=== PATIENT | female | born 1980 ===

== ENCOUNTER 2016-11-17 10:12 | Inpatient (IN) | payer BC, MEDICAID ==
[2016-11-17] MEDS ORDERED: Piperacillin/Tazobact 3.375 GM in Sodium Chloride 0.9% 100 ML IVPB STA (12:11)
[2016-11-17 12:50] LABS: VENOUS BLOOD GAS BASE EXCESS 6.4 mmol/L (0.0-2.0); VENOUS BLOOD GAS PCO2 41 mmHg (40-60); VENOUS BLOOD GAS PO2 40 mm/Hg (30-55); VENOUS BLOOD PH 7.48 (7.32-7.43)
[2016-11-17 12:51] LABS: BASO # 0.2 K/uL (0.0-0.2); EOS % 0.1 % (0.0-4.0); HEMOGLOBIN 8.3 g/dL (12.0-16.0); LYMPH # 0.7 K/uL (1.0-4.3); LYMPH % 3.5 % (20.0-40.0); MEAN CELL VOLUME 62.8 fl (81.0-99.0); MEAN CORPUSCULAR HEMOGLOBIN 19.3 pg (27.0-31.0); MEAN CORPUSCULAR HGB CONC 30.7 g/dL (33.0-37.0); MEAN PLATELET VOLUME 8.7 fl (7.2-11.7); MONO # 0.8 K/uL (0.0-0.8); MONO % 3.9 % (0.0-10.0); NEUT # 19.6 K/uL (1.8-7.0); NEUT % 91.5 % (50.0-75.0); PLATELET COUNT 644 K/uL (130-400); RED CELL DISTRIBUTION WIDTH 17.8 % (11.5-14.5); WHITE BLOOD COUNT 21.4 K/uL (4.8-10.8)
[2016-11-17] MEDS ORDERED: Vancomycin 1 g Inj ONE (12:54)
[2016-11-17 12:57] LABS: SQUAMOUS EPITHIAL 2 /hpf (0-5); URINE BACTERIA MOD (<OCC); URINE BILIRUBIN NEGATIVE (NEGATIVE); URINE BLOOD LARGE (NEGATIVE); URINE CLARITY SLIGHTY-CLOUDY (Clear); URINE COLOR YELLOW (YELLOW); URINE GLUCOSE (UA) NEG (Normal); URINE LEUKOCYTE ESTERASE MOD Leu/uL (Negative); URINE NITRATE NEGATIVE (NEGATIVE); URINE PROTEIN 30 mg/dL (NEGATIVE); URINE UROBILINOGEN 0.2-1.0 mg/dL (0.2-1.0)
[2016-11-17 12:59] LABS: ALB/GLOB RATIO 0.8 (1.0-2.1); ALBUMIN 3.4 g/dL (3.5-5.0); ALT/SGPT 34 U/L (9-52); AST/SGOT 48 U/L (14-36); BLOOD UREA NITROGEN 11 mg/dl (7-17); CALCIUM 9.3 mg/dL (8.4-10.2); GFR AFRICAN-AMERICAN > 60; GFR NON-AFRICAN AMERICAN > 60
--- NOTE | 2016-11-17 13:01 | ED PDOC ---
HPI: Back Time Seen by Provider: 11/17/16 11:42 Chief Complaint (Nursing): Back Pain Chief Complaint (Provider): Right Lower Back Pain History Per: Patient History/Exam Limitations: no limitations Onset/Duration Of Symptoms: Other (3 weeks) Current Symptoms Are (Timing): Still Present Quality Of Discomfort: "Pain" Additional Complaint(s): Lillian Curry, a 36 year old female, presents to the ED complaining of right lower back pain, warmth and swelling, which became worse over the past 2-3 days. The patient reports that in June of this year she had a kidney stone and a stent was placed by Dr. chaney, she states that she was advised to take it out but did not do so due to insurance complications. Denies nausea, vomiting , diarrhea, fever, abdominal pain, hematuria, incontinence and saddle paresthesia. Past Medical History Reviewed: Historical Data, Nursing Documentation, Vital Signs Vital Signs: Last Vital Signs Temp 98.8 F 11/17/16 12:22 Pulse 128 H 11/17/16 12:22 Resp 16 11/17/16 12:22 BP 117/64 11/17/16 12:22 Pulse Ox 100 11/17/16 12:22 - Medical History PMH: Kidney Stones - Family History Family History: States: Unknown Family Hx - Home Medications Home Medications: Ambulatory Orders Medication Instructions Recorded Ferrous Sulfate [Feosol] 325 mg PO DAILY 11/17/16 Folic Acid [Folic Acid] 5 mg PO DAILY 11/17/16 Isoniazid [Niazid] 300 mg PO DAILY 11/17/16 Lactobacillus Combination No.8 1 cap PO HS 11/17/16 [Adult Probiotic] Multivitamin [Multi-Vitamin Daily] 1 tab PO DAILY 11/17/16 Pyridoxine [Vitamin B6 50 mg Tab] 50 mg PO DAILY 11/17/16 - Allergies Allergies/Adverse Reactions: Allergies Allergy/AdvReac Type Severity Reaction Status Date / Time No Known Allergies Allergy Verified 11/17/16 12:07 Review of Systems Constitutional: Negative for: Fever Gastrointestinal: Negative for: Nausea, Vomiting, Abdominal Pain Genitourinary Female: Negative for: Incontinence, Hematuria Musculoskeletal: Positive for: Back Pain (Right lower back pain.) Physical Exam - Reviewed Nursing Documentation Reviewed: Yes Vital Signs Reviewed: Yes - Physical Exam Appears: Positive for: Non-toxic, No Acute Distress Head Exam: Positive for: ATRAUMATIC, NORMOCEPHALIC Skin: Positive for: Normal Color, Warm, Dry Eye Exam: Positive for: Normal appearance, EOMI, PERRL ENT: Positive for: Normal ENT Inspection Neck: Positive for: Normal, Painless ROM, Supple Cardiovascular/Chest: Positive for: Regular Rate, Rhythm, Chest Non Tender. Negative for: Tachycardia Respiratory: Positive for: Normal Breath Sounds. Negative for: Wheezing, Respiratory Distress Gastrointestinal/Abdominal: Positive for: Normal Exam, Bowel Sounds, Soft. Negative for: Tenderness, Guarding, Rebound Back: Negative for: Normal Inspection (Large amount of erythema with warmth swelling to the right paralumbar area extending into the lower axillary region w /o break and skin integrity, induration and fluctuance), L CVA Tenderness, R CVA Tenderness Extremity: Positive for: Normal ROM. Negative for: Tenderness, Deformity, Swelling Neurologic/Psych: Positive for: Alert, Oriented - Laboratory Results Result Diagrams: 11/17/16 16:45 11/17/16 12:35 - ECG O2 Sat by Pulse Oximetry: 100 (RA) Pulse Ox Interpretation: Normal Medical Decision Making Medical Decision Makin:42 Initial Impression: 36 year old female presenting with right lower back pain Initial Plan: * VBG * CT ABD&PELV * Comp metabolic panel * NPOdiet * Upreg * Udip * CBC * Vancomycin inj gm NS 250ml IVPB * Zosyn 3.375gm NS 100ml * Admit 12:10 * Urinalysis * Reevaluation Scribe Attestation Documented by Kelly Stevens acting as a scribe for Steven Pineda PA-C. Provider Attestation All medical record entries made by the Scribe were at my direction and personally dictated by me. I have reviewed the chart and agree that the record accurately reflects my personal performance of the history, physical exam, medical decision making, and the department course for this patient. I have also personally directed, reviewed, and agree with the discharge instructions and disposition. ED OBSERVATION Date of observation admission: 11/17/16 Time of observation admission: 12:10 - Observation admission statement Patient is being placed in observation because:: Cellulitis Vs. Abscess - Progress Note Progress Note: 11/17/16 14:16 Pt. requesting pain meds. Morphine 4mg IV, zofran 4mg IV given. 11/17/16 16:16 CT abd/pelvis w/ IV contrast: 1. Findings are come cyst and with large abscesses in the right lower abdomen, iliopsoas muscle, right lower posterolateral abdominal wall and right lower posterior lateral deep subcutaneous fat. Few small bowel loops are seen anterior to the abscess in the lower abdominal wall and an enteric fistula cannot be entirely excluded with the stated history of Crohn's disease. Postsurgical changes noted in the region of the cecum, question cough appendectomy, is the appendix has not been surgically removed, perforation cannot be excluded. 2. 3.9 x 1.5 x 3.5 cm abscess in the left lower quadrant adjacent to the distal descending colon. 3. Small nonobstructing stones in both kidneys. Left pelviureteral stent remains in place. There is mild bilateral hydronephrosis and mild diffuse dilatation of the ureters, worse on the left. Pt. evaluated by Dr. Beltre. Call placed to Dr. Dyson. Additional labs ordered. Additional fluids ordered. 11/17/16 16:36 Case d/w Dr. Helms who agrees with care. vice president of talent acquisition contacted. 11/17/16 17:15 Dr. Beltre discussed case with Dr. Mensah and arrangements made for admission. Case d/w Dr. Sunshine, ID leasing sales consultant, who states Zosyn IV, Vancomycin IV are sufficient coverage for pt.'s infection. 11/17/16 18:00 HgB 7.3. Consent obtained for blood transfusion. PRBC's given.. Disposition - Clinical Impression Clinical Impression: Intra-abdominal abscess, Sepsis - Patient ED Disposition Is Patient to be Admitted: Yes - Disposition Disposition Time: 17:01 Condition: GUARDED - Pt Status Changed To: Hospital Disposition Of: Inpatient - Admit Certification Admit to Inpatient:: After my assessment, the patient will require hospitalization for at least two midnights. This is because of the severity of symptoms shown, intensity of services needed, and/or the medical risk in this patient being treated as an outpatient.
[2016-11-17] MEDS ORDERED: Sodium Chloride 0.9% 1,000 ML IV STA ×3 (13:30→16:34)
[2016-11-17 14:17] LABS: ANISOCYTOSIS SLIGHT; BANDS 5 % (0-2); LYMPHOCYTE 4 % (20-50); MICROCYTOSIS SLIGHT; MONOCYTE 3 % (0-10); NEUTROPHIL 88 % (42-75); PLATELET ESTIMATE SLIGHTLY INCREASED (NORMAL); TOTAL CELLS COUNTED 100
[2016-11-17 14:18] LABS: HYPOCHROMIC SLIGHT; LARGE PLATELETS PRESENT; OVALOCYTES SLIGHT
[2016-11-17] MEDS ORDERED: Iohexol 300 100 ML IJ ONE (14:48)
[2016-11-17] MEDS ORDERED: Piperacillin/Tazobact 3.375 gm Inj IVPB ONE (15:51)
--- NOTE | 2016-11-17 16:00 | CT ---
PROCEDURE: CT Abdomen and Pelvis with contrast HISTORY: R paralumbar area with moderate erythema, history of Crohn's disease. COMPARISON: None. TECHNIQUE: CT scan of the abdomen and pelvis was performed after intravenous administration of contrast. Oral contrast was not administered. Coronal and sagittal reformatted images were obtained. Radiation dose: Total exam DLP = 320.36 mGy-cm. This CT exam was performed using one or more of the following dose reduction techniques: Automated exposure control, adjustment of the mA and/or kV according to patient size, and/or use of iterative reconstruction technique. FINDINGS: LOWER THORAX: There is linear atelectasis/scarring in the medial segment of the right middle lobe. The lung bases are clear. There are bilateral retroglandular saline breast implants. LIVER: The liver is normal in homogeneous. No gross lesion or ductal dilatation. GALLBLADDER AND BILE DUCTS: There are no calcified gallstones. PANCREAS: The pancreas is normal in size and there is homogeneous enhancement. No gross lesion or ductal dilatation. SPLEEN: There is mild splenomegaly. No focal lesion. ADRENALS: Both adrenal glands are normal. KIDNEYS AND URETERS: There are nonobstructing stones in both kidneys. There is mild right hydronephrosis and mild diffuse lesion the right ureteral there is also mild left hydronephrosis and diffuse dilatation of the left ureteral. There is a left pelviureteral stent. VASCULATURE: No aortic aneurysm. BOWEL: There is mild dilatation of fluid-filled small bowel loops. There is returning suture in the region of the cecum and the appendix is not distinctly identified. There is moderate amount of stool scattered throughout the colon. Also noted is a 3.9 x 1.5 x 3.5 cm ring-enhancing cystic lesion with foci of air in the left lower quadrant adjacent to the descending colon. IMPRESSION: There is a 4.0 x 3.2 x 4.6 cm rim enhancing cystic mass with foci of air in the right lower abdomen with medial extension into the right psoas muscle and posterior extension into the right iliacus muscle. There are also small bowel loops adherent to this cystic mass. APPENDIX: Not visualized. PERITONEUM: No free intraperitoneal air or significant free fluid in the peritoneal cavity. LYMPH NODES: There are prominent subcentimeter lymph nodes in the right lower quadrant. BLADDER: Unremarkable. REPRODUCTIVE: Unremarkable. BONES: No acute fracture. No destructive bony lesions. Severe degenerative disc disease at L5-S1. OTHER FINDINGS: There is a 8.5 x 2.2 by 8.8 cm rim enhancing cystic mass with air-fluid level in the right lower abdominal wall. Additionally, there is a 10.4 by 3.5 by 8.9 cm rim enhancing cystic mass with multiple foci of air in the deep subcutaneous tissues of the right lower posterior lateral abdominal wall. There is diffuse subcutaneous edema and soft tissue swelling in the right lateral abdominal wall. IMPRESSION: 1. Findings are come cyst and with large abscesses in the right lower abdomen, iliopsoas muscle, right lower posterolateral abdominal wall and right lower posterior lateral deep subcutaneous fat. Few small bowel loops are seen anterior to the abscess in the lower abdominal wall and an enteric fistula cannot be entirely excluded with the stated history of Crohn's disease. Postsurgical changes noted in the region of the cecum, question cough appendectomy, is the appendix has not been surgically removed, perforation cannot be excluded. 2. 3.9 x 1.5 x 3.5 cm abscess in the left lower quadrant adjacent to the distal descending colon. 3. Small nonobstructing stones in both kidneys. Left pelviureteral stent remains in place. There is mild bilateral hydronephrosis and mild diffuse dilatation of the ureters, worse on the left. Important findings were discussed with KAILA Pineda on 11/17/2016 at 3:45 p.m.
--- NOTE | 2016-11-17 16:30 | ED PDOC ---
- Laboratory Results Result Diagrams: 11/17/16 16:45 11/17/16 12:35 - ECG O2 Sat by Pulse Oximetry: 100 (RA) Pulse Ox Interpretation: Normal - Progress ED Course And Treament: 4p Reviewed CT scan with Alex BRIGHT and evaluated pt. Pt with persistent tachycardia and labs c/w sepsis. Addn'l IVF ordered. MICHELLE pt findings and plan of care. Paged surgery. MICHELLE Orosco Transition Social Worker, who reviewed findings in chart and determined that at this time pt stable for telemetry unit, unless repeat evaluation findings demonstrate worsening status or if surgery desires ICU. Pending repeat lactic acid and vitals and surgery consult. MICHELLE Huynh Surgery contract serviceman, Dr aC surgery resident. Evaluated by Dr Dent Surgery resident MICHELLE Mensah Med Service Other consults contacted: Dr Sunshine ID, Dr Woody GI, Dr Zhu IR Repeat lactic acid improved Hgb decreased. Transfusion ordered. Condition: Improving,but remains with symptoms - Critical Care Total Time (In Min): 30 Documented Critical Care: Time excludes all time spent performint seperately billable procedures Disposition - Clinical Impression Clinical Impression: Intra-abdominal abscess, Sepsis - POA Present On Arrival: Surgical Site Infection - Disposition Disposition: Admitted as In-Patient Disposition Time: 16:00 Condition: GUARDED
[2016-11-17 16:51] LABS: BASO # 0.2 K/uL (0.0-0.2); BASO % 0.9 % (0.0-2.0); EOS % 0.1 % (0.0-4.0); HEMOGLOBIN 7.8 g/dL (12.0-16.0); LYMPH # 1.1 K/uL (1.0-4.3); LYMPH % 5.9 % (20.0-40.0); MEAN CELL VOLUME 63.1 fl (81.0-99.0); MEAN CORPUSCULAR HEMOGLOBIN 18.9 pg (27.0-31.0); MEAN CORPUSCULAR HGB CONC 29.9 g/dL (33.0-37.0); MEAN PLATELET VOLUME 8.7 fl (7.2-11.7); MONO # 0.5 K/uL (0.0-0.8); MONO % 2.9 % (0.0-10.0); NEUT # 16.3 K/uL (1.8-7.0); NEUT % 90.2 % (50.0-75.0); PLATELET COUNT 636 K/uL (130-400); RBC 4.14 Mil/uL (3.80-5.20); RED CELL DISTRIBUTION WIDTH 18.2 % (11.5-14.5); WHITE BLOOD COUNT 18.1 K/uL (4.8-10.8)
[2016-11-17 16:55] LABS: VENOUS BLOOD GAS BASE EXCESS 4.8 mmol/L (0.0-2.0); VENOUS BLOOD GAS PCO2 45 mmHg (40-60); VENOUS BLOOD GAS PO2 29 mm/Hg (30-55); VENOUS BLOOD PH 7.43 (7.32-7.43)
[2016-11-17] MEDS ORDERED: Sodium Chloride 0.9% 1,000 ML IV ONE (17:30)
--- NOTE | 2016-11-17 17:52 | CP.PCM.CON ---
History of Present Illness - History of Present Illness History of Present Illness: General Surgery - Dr. Dyson 36 yo F w/ hx of Crohn's, who presents w/ worsening R flank pain x1 week. Pt states that the pain began 3 weeks ago but became significantly worse within the past week. It is described as a sharp burning pain, very tender to touch, located in the R lower back/R flank region. Pt states she noticed the skin around the area becoming red about 2 days ago. She denies any N/V, F/C, SOB/Cp , Abdominal pain, Diarrhea, Constipation, Dysuria, hematuria. Pt states that she was diagnosed with Crohn's disease in January 2016. She initially was treated with steroids but is now receiving Remicade infusion monthly. 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 PMH: Crohn's disease, Perforated appendicitis (~2004), Nephrolithiasis PSH: Ex-lap for perforated appendicitis, x 2, Ureteral stent ( June 2016) NKDA Review of Systems - Review of Systems All systems: reviewed and no additional remarkable complaints except (as per HPI ) Past Patient History - Past Social History Smoking Status: Never Smoked - RENAL Hx Kidney Stones: Yes - HEMATOLOGICAL/ONCOLOGICAL Hx Blood Disorders: Yes Hx Anemia: Yes - GASTROINTESTINAL Hx Gastrointestinal Disorders: Yes Hx Crohn's Disease: Yes - PSYCHIATRIC Hx Substance Use: No - SURGICAL HISTORY Hx Surgeries: Yes Hx Appendectomy: Yes Hx Section: Yes (x3) Other/Comment: "Kidney stent," Breast augmentation - ANESTHESIA Hx Anesthesia: Yes Hx Anesthesia Reactions: No Meds Allergies/Adverse Reactions: Allergies Allergy/AdvReac Type Severity Reaction Status Date / Time No Known Allergies Allergy Verified 11/17/16 12:07 - Medications Medications: Current Medications Dextrose/Sodium Chloride (Dextrose 5%-0.9% Ns 500 Ml) 1,000 mls @ 100 mls/hr IV .Q10H [facility] Sodium Chloride (Sodium Chloride 0.9%) 1,000 mls @ 1,000 mls/hr IV .Q1H ONE Stop: 11/17/16 18:29 Physical Exam - Constitutional Appears: No Acute Distress - Head Exam Head Exam: ATRAUMATIC, NORMAL INSPECTION, NORMOCEPHALIC - Eye Exam Eye Exam: Normal appearance - ENT Exam ENT Exam: Mucous Membranes Dry - Respiratory Exam Respiratory Exam: NORMAL BREATHING PATTERN. absent: Respiratory Distress - Cardiovascular Exam Cardiovascular Exam: Tachycardia - GI/Abdominal Exam GI & Abdominal Exam: Soft. absent: Distended, Guarding, Rebound, Rigid, Tenderness - Back Exam Back exam: paraspinal tenderness, tenderness (Right flank w/ erythema and slight induration, very tender) - Neurological Exam Neurological exam: Alert, Oriented x3 - Psychiatric Exam Psychiatric exam: Normal Affect, Normal Mood - Skin Skin Exam: Dry, Intact Results - Vital Signs Recent Vital Signs: Last Vital Signs Temp 98.7 F 11/17/16 16:30 Pulse 111 H 11/17/16 16:30 Resp 20 11/17/16 16:30 BP 106/56 L 11/17/16 16:30 Pulse Ox 100 11/17/16 17:18 - Labs Result Diagrams: 11/17/16 16:45 11/17/16 12:35 - Imaging and Cardiology CT scan - abdomen Status: Image reviewed by me, Report reviewed by me Assessment & Plan - Assessment and Plan (Free Text) Assessment: 36 yo F w/ Crohn's disease, presenting w/ sepsis and 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 GI consult -Pain control -Supportive Medical tx for now -Consider IR drainage of the abscess, if develops closer to the skin could consider surgical drainage in the next few days DW Dr Kiel Dent PGY2
[2016-11-17 17:59] LABS: BANDS 1 % (0-2); LYMPHOCYTE 6 % (20-50); MONOCYTE 2 % (0-10); NEUTROPHIL 91 % (42-75); TOTAL CELLS COUNTED 100
[2016-11-17 18:00] LABS: PLATELET ESTIMATE MARKEDLY INCREASED (NORMAL)
[2016-11-17 18:01] LABS: SPHEROCYTES SLIGHT
[2016-11-17 18:41] LABS: INR 1.4 (0.9-1.2); PARTIAL THROMBOPLASTIN TIME 25.7 Seconds (25.6-37.1); PROTHROMBIN TIME 15.7 Seconds (9.8-13.1)
--- NOTE | 2016-11-17 18:51 | CP.PCM.CON ---
History of Present Illness - History of Present Illness History of Present Illness: 36 yo female coming to ER for right flank pain. Pain present for 3 weeks and worst over past week.. Had right ureteral stent placed and never removed. Was diagnosed with Crohns in June and was receiving Remicade while tapering prednisone.Current dose of prednisone was just 5 mg. Last remicade infusion was one week ago. Review of Systems - EENT Eyes: absent: Blurred Vision - Cardiovascular Cardiovascular: absent: Chest Pain - Respiratory Respiratory: absent: Cough - Gastrointestinal Gastrointestinal: absent: Abdominal Pain Past Patient History - Past Social History Smoking Status: Never Smoked - RENAL Hx Kidney Stones: Yes - HEMATOLOGICAL/ONCOLOGICAL Hx Blood Disorders: Yes Hx Anemia: Yes - GASTROINTESTINAL Hx Gastrointestinal Disorders: Yes Hx Crohn's Disease: Yes - PSYCHIATRIC Hx Substance Use: No - SURGICAL HISTORY Hx Surgeries: Yes Hx Appendectomy: Yes Hx Section: Yes (x3) Other/Comment: "Kidney stent," Breast augmentation - ANESTHESIA Hx Anesthesia: Yes Hx Anesthesia Reactions: No Meds Allergies/Adverse Reactions: Allergies Allergy/AdvReac Type Severity Reaction Status Date / Time No Known Allergies Allergy Verified 11/17/16 12:07 - Medications Medications: Current Medications Dextrose/Sodium Chloride (Dextrose 5%-0.9% Ns 500 Ml) 1,000 mls @ 100 mls/hr IV .Q10H [facility] Vancomycin HCl 1 gm/ Sodium (Chloride) 250 mls @ 166.667 mls/hr IVPB Q12 [facility] Piperacillin Sod/Tazobactam (Sod 3.375 gm/ Sodium Chloride) 100 mls @ 100 mls/ hr IVPB Q6 [facility] Morphine Sulfate (Morphine) 4 mg IVP Q4 PRN PRN Reason: Pain, moderate (4-7) Ondansetron HCl (Zofran Inj) 4 mg IVP Q4 PRN PRN Reason: Nausea/Vomiting Physical Exam - Head Exam Head Exam: ATRAUMATIC - Eye Exam Eye Exam: Normal appearance - ENT Exam ENT Exam: Mucous Membranes Moist - Respiratory Exam Respiratory Exam: Clear to Auscultation Bilateral - Cardiovascular Exam Cardiovascular Exam: REGULAR RHYTHM, +S1, +S2 - GI/Abdominal Exam GI & Abdominal Exam: Distended, Firm. absent: Tenderness Additional comments: Right flank with very large .10 cm indurated tender prominence Results - Vital Signs Recent Vital Signs: Last Vital Signs Temp 98.7 F 11/17/16 16:30 Pulse 111 H 11/17/16 16:30 Resp 20 11/17/16 16:30 BP 106/56 L 11/17/16 16:30 Pulse Ox 100 11/17/16 17:18 - Labs Result Diagrams: 11/17/16 16:45 11/17/16 12:35 Labs: Laboratory Results - last 24 hr 11/17/16 11/17/16 18:00 18:00 PT 15.7 H INR 1.4 H APTT 25.7 BBK History Checked No verified bt Assessment & Plan (1) Intra-abdominal abscess Assessment and Plan: Multiple abdominal abscesses and IV antibiotics started. ID and surgical services seeing patient. May need both surgical and IR to drain the abscesses. Status: Acute
[2016-11-17] MEDS ORDERED: Propofol 10 mg/ml Inj (20 ML) ONE (20:46)
[2016-11-17] MEDS ORDERED: Midazolam 2 MG/2 ML VIAL ONE (20:47)
[2016-11-17] MEDS ORDERED: Lidocaine 1% Inj (20ml) ONE (21:11)
[2016-11-17] MEDS ORDERED: Sodium Chloride 0.9% 100 ML ONE (21:15)
--- NOTE | 2016-11-17 21:46 | PCM.SURG1 ---
Surgeon's Initial Post Op Note - Surgeon's Notes Surgeon: Javier Zhu MD Cashier Self Service Gasoline: NONE Type of Anesthesia: IV Sedation Pre-Operative Diagnosis: Crohn's disease, pelvic abscesses Operative Findings: Complex collections in the pelvis and right gluteal region with skin erythema. Post-Operative Diagnosis: Pelvic abscesses Operation Performed: CT guided placement of a 10 fr drain in the right gluteal abscess and 10 fr drain placement in the largest pelvic collection. Specimen/Specimens Removed: 80 cc of purulent drainage Estimated Blood Loss: EBL {In ML}: 1 Blood Products Given: N/A Drains Used: Inderjit Garcia Post-Op Condition: Fair Date of Surgery/Procedure: 11/17/16 Time of Surgery/Procedure: 21:40
[2016-11-17] MEDS: Piperacillin/Tazobact 3.375 GM in Sodium Chloride 0.9% 100 ML IVPB SCH (22:00)
[2016-11-17] MEDS ORDERED: Sodium Chloride 0.9% 1,000 ML IV SCH (22:45)
[2016-11-18] MEDS: Dextrose 5%/0.9% NS 1,000 ML IV SCH ×3 (00:30→22:49)
[2016-11-18] MEDS: Piperacillin/Tazobact 3.375 GM in Sodium Chloride 0.9% 100 ML IVPB SCH ×3 (03:50→22:49)
--- NOTE | 2016-11-18 08:58 | CP.PCM.PN ---
Subjective - Date & Time of Evaluation Date of Evaluation: 11/18/16 Time of Evaluation: 08:56 - Subjective Subjective: General Surgery - Dr. Dyson Pt S&E. Last night pt went for IR drainage of the R flank abscess, 80cc purulent drainage. This morning pt states that her pain is improved. She denies any abdominal pain, N/V, F/C, SOb/Cp. Objective - Vital Signs/Intake and Output Vital Signs (last 24 hours): Temp Pulse Resp BP Pulse Ox 97.8 F 85 18 97/62 L 99 11/18/16 08:11 11/18/16 08:11 11/18/16 08:11 11/18/16 08:11 11/18/16 08:11 Intake and Output: 11/18/16 11/18/16 06:59 18:59 Intake Total 1350 Output Total 720 Balance 630 - Medications Medications: Current Medications Ferrous Sulfate (Feosol) 325 mg PO DAILY [facility] Folic Acid (Folic Acid) 5 mg PO DAILY [facility] Vancomycin HCl 1 gm/ Sodium (Chloride) 250 mls @ 166.667 mls/hr IVPB Q12 [facility] Last Admin: 11/18/16 00:14 Dose: 166.667 mls/hr Piperacillin Sod/Tazobactam (Sod 3.375 gm/ Sodium Chloride) 100 mls @ 100 mls/ hr IVPB Q6 [facility] Last Admin: 11/18/16 03:50 Dose: 100 mls/hr Sodium Chloride (Sodium Chloride 0.9%) 1,000 mls @ 1,000 mls/hr IV .Q1H [facility] Stop: 11/18/16 22:41 Last Admin: 11/17/16 22:45 Dose: 1,000 mls/hr Dextrose/Sodium Chloride (Dextrose 5%/0.9% Ns 1000 Ml) 1,000 mls @ 100 mls/hr IV .Q10H [facility] Last Admin: 11/18/16 00:30 Dose: 100 mls/hr Isoniazid (Niazid) 300 mg PO DAILY [facility] Lactobacillus Acidophilus (Bacid Acidophilus) 1 cap PO HS [facility] Morphine Sulfate (Morphine) 4 mg IVP Q4 PRN PRN Reason: Pain, moderate (4-7) Last Admin: 11/17/16 19:58 Dose: 4 mg Multivitamins/Minerals (Therapeutic-M Tab) 1 tab PO DAILY [facility] Ondansetron HCl (Zofran Inj) 4 mg IVP Q4 PRN PRN Reason: Nausea/Vomiting Pyridoxine HCl (Vitamin B6 50 Mg Tab) 50 mg PO DAILY [facility] - Labs Labs: PT 15.7 Seconds (9.8-13.1) H 11/17/16 18:00 INR 1.4 (0.9-1.2) H 11/17/16 18:00 APTT 25.7 Seconds (25.6-37.1) 11/17/16 18:00 - Constitutional Appears: No Acute Distress - Head Exam Head Exam: ATRAUMATIC, NORMAL INSPECTION, NORMOCEPHALIC - Eye Exam Eye Exam: Normal appearance - Respiratory Exam Respiratory Exam: NORMAL BREATHING PATTERN. absent: Respiratory Distress - Cardiovascular Exam Cardiovascular Exam: REGULAR RHYTHM - GI/Abdominal Exam GI & Abdominal Exam: Soft. absent: Distended, Guarding, Tenderness, Rebound - Extremities Exam Additional comments: R flank still with mild erythema, less tender, with [address] with purulent drainage - Neurological Exam Neurological Exam: Alert, Oriented x3 - Psychiatric Exam Psychiatric exam: Normal Affect, Normal Mood - Skin Skin Exam: Dry, Intact Assessment and Plan - Assessment and Plan (Free Text) Assessment: 36 yo F w/ Crohn's disease, presenting w/ sepsis and multiloculated retroperitoneal abscess, s/p IR drainage -Monitor drains -Diet as per GI -Continue IV Abx and IVF -Pain control -Supportive Medical tx for now -No plans for further surgical intervention at this time DW Dr Kiel Dent PGY2
[2016-11-18] MEDS ORDERED: Piperacillin/Tazobact 3.375 gm Inj IVPB ONE (09:00)
[2016-11-18] MEDS ORDERED: Patient's Own Med (Multivitamin [Multi-Vitamin Daily] 1 TAB) PO SCH (09:00)
--- NOTE | 2016-11-18 09:24 | CP.PCM.HP ---
Present on Admission - Present on Admission Any Indicators Present on Admission: No Past Patient History - Tetanus Immunizations Tetanus Immunization: Unknown - Past Medical History & Family History Past Medical History?: Yes - Past Social History Smoking Status: Never Smoked - CARDIAC Hx Cardiac Disorders: No - PULMONARY Hx Respiratory Disorders: No - NEUROLOGICAL Hx Neurological Disorder: No - HEENT Hx HEENT Problems: No - RENAL Hx Kidney Stones: Yes - ENDOCRINE/METABOLIC Hx Endocrine Disorders: No - HEMATOLOGICAL/ONCOLOGICAL Hx Blood Disorders: Yes Hx Anemia: Yes - INTEGUMENTARY Hx Dermatological Problems: No - MUSCULOSKELETAL/RHEUMATOLOGICAL Hx Falls: No - GASTROINTESTINAL Hx Gastrointestinal Disorders: Yes Hx Crohn's Disease: Yes - PSYCHIATRIC Hx Substance Use: No - SURGICAL HISTORY Hx Surgeries: Yes Hx Appendectomy: Yes Hx Section: Yes (x3) Other/Comment: "Kidney stent," Breast augmentation - ANESTHESIA Hx Anesthesia: Yes Hx Anesthesia Reactions: No Meds Allergies/Adverse Reactions: Allergies Allergy/AdvReac Type Severity Reaction Status Date / Time No Known Allergies Allergy Verified 11/17/16 12:07 Physical Exam - Head Exam Head Exam: ATRAUMATIC - Eye Exam Eye Exam: EOMI, Normal appearance - Neck Exam Neck exam: Positive for: Full Rom, Normal Inspection - Respiratory Exam Respiratory Exam: Clear to Auscultation Bilateral, NORMAL BREATHING PATTERN - Cardiovascular Exam Cardiovascular Exam: REGULAR RHYTHM, +S1, +S2 - GI/Abdominal Exam GI & Abdominal Exam: Soft, Tenderness Additional comments: RLQ drain + with purulant discharge - Rectal Exam Rectal Exam: NORMAL INSPECTION - Exam Exam: NORMAL INSPECTION, Testicular Vertical Lie External exam: NORMAL EXTERNAL EXAM - Extremities Exam Extremities exam: Positive for: full ROM, normal inspection - Back Exam Back exam: NORMAL INSPECTION - Neurological Exam Neurological exam: Normal Gait - Psychiatric Exam Psychiatric exam: Normal Affect - Skin Skin Exam: Normal Color Results - Vital Signs Recent Vital Signs: Last Vital Signs Temp 97.8 F 11/18/16 08:11 Pulse 85 11/18/16 08:11 Resp 18 11/18/16 08:11 BP 97/62 L 11/18/16 08:11 Pulse Ox 99 11/18/16 08:11 - Labs Result Diagrams: 11/24/16 13:19 11/24/16 13:19 Labs: Laboratory Results - last 24 hr 11/17/16 11/17/16 11/17/16 18:00 18:00 18:10 PT 15.7 H INR 1.4 H APTT 25.7 Blood Type A POSITIVE Blood Type Confirm A POSITIVE Antibody Screen Negative Crossmatch See Detail BBK History Checked No verified bt Assessment & Plan - Assessment and Plan (Free Text) Assessment: Sepsis Intra abdominal abscess Chron's disease Plan: As ordered. Case and plan d/w patient Patient was personally seen and examined by me in rounds with residents. Available labs and diagnostic data reviewed. Case, patient's condition and management plan discussed with residents in rounds. Agree with resident's progress note. Plan: As ordered.
[2016-11-18] MEDS: Multivitamin With Minerals Tab PO SCH (10:27)
--- NOTE | 2016-11-18 20:14 | CT ---
PROCEDURE: HISTORY: COMPARISON: Same day TECHNIQUE: Noncontrast FINDINGS: There is re-demonstration of roughly 4.0 x 3.5 x 2.0 centimeter collection in the right hemipelvis, as well as re-demonstration of a large roughly 10 centimeter collection in the right posterior lateral subcutaneous fat with air components and possible communication with the a formation collection in the right pelvic cavity. This is not significantly changed. There is a drainage tube catheter placed within the internal pelvic cavity collection as well as within the left extra cavity the collection. IMPRESSION: Status post rage tube catheter placement in large right pelvic internal cavity collection as well as posterior lateral subcutaneous fat collection.
[2016-11-18] MEDS ORDERED: LACTOBACILLUS COMBINATION NO 8 PO SCH (22:00)
[2016-11-18] MEDS: Lactobacillus Acidophilus 500 MU Cap PO SCH (22:50)
[2016-11-19] MEDS: Piperacillin/Tazobact 3.375 GM in Sodium Chloride 0.9% 100 ML IVPB SCH ×4 (04:29→21:24)
[2016-11-19 08:21] LABS: HEMOGLOBIN 9.6 g/dL (12.0-16.0); MEAN CELL VOLUME 69.5 fl (81.0-99.0); MEAN CORPUSCULAR HEMOGLOBIN 21.9 pg (27.0-31.0); MEAN CORPUSCULAR HGB CONC 31.5 g/dL (33.0-37.0); RBC 4.38 Mil/uL (3.80-5.20); RED CELL DISTRIBUTION WIDTH 26.4 % (11.5-14.5); WHITE BLOOD COUNT 9.6 K/uL (4.8-10.8)
[2016-11-19 08:34] LABS: ALBUMIN 2.8 g/dL (3.5-5.0); ALT/SGPT 37 U/L (9-52); AST/SGOT 33 U/L (14-36); BLOOD UREA NITROGEN 5 mg/dl (7-17); CALCIUM 9.4 mg/dL (8.4-10.2); GFR AFRICAN-AMERICAN > 60; GFR NON-AFRICAN AMERICAN > 60
[2016-11-19] MEDS: Multivitamin With Minerals Tab PO SCH (08:43)
[2016-11-19 08:44] LABS: ALB/GLOB RATIO 0.8 (1.0-2.1)
--- NOTE | 2016-11-19 09:02 | CP.PCM.PN ---
Subjective - Date & Time of Evaluation Date of Evaluation: 11/19/16 Time of Evaluation: 06:25 - Subjective Subjective: SURGERY NOTE FOR DR. BOTELLO 36F seen and examined at bedside. AMAURY. Continues to complain of abdominal pain , which is improving. IR drains placed 2 days ago, upper drain out 40cc of purulent fluid and lower drain 30cc of purulent fluid. Objective - Vital Signs/Intake and Output Vital Signs (last 24 hours): Temp Pulse Resp BP Pulse Ox 98.8 F 93 H 18 99/66 L 98 11/19/16 08:02 11/19/16 08:02 11/19/16 08:02 11/19/16 08:02 11/19/16 08:02 Intake and Output: 11/19/16 11/19/16 06:59 18:59 Output Total 370 Balance -370 - Medications Medications: Current Medications Acetaminophen (Tylenol 325mg Tab) 650 mg PO Q6 PRN PRN Reason: Pain, moderate (4-7) Ferrous Sulfate (Feosol) 325 mg PO DAILY [facility] Last Admin: 11/19/16 08:43 Dose: 325 mg Folic Acid (Folic Acid) 5 mg PO DAILY [facility] Last Admin: 11/19/16 08:43 Dose: 5 mg Vancomycin HCl 1 gm/ Sodium (Chloride) 250 mls @ 166.667 mls/hr IVPB Q12 [facility] Last Admin: 11/19/16 08:43 Dose: 166.667 mls/hr Piperacillin Sod/Tazobactam (Sod 3.375 gm/ Sodium Chloride) 100 mls @ 100 mls/ hr IVPB Q6 [facility] Last Admin: 11/19/16 04:29 Dose: 100 mls/hr Dextrose/Sodium Chloride (Dextrose 5%/0.9% Ns 1000 Ml) 1,000 mls @ 100 mls/hr IV .Q10H [facility] Last Admin: 11/18/16 22:49 Dose: 100 mls/hr Isoniazid (Niazid) 300 mg PO DAILY [facility] Last Admin: 11/19/16 08:43 Dose: 300 mg Ketorolac Tromethamine (Toradol) 30 mg IVP Q8 PRN PRN Reason: Pain, severe (8-10) Last Admin: 11/18/16 23:09 Dose: 30 mg Lactobacillus Acidophilus (Bacid Acidophilus) 1 cap PO HS [facility] Last Admin: 11/18/16 22:50 Dose: 1 cap Morphine Sulfate (Morphine) 4 mg IVP Q4 PRN PRN Reason: Pain, moderate (4-7) Last Admin: 11/17/16 19:58 Dose: 4 mg Multivitamins/Minerals (Therapeutic-M Tab) 1 tab PO DAILY [facility] Last Admin: 11/19/16 08:43 Dose: 1 tab Ondansetron HCl (Zofran Inj) 4 mg IVP Q4 PRN PRN Reason: Nausea/Vomiting Pyridoxine HCl (Vitamin B6 50 Mg Tab) 50 mg PO DAILY [facility] Last Admin: 11/19/16 08:43 Dose: 50 mg - Labs Labs: 11/19/16 06:30 11/19/16 06:30 PT 15.7 Seconds (9.8-13.1) H 11/17/16 18:00 INR 1.4 (0.9-1.2) H 11/17/16 18:00 APTT 25.7 Seconds (25.6-37.1) 11/17/16 18:00 - Constitutional Appears: Non-toxic, No Acute Distress - Respiratory Exam Respiratory Exam: Clear to Ausculation Bilateral, NORMAL BREATHING PATTERN - Cardiovascular Exam Cardiovascular Exam: REGULAR RHYTHM, +S1, +S2 - GI/Abdominal Exam GI & Abdominal Exam: Soft, Tenderness. absent: Distended, Firm, Guarding, Rigid , Rebound Additional comments: IR drains in place. - 40cc and 30cc purulent fluid Assessment and Plan - Assessment and Plan (Free Text) Assessment: 36 yo F w/ Crohn's disease, presenting w/ sepsis and multiloculated retroperitoneal abscess, s/p IR drainage POD2 -Monitor drains -Diet as per GI -Continue IV Abx and IVF -Pain control -No plans for further surgical intervention at this time Further recs discuss with Dr. Kiel Serrano, PGY1
--- NOTE | 2016-11-19 12:36 | CP.PCM.CON ---
History of Present Illness - History of Present Illness History of Present Illness: 36 yo F w/ hx of Crohn's, who presents w/ worsening R flank pain x1 week. Pt states that the pain began 3 weeks ago but became significantly worse within the past week. , located in the R lower back/R flank region. Pt states she noticed the skin around the area becoming red about 2 days ago. Had drainage catheter placed by IR ID consulted for antibiotic management She denies any N/V, F/C, SOB/Cp, Abdominal pain, Diarrhea, Constipation, Dysuria , hematuria. Pt states that she was diagnosed with Crohn's disease in January 2016. She initially was treated with steroids but is now receiving Remicade infusion monthly. Pt states the can pusher she sees is at [facility]. PMH: Crohn's disease, Perforated appendicitis (~2004), Nephrolithiasis PSH: Ex-lap for perforated appendicitis, x 2, Ureteral stent ( June 2016) NKDA Review of Systems - Constitutional Constitutional: As Per HPI, Anorexia, Chills, Fever, Malaise - EENT Eyes: absent: As Per HPI, Blind Spots, Blurred Vision, Change in Vision, Decreased Night Vision, Diplopia, Discharge, Dry Eye, Exophthalmos, Floaters, Irritation, Itchy Eyes, Loss of Peripheral Vision, Pain, Photophobia, Requires Corrective Lenses, Sees Flashes, Spots in Vision, Tunnel Vision, Other Visual Disturbances, Loss of Vision, Other Ears: absent: As Per HPI, Decreased Hearing, Ear Discharge, Ear Pain, Tinnitus, Abnormal Hearing, Disequilibrium, Dizziness, Other Nose/Mouth/Throat: absent: As Per HPI, Epistaxis, Nasal Congestion, Nasal Discharge, Nasal Obstruction, Nasal Trauma, Nose Pain, Post Nasal Drip, Sinus Pain, Sinus Pressure, Bleeding Gums, Change in Voice, Dental Pain, Dry Mouth, Dysphagia, Halitosis, Hoarsness, Lip Swelling, Mouth Lesions, Mouth Pain, Odynophagia, Sore Throat, Throat Swelling, Tongue Swelling, Facial Pain, Neck Pain, Neck Mass, Other - Breasts Breasts: absent: As Per HPI, Change in Shape, Mass, Pain, Nipple Discharge, Nipple Inversion, Skin Changes, Swelling, Other - Cardiovascular Cardiovascular: absent: As Per HPI, Acrocyanosis, Chest Pain, Chest Pain at Rest , Chest Pain with Activity, Claudication, Diaphoresis, Dyspnea, Dyspnea on Exertion, Edema, Irregular Heart Rhythm, Pain Radiating to Arm/Neck/Jaw, Leg Edema, Leg Ulcers, Lightheadedness, Orthopnea, Palpitations, Paroxysmal Nocturnal Dyspnea, Pedal Edema, Radiating Pain, Rapid Heart Rate, Slow Heart Rate, Syncope, Other - Respiratory Respiratory: absent: As Per HPI, Cough, Dyspnea, Hemoptysis, Dyspnea on Exertion , Wheezing, Snoring, Stridor, Pain on Inspiration, Chest Congestion, Excessive Mucous Production, Change in Mucous Color, Pain with Coughing, Other - Gastrointestinal Gastrointestinal: As Per HPI, Abdominal Pain - Genitourinary Genitourinary: absent: As Per HPI, Change in Urinary Stream, Difficulty Urinating, Dysuria, Flank Pain, Hematuria, Pyuria, Nocturia, Urinary Incontinence, Urinary Frequency, Urinary Hesitance, Urinary Urgency, Voiding Freq/Small Amts, Freq UTI, Hx Renal/Bladder Calculi, Hx /Renal Surgery, Bladder Distension, Other - Reproductive: Female Reproductive:Female: absent: As Per HPI, Amenorrhea, Amenorrhea/ Control, Currently Menstual, Cycle <21 Days, Cycle >35 Days, Cycle Variable, Menses 1-7 Days, Menses >/= 8 Days, Menses Variable, Cycle > 4 Weeks Between, No Menses for 6 Months, Heavy Menses, Light Menses, Normal Menses, Spotting Between Cycles , S/P Hysterectomy, Menopausal, Post Menopausal, Premenarche, Abnormal Vaginal Bleeding, Dysmenorrhea, Dyspareunia, Genital Lesions, Genital Pruritis, Pelvic Pain, Prolapse Symptoms, Sexual Dysfunction, Vaginal Discharge, Vaginal Dryness , Vaginal Odor, Vaginal Pruritis, Other - Menstruation Menstruation: absent: As Per HPI, Amenorrhea, Amenorrhea/ Control, Currently Menstual, Cycle <21 Days, Cycle >35 Days, Cycle Variable, Menses 1-7 Days, Menses >/= 8 Days, Menses Variable, Cycle > 4 Weeks Between, No Menses for 6 Months, Heavy Menses, Light Menses, Normal Menses, Spotting Between Cycles , S/P Hysterectomy, Menopausal, Post Menopausal, Premenarche, Abnormal Vaginal Bleeding, Dysmenorrhea, Other - Musculoskeletal Musculoskeletal: absent: As Per HPI, Abnormal Gait, Arthralgias, Atrophy, Back Pain, Deformity, Joint Swelling, Limited Range of Motion, Loss of Height, Muscle Cramps, Muscle Weakness, Myalgias, Neck Pain, Numbness, Radiating Pain into Limb, Stiffness, Tingling, Other - Integumentary Integumentary: absent: As Per HPI, Acne, Alopecia, Bleeding Lesions, Change in Hair, Change in Nails, Change in Pigmentation, Changing Lesions, Dry Skin, Erythema, Furuncle, Hirsutism, Lesions, New Lesions, Non-Healing Lesions, Photosensitivity, Pruritus, Rash, Skin Pain, Skin Ulcer, Sores, Striae, Swelling , Unusual Bruising, Wounds, Jaundice, Other - Neurological Neurological: absent: As Per HPI, Abnormal Gait, Abnormal Hearing, Abnormal Movements, Abnormal Speech, Behavioral Changes, Burning Sensations, Confusion, Convulsions, Disequilibrium, Dizziness, Numbness, Focal Weakness, Frequent Falls , Headaches, Lack of Coordination, Loss of Vision, Memory Loss, Paresthesias, Radicular Pain, Restless Legs, Sensory Deficit, Syncope, Tingling, Tremor, Vertigo, Weakness, Other Visual Disturbances, Other - Psychiatric Psychiatric: absent: As Per HPI, Abnormal Sleep Pattern, Anhedonia, Anxiety, Auditory Hallucinations, Behavioral Changes, Change in Appetite, Change in Libido, Confusion, Depression, Difficulty Concentrating, Hallucinations, Homicidal Ideation, Hopelessness, Irritability, Memory Loss, Mood Swings, Panic Attacks, Paranoia, Suicidal Ideation, Visual Hallucinations, Tactile Hallucinations, Other - Endocrine Endocrine: absent: As Per HPI, Change in Body Appearance, Change in Libido, Cold Intolorance, Deepening of Voice, Excessive Sweating, Fatigue, Flushing, Heat Intolorance, Increase in Ring/Shoe/Hat Size, Palpitations, Polydipsia, Polyphagia, Polyuria, Other - Hematologic/Lymphatic Hematologic: absent: As Per HPI, Easy Bleeding, Easy Bruising, Lymphadenopathy, Other Past Patient History - Tetanus Immunizations Tetanus Immunization: Unknown - Past Medical History & Family History Past Medical History?: Yes - Past Social History Smoking Status: Never Smoked - CARDIAC Hx Cardiac Disorders: No - PULMONARY Hx Respiratory Disorders: No - NEUROLOGICAL Hx Neurological Disorder: No - HEENT Hx HEENT Problems: No - RENAL Hx Kidney Stones: Yes - ENDOCRINE/METABOLIC Hx Endocrine Disorders: No - HEMATOLOGICAL/ONCOLOGICAL Hx Blood Disorders: Yes Hx Anemia: Yes - INTEGUMENTARY Hx Dermatological Problems: No - MUSCULOSKELETAL/RHEUMATOLOGICAL Hx Falls: No - GASTROINTESTINAL Hx Gastrointestinal Disorders: Yes Hx Crohn's Disease: Yes - PSYCHIATRIC Hx Substance Use: No - SURGICAL HISTORY Hx Surgeries: Yes Hx Appendectomy: Yes Hx Section: Yes (x3) Other/Comment: "Kidney stent," Breast augmentation - ANESTHESIA Hx Anesthesia: Yes Hx Anesthesia Reactions: No Meds Allergies/Adverse Reactions: Allergies Allergy/AdvReac Type Severity Reaction Status Date / Time No Known Allergies Allergy Verified 11/17/16 12:07 - Medications Medications: Current Medications Acetaminophen (Tylenol 325mg Tab) 650 mg PO Q6 PRN PRN Reason: Pain, moderate (4-7) Ferrous Sulfate (Feosol) 325 mg PO DAILY [facility] Last Admin: 11/19/16 08:43 Dose: 325 mg Folic Acid (Folic Acid) 5 mg PO DAILY [facility] Last Admin: 11/19/16 08:43 Dose: 5 mg Vancomycin HCl 1 gm/ Sodium (Chloride) 250 mls @ 166.667 mls/hr IVPB Q12 [facility] Last Admin: 11/19/16 08:43 Dose: 166.667 mls/hr Piperacillin Sod/Tazobactam (Sod 3.375 gm/ Sodium Chloride) 100 mls @ 100 mls/ hr IVPB Q6 [facility] Last Admin: 11/19/16 11:13 Dose: 100 mls/hr Dextrose/Sodium Chloride (Dextrose 5%/0.9% Ns 1000 Ml) 1,000 mls @ 100 mls/hr IV .Q10H [facility] Last Admin: 11/18/16 22:49 Dose: 100 mls/hr Isoniazid (Niazid) 300 mg PO DAILY [facility] Last Admin: 11/19/16 08:43 Dose: 300 mg Ketorolac Tromethamine (Toradol) 30 mg IVP Q8 PRN PRN Reason: Pain, severe (8-10) Last Admin: 11/18/16 23:09 Dose: 30 mg Lactobacillus Acidophilus (Bacid Acidophilus) 1 cap PO HS [facility] Last Admin: 11/18/16 22:50 Dose: 1 cap Morphine Sulfate (Morphine) 4 mg IVP Q4 PRN PRN Reason: Pain, moderate (4-7) Last Admin: 11/17/16 19:58 Dose: 4 mg Multivitamins/Minerals (Therapeutic-M Tab) 1 tab PO DAILY [facility] Last Admin: 11/19/16 08:43 Dose: 1 tab Ondansetron HCl (Zofran Inj) 4 mg IVP Q4 PRN PRN Reason: Nausea/Vomiting Pyridoxine HCl (Vitamin B6 50 Mg Tab) 50 mg PO DAILY [facility] Last Admin: 11/19/16 08:43 Dose: 50 mg Physical Exam - Constitutional Appears: Non-toxic, Chronically Ill - Head Exam Head Exam: NORMOCEPHALIC - Eye Exam Eye Exam: PERRL. absent: Scleral icterus - ENT Exam ENT Exam: Mucous Membranes Dry, Normal External Ear Exam - Neck Exam Neck exam: Negative for: Lymphadenopathy - Respiratory Exam Respiratory Exam: Decreased Breath Sounds, Clear to Auscultation Bilateral - Cardiovascular Exam Cardiovascular Exam: REGULAR RHYTHM, +S1, +S2 - GI/Abdominal Exam GI & Abdominal Exam: Diminished Bowel Sounds, Distended, Soft, Tenderness. absent: Guarding, Pulsatile Mass, Rebound, Rigid Additional comments: drainage catheter in right flank - Rectal Exam Rectal Exam: Deferred - Exam Exam: NORMAL INSPECTION - Extremities Exam Extremities exam: Positive for: pedal pulses present. Negative for: calf tenderness, pedal edema, tenderness - Back Exam Back exam: absent: CVA tenderness (L), CVA tenderness (R), paraspinal tenderness - Neurological Exam Neurological exam: Alert, CN II-XII Intact, Oriented x3, Reflexes Normal - Psychiatric Exam Psychiatric exam: Normal Mood Results - Vital Signs Recent Vital Signs: Last Vital Signs Temp 98.4 F 11/19/16 12:09 Pulse 97 H 11/19/16 12:09 Resp 18 11/19/16 12:09 BP 98/65 L 11/19/16 12:09 Pulse Ox 99 11/19/16 12:09 - Labs Result Diagrams: 11/19/16 06:30 11/19/16 06:30 Labs: Laboratory Results - last 24 hr 11/19/16 11/19/16 06:30 06:30 WBC 9.6 RBC 4.38 Hgb 9.6 L Hct 30.4 L MCV 69.5 L D MCH 21.9 L MCHC 31.5 L RDW 26.4 H Plt Count 460 H D Sodium 142 Potassium 3.8 Chloride 108 H Carbon Dioxide 28 Anion Gap 10 BUN 5 L Creatinine 0.7 Est GFR ( Amer) > 60 Est GFR (Non-Af Amer) > 60 Random Glucose 92 Calcium 9.4 Total Bilirubin 0.3 AST 33 ALT 37 Alkaline Phosphatase 74 Total Protein 6.5 Albumin 2.8 L Globulin 3.7 Albumin/Globulin Ratio 0.8 L Vitamin B12 712 TSH 3rd Generation 0.85 Assessment & Plan (1) Acute Crohn's disease with abscess Status: Acute (2) Acute Crohn's disease with abscess Status: Acute (3) Acute Crohn's disease with complication Status: Acute (4) Acute Crohn's disease with complication Status: Acute (5) Intra-abdominal abscess Status: Acute (6) Sepsis Status: Acute - Assessment and Plan (Free Text) Assessment: s/p drainage of abscess await cultures cont iv antibiotics
[2016-11-19] MEDS: Lactobacillus Acidophilus 500 MU Cap PO SCH (21:24)
[2016-11-20] MEDS: Dextrose 5%/0.9% NS 1,000 ML IV SCH ×3 (02:53→21:40)
[2016-11-20] MEDS: Piperacillin/Tazobact 3.375 GM in Sodium Chloride 0.9% 100 ML IVPB SCH ×4 (03:00→21:33)
--- NOTE | 2016-11-20 08:18 | CP.PCM.PN ---
<Digna Rudd - Last Filed: 11/20/16 17:23> Subjective - Date & Time of Evaluation Date of Evaluation: 11/20/16 Time of Evaluation: 06:30 - Subjective Subjective: GENERAL SURGERY PROGRESS NOTE FOR DR. HUYNH Patient seen and examined at bedside. She states the pain is controlled with her medication (Toradol). She feels better than yesterday. She denies nausea and vomiting. Right upper drain had 40cc and Right lower drain had 25cc output over past 24 hours. She is going for PICC today with IR. Objective - Vital Signs/Intake and Output Vital Signs (last 24 hours): Temp Pulse Resp BP Pulse Ox 97.6 F 77 19 92/59 L 99 11/20/16 05:00 11/20/16 05:00 11/20/16 05:00 11/20/16 05:00 11/20/16 05:00 Intake and Output: 11/20/16 11/20/16 06:59 18:59 Output Total 30 Balance -30 - Medications Medications: Current Medications Acetaminophen (Tylenol 325mg Tab) 650 mg PO Q6 PRN PRN Reason: Pain, moderate (4-7) Last Admin: 11/19/16 14:10 Dose: 650 mg Ferrous Sulfate (Feosol) 325 mg PO DAILY [facility] Last Admin: 11/19/16 08:43 Dose: 325 mg Folic Acid (Folic Acid) 5 mg PO DAILY [facility] Last Admin: 11/19/16 08:43 Dose: 5 mg Vancomycin HCl 1 gm/ Sodium (Chloride) 250 mls @ 166.667 mls/hr IVPB Q12 [facility] Last Admin: 11/19/16 22:20 Dose: 166.667 mls/hr Piperacillin Sod/Tazobactam (Sod 3.375 gm/ Sodium Chloride) 100 mls @ 100 mls/ hr IVPB Q6 [facility] Last Admin: 11/20/16 03:00 Dose: 100 mls/hr Dextrose/Sodium Chloride (Dextrose 5%/0.9% Ns 1000 Ml) 1,000 mls @ 100 mls/hr IV .Q10H [facility] Last Admin: 11/20/16 02:53 Dose: 100 mls/hr Isoniazid (Niazid) 300 mg PO DAILY [facility] Last Admin: 11/19/16 08:43 Dose: 300 mg Ketorolac Tromethamine (Toradol) 30 mg IVP Q8 PRN PRN Reason: Pain, severe (8-10) Last Admin: 11/20/16 02:51 Dose: 30 mg Lactobacillus Acidophilus (Bacid Acidophilus) 1 cap PO HS [facility] Last Admin: 11/19/16 21:24 Dose: 1 cap Morphine Sulfate (Morphine) 4 mg IVP Q4 PRN PRN Reason: Pain, moderate (4-7) Last Admin: 11/17/16 19:58 Dose: 4 mg Multivitamins/Minerals (Therapeutic-M Tab) 1 tab PO DAILY [facility] Last Admin: 11/19/16 08:43 Dose: 1 tab Ondansetron HCl (Zofran Inj) 4 mg IVP Q4 PRN PRN Reason: Nausea/Vomiting Pyridoxine HCl (Vitamin B6 50 Mg Tab) 50 mg PO DAILY [facility] Last Admin: 11/19/16 08:43 Dose: 50 mg - Labs Labs: 11/19/16 06:30 11/19/16 06:30 PT 15.7 Seconds (9.8-13.1) H 11/17/16 18:00 INR 1.4 (0.9-1.2) H 11/17/16 18:00 APTT 25.7 Seconds (25.6-37.1) 11/17/16 18:00 - Constitutional Appears: Non-toxic, No Acute Distress - Respiratory Exam Respiratory Exam: NORMAL BREATHING PATTERN. absent: Respiratory Distress - Cardiovascular Exam Cardiovascular Exam: +S1, +S2 - GI/Abdominal Exam GI & Abdominal Exam: Soft, Tenderness (tender in RUQ and RLQ). absent: Distended, Firm, Guarding, Rigid Additional comments: IR drains in place with purulent fluid - Neurological Exam Neurological Exam: Alert, Awake - Psychiatric Exam Psychiatric exam: Normal Affect, Normal Mood Assessment and Plan - Assessment and Plan (Free Text) Assessment: 36yo F with Crohn's disease, with sepsis and multiloculated retroperitoneal abscess, s/p IR drainage POD#3 - Will continue to monitor drain output - Tolerating CLD - Continue IV Abx and IV fluids - Pain control PRN - ID consulted, blood cx negative @48 hours - Will discuss plan with Dr. Lino Rudd PGY-2 <Devon Huynh - Last Filed: 11/20/16 20:13> Subjective - Date & Time of Evaluation Time of Evaluation: 19:50 - Subjective Subjective: Patient was seen and examined at the bedside. Agree with resident's note above. Objective - Vital Signs/Intake and Output Vital Signs (last 24 hours): Temp Pulse Resp BP Pulse Ox 98.9 F 118 H 16 102/66 100 11/20/16 19:00 11/20/16 16:11 11/20/16 16:11 11/20/16 16:11 11/20/16 16:11 Intake and Output: 11/20/16 11/21/16 18:59 06:59 Intake Total 2550 Output Total 925 Balance 1625 - Medications Medications: Current Medications Acetaminophen (Tylenol 325mg Tab) 650 mg PO Q6 PRN PRN Reason: Pain, moderate (4-7) Last Admin: 11/19/16 14:10 Dose: 650 mg Ferrous Sulfate (Feosol) 325 mg PO DAILY [facility] Last Admin: 11/20/16 08:37 Dose: 325 mg Folic Acid (Folic Acid) 5 mg PO DAILY [facility] Last Admin: 11/20/16 08:38 Dose: 5 mg Vancomycin HCl 1 gm/ Sodium (Chloride) 250 mls @ 166.667 mls/hr IVPB Q12 [facility] Last Admin: 11/20/16 08:37 Dose: 166.667 mls/hr Piperacillin Sod/Tazobactam (Sod 3.375 gm/ Sodium Chloride) 100 mls @ 100 mls/ hr IVPB Q6 [facility] Last Admin: 11/20/16 15:32 Dose: 100 mls/hr Dextrose/Sodium Chloride (Dextrose 5%/0.9% Ns 1000 Ml) 1,000 mls @ 100 mls/hr IV .Q10H [facility] Last Admin: 11/20/16 15:33 Dose: 100 mls/hr Isoniazid (Niazid) 300 mg PO DAILY [facility] Last Admin: 11/20/16 08:38 Dose: 300 mg Ketorolac Tromethamine (Toradol) 30 mg IVP Q8 PRN PRN Reason: Pain, severe (8-10) Last Admin: 11/20/16 19:53 Dose: 30 mg Lactobacillus Acidophilus (Bacid Acidophilus) 1 cap PO HS [facility] Last Admin: 11/19/16 21:24 Dose: 1 cap Morphine Sulfate (Morphine) 4 mg IVP Q4 PRN PRN Reason: Pain, moderate (4-7) Last Admin: 11/17/16 19:58 Dose: 4 mg Multivitamins/Minerals (Therapeutic-M Tab) 1 tab PO DAILY [facility] Last Admin: 11/20/16 08:37 Dose: 1 tab Ondansetron HCl (Zofran Inj) 4 mg IVP Q4 PRN PRN Reason: Nausea/Vomiting Pyridoxine HCl (Vitamin B6 50 Mg Tab) 50 mg PO DAILY [facility] Last Admin: 11/20/16 08:37 Dose: 50 mg - Labs Labs: 11/19/16 06:30 11/19/16 06:30 PT 15.7 Seconds (9.8-13.1) H 11/17/16 18:00 INR 1.4 (0.9-1.2) H 11/17/16 18:00 APTT 25.7 Seconds (25.6-37.1) 11/17/16 18:00
[2016-11-20] MEDS: Multivitamin With Minerals Tab PO SCH (08:37)
--- NOTE | 2016-11-20 11:46 | CP.PCM.PN ---
Subjective - Date & Time of Evaluation Date of Evaluation: 11/19/16 Time of Evaluation: 07:00 - Subjective Subjective: The patient is seen and examined. Interim events noted. The patient remains in PCU unit. The patient feels okay. No specific complaints, ABd pain improved PHYSICAL EXAMINATION: GENERAL: The patient is in no acute distress. VITAL SIGNS: Stable. HEART: S1, S2 normal, regular. LUNGS: Good bilateral air entry. ABDOMEN: Soft, nontender. drainage tubes is in good position and functioning. EXTREMITIES: No edema, no calf swelling, no tenderness, no acute ischemia. CENTRAL NERVOUS SYSTEM: Essentially unchanged.Ski: sacral decub clean. Available diagnostic data reviewed. Telemetry monitoring does not reveal any significant arrythmias Over all pt is clinically stable. Plan: As ordered Objective - Vital Signs/Intake and Output Vital Signs (last 24 hours): Temp Pulse Resp BP Pulse Ox 97.5 F L 79 20 97/64 L 100 11/20/16 08:00 11/20/16 08:00 11/20/16 08:00 11/20/16 08:00 11/20/16 08:00 Intake and Output: 11/20/16 11/20/16 06:59 18:59 Output Total 30 Balance -30 - Medications Medications: Current Medications Acetaminophen (Tylenol 325mg Tab) 650 mg PO Q6 PRN PRN Reason: Pain, moderate (4-7) Last Admin: 11/19/16 14:10 Dose: 650 mg Ferrous Sulfate (Feosol) 325 mg PO DAILY [facility] Last Admin: 11/20/16 08:37 Dose: 325 mg Folic Acid (Folic Acid) 5 mg PO DAILY [facility] Last Admin: 11/20/16 08:38 Dose: 5 mg Vancomycin HCl 1 gm/ Sodium (Chloride) 250 mls @ 166.667 mls/hr IVPB Q12 [facility] Last Admin: 11/20/16 08:37 Dose: 166.667 mls/hr Piperacillin Sod/Tazobactam (Sod 3.375 gm/ Sodium Chloride) 100 mls @ 100 mls/ hr IVPB Q6 [facility] Last Admin: 11/20/16 09:13 Dose: 100 mls/hr Dextrose/Sodium Chloride (Dextrose 5%/0.9% Ns 1000 Ml) 1,000 mls @ 100 mls/hr IV .Q10H [facility] Last Admin: 11/20/16 02:53 Dose: 100 mls/hr Isoniazid (Niazid) 300 mg PO DAILY [facility] Last Admin: 11/20/16 08:38 Dose: 300 mg Ketorolac Tromethamine (Toradol) 30 mg IVP Q8 PRN PRN Reason: Pain, severe (8-10) Last Admin: 11/20/16 02:51 Dose: 30 mg Lactobacillus Acidophilus (Bacid Acidophilus) 1 cap PO HS [facility] Last Admin: 11/19/16 21:24 Dose: 1 cap Morphine Sulfate (Morphine) 4 mg IVP Q4 PRN PRN Reason: Pain, moderate (4-7) Last Admin: 11/17/16 19:58 Dose: 4 mg Multivitamins/Minerals (Therapeutic-M Tab) 1 tab PO DAILY [facility] Last Admin: 11/20/16 08:37 Dose: 1 tab Ondansetron HCl (Zofran Inj) 4 mg IVP Q4 PRN PRN Reason: Nausea/Vomiting Pyridoxine HCl (Vitamin B6 50 Mg Tab) 50 mg PO DAILY [facility] Last Admin: 11/20/16 08:37 Dose: 50 mg - Labs Labs: 11/19/16 06:30 11/19/16 06:30 PT 15.7 Seconds (9.8-13.1) H 11/17/16 18:00 INR 1.4 (0.9-1.2) H 11/17/16 18:00 APTT 25.7 Seconds (25.6-37.1) 11/17/16 18:00
--- NOTE | 2016-11-20 11:47 | CP.PCM.PN ---
Subjective - Date & Time of Evaluation Date of Evaluation: 11/20/16 Time of Evaluation: 07:00 - Subjective Subjective: The patient is seen and examined. Interim events noted. The patient remains in PCU unit. The patient feels okay. No specific complaints, Abd pain improved Cousults noted appriciated PHYSICAL EXAMINATION: GENERAL: The patient is in no acute distress. VITAL SIGNS: Stable. HEART: S1, S2 normal, regular. LUNGS: Good bilateral air entry. ABDOMEN: Soft, nontender. drainage tubes is in good position and functioning. EXTREMITIES: No edema, no calf swelling, no tenderness, no acute ischemia. CENTRAL NERVOUS SYSTEM: Essentially unchanged.Ski: sacral decub clean. Available diagnostic data reviewed. Telemetry monitoring does not reveal any significant arrythmias Over all pt is clinically stable. Plan: As ordered Objective - Vital Signs/Intake and Output Vital Signs (last 24 hours): Temp Pulse Resp BP Pulse Ox 97.5 F L 79 20 97/64 L 100 11/20/16 08:00 11/20/16 08:00 11/20/16 08:00 11/20/16 08:00 11/20/16 08:00 Intake and Output: 11/20/16 11/20/16 06:59 18:59 Output Total 30 Balance -30 - Medications Medications: Current Medications Acetaminophen (Tylenol 325mg Tab) 650 mg PO Q6 PRN PRN Reason: Pain, moderate (4-7) Last Admin: 11/19/16 14:10 Dose: 650 mg Ferrous Sulfate (Feosol) 325 mg PO DAILY [facility] Last Admin: 11/20/16 08:37 Dose: 325 mg Folic Acid (Folic Acid) 5 mg PO DAILY [facility] Last Admin: 11/20/16 08:38 Dose: 5 mg Vancomycin HCl 1 gm/ Sodium (Chloride) 250 mls @ 166.667 mls/hr IVPB Q12 [facility] Last Admin: 11/20/16 08:37 Dose: 166.667 mls/hr Piperacillin Sod/Tazobactam (Sod 3.375 gm/ Sodium Chloride) 100 mls @ 100 mls/ hr IVPB Q6 [facility] Last Admin: 11/20/16 09:13 Dose: 100 mls/hr Dextrose/Sodium Chloride (Dextrose 5%/0.9% Ns 1000 Ml) 1,000 mls @ 100 mls/hr IV .Q10H [facility] Last Admin: 11/20/16 02:53 Dose: 100 mls/hr Isoniazid (Niazid) 300 mg PO DAILY [facility] Last Admin: 11/20/16 08:38 Dose: 300 mg Ketorolac Tromethamine (Toradol) 30 mg IVP Q8 PRN PRN Reason: Pain, severe (8-10) Last Admin: 11/20/16 02:51 Dose: 30 mg Lactobacillus Acidophilus (Bacid Acidophilus) 1 cap PO HS [facility] Last Admin: 11/19/16 21:24 Dose: 1 cap Morphine Sulfate (Morphine) 4 mg IVP Q4 PRN PRN Reason: Pain, moderate (4-7) Last Admin: 11/17/16 19:58 Dose: 4 mg Multivitamins/Minerals (Therapeutic-M Tab) 1 tab PO DAILY [facility] Last Admin: 11/20/16 08:37 Dose: 1 tab Ondansetron HCl (Zofran Inj) 4 mg IVP Q4 PRN PRN Reason: Nausea/Vomiting Pyridoxine HCl (Vitamin B6 50 Mg Tab) 50 mg PO DAILY [facility] Last Admin: 11/20/16 08:37 Dose: 50 mg - Labs Labs: 11/19/16 06:30 11/19/16 06:30 PT 15.7 Seconds (9.8-13.1) H 11/17/16 18:00 INR 1.4 (0.9-1.2) H 11/17/16 18:00 APTT 25.7 Seconds (25.6-37.1) 11/17/16 18:00
--- NOTE | 2016-11-20 13:13 | CP.PCM.PN ---
Subjective - Date & Time of Evaluation Date of Evaluation: 11/20/16 Time of Evaluation: 09:00 - Subjective Subjective: s/p drainage LLQ abscess will need COLONOSCOPY IN THE NEAR FUTURE fOR picc LINE AND CONT OF IV RX AWAIT CULTURES Objective - Vital Signs/Intake and Output Vital Signs (last 24 hours): Temp Pulse Resp BP Pulse Ox 97.5 F L 79 20 97/64 L 100 11/20/16 08:00 11/20/16 08:00 11/20/16 08:00 11/20/16 08:00 11/20/16 08:00 Intake and Output: 11/20/16 11/20/16 06:59 18:59 Output Total 30 Balance -30 - Medications Medications: Current Medications Acetaminophen (Tylenol 325mg Tab) 650 mg PO Q6 PRN PRN Reason: Pain, moderate (4-7) Last Admin: 11/19/16 14:10 Dose: 650 mg Ferrous Sulfate (Feosol) 325 mg PO DAILY [facility] Last Admin: 11/20/16 08:37 Dose: 325 mg Folic Acid (Folic Acid) 5 mg PO DAILY [facility] Last Admin: 11/20/16 08:38 Dose: 5 mg Vancomycin HCl 1 gm/ Sodium (Chloride) 250 mls @ 166.667 mls/hr IVPB Q12 [facility] Last Admin: 11/20/16 08:37 Dose: 166.667 mls/hr Piperacillin Sod/Tazobactam (Sod 3.375 gm/ Sodium Chloride) 100 mls @ 100 mls/ hr IVPB Q6 [facility] Last Admin: 11/20/16 09:13 Dose: 100 mls/hr Dextrose/Sodium Chloride (Dextrose 5%/0.9% Ns 1000 Ml) 1,000 mls @ 100 mls/hr IV .Q10H [facility] Last Admin: 11/20/16 02:53 Dose: 100 mls/hr Isoniazid (Niazid) 300 mg PO DAILY [facility] Last Admin: 11/20/16 08:38 Dose: 300 mg Ketorolac Tromethamine (Toradol) 30 mg IVP Q8 PRN PRN Reason: Pain, severe (8-10) Last Admin: 11/20/16 02:51 Dose: 30 mg Lactobacillus Acidophilus (Bacid Acidophilus) 1 cap PO HS [facility] Last Admin: 11/19/16 21:24 Dose: 1 cap Morphine Sulfate (Morphine) 4 mg IVP Q4 PRN PRN Reason: Pain, moderate (4-7) Last Admin: 11/17/16 19:58 Dose: 4 mg Multivitamins/Minerals (Therapeutic-M Tab) 1 tab PO DAILY [facility] Last Admin: 11/20/16 08:37 Dose: 1 tab Ondansetron HCl (Zofran Inj) 4 mg IVP Q4 PRN PRN Reason: Nausea/Vomiting Pyridoxine HCl (Vitamin B6 50 Mg Tab) 50 mg PO DAILY [facility] Last Admin: 11/20/16 08:37 Dose: 50 mg - Labs Labs: 11/19/16 06:30 11/19/16 06:30 PT 15.7 Seconds (9.8-13.1) H 11/17/16 18:00 INR 1.4 (0.9-1.2) H 11/17/16 18:00 APTT 25.7 Seconds (25.6-37.1) 11/17/16 18:00 - Constitutional Appears: Non-toxic, Chronically Ill - Head Exam Head Exam: NORMOCEPHALIC - Eye Exam Eye Exam: PERRL. absent: Scleral icterus - ENT Exam ENT Exam: Mucous Membranes Dry - Neck Exam Neck Exam: absent: Lymphadenopathy - Respiratory Exam Respiratory Exam: Decreased Breath Sounds, Clear to Ausculation Bilateral - Cardiovascular Exam Cardiovascular Exam: REGULAR RHYTHM, +S1, +S2 - GI/Abdominal Exam GI & Abdominal Exam: Distended, Soft. absent: Tenderness - Rectal Exam Rectal Exam: Deferred - Exam Exam: NORMAL INSPECTION - Extremities Exam Extremities Exam: absent: Pedal Edema - Back Exam Back Exam: absent: CVA tenderness (L), CVA tenderness (R) - Neurological Exam Neurological Exam: Alert, Awake, Oriented x3 Assessment and Plan (1) Acute Crohn's disease with abscess Status: Acute (2) Acute Crohn's disease with abscess Status: Acute (3) Acute Crohn's disease with complication Status: Acute (4) Acute Crohn's disease with complication Status: Acute (5) Intra-abdominal abscess Status: Acute (6) Sepsis Status: Acute
[2016-11-20] MEDS ORDERED: Lidocaine 1% Inj (20ml) ONE (13:51)
--- NOTE | 2016-11-20 14:05 | PCM.SURG1 ---
Surgeon's Initial Post Op Note - Surgeon's Notes Surgeon: Javier Zhu MD Chaser Helper: NONE Type of Anesthesia: Local Pre-Operative Diagnosis: Abdominal abscess Operative Findings: Patent right brachial vein. Post-Operative Diagnosis: Abdominal abscess Operation Performed: Single lumen picc placement via right brachial vein, 35 cm. Tip in SVC. Specimen/Specimens Removed: None Estimated Blood Loss: EBL {In ML}: 2 Blood Products Given: N/A Drains Used: No Drains Post-Op Condition: Fair Date of Surgery/Procedure: 11/20/16 Time of Surgery/Procedure: 14:00
--- NOTE | 2016-11-20 14:44 | VASCULAR ---
PROCEDURE: Date of procedure: 11/20/2016 Procedure: 1. Placement of a right arm PICC with ultrasound and fluoroscopic guidance, CPT 21801 2. PICC tip confirmation with spot radiograph and is in the superior vena cava Medications: 3cc 1 percent lidocaine Total Fluoro time: 5.2 seconds Radiation: 0.37 MGy EBL: 2 cc HISTORY: Abscess requiring long-term IV antibiotics TECHNIQUE: Following informed consent and procedure time-out, the patient was placed supine on the interventional table and the right arm prepped and draped in the usual sterile fashion. Ultrasound showed a patent and compressible right basilic vein. After the skin was anesthetized with lidocaine, the basilic vein was accessed with micro micropuncture technique using ultrasound guidance. A guidewire was then advanced under fluoroscopic guidance into the superior vena cava. An image documenting ultrasound guidance for vascular access was permanently saved. The length of the single-lumen 4 Tamazight PICC was trimmed to 34 centimeters and advanced through a peel-away sheath. The PICC was position with tip of PICC confirm a spot radiograph the superior vena cava. The PICC was secured to the patient's skin. The PICC was flushed. A biopatch and sterile dressing was applied. IMPRESSION: Placement of a single-lumen 4 Tamazight PICC trimmed to 34 centimeters via right basilic vein. The tip of the PICC is confirmed with spot radiograph and is in the superior vena cava.
[2016-11-20] MEDS: Lactobacillus Acidophilus 500 MU Cap PO SCH (21:31)
[2016-11-21] MEDS: Piperacillin/Tazobact 3.375 GM in Sodium Chloride 0.9% 100 ML IVPB SCH ×4 (03:36→22:27)
[2016-11-21 06:08] LABS: HEMOGLOBIN 9.4 g/dL (12.0-16.0); MEAN CELL VOLUME 70.5 fl (81.0-99.0); MEAN CORPUSCULAR HEMOGLOBIN 21.3 pg (27.0-31.0); MEAN CORPUSCULAR HGB CONC 30.2 g/dL (33.0-37.0); RBC 4.42 Mil/uL (3.80-5.20); RED CELL DISTRIBUTION WIDTH 28.1 % (11.5-14.5); WHITE BLOOD COUNT 11.6 K/uL (4.8-10.8)
[2016-11-21 06:14] LABS: ALB/GLOB RATIO 0.7 (1.0-2.1); ALBUMIN 2.5 g/dL (3.5-5.0); ALT/SGPT 30 U/L (9-52); AST/SGOT 26 U/L (14-36); BLOOD UREA NITROGEN 5 mg/dl (7-17); GFR AFRICAN-AMERICAN > 60; GFR NON-AFRICAN AMERICAN > 60
[2016-11-21] MEDS: Multivitamin With Minerals Tab PO SCH (08:29)
[2016-11-21] MEDS: Dextrose 5%/0.9% NS 1,000 ML IV SCH (08:45)
--- NOTE | 2016-11-21 09:02 | CP.PCM.PN ---
Subjective - Date & Time of Evaluation Date of Evaluation: 11/21/16 Time of Evaluation: 08:40 - Subjective Subjective: Patient was seen and examined at the bedside. States that feels better, tolerating clear liquid diet. Objective - Vital Signs/Intake and Output Vital Signs (last 24 hours): Temp Pulse Resp BP Pulse Ox 98.3 F 78 20 102/69 97 11/21/16 08:00 11/21/16 08:00 11/21/16 08:00 11/21/16 08:00 11/21/16 08:00 Intake and Output: 11/21/16 11/21/16 06:59 18:59 Intake Total 1650 Output Total 25 Balance 1625 - Medications Medications: Current Medications Acetaminophen (Tylenol 325mg Tab) 650 mg PO Q6 PRN PRN Reason: Pain, moderate (4-7) Last Admin: 11/19/16 14:10 Dose: 650 mg Ferrous Sulfate (Feosol) 325 mg PO DAILY [facility] Last Admin: 11/21/16 08:30 Dose: 325 mg Folic Acid (Folic Acid) 5 mg PO DAILY [facility] Last Admin: 11/21/16 08:30 Dose: 5 mg Vancomycin HCl 1 gm/ Sodium (Chloride) 250 mls @ 166.667 mls/hr IVPB Q12 [facility] Last Admin: 11/21/16 08:00 Dose: 166.667 mls/hr Piperacillin Sod/Tazobactam (Sod 3.375 gm/ Sodium Chloride) 100 mls @ 100 mls/ hr IVPB Q6 [facility] Last Admin: 11/21/16 03:36 Dose: 100 mls/hr Dextrose/Sodium Chloride (Dextrose 5%/0.9% Ns 1000 Ml) 1,000 mls @ 100 mls/hr IV .Q10H [facility] Last Admin: 11/20/16 21:40 Dose: 100 mls/hr Isoniazid (Niazid) 300 mg PO DAILY [facility] Last Admin: 11/21/16 08:29 Dose: 300 mg Ketorolac Tromethamine (Toradol) 30 mg IVP Q8 PRN PRN Reason: Pain, severe (8-10) Last Admin: 11/21/16 05:10 Dose: 30 mg Lactobacillus Acidophilus (Bacid Acidophilus) 1 cap PO HS [facility] Last Admin: 11/20/16 21:31 Dose: 1 cap Morphine Sulfate (Morphine) 4 mg IVP Q4 PRN PRN Reason: Pain, moderate (4-7) Last Admin: 11/17/16 19:58 Dose: 4 mg Multivitamins/Minerals (Therapeutic-M Tab) 1 tab PO DAILY [facility] Last Admin: 11/21/16 08:29 Dose: 1 tab Ondansetron HCl (Zofran Inj) 4 mg IVP Q4 PRN PRN Reason: Nausea/Vomiting Pyridoxine HCl (Vitamin B6 50 Mg Tab) 50 mg PO DAILY [facility] Last Admin: 11/21/16 08:29 Dose: 50 mg - Labs Labs: 11/21/16 05:20 11/21/16 05:20 PT 15.7 Seconds (9.8-13.1) H 11/17/16 18:00 INR 1.4 (0.9-1.2) H 11/17/16 18:00 APTT 25.7 Seconds (25.6-37.1) 11/17/16 18:00 - Constitutional Appears: Well, Non-toxic, No Acute Distress - Head Exam Head Exam: ATRAUMATIC, NORMAL INSPECTION, NORMOCEPHALIC - Eye Exam Eye Exam: EOMI, Normal appearance, PERRL Pupil Exam: NORMAL ACCOMODATION, PERRL - ENT Exam ENT Exam: Mucous Membranes Moist, Normal Exam - Neck Exam Neck Exam: Full ROM, Normal Inspection - Respiratory Exam Respiratory Exam: Clear to Ausculation Bilateral, NORMAL BREATHING PATTERN - Cardiovascular Exam Cardiovascular Exam: REGULAR RHYTHM, +S1, +S2 - GI/Abdominal Exam GI & Abdominal Exam: Soft, Normal Bowel Sounds Additional comments: mildly tender in the lower abdomen, ND, no rebound, no guarding, pigtail catheters in place with some purulent material in the drains - Rectal Exam Rectal Exam: Deferred - Extremities Exam Extremities Exam: Full ROM, Normal Inspection - Neurological Exam Neurological Exam: Alert, Awake, Oriented x3 - Psychiatric Exam Psychiatric exam: Normal Affect, Normal Mood - Skin Skin Exam: Dry, Intact, Normal Color, Warm Assessment and Plan - Assessment and Plan (Free Text) Assessment: 36 y.o. female with intra-abdominal abscesses s/p IR drainage Plan: - Start regular diet - pain control - continue antibiotics as per medical team - repeat labs in am - Out of bed - DVT ppx - Will follow
[2016-11-21] MEDS ORDERED: Potassium Chloride 20 mEq ER Tab PO ONE (18:28)
[2016-11-21] MEDS: Lactobacillus Acidophilus 500 MU Cap PO SCH (22:25)
[2016-11-22] MEDS: Dextrose 5%/0.9% NS 1,000 ML IV SCH ×2 (04:35→17:48)
[2016-11-22] MEDS: Piperacillin/Tazobact 3.375 GM in Sodium Chloride 0.9% 100 ML IVPB SCH ×2 (04:39→09:43)
[2016-11-22 07:03] LABS: HEMOGLOBIN 9.2 g/dL (12.0-16.0); MEAN CELL VOLUME 70.1 fl (81.0-99.0); MEAN CORPUSCULAR HEMOGLOBIN 21.6 pg (27.0-31.0); MEAN CORPUSCULAR HGB CONC 30.7 g/dL (33.0-37.0); RBC 4.25 Mil/uL (3.80-5.20); RED CELL DISTRIBUTION WIDTH 28.1 % (11.5-14.5); WHITE BLOOD COUNT 12.3 K/uL (4.8-10.8)
[2016-11-22 07:33] LABS: ALB/GLOB RATIO 0.7 (1.0-2.1); ALBUMIN 2.5 g/dL (3.5-5.0); ALT/SGPT 33 U/L (9-52); AST/SGOT 21 U/L (14-36); BLOOD UREA NITROGEN 6 mg/dl (7-17); CALCIUM 8.8 mg/dL (8.4-10.2); GFR AFRICAN-AMERICAN > 60; GFR NON-AFRICAN AMERICAN > 60
--- NOTE | 2016-11-22 07:36 | CP.PCM.PN ---
Subjective - Date & Time of Evaluation Date of Evaluation: 11/22/16 Time of Evaluation: 07:00 - Subjective Subjective: GENERAL SURGERY PROGRESS NOTE FOR DR. BOTELLO Patient seen and examined at bedside. She is doing well. She was advanced to regular diet yesterday and she is tolerating that well. She denies nausea and vomiting. She had a fever Tmax 102.3 yesterday. Right upper drain had 90cc and Right lower drain had 15cc output over past 24 hours. Objective - Vital Signs/Intake and Output Vital Signs (last 24 hours): Temp Pulse Resp BP Pulse Ox 98.4 F 108 H 18 102/71 98 11/22/16 05:17 11/22/16 05:17 11/22/16 05:17 11/22/16 05:17 11/22/16 05:17 Intake and Output: 11/22/16 11/22/16 06:59 18:59 Intake Total 2050 Output Total 855 Balance 1195 - Medications Medications: Current Medications Acetaminophen (Tylenol 325mg Tab) 650 mg PO Q6 PRN PRN Reason: Pain, moderate (4-7) Last Admin: 11/19/16 14:10 Dose: 650 mg Acetaminophen (Tylenol 325mg Tab) 325 mg PO Q6 PRN PRN Reason: Fever >100.4 F Last Admin: 11/21/16 15:46 Dose: 325 mg Ferrous Sulfate (Feosol) 325 mg PO DAILY [facility] Last Admin: 11/21/16 08:30 Dose: 325 mg Folic Acid (Folic Acid) 5 mg PO DAILY [facility] Last Admin: 11/21/16 08:30 Dose: 5 mg Vancomycin HCl 1 gm/ Sodium (Chloride) 250 mls @ 166.667 mls/hr IVPB Q12 [facility] Last Admin: 11/21/16 20:52 Dose: 166.667 mls/hr Piperacillin Sod/Tazobactam (Sod 3.375 gm/ Sodium Chloride) 100 mls @ 100 mls/ hr IVPB Q6 [facility] Last Admin: 11/22/16 04:39 Dose: 100 mls/hr Dextrose/Sodium Chloride (Dextrose 5%/0.9% Ns 1000 Ml) 1,000 mls @ 100 mls/hr IV .Q10H [facility] Last Admin: 11/22/16 04:35 Dose: 100 mls/hr Isoniazid (Niazid) 300 mg PO DAILY [facility] Last Admin: 11/21/16 08:29 Dose: 300 mg Ketorolac Tromethamine (Toradol) 30 mg IVP Q8 PRN PRN Reason: Pain, severe (8-10) Last Admin: 11/21/16 15:40 Dose: 30 mg Lactobacillus Acidophilus (Bacid Acidophilus) 1 cap PO HS [facility] Last Admin: 11/21/16 22:25 Dose: 1 cap Multivitamins/Minerals (Therapeutic-M Tab) 1 tab PO DAILY [facility] Last Admin: 11/21/16 08:29 Dose: 1 tab Ondansetron HCl (Zofran Inj) 4 mg IVP Q4 PRN PRN Reason: Nausea/Vomiting Pyridoxine HCl (Vitamin B6 50 Mg Tab) 50 mg PO DAILY [facility] Last Admin: 11/21/16 08:29 Dose: 50 mg - Labs Labs: 11/22/16 05:00 11/22/16 05:00 PT 15.7 Seconds (9.8-13.1) H 11/17/16 18:00 INR 1.4 (0.9-1.2) H 11/17/16 18:00 APTT 25.7 Seconds (25.6-37.1) 11/17/16 18:00 - Constitutional Appears: Well, Non-toxic, No Acute Distress - Respiratory Exam Respiratory Exam: NORMAL BREATHING PATTERN. absent: Respiratory Distress - Cardiovascular Exam Cardiovascular Exam: +S1, +S2 - GI/Abdominal Exam GI & Abdominal Exam: Soft, Tenderness (tender in RLQ around IR drains). absent : Distended, Firm, Guarding, Rigid, Rebound Additional comments: [address] in right lower lateral abdomen - Neurological Exam Neurological Exam: Alert, Awake, Oriented x3 - Psychiatric Exam Psychiatric exam: Normal Affect, Normal Mood - Skin Skin Exam: Dry, Normal Color, Warm Assessment and Plan - Assessment and Plan (Free Text) Assessment: 36yo F with Crohn's disease, with sepsis and multiloculated retroperitoneal abscess, s/p IR drainage POD#4 - Fever Tmax 102.3 yesterday, afebrile since - WBC 12.3 today (11.6 yesterday) - Will continue to monitor drain output - Tolerating regular diet - Continue IV Abx and IV fluids - Pain control PRN - ID following, wound cx = E. Coli - Ordered repeat CT Abd/Pelvis with PO and IV contrast - Discussed plan with Dr. Kiel Rudd PGY-3
--- NOTE | 2016-11-22 07:50 | CP.PCM.PN ---
<Pradip Clement - Last Filed: 11/22/16 13:51> Subjective - Date & Time of Evaluation Date of Evaluation: 11/22/16 Time of Evaluation: 07:47 - Subjective Subjective: pt seen and examined at bedside with attending this morning. No acute events overnight. Pt lying in bed comfortably, NAD. Pt tolerating PO intake without difficulty. 2 functioning lower abdominal IR drains draining 90/15 cc respectively in the past 24 hours. No new complaints. Denies fever/chills, headaches, visual disturbances, CP/SOB/COLLIER, N/V/D, urinary symptoms. Objective - Vital Signs/Intake and Output Vital Signs (last 24 hours): Temp Pulse Resp BP Pulse Ox 98.4 F 108 H 18 102/71 98 11/22/16 05:17 11/22/16 05:17 11/22/16 05:17 11/22/16 05:17 11/22/16 05:17 Intake and Output: 11/22/16 11/22/16 06:59 18:59 Intake Total 2050 Output Total 855 Balance 1195 - Medications Medications: Current Medications Acetaminophen (Tylenol 325mg Tab) 650 mg PO Q6 PRN PRN Reason: Pain, moderate (4-7) Last Admin: 11/19/16 14:10 Dose: 650 mg Acetaminophen (Tylenol 325mg Tab) 325 mg PO Q6 PRN PRN Reason: Fever >100.4 F Last Admin: 11/21/16 15:46 Dose: 325 mg Ferrous Sulfate (Feosol) 325 mg PO DAILY [facility] Last Admin: 11/21/16 08:30 Dose: 325 mg Folic Acid (Folic Acid) 5 mg PO DAILY [facility] Last Admin: 11/21/16 08:30 Dose: 5 mg Vancomycin HCl 1 gm/ Sodium (Chloride) 250 mls @ 166.667 mls/hr IVPB Q12 [facility] Last Admin: 11/21/16 20:52 Dose: 166.667 mls/hr Piperacillin Sod/Tazobactam (Sod 3.375 gm/ Sodium Chloride) 100 mls @ 100 mls/ hr IVPB Q6 [facility] Last Admin: 11/22/16 04:39 Dose: 100 mls/hr Dextrose/Sodium Chloride (Dextrose 5%/0.9% Ns 1000 Ml) 1,000 mls @ 100 mls/hr IV .Q10H [facility] Last Admin: 11/22/16 04:35 Dose: 100 mls/hr Isoniazid (Niazid) 300 mg PO DAILY [facility] Last Admin: 11/21/16 08:29 Dose: 300 mg Ketorolac Tromethamine (Toradol) 30 mg IVP Q8 PRN PRN Reason: Pain, severe (8-10) Last Admin: 11/21/16 15:40 Dose: 30 mg Lactobacillus Acidophilus (Bacid Acidophilus) 1 cap PO HS [facility] Last Admin: 11/21/16 22:25 Dose: 1 cap Multivitamins/Minerals (Therapeutic-M Tab) 1 tab PO DAILY [facility] Last Admin: 11/21/16 08:29 Dose: 1 tab Ondansetron HCl (Zofran Inj) 4 mg IVP Q4 PRN PRN Reason: Nausea/Vomiting Pyridoxine HCl (Vitamin B6 50 Mg Tab) 50 mg PO DAILY [facility] Last Admin: 11/21/16 08:29 Dose: 50 mg - Labs Labs: 11/22/16 05:00 11/22/16 05:00 PT 15.7 Seconds (9.8-13.1) H 11/17/16 18:00 INR 1.4 (0.9-1.2) H 11/17/16 18:00 APTT 25.7 Seconds (25.6-37.1) 11/17/16 18:00 - Constitutional Appears: Non-toxic, No Acute Distress - ENT Exam ENT Exam: Mucous Membranes Moist - Respiratory Exam Respiratory Exam: Clear to Ausculation Bilateral, NORMAL BREATHING PATTERN - Cardiovascular Exam Cardiovascular Exam: REGULAR RHYTHM, RRR, +S1, +S2. absent: Gallop, JVD, Rubs, Murmur - GI/Abdominal Exam GI & Abdominal Exam: Soft, Tenderness (tenderness around drain insertion sites) , Normal Bowel Sounds. absent: Distended, Firm, Guarding, Rigid, Rebound Assessment and Plan - Assessment and Plan (Free Text) Plan: 36 y/o F with a PMHx remarkable for Crohns Disease admitted for intra-abdominal abcesses, s/p IR Drainage insertion, POD#4. Plan: 1) Sepsis (resolving) -monitor vitals -follow CBC, today 12.3>9.2/29.8<570 -continue IV Abx as per ID 2) Acute Crohns Disease with Abscess -s/p IR drain insertion POD#4 -monitor drains -reg diet -continue as per surgery recommendations <Ray Mensah K - Last Filed: 11/24/16 16:16> Objective - Vital Signs/Intake and Output Vital Signs (last 24 hours): Temp Pulse Resp BP Pulse Ox 98.2 F 86 20 100/68 97 11/24/16 13:00 11/24/16 13:00 11/24/16 13:00 11/24/16 13:00 11/24/16 13:00 Intake and Output: 11/24/16 11/24/16 06:59 18:59 Intake Total 100 Output Total 62 Balance -62 100 - Medications Medications: Current Medications Acetaminophen (Tylenol 325mg Tab) 650 mg PO Q6 PRN PRN Reason: Pain, moderate (4-7) Last Admin: 11/19/16 14:10 Dose: 650 mg Acetaminophen (Tylenol 325mg Tab) 325 mg PO Q6 PRN PRN Reason: Fever >100.4 F Last Admin: 11/21/16 15:46 Dose: 325 mg Ferrous Sulfate (Feosol) 325 mg PO DAILY [facility] Last Admin: 11/24/16 10:49 Dose: Not Given Folic Acid (Folic Acid) 5 mg PO DAILY [facility] Last Admin: 11/24/16 08:52 Dose: Not Given Hydrocortisone (Anusol-Hc) 1 applic [place] BID [facility] Last Admin: 11/24/16 10:14 Dose: 1 applic Dextrose/Sodium Chloride (Dextrose 5%/0.9% Ns 1000 Ml) 1,000 mls @ 100 mls/hr IV .Q10H [facility] Last Admin: 11/24/16 13:36 Dose: 100 mls/hr Metronidazole (Flagyl 500mg/100ml Ns) 100 mls @ 100 mls/hr IVPB Q8 [facility] Last Admin: 11/24/16 08:53 Dose: 100 mls/hr Cefazolin Sodium 2 gm/ Sodium (Chloride) 100 mls @ 100 mls/hr IVPB Q8 [facility] Last Admin: 11/24/16 10:05 Dose: 100 mls/hr Lactated Ringer's (Lactated Ringer's) 1,000 mls @ 45 mls/hr IV .[id number] [facility] Isoniazid (Niazid) 300 mg PO DAILY [facility] Last Admin: 11/24/16 08:52 Dose: Not Given Ketorolac Tromethamine (Toradol) 30 mg IVP Q8 PRN PRN Reason: Pain, severe (8-10) Last Admin: 11/24/16 10:05 Dose: 30 mg Lactobacillus Acidophilus (Bacid Acidophilus) 1 cap PO BID [facility] Multivitamins/Minerals (Therapeutic-M Tab) 1 tab PO DAILY [facility] Last Admin: 11/24/16 08:52 Dose: Not Given Ondansetron HCl (Zofran Inj) 4 mg IVP Q4 PRN PRN Reason: Nausea/Vomiting Pantoprazole Sodium (Protonix Ec Tab) 40 mg PO DAILY [facility] Pyridoxine HCl (Vitamin B6 50 Mg Tab) 50 mg PO DAILY [facility] Last Admin: 11/24/16 08:52 Dose: Not Given - Labs Labs: 11/24/16 13:19 11/24/16 13:19 PT 15.7 Seconds (9.8-13.1) H 11/17/16 18:00 INR 1.4 (0.9-1.2) H 11/17/16 18:00 APTT 25.7 Seconds (25.6-37.1) 11/17/16 18:00 Assessment and Plan - Assessment and Plan (Free Text) Assessment: Patient was personally seen and examined by me in rounds with residents. Available labs and diagnostic data reviewed. Case, patient's condition and management plan discussed with residents in rounds. Agree with resident's progress note. Plan: As ordered.
[2016-11-22] MEDS ORDERED: Iohexol 240 (50 ml) PO ONE (09:18)
[2016-11-22] MEDS: Multivitamin With Minerals Tab PO SCH (09:43)
--- NOTE | 2016-11-22 14:10 | CP.PCM.PN ---
Subjective - Date & Time of Evaluation Date of Evaluation: 11/22/16 Time of Evaluation: 08:00 - Subjective Subjective: still with intermittent fever drains in place on right side no abd pain or sob cultures grew pansensitive e coli Objective - Vital Signs/Intake and Output Vital Signs (last 24 hours): Temp Pulse Resp BP Pulse Ox 98.0 F 100 H 20 101/68 97 11/22/16 12:43 11/22/16 12:43 11/22/16 12:43 11/22/16 12:43 11/22/16 12:43 Intake and Output: 11/22/16 11/22/16 06:59 18:59 Intake Total 2050 Output Total 855 Balance 1195 - Medications Medications: Current Medications Acetaminophen (Tylenol 325mg Tab) 650 mg PO Q6 PRN PRN Reason: Pain, moderate (4-7) Last Admin: 11/19/16 14:10 Dose: 650 mg Acetaminophen (Tylenol 325mg Tab) 325 mg PO Q6 PRN PRN Reason: Fever >100.4 F Last Admin: 11/21/16 15:46 Dose: 325 mg Ferrous Sulfate (Feosol) 325 mg PO DAILY [facility] Last Admin: 11/22/16 09:43 Dose: 325 mg Folic Acid (Folic Acid) 5 mg PO DAILY [facility] Last Admin: 11/22/16 09:42 Dose: 5 mg Vancomycin HCl 1 gm/ Sodium (Chloride) 250 mls @ 166.667 mls/hr IVPB Q12 [facility] Last Admin: 11/22/16 09:43 Dose: 166.667 mls/hr Piperacillin Sod/Tazobactam (Sod 3.375 gm/ Sodium Chloride) 100 mls @ 100 mls/ hr IVPB Q6 [facility] Last Admin: 11/22/16 09:43 Dose: 100 mls/hr Dextrose/Sodium Chloride (Dextrose 5%/0.9% Ns 1000 Ml) 1,000 mls @ 100 mls/hr IV .Q10H [facility] Last Admin: 11/22/16 04:35 Dose: 100 mls/hr Isoniazid (Niazid) 300 mg PO DAILY [facility] Last Admin: 11/22/16 09:42 Dose: 300 mg Ketorolac Tromethamine (Toradol) 30 mg IVP Q8 PRN PRN Reason: Pain, severe (8-10) Last Admin: 11/22/16 10:20 Dose: 30 mg Lactobacillus Acidophilus (Bacid Acidophilus) 1 cap PO HS [facility] Last Admin: 11/21/16 22:25 Dose: 1 cap Multivitamins/Minerals (Therapeutic-M Tab) 1 tab PO DAILY [facility] Last Admin: 11/22/16 09:43 Dose: 1 tab Ondansetron HCl (Zofran Inj) 4 mg IVP Q4 PRN PRN Reason: Nausea/Vomiting Pyridoxine HCl (Vitamin B6 50 Mg Tab) 50 mg PO DAILY [facility] Last Admin: 11/22/16 09:42 Dose: 50 mg - Labs Labs: 11/22/16 05:00 11/22/16 05:00 PT 15.7 Seconds (9.8-13.1) H 11/17/16 18:00 INR 1.4 (0.9-1.2) H 11/17/16 18:00 APTT 25.7 Seconds (25.6-37.1) 11/17/16 18:00 - Constitutional Appears: Non-toxic, Chronically Ill - Head Exam Head Exam: NORMOCEPHALIC - Eye Exam Eye Exam: PERRL. absent: Scleral icterus - ENT Exam ENT Exam: Mucous Membranes Dry, Normal External Ear Exam - Neck Exam Neck Exam: absent: Lymphadenopathy - Respiratory Exam Respiratory Exam: Decreased Breath Sounds, Clear to Ausculation Bilateral - Cardiovascular Exam Cardiovascular Exam: REGULAR RHYTHM, +S1, +S2 - GI/Abdominal Exam GI & Abdominal Exam: Distended, Soft - Rectal Exam Rectal Exam: Deferred - Exam Exam: NORMAL INSPECTION - Extremities Exam Extremities Exam: absent: Calf Tenderness, Pedal Edema - Back Exam Back Exam: absent: CVA tenderness (L), CVA tenderness (R) - Neurological Exam Neurological Exam: Alert, Awake, Oriented x3 - Psychiatric Exam Psychiatric exam: Normal Mood - Skin Skin Exam: Dry, Intact Assessment and Plan (1) Acute Crohn's disease with abscess Status: Acute (2) Acute Crohn's disease with abscess Status: Acute (3) Acute Crohn's disease with complication Status: Acute (4) Acute Crohn's disease with complication Status: Acute (5) Intra-abdominal abscess Status: Acute (6) Sepsis Status: Acute - Assessment and Plan (Free Text) Assessment: cont iv rx possible or on sunday as per pt
--- NOTE | 2016-11-22 16:39 | CP.PCM.PN ---
Subjective - Date & Time of Evaluation Date of Evaluation: 11/22/16 Time of Evaluation: 16:33 - Subjective Subjective: Clinically feeling well Two drains in place and draining well. Objective - Vital Signs/Intake and Output Vital Signs (last 24 hours): Temp Pulse Resp BP Pulse Ox 98.1 F 108 H 20 107/72 100 11/22/16 16:31 11/22/16 16:31 11/22/16 16:31 11/22/16 16:31 11/22/16 16:31 Intake and Output: 11/22/16 11/22/16 06:59 18:59 Intake Total 0 Output Total 855 Balance 1195 - Medications Medications: Current Medications Acetaminophen (Tylenol 325mg Tab) 650 mg PO Q6 PRN PRN Reason: Pain, moderate (4-7) Last Admin: 11/19/16 14:10 Dose: 650 mg Acetaminophen (Tylenol 325mg Tab) 325 mg PO Q6 PRN PRN Reason: Fever >100.4 F Last Admin: 11/21/16 15:46 Dose: 325 mg Ferrous Sulfate (Feosol) 325 mg PO DAILY [facility] Last Admin: 11/22/16 09:43 Dose: 325 mg Folic Acid (Folic Acid) 5 mg PO DAILY [facility] Last Admin: 11/22/16 09:42 Dose: 5 mg Dextrose/Sodium Chloride (Dextrose 5%/0.9% Ns 1000 Ml) 1,000 mls @ 100 mls/hr IV .Q10H [facility] Last Admin: 11/22/16 04:35 Dose: 100 mls/hr Metronidazole (Flagyl 500mg/100ml Ns) 100 mls @ 100 mls/hr IVPB Q8 [facility] Cefazolin Sodium 2 gm/ Sodium (Chloride) 100 mls @ 100 mls/hr IVPB Q8 [facility] Isoniazid (Niazid) 300 mg PO DAILY [facility] Last Admin: 11/22/16 09:42 Dose: 300 mg Ketorolac Tromethamine (Toradol) 30 mg IVP Q8 PRN PRN Reason: Pain, severe (8-10) Last Admin: 11/22/16 10:20 Dose: 30 mg Lactobacillus Acidophilus (Bacid Acidophilus) 1 cap PO HS [facility] Last Admin: 11/21/16 22:25 Dose: 1 cap Multivitamins/Minerals (Therapeutic-M Tab) 1 tab PO DAILY [facility] Last Admin: 11/22/16 09:43 Dose: 1 tab Ondansetron HCl (Zofran Inj) 4 mg IVP Q4 PRN PRN Reason: Nausea/Vomiting Pyridoxine HCl (Vitamin B6 50 Mg Tab) 50 mg PO DAILY [facility] Last Admin: 11/22/16 09:42 Dose: 50 mg - Labs Labs: 11/22/16 05:00 11/22/16 05:00 PT 15.7 Seconds (9.8-13.1) H 11/17/16 18:00 INR 1.4 (0.9-1.2) H 11/17/16 18:00 APTT 25.7 Seconds (25.6-37.1) 11/17/16 18:00 - Head Exam Head Exam: NORMAL INSPECTION - Eye Exam Eye Exam: Normal appearance Pupil Exam: PERRL - ENT Exam ENT Exam: Mucous Membranes Moist - Neck Exam Neck Exam: Full ROM - Respiratory Exam Respiratory Exam: NORMAL BREATHING PATTERN - Cardiovascular Exam Cardiovascular Exam: REGULAR RHYTHM - GI/Abdominal Exam GI & Abdominal Exam: Soft, Normal Bowel Sounds. absent: Tenderness Assessment and Plan (1) Intra-abdominal abscess Assessment & Plan: Culture shows E coli. Had temperature spike yesterday but in general is clinically improved. Ureteral stent from June still in place and hydronephrosis is present. Having CT tomorrow. Consider Urology consultation Status: Acute
[2016-11-22] MEDS: metroNIDAZOLE 500mg/100ml NS 100 ML IVPB SCH (17:47)
[2016-11-22] MEDS: ceFAZolin 2 GM in Sodium Chloride 0.9% 100 ML IVPB SCH (18:00)
[2016-11-22] MEDS: Lactobacillus Acidophilus 500 MU Cap PO SCH (21:44)
[2016-11-23] MEDS: ceFAZolin 2 GM in Sodium Chloride 0.9% 100 ML IVPB SCH ×3 (00:04→16:39)
[2016-11-23] MEDS: Dextrose 5%/0.9% NS 1,000 ML IV SCH ×3 (00:05→22:43)
[2016-11-23] MEDS: metroNIDAZOLE 500mg/100ml NS 100 ML IVPB SCH ×3 (01:07→18:58)
[2016-11-23 05:54] LABS: BASO # 0.2 K/uL (0.0-0.2); BASO % 1.2 % (0.0-2.0); EOS # 0.2 K/uL (0.0-0.7); EOS % 1.5 % (0.0-4.0); HEMOGLOBIN 8.6 g/dL (12.0-16.0); LYMPH # 1.1 K/uL (1.0-4.3); LYMPH % 8.6 % (20.0-40.0); MEAN CELL VOLUME 70.3 fl (81.0-99.0); MEAN CORPUSCULAR HEMOGLOBIN 20.9 pg (27.0-31.0); MEAN CORPUSCULAR HGB CONC 29.7 g/dL (33.0-37.0); MEAN PLATELET VOLUME 8.6 fl (7.2-11.7); MONO # 0.3 K/uL (0.0-0.8); MONO % 2.5 % (0.0-10.0); NEUT # 11.5 K/uL (1.8-7.0); NEUT % 86.2 % (50.0-75.0); NRBC % 0.1 % (0.0-0.0); PLATELET COUNT 526 K/uL (130-400); RBC 4.12 Mil/uL (3.80-5.20); RED CELL DISTRIBUTION WIDTH 28.2 % (11.5-14.5); WHITE BLOOD COUNT 13.4 K/uL (4.8-10.8)
--- NOTE | 2016-11-23 06:35 | CARD ---
APPROVED REPORT EKG Measurement Heart [id number] <Conclusion> Sinus tachycardia Otherwise normal ECG
[2016-11-23] MEDS: Multivitamin With Minerals Tab PO SCH (09:10)
[2016-11-23 10:00] LABS: BANDS 2 % (0-2); LYMPHOCYTE 10 % (20-50); MONOCYTE 5 % (0-10); NEUTROPHIL 83 % (42-75); TOTAL CELLS COUNTED 100
[2016-11-23 10:01] LABS: PLATELET ESTIMATE INCREASED (NORMAL)
--- NOTE | 2016-11-23 10:03 | CP.PCM.PN ---
<Pradip Clement - Last Filed: 11/23/16 11:01> Subjective - Date & Time of Evaluation Date of Evaluation: 11/23/16 Time of Evaluation: 07:30 - Subjective Subjective: Pt seen and examined at bedside this morning. No acute events overnight. Afebrile. Pt reports +BM with looser stools yesterday. Tolerating PO intake w/o difficulty. No new complaints. Denies fever/chills, headaches, CP/SOB/ Palpitations, N/V/D/C, urinary symptoms, numbness/tingling. Objective - Vital Signs/Intake and Output Vital Signs (last 24 hours): Temp Pulse Resp BP Pulse Ox 97.8 F 87 18 114/77 99 11/23/16 08:00 11/23/16 08:00 11/23/16 08:00 11/23/16 08:00 11/23/16 08:00 Intake and Output: 11/23/16 11/23/16 06:59 18:59 Output Total 60 Balance -60 - Medications Medications: Current Medications Acetaminophen (Tylenol 325mg Tab) 650 mg PO Q6 PRN PRN Reason: Pain, moderate (4-7) Last Admin: 11/19/16 14:10 Dose: 650 mg Acetaminophen (Tylenol 325mg Tab) 325 mg PO Q6 PRN PRN Reason: Fever >100.4 F Last Admin: 11/21/16 15:46 Dose: 325 mg Ferrous Sulfate (Feosol) 325 mg PO DAILY [facility] Last Admin: 11/23/16 09:10 Dose: 325 mg Folic Acid (Folic Acid) 5 mg PO DAILY [facility] Last Admin: 11/23/16 09:10 Dose: 5 mg Dextrose/Sodium Chloride (Dextrose 5%/0.9% Ns 1000 Ml) 1,000 mls @ 100 mls/hr IV .Q10H [facility] Last Admin: 11/23/16 00:05 Dose: 100 mls/hr Metronidazole (Flagyl 500mg/100ml Ns) 100 mls @ 100 mls/hr IVPB Q8 [facility] Last Admin: 11/23/16 09:10 Dose: 100 mls/hr Cefazolin Sodium 2 gm/ Sodium (Chloride) 100 mls @ 100 mls/hr IVPB Q8 [facility] Last Admin: 11/23/16 00:04 Dose: 100 mls/hr Isoniazid (Niazid) 300 mg PO DAILY [facility] Last Admin: 11/23/16 09:10 Dose: 300 mg Ketorolac Tromethamine (Toradol) 30 mg IVP Q8 PRN PRN Reason: Pain, severe (8-10) Last Admin: 11/23/16 04:52 Dose: 30 mg Lactobacillus Acidophilus (Bacid Acidophilus) 1 cap PO HS [facility] Last Admin: 11/22/16 21:44 Dose: 1 cap Multivitamins/Minerals (Therapeutic-M Tab) 1 tab PO DAILY [facility] Last Admin: 11/23/16 09:10 Dose: 1 tab Ondansetron HCl (Zofran Inj) 4 mg IVP Q4 PRN PRN Reason: Nausea/Vomiting Pyridoxine HCl (Vitamin B6 50 Mg Tab) 50 mg PO DAILY [facility] Last Admin: 11/23/16 09:10 Dose: 50 mg - Labs Labs: 11/23/16 05:00 11/22/16 05:00 PT 15.7 Seconds (9.8-13.1) H 11/17/16 18:00 INR 1.4 (0.9-1.2) H 11/17/16 18:00 APTT 25.7 Seconds (25.6-37.1) 11/17/16 18:00 - Constitutional Appears: Non-toxic, No Acute Distress - ENT Exam ENT Exam: Mucous Membranes Moist - Respiratory Exam Respiratory Exam: Accessory Muscle Use, NORMAL BREATHING PATTERN. absent: Rales , Rhonchi, Wheezes - Cardiovascular Exam Cardiovascular Exam: REGULAR RHYTHM, RRR, +S1, +S2. absent: Gallop, JVD, Rubs, Murmur - GI/Abdominal Exam GI & Abdominal Exam: Soft, Tenderness, Normal Bowel Sounds. absent: Distended, Guarding, Rigid Additional comments: mild tenderness at drain insertion sites, improved since yesterday - Extremities Exam Extremities Exam: absent: Calf Tenderness, Pedal Edema - Neurological Exam Neurological Exam: Alert, Awake, Oriented x3 Assessment and Plan - Assessment and Plan (Free Text) Assessment: 36 y/o F with a PMHx remarkable for Crohns Disease admitted for intra-abdominal abcesses, s/p IR Drainage insertion, POD#5. Plan: 1) Sepsis (resolving) -afebrile -monitor vitals -follow CBC, today 13.4>8.6/29.0<526 -continue IV Abx as per ID 2) Acute Crohns Disease with Abscess -s/p IR drain insertion POD#5 -draining well -monitor drains -reg diet -continue as per surgery recommendations 3) Hydronephrosis -pt is s/p ureteral stent placement in 06/2016 -Urology consult appreciated -Pt for CT today <Ray Mensah K - Last Filed: 11/24/16 16:18> Objective - Vital Signs/Intake and Output Vital Signs (last 24 hours): Temp Pulse Resp BP Pulse Ox 98.2 F 86 20 100/68 97 11/24/16 13:00 11/24/16 13:00 11/24/16 13:00 11/24/16 13:00 11/24/16 13:00 Intake and Output: 11/24/16 11/24/16 06:59 18:59 Intake Total 100 Output Total 62 Balance -62 100 - Medications Medications: Current Medications Acetaminophen (Tylenol 325mg Tab) 650 mg PO Q6 PRN PRN Reason: Pain, moderate (4-7) Last Admin: 11/19/16 14:10 Dose: 650 mg Acetaminophen (Tylenol 325mg Tab) 325 mg PO Q6 PRN PRN Reason: Fever >100.4 F Last Admin: 11/21/16 15:46 Dose: 325 mg Ferrous Sulfate (Feosol) 325 mg PO DAILY [facility] Last Admin: 11/24/16 10:49 Dose: Not Given Folic Acid (Folic Acid) 5 mg PO DAILY [facility] Last Admin: 11/24/16 08:52 Dose: Not Given Hydrocortisone (Anusol-Hc) [address] BID [facility] Last Admin: 11/24/16 10:14 Dose: 1 applic Dextrose/Sodium Chloride (Dextrose 5%/0.9% Ns 1000 Ml) 1,000 mls @ 100 mls/hr IV .Q10H [facility] Last Admin: 11/24/16 13:36 Dose: 100 mls/hr Metronidazole (Flagyl 500mg/100ml Ns) 100 mls @ 100 mls/hr IVPB Q8 [facility] Last Admin: 11/24/16 08:53 Dose: 100 mls/hr Cefazolin Sodium 2 gm/ Sodium (Chloride) 100 mls @ 100 mls/hr IVPB Q8 [facility] Last Admin: 11/24/16 10:05 Dose: 100 mls/hr Lactated Ringer's (Lactated Ringer's) 1,000 mls @ 45 mls/hr IV [id number] [facility] Isoniazid (Niazid) 300 mg PO DAILY [facility] Last Admin: 11/24/16 08:52 Dose: Not Given Ketorolac Tromethamine (Toradol) 30 mg IVP Q8 PRN PRN Reason: Pain, severe (8-10) Last Admin: 11/24/16 10:05 Dose: 30 mg Lactobacillus Acidophilus (Bacid Acidophilus) 1 cap PO BID [facility] Multivitamins/Minerals (Therapeutic-M Tab) 1 tab PO DAILY [facility] Last Admin: 11/24/16 08:52 Dose: Not Given Ondansetron HCl (Zofran Inj) 4 mg IVP Q4 PRN PRN Reason: Nausea/Vomiting Pantoprazole Sodium (Protonix Ec Tab) 40 mg PO DAILY [facility] Pyridoxine HCl (Vitamin B6 50 Mg Tab) 50 mg PO DAILY [facility] Last Admin: 11/24/16 08:52 Dose: Not Given - Labs Labs: 11/24/16 13:19 11/24/16 13:19 PT 15.7 Seconds (9.8-13.1) H 11/17/16 18:00 INR 1.4 (0.9-1.2) H 11/17/16 18:00 APTT 25.7 Seconds (25.6-37.1) 11/17/16 18:00 Assessment and Plan - Assessment and Plan (Free Text) Assessment: Patient was personally seen and examined by me in rounds with residents. Available labs and diagnostic data reviewed. Case, patient's condition and management plan discussed with residents in rounds. Agree with resident's progress note. Plan: As ordered.
[2016-11-23 10:06] LABS: ANISOCYTOSIS MARKED; HYPOCHROMIC MODERATE; MICROCYTOSIS SLIGHT; POIKILOCYTOSIS SLIGHT; SCHISTOCYTES SLIGHT; TARGET CELLS SLIGHT
[2016-11-23 10:07] LABS: BURR CELLS SLIGHT
--- NOTE | 2016-11-23 11:28 | CP.PCM.PN ---
<Digna Rudd - Last Filed: 11/23/16 11:47> Subjective - Date & Time of Evaluation Date of Evaluation: 11/23/16 Time of Evaluation: 07:00 - Subjective Subjective: GENERAL SURGERY PROGRESS NOTE FOR DR. HUYNH Patient seen and examined with Dr. Huynh at bedside. She is doing well. She denies abdominal pain. She is tolerating regular diet. She denies nausea and vomiting. Right upper drain had 85cc and Right lower drain had 25cc purulent output over past 24 hours. Objective - Vital Signs/Intake and Output Vital Signs (last 24 hours): Temp Pulse Resp BP Pulse Ox 97.8 F 87 18 114/77 99 11/23/16 08:00 11/23/16 08:00 11/23/16 08:00 11/23/16 08:00 11/23/16 08:00 Intake and Output: 11/23/16 11/23/16 06:59 18:59 Output Total 60 Balance -60 - Medications Medications: Current Medications Acetaminophen (Tylenol 325mg Tab) 650 mg PO Q6 PRN PRN Reason: Pain, moderate (4-7) Last Admin: 11/19/16 14:10 Dose: 650 mg Acetaminophen (Tylenol 325mg Tab) 325 mg PO Q6 PRN PRN Reason: Fever >100.4 F Last Admin: 11/21/16 15:46 Dose: 325 mg Ferrous Sulfate (Feosol) 325 mg PO DAILY [facility] Last Admin: 11/23/16 09:10 Dose: 325 mg Folic Acid (Folic Acid) 5 mg PO DAILY [facility] Last Admin: 11/23/16 09:10 Dose: 5 mg Dextrose/Sodium Chloride (Dextrose 5%/0.9% Ns 1000 Ml) 1,000 mls @ 100 mls/hr IV .Q10H [facility] Last Admin: 11/23/16 00:05 Dose: 100 mls/hr Metronidazole (Flagyl 500mg/100ml Ns) 100 mls @ 100 mls/hr IVPB Q8 [facility] Last Admin: 11/23/16 09:10 Dose: 100 mls/hr Cefazolin Sodium 2 gm/ Sodium (Chloride) 100 mls @ 100 mls/hr IVPB Q8 [facility] Last Admin: 11/23/16 00:04 Dose: 100 mls/hr Isoniazid (Niazid) 300 mg PO DAILY [facility] Last Admin: 11/23/16 09:10 Dose: 300 mg Ketorolac Tromethamine (Toradol) 30 mg IVP Q8 PRN PRN Reason: Pain, severe (8-10) Last Admin: 11/23/16 04:52 Dose: 30 mg Lactobacillus Acidophilus (Bacid Acidophilus) 1 cap PO HS [facility] Last Admin: 11/22/16 21:44 Dose: 1 cap Multivitamins/Minerals (Therapeutic-M Tab) 1 tab PO DAILY [facility] Last Admin: 11/23/16 09:10 Dose: 1 tab Ondansetron HCl (Zofran Inj) 4 mg IVP Q4 PRN PRN Reason: Nausea/Vomiting Pyridoxine HCl (Vitamin B6 50 Mg Tab) 50 mg PO DAILY [facility] Last Admin: 11/23/16 09:10 Dose: 50 mg - Labs Labs: 11/23/16 05:00 11/22/16 05:00 PT 15.7 Seconds (9.8-13.1) H 11/17/16 18:00 INR 1.4 (0.9-1.2) H 11/17/16 18:00 APTT 25.7 Seconds (25.6-37.1) 11/17/16 18:00 - Constitutional Appears: Non-toxic, No Acute Distress - Head Exam Head Exam: NORMAL INSPECTION - Eye Exam Eye Exam: EOMI, Normal appearance - Respiratory Exam Respiratory Exam: NORMAL BREATHING PATTERN. absent: Respiratory Distress - Cardiovascular Exam Cardiovascular Exam: +S1, +S2 - GI/Abdominal Exam GI & Abdominal Exam: Soft, Tenderness (tender around both drain insertion sites in RLQ). absent: Distended, Firm, Guarding, Rigid Additional comments: [address] with purulent drainage - Neurological Exam Neurological Exam: Alert, Awake, Oriented x3 - Psychiatric Exam Psychiatric exam: Normal Affect, Normal Mood - Skin Skin Exam: Dry, Normal Color, Warm Assessment and Plan - Assessment and Plan (Free Text) Assessment: 36yo F with Crohn's disease, with sepsis and multiloculated retroperitoneal abscess, s/p IR drainage POD#5 - Afebrile past 24 hours - WBC 13.4 - Will continue to monitor drain output - Tolerating regular diet - Continue IV Abx and IV fluids - Pain control PRN - ID following, wound cx = E. Coli - Repeat CT Abd/Pelvis with PO and IV contrast to be done today - Discussed plan with Dr. Lino Rudd PGY-3 <Devon Huynh - Last Filed: 11/23/16 18:15> Subjective - Subjective Subjective: Patient was seen and examined at the bedside. Agree with resident's note above Objective - Vital Signs/Intake and Output Vital Signs (last 24 hours): Temp Pulse Resp BP Pulse Ox 99.7 F H 114 H 18 107/74 96 11/23/16 17:00 11/23/16 17:00 11/23/16 17:00 11/23/16 17:00 11/23/16 17:00 Intake and Output: 11/23/16 11/23/16 06:59 18:59 Output Total 60 Balance -60 - Medications Medications: Current Medications Acetaminophen (Tylenol 325mg Tab) 650 mg PO Q6 PRN PRN Reason: Pain, moderate (4-7) Last Admin: 11/19/16 14:10 Dose: 650 mg Acetaminophen (Tylenol 325mg Tab) 325 mg PO Q6 PRN PRN Reason: Fever >100.4 F Last Admin: 11/21/16 15:46 Dose: 325 mg Ferrous Sulfate (Feosol) 325 mg PO DAILY [facility] Last Admin: 11/23/16 09:10 Dose: 325 mg Folic Acid (Folic Acid) 5 mg PO DAILY [facility] Last Admin: 11/23/16 09:10 Dose: 5 mg Dextrose/Sodium Chloride (Dextrose 5%/0.9% Ns 1000 Ml) 1,000 mls @ 100 mls/hr IV .Q10H [facility] Last Admin: 11/23/16 11:42 Dose: 100 mls/hr Metronidazole (Flagyl 500mg/100ml Ns) 100 mls @ 100 mls/hr IVPB Q8 [facility] Last Admin: 11/23/16 09:10 Dose: 100 mls/hr Cefazolin Sodium 2 gm/ Sodium (Chloride) 100 mls @ 100 mls/hr IVPB Q8 [facility] Last Admin: 11/23/16 16:39 Dose: 100 mls/hr Isoniazid (Niazid) 300 mg PO DAILY [facility] Last Admin: 11/23/16 09:10 Dose: 300 mg Ketorolac Tromethamine (Toradol) 30 mg IVP Q8 PRN PRN Reason: Pain, severe (8-10) Last Admin: 11/23/16 16:38 Dose: 30 mg Lactobacillus Acidophilus (Bacid Acidophilus) 1 cap PO HS [facility] Last Admin: 11/22/16 21:44 Dose: 1 cap Multivitamins/Minerals (Therapeutic-M Tab) 1 tab PO DAILY [facility] Last Admin: 11/23/16 09:10 Dose: 1 tab Ondansetron HCl (Zofran Inj) 4 mg IVP Q4 PRN PRN Reason: Nausea/Vomiting Pyridoxine HCl (Vitamin B6 50 Mg Tab) 50 mg PO DAILY [facility] Last Admin: 11/23/16 09:10 Dose: 50 mg - Labs Labs: 11/23/16 05:00 11/22/16 05:00 PT 15.7 Seconds (9.8-13.1) H 11/17/16 18:00 INR 1.4 (0.9-1.2) H 11/17/16 18:00 APTT 25.7 Seconds (25.6-37.1) 11/17/16 18:00
[2016-11-23] MEDS ORDERED: Sodium Chloride 0.9% 50 ML IV ONE (12:08)
[2016-11-23] MEDS ORDERED: Iohexol 300 100 ML IJ ONE (12:08)
--- NOTE | 2016-11-23 13:54 | CT ---
PROCEDURE: CT Abdomen and Pelvis with contrast HISTORY: fever, retroperitoneal abscess s/p IR drainx2 11/17 Relevant interventional procedure(s): Status post percutaneous drainage of retroperitoneal/psoas abscess November 17, 2016 COMPARISON: 11/17/2016 TECHNIQUE: Contrast dose: 100 cc Omnipaque 300 Radiation dose: Total exam DLP = 549.45 mGy-cm. This CT exam was performed using one or more of the following dose reduction techniques: Automated exposure control, adjustment of the mA and/or kV according to patient size, and/or use of iterative reconstruction technique. FINDINGS: Tube percutaneously placed pigtail catheters identified in 2 collections which have almost completely resolved 1 in the flanks in the other just above the pelvic brim on the right. The more deeply situated multiloculated collection is unchanged The iliopsoas collection better delineated, more mature on the present study measures 4.2 x 5.8 cm (axial series 2, image 59) Increased flank edema, anasarca identified, unilateral on the right. LOWER THORAX: Unremarkable. LIVER: Unremarkable. No gross lesion or ductal dilatation. GALLBLADDER AND BILE DUCTS: Unremarkable. PANCREAS: Unremarkable. No gross lesion or ductal dilatation. SPLEEN: Unremarkable. ADRENALS: Unremarkable. No mass. KIDNEYS AND URETERS: Unremarkable. No hydronephrosis. No solid mass. Stable position of left double-J stent catheter. VASCULATURE: Unremarkable. No aortic aneurysm. BOWEL: Unremarkable. No obstruction. No gross mural thickening. APPENDIX: Normal appendix. PERITONEUM: Unremarkable. No free fluid. No free air. LYMPH NODES: Unremarkable. No enlarged lymph nodes. BLADDER: Unremarkable. REPRODUCTIVE: Unremarkable. BONES: No acute fracture. OTHER FINDINGS: None. IMPRESSION: Status post drainage of 2 separate and distinct fluid collection/abscess ease. Evolving more deeply situated complex and bilobed collections anatomically described above. Worsening subcutaneous edema and anasarca.
[2016-11-23] MEDS: Lactobacillus Acidophilus 500 MU Cap PO SCH (22:43)
[2016-11-23] MEDS: Hydrocortisone 2.5% (Rectal) CREAM PR SCH (23:26)
[2016-11-24] MEDS: metroNIDAZOLE 500mg/100ml NS 100 ML IVPB SCH ×3 (00:10→16:47)
[2016-11-24] MEDS: ceFAZolin 2 GM in Sodium Chloride 0.9% 100 ML IVPB SCH ×3 (01:27→16:45)
[2016-11-24 06:56] LABS: BASO % 0.3 % (0.0-2.0); EOS # 0.2 K/uL (0.0-0.7); EOS % 1.2 % (0.0-4.0); HEMOGLOBIN 8.4 g/dL (12.0-16.0); LYMPH # 0.9 K/uL (1.0-4.3); LYMPH % 6.7 % (20.0-40.0); MEAN CELL VOLUME 69.6 fl (81.0-99.0); MEAN CORPUSCULAR HEMOGLOBIN 21.5 pg (27.0-31.0); MEAN CORPUSCULAR HGB CONC 30.9 g/dL (33.0-37.0); MEAN PLATELET VOLUME 8.3 fl (7.2-11.7); MONO # 0.4 K/uL (0.0-0.8); MONO % 3.2 % (0.0-10.0); NEUT # 11.7 K/uL (1.8-7.0); NEUT % 88.6 % (50.0-75.0); RBC 3.92 Mil/uL (3.80-5.20); RED CELL DISTRIBUTION WIDTH 28.4 % (11.5-14.5); WHITE BLOOD COUNT 13.2 K/uL (4.8-10.8)
[2016-11-24 07:10] LABS: ALB/GLOB RATIO 0.7 (1.0-2.1); ALBUMIN 2.3 g/dL (3.5-5.0); ALT/SGPT 28 U/L (9-52); AST/SGOT 48 U/L (14-36); BLOOD UREA NITROGEN 8 mg/dl (7-17); CALCIUM 8.5 mg/dL (8.4-10.2); GFR AFRICAN-AMERICAN > 60; GFR NON-AFRICAN AMERICAN > 60
--- NOTE | 2016-11-24 08:49 | CP.PCM.PN ---
<CiriloesperanzaruizWilmre - Last Filed: 11/24/16 08:57> Subjective - Date & Time of Evaluation Date of Evaluation: 11/24/16 Time of Evaluation: 08:44 - Subjective Subjective: Surgery: Dr. Huynh Pt seen and examined. Resting comfortably in bed. Pain controlled. No complaints. Objective - Vital Signs/Intake and Output Vital Signs (last 24 hours): Temp Pulse Resp BP Pulse Ox 98.6 F 86 20 149/86 98 11/24/16 08:26 11/24/16 08:26 11/24/16 08:26 11/24/16 08:26 11/24/16 08:26 Intake and Output: 11/24/16 11/24/16 06:59 18:59 Output Total 62 Balance -62 - Medications Medications: Current Medications Acetaminophen (Tylenol 325mg Tab) 650 mg PO Q6 PRN PRN Reason: Pain, moderate (4-7) Last Admin: 11/19/16 14:10 Dose: 650 mg Acetaminophen (Tylenol 325mg Tab) 325 mg PO Q6 PRN PRN Reason: Fever >100.4 F Last Admin: 11/21/16 15:46 Dose: 325 mg Ferrous Sulfate (Feosol) 325 mg PO DAILY [facility] Last Admin: 11/23/16 09:10 Dose: 325 mg Folic Acid (Folic Acid) 5 mg PO DAILY [facility] Last Admin: 11/23/16 09:10 Dose: 5 mg Hydrocortisone (Anusol-Hc) 1 applic [place] BID [facility] Last Admin: 11/23/16 23:26 Dose: 1 applic Dextrose/Sodium Chloride (Dextrose 5%/0.9% Ns 1000 Ml) 1,000 mls @ 100 mls/hr IV .Q10H [facility] Last Admin: 11/23/16 22:43 Dose: 100 mls/hr Metronidazole (Flagyl 500mg/100ml Ns) 100 mls @ 100 mls/hr IVPB Q8 [facility] Last Admin: 11/24/16 00:10 Dose: 100 mls/hr Cefazolin Sodium 2 gm/ Sodium (Chloride) 100 mls @ 100 mls/hr IVPB Q8 [facility] Last Admin: 11/24/16 01:27 Dose: 100 mls/hr Isoniazid (Niazid) 300 mg PO DAILY [facility] Last Admin: 11/23/16 09:10 Dose: 300 mg Ketorolac Tromethamine (Toradol) 30 mg IVP Q8 PRN PRN Reason: Pain, severe (8-10) Last Admin: 11/23/16 16:38 Dose: 30 mg Lactobacillus Acidophilus (Bacid Acidophilus) 1 cap PO HS [facility] Last Admin: 11/23/16 22:43 Dose: 1 cap Multivitamins/Minerals (Therapeutic-M Tab) 1 tab PO DAILY [facility] Last Admin: 11/23/16 09:10 Dose: 1 tab Ondansetron HCl (Zofran Inj) 4 mg IVP Q4 PRN PRN Reason: Nausea/Vomiting Pyridoxine HCl (Vitamin B6 50 Mg Tab) 50 mg PO DAILY [facility] Last Admin: 11/23/16 09:10 Dose: 50 mg - Labs Labs: 11/24/16 06:25 11/24/16 06:25 PT 15.7 Seconds (9.8-13.1) H 11/17/16 18:00 INR 1.4 (0.9-1.2) H 11/17/16 18:00 APTT 25.7 Seconds (25.6-37.1) 11/17/16 18:00 - Constitutional Appears: Non-toxic, No Acute Distress - Head Exam Head Exam: ATRAUMATIC, NORMOCEPHALIC - Eye Exam Eye Exam: EOMI. absent: Scleral icterus - ENT Exam ENT Exam: Mucous Membranes Moist - Neck Exam Neck Exam: Full ROM - Respiratory Exam Respiratory Exam: NORMAL BREATHING PATTERN. absent: Accessory Muscle Use, Respiratory Distress - GI/Abdominal Exam GI & Abdominal Exam: Soft. absent: Distended, Firm, Guarding, Rigid, Tenderness , Rebound Additional comments: R side drains in place x 2 - Neurological Exam Neurological Exam: Alert, Awake, Oriented x3 Assessment and Plan - Assessment and Plan (Free Text) Assessment: 36F w. Crohn's disease and multiloculated retroperitoneal abscess -R upper abd drain: 37cc/24hr -R lower abd drain: 25cc/24hr -pt to be seen by IR for further drainage -d/w attending Ollie PGY2 <Devon Huynh - Last Filed: 11/24/16 18:43> Subjective - Date & Time of Evaluation Time of Evaluation: 11:20 - Subjective Subjective: Patient was seen and examined at the bedside. S/P placement of another drain by IR today. Agree with resident's note above. Objective - Vital Signs/Intake and Output Vital Signs (last 24 hours): Temp Pulse Resp BP Pulse Ox 98.2 F 107 H 17 97/64 L 96 11/24/16 17:00 11/24/16 16:35 11/24/16 16:09 11/24/16 16:09 11/24/16 16:35 Intake and Output: 11/24/16 11/24/16 06:59 18:59 Intake Total 100 Output Total 62 Balance -62 100 - Medications Medications: Current Medications Acetaminophen (Tylenol 325mg Tab) 650 mg PO Q6 PRN PRN Reason: Pain, moderate (4-7) Last Admin: 11/19/16 14:10 Dose: 650 mg Acetaminophen (Tylenol 325mg Tab) 325 mg PO Q6 PRN PRN Reason: Fever >100.4 F Last Admin: 11/21/16 15:46 Dose: 325 mg Ferrous Sulfate (Feosol) 325 mg PO DAILY [facility] Last Admin: 11/24/16 16:46 Dose: 325 mg Folic Acid (Folic Acid) 5 mg PO DAILY [facility] Last Admin: 11/24/16 16:47 Dose: 5 mg Hydrocortisone (Anusol-Hc) 1 applic [place] BID [facility] Last Admin: 11/24/16 16:47 Dose: 1 applic Dextrose/Sodium Chloride (Dextrose 5%/0.9% Ns 1000 Ml) 1,000 mls @ 100 mls/hr IV .Q10H [facility] Last Admin: 11/24/16 13:36 Dose: 100 mls/hr Metronidazole (Flagyl 500mg/100ml Ns) 100 mls @ 100 mls/hr IVPB Q8 [facility] Last Admin: 11/24/16 16:47 Dose: 100 mls/hr Cefazolin Sodium 2 gm/ Sodium (Chloride) 100 mls @ 100 mls/hr IVPB Q8 [facility] Last Admin: 11/24/16 16:45 Dose: 100 mls/hr Lactated Ringer's (Lactated Ringer's) 1,000 mls @ 45 mls/hr IV .[id number] [facility] Isoniazid (Niazid) 300 mg PO DAILY [facility] Last Admin: 11/24/16 16:46 Dose: 300 mg Ketorolac Tromethamine (Toradol) 30 mg IVP Q8 PRN PRN Reason: Pain, severe (8-10) Last Admin: 11/24/16 10:05 Dose: 30 mg Lactobacillus Acidophilus (Bacid Acidophilus) 1 cap PO BID [facility] Last Admin: 11/24/16 18:23 Dose: 1 cap Multivitamins/Minerals (Therapeutic-M Tab) 1 tab PO DAILY [facility] Last Admin: 11/24/16 16:46 Dose: 1 tab Ondansetron HCl (Zofran Inj) 4 mg IVP Q4 PRN PRN Reason: Nausea/Vomiting Pantoprazole Sodium (Protonix Ec Tab) 40 mg PO DAILY [facility] Pyridoxine HCl (Vitamin B6 50 Mg Tab) 50 mg PO DAILY [facility] Last Admin: 11/24/16 16:46 Dose: 50 mg - Labs Labs: 11/24/16 13:19 11/24/16 13:19 PT 15.7 Seconds (9.8-13.1) H 11/17/16 18:00 INR 1.4 (0.9-1.2) H 11/17/16 18:00 APTT 25.7 Seconds (25.6-37.1) 11/17/16 18:00 Assessment and Plan - Assessment and Plan (Free Text) Plan: - Continue antibiotics as per ID - Pain control - Resume regular diet - Repeat labs in am - Will follow
[2016-11-24] MEDS: Multivitamin With Minerals Tab PO SCH ×2 (08:52→16:46)
--- NOTE | 2016-11-24 09:00 | CP.PCM.PN ---
<Pradip Clement - Last Filed: 11/24/16 13:54> Subjective - Date & Time of Evaluation Date of Evaluation: 11/24/16 Time of Evaluation: 07:30 - Subjective Subjective: pt seen and examined at bedside, no acute events overnight. pt is lying in bed comfortably, NAD. Pt has not been OOB/ambulating but has no new complaints. Has been NPO prior to IR procedure for drain placement. Reports stooling and voiding without difficulty. Two current drains draining purulent fluid at 25cc and 35cc per hour respectively. Pain is controlled, afebrile. Denies fever/ chills, headaches, visual disturbances, CP/SOB/Palpitations, N/V/D/C, urinary symptoms, numbness/tingling. Objective - Vital Signs/Intake and Output Vital Signs (last 24 hours): Temp Pulse Resp BP Pulse Ox 98.6 F 86 20 149/86 98 11/24/16 08:26 11/24/16 08:26 11/24/16 08:26 11/24/16 08:26 11/24/16 08:26 Intake and Output: 11/24/16 11/24/16 06:59 18:59 Output Total 62 Balance -62 - Medications Medications: Current Medications Acetaminophen (Tylenol 325mg Tab) 650 mg PO Q6 PRN PRN Reason: Pain, moderate (4-7) Last Admin: 11/19/16 14:10 Dose: 650 mg Acetaminophen (Tylenol 325mg Tab) 325 mg PO Q6 PRN PRN Reason: Fever >100.4 F Last Admin: 11/21/16 15:46 Dose: 325 mg Ferrous Sulfate (Feosol) 325 mg PO DAILY [facility] Last Admin: 11/23/16 09:10 Dose: 325 mg Folic Acid (Folic Acid) 5 mg PO DAILY [facility] Last Admin: 11/24/16 08:52 Dose: Not Given Hydrocortisone (Anusol-Hc) [address] BID [facility] Last Admin: 11/23/16 23:26 Dose: 1 applic Dextrose/Sodium Chloride (Dextrose 5%/0.9% Ns 1000 Ml) 1,000 mls @ 100 mls/hr IV .Q10H [facility] Last Admin: 11/23/16 22:43 Dose: 100 mls/hr Metronidazole (Flagyl 500mg/100ml Ns) 100 mls @ 100 mls/hr IVPB Q8 [facility] Last Admin: 11/24/16 08:53 Dose: 100 mls/hr Cefazolin Sodium 2 gm/ Sodium (Chloride) 100 mls @ 100 mls/hr IVPB Q8 [facility] Last Admin: 11/24/16 01:27 Dose: 100 mls/hr Isoniazid (Niazid) 300 mg PO DAILY [facility] Last Admin: 11/24/16 08:52 Dose: Not Given Ketorolac Tromethamine (Toradol) 30 mg IVP Q8 PRN PRN Reason: Pain, severe (8-10) Last Admin: 11/23/16 16:38 Dose: 30 mg Lactobacillus Acidophilus (Bacid Acidophilus) 1 cap PO HS [facility] Last Admin: 11/23/16 22:43 Dose: 1 cap Multivitamins/Minerals (Therapeutic-M Tab) 1 tab PO DAILY [facility] Last Admin: 11/24/16 08:52 Dose: Not Given Ondansetron HCl (Zofran Inj) 4 mg IVP Q4 PRN PRN Reason: Nausea/Vomiting Pyridoxine HCl (Vitamin B6 50 Mg Tab) 50 mg PO DAILY [facility] Last Admin: 11/24/16 08:52 Dose: Not Given - Labs Labs: 11/24/16 06:25 11/24/16 06:25 PT 15.7 Seconds (9.8-13.1) H 11/17/16 18:00 INR 1.4 (0.9-1.2) H 11/17/16 18:00 APTT 25.7 Seconds (25.6-37.1) 11/17/16 18:00 - Constitutional Appears: Non-toxic, No Acute Distress - Eye Exam Eye Exam: EOMI Pupil Exam: PERRL - ENT Exam ENT Exam: Mucous Membranes Moist - Respiratory Exam Respiratory Exam: Clear to Ausculation Bilateral, NORMAL BREATHING PATTERN. absent: Rales, Rhonchi, Wheezes - Cardiovascular Exam Cardiovascular Exam: REGULAR RHYTHM, RRR, +S1, +S2. absent: Gallop, Rubs, Murmur - GI/Abdominal Exam GI & Abdominal Exam: Soft, Tenderness, Normal Bowel Sounds - Extremities Exam Extremities Exam: absent: Calf Tenderness - Neurological Exam Neurological Exam: Alert, Awake, CN II-XII Intact, Oriented x3 Assessment and Plan - Assessment and Plan (Free Text) Assessment: 36 y/o F with a PMHx remarkable for Crohns Disease admitted for multiloculated abdominal abscesses, s/p IR Drainage insertion. Plan: 1) Sepsis (resolving) -afebrile -monitor vitals -follow CBC, today 13.2>8.4/28.7<530 -continue IV Abx as per ID 2) Acute Crohns Disease with Abscess -s/p IR drain insertion POD#6 -Pt is s/p third CT drainage today -reg diet -ambulation 3) Hydronephrosis -pt is s/p ureteral stent placement in 06/2016 -Urology consult appreciated <Ray Mensah - Last Filed: 11/24/16 16:22> Objective - Vital Signs/Intake and Output Vital Signs (last 24 hours): Temp Pulse Resp BP Pulse Ox 98.2 F 86 20 100/68 97 11/24/16 13:00 11/24/16 13:00 11/24/16 13:00 11/24/16 13:00 11/24/16 13:00 Intake and Output: 11/24/16 11/24/16 06:59 18:59 Intake Total 100 Output Total 62 Balance -62 100 - Medications Medications: Current Medications Acetaminophen (Tylenol 325mg Tab) 650 mg PO Q6 PRN PRN Reason: Pain, moderate (4-7) Last Admin: 11/19/16 14:10 Dose: 650 mg Acetaminophen (Tylenol 325mg Tab) 325 mg PO Q6 PRN PRN Reason: Fever >100.4 F Last Admin: 11/21/16 15:46 Dose: 325 mg Ferrous Sulfate (Feosol) 325 mg PO DAILY [facility] Last Admin: 11/24/16 10:49 Dose: Not Given Folic Acid (Folic Acid) 5 mg PO DAILY [facility] Last Admin: 11/24/16 08:52 Dose: Not Given Hydrocortisone (Anusol-Hc) [address] BID [facility] Last Admin: 11/24/16 10:14 Dose: 1 applic Dextrose/Sodium Chloride (Dextrose 5%/0.9% Ns 1000 Ml) 1,000 mls @ 100 mls/hr IV .Q10H [facility] Last Admin: 11/24/16 13:36 Dose: 100 mls/hr Metronidazole (Flagyl 500mg/100ml Ns) 100 mls @ 100 mls/hr IVPB Q8 [facility] Last Admin: 11/24/16 08:53 Dose: 100 mls/hr Cefazolin Sodium 2 gm/ Sodium (Chloride) 100 mls @ 100 mls/hr IVPB Q8 [facility] Last Admin: 11/24/16 10:05 Dose: 100 mls/hr Lactated Ringer's (Lactated Ringer's) 1,000 mls @ 45 mls/hr IV .[id number] [facility] Isoniazid (Niazid) 300 mg PO DAILY [facility] Last Admin: 11/24/16 08:52 Dose: Not Given Ketorolac Tromethamine (Toradol) 30 mg IVP Q8 PRN PRN Reason: Pain, severe (8-10) Last Admin: 11/24/16 10:05 Dose: 30 mg Lactobacillus Acidophilus (Bacid Acidophilus) 1 cap PO BID [facility] Multivitamins/Minerals (Therapeutic-M Tab) 1 tab PO DAILY [facility] Last Admin: 11/24/16 08:52 Dose: Not Given Ondansetron HCl (Zofran Inj) 4 mg IVP Q4 PRN PRN Reason: Nausea/Vomiting Pantoprazole Sodium (Protonix Ec Tab) 40 mg PO DAILY [facility] Pyridoxine HCl (Vitamin B6 50 Mg Tab) 50 mg PO DAILY [facility] Last Admin: 11/24/16 08:52 Dose: Not Given - Labs Labs: 11/24/16 13:19 11/24/16 13:19 PT 15.7 Seconds (9.8-13.1) H 11/17/16 18:00 INR 1.4 (0.9-1.2) H 11/17/16 18:00 APTT 25.7 Seconds (25.6-37.1) 11/17/16 18:00 Assessment and Plan - Assessment and Plan (Free Text) Assessment: Patient was personally seen and examined by me in rounds with residents. Available labs and diagnostic data reviewed. Case, patient's condition and management plan discussed with residents in rounds. Agree with resident's progress note. Plan: As ordered.
--- NOTE | 2016-11-24 09:38 | CP.PCM.PN ---
Subjective - Date & Time of Evaluation Date of Evaluation: 11/23/16 Time of Evaluation: 15:15 - Subjective Subjective: Patient better clinically. Remains afebrile. WBC about 13K Objective - Vital Signs/Intake and Output Vital Signs (last 24 hours): Temp Pulse Resp BP Pulse Ox 98.6 F 86 20 149/86 98 11/24/16 08:26 11/24/16 08:26 11/24/16 08:26 11/24/16 08:26 11/24/16 08:26 Intake and Output: 11/24/16 11/24/16 06:59 18:59 Output Total 62 Balance -62 - Medications Medications: Current Medications Acetaminophen (Tylenol 325mg Tab) 650 mg PO Q6 PRN PRN Reason: Pain, moderate (4-7) Last Admin: 11/19/16 14:10 Dose: 650 mg Acetaminophen (Tylenol 325mg Tab) 325 mg PO Q6 PRN PRN Reason: Fever >100.4 F Last Admin: 11/21/16 15:46 Dose: 325 mg Ferrous Sulfate (Feosol) 325 mg PO DAILY [facility] Last Admin: 11/23/16 09:10 Dose: 325 mg Folic Acid (Folic Acid) 5 mg PO DAILY [facility] Last Admin: 11/24/16 08:52 Dose: Not Given Hydrocortisone (Anusol-Hc) 1 applic [place] BID [facility] Last Admin: 11/23/16 23:26 Dose: 1 applic Dextrose/Sodium Chloride (Dextrose 5%/0.9% Ns 1000 Ml) 1,000 mls @ 100 mls/hr IV .Q10H [facility] Last Admin: 11/23/16 22:43 Dose: 100 mls/hr Metronidazole (Flagyl 500mg/100ml Ns) 100 mls @ 100 mls/hr IVPB Q8 [facility] Last Admin: 11/24/16 08:53 Dose: 100 mls/hr Cefazolin Sodium 2 gm/ Sodium (Chloride) 100 mls @ 100 mls/hr IVPB Q8 [facility] Last Admin: 11/24/16 01:27 Dose: 100 mls/hr Isoniazid (Niazid) 300 mg PO DAILY [facility] Last Admin: 11/24/16 08:52 Dose: Not Given Ketorolac Tromethamine (Toradol) 30 mg IVP Q8 PRN PRN Reason: Pain, severe (8-10) Last Admin: 11/23/16 16:38 Dose: 30 mg Lactobacillus Acidophilus (Bacid Acidophilus) 1 cap PO HS [facility] Last Admin: 11/23/16 22:43 Dose: 1 cap Multivitamins/Minerals (Therapeutic-M Tab) 1 tab PO DAILY [facility] Last Admin: 11/24/16 08:52 Dose: Not Given Ondansetron HCl (Zofran Inj) 4 mg IVP Q4 PRN PRN Reason: Nausea/Vomiting Pyridoxine HCl (Vitamin B6 50 Mg Tab) 50 mg PO DAILY [facility] Last Admin: 11/24/16 08:52 Dose: Not Given - Labs Labs: 11/24/16 06:25 11/24/16 06:25 PT 15.7 Seconds (9.8-13.1) H 11/17/16 18:00 INR 1.4 (0.9-1.2) H 11/17/16 18:00 APTT 25.7 Seconds (25.6-37.1) 11/17/16 18:00 - Head Exam Head Exam: ATRAUMATIC - Eye Exam Pupil Exam: NORMAL ACCOMODATION - Neck Exam Neck Exam: Full ROM - Respiratory Exam Respiratory Exam: Clear to Ausculation Bilateral - Cardiovascular Exam Cardiovascular Exam: REGULAR RHYTHM - GI/Abdominal Exam GI & Abdominal Exam: Soft, Normal Bowel Sounds. absent: Tenderness Assessment and Plan (1) Intra-abdominal abscess Assessment & Plan: Clinically better. CT shows improvement of 2 of the abscesses while a deeper 5 cm one remains and is maturing. Continue IV antibiotics. Management of 5 cm abscess as per IR and surgery. Status: Acute
[2016-11-24] MEDS: Hydrocortisone 2.5% (Rectal) CREAM PR SCH ×2 (10:14→16:47)
[2016-11-24] MEDS ORDERED: Lidocaine 1% Inj (20ml) ONE (10:37)
[2016-11-24] MEDS ORDERED: Propofol 10 mg/ml Inj (20 ML) ONE (10:40)
[2016-11-24] MEDS ORDERED: Midazolam 2 MG/2 ML VIAL ONE (10:41)
--- NOTE | 2016-11-24 11:26 | PCM.SURG1 ---
Surgeon's Initial Post Op Note - Surgeon's Notes Surgeon: Javier Zhu MD Oil Mixer: NONE Type of Anesthesia: IV Sedation Pre-Operative Diagnosis: CT guided abscess drainage. Operative Findings: Small pelvic abscess on CT scan. Post-Operative Diagnosis: Crohn's disease, Pelvic abscess Operation Performed: CT guided placement of an 8.5 fr pigtail within collection near iliacus. Specimen/Specimens Removed: 10 cc purulent drainage. Estimated Blood Loss: EBL {In ML}: 1 Blood Products Given: N/A Drains Used: Inderjit Garcia Post-Op Condition: Fair Date of Surgery/Procedure: 11/24/16 Time of Surgery/Procedure: 11:20
[2016-11-24] MEDS: Dextrose 5%/0.9% NS 1,000 ML IV SCH ×2 (11:30→13:36)
[2016-11-24] MEDS ORDERED: Lactated Ringer's 1,000 ML IV SCH (11:39)
[2016-11-24 13:35] LABS: HEMOGLOBIN 8.3 g/dL (12.0-16.0); MEAN CELL VOLUME 68.7 fl (81.0-99.0); MEAN CORPUSCULAR HEMOGLOBIN 21.8 pg (27.0-31.0); MEAN CORPUSCULAR HGB CONC 31.7 g/dL (33.0-37.0); RBC 3.82 Mil/uL (3.80-5.20); RED CELL DISTRIBUTION WIDTH 28.7 % (11.5-14.5); WHITE BLOOD COUNT 15.5 K/uL (4.8-10.8)
--- NOTE | 2016-11-24 13:40 | CP.PCM.PN ---
Subjective - Date & Time of Evaluation Date of Evaluation: 11/24/16 Time of Evaluation: 09:00 - Subjective Subjective: s/p repeat CT drainage iv rx in progress Objective - Vital Signs/Intake and Output Vital Signs (last 24 hours): Temp Pulse Resp BP Pulse Ox 98.2 F 86 20 100/68 97 11/24/16 13:00 11/24/16 13:00 11/24/16 13:00 11/24/16 13:00 11/24/16 13:00 Intake and Output: 11/24/16 11/24/16 06:59 18:59 Intake Total 100 Output Total 62 Balance -62 100 - Medications Medications: Current Medications Acetaminophen (Tylenol 325mg Tab) 650 mg PO Q6 PRN PRN Reason: Pain, moderate (4-7) Last Admin: 11/19/16 14:10 Dose: 650 mg Acetaminophen (Tylenol 325mg Tab) 325 mg PO Q6 PRN PRN Reason: Fever >100.4 F Last Admin: 11/21/16 15:46 Dose: 325 mg Ferrous Sulfate (Feosol) 325 mg PO DAILY [facility] Last Admin: 11/24/16 10:49 Dose: Not Given Folic Acid (Folic Acid) 5 mg PO DAILY [facility] Last Admin: 11/24/16 08:52 Dose: Not Given Hydrocortisone (Anusol-Hc) 1 applic [place] BID [facility] Last Admin: 11/24/16 10:14 Dose: 1 applic Dextrose/Sodium Chloride (Dextrose 5%/0.9% Ns 1000 Ml) 1,000 mls @ 100 mls/hr IV .Q10H [facility] Last Admin: 11/24/16 13:36 Dose: 100 mls/hr Metronidazole (Flagyl 500mg/100ml Ns) 100 mls @ 100 mls/hr IVPB Q8 [facility] Last Admin: 11/24/16 08:53 Dose: 100 mls/hr Cefazolin Sodium 2 gm/ Sodium (Chloride) 100 mls @ 100 mls/hr IVPB Q8 [facility] Last Admin: 11/24/16 10:05 Dose: 100 mls/hr Lactated Ringer's (Lactated Ringer's) 1,000 mls @ 45 mls/hr IV .[id number] [facility] Isoniazid (Niazid) 300 mg PO DAILY [facility] Last Admin: 11/24/16 08:52 Dose: Not Given Ketorolac Tromethamine (Toradol) 30 mg IVP Q8 PRN PRN Reason: Pain, severe (8-10) Last Admin: 11/24/16 10:05 Dose: 30 mg Lactobacillus Acidophilus (Bacid Acidophilus) 1 cap PO BID [facility] Multivitamins/Minerals (Therapeutic-M Tab) 1 tab PO DAILY [facility] Last Admin: 11/24/16 08:52 Dose: Not Given Ondansetron HCl (Zofran Inj) 4 mg IVP Q4 PRN PRN Reason: Nausea/Vomiting Ondansetron HCl (Zofran Inj) 4 mg IVP ONCE PRN PRN Reason: Nausea/Vomiting Stop: 11/24/16 13:40 Pantoprazole Sodium (Protonix Ec Tab) 40 mg PO DAILY [facility] Pyridoxine HCl (Vitamin B6 50 Mg Tab) 50 mg PO DAILY [facility] Last Admin: 11/24/16 08:52 Dose: Not Given - Labs Labs: 11/24/16 06:25 11/24/16 06:25 PT 15.7 Seconds (9.8-13.1) H 11/17/16 18:00 INR 1.4 (0.9-1.2) H 11/17/16 18:00 APTT 25.7 Seconds (25.6-37.1) 11/17/16 18:00 - Constitutional Appears: Non-toxic, Chronically Ill - Head Exam Head Exam: NORMOCEPHALIC - Eye Exam Eye Exam: absent: Scleral icterus - ENT Exam ENT Exam: Mucous Membranes Dry, Normal External Ear Exam - Neck Exam Neck Exam: absent: Lymphadenopathy - Respiratory Exam Respiratory Exam: Decreased Breath Sounds, Clear to Ausculation Bilateral, Prolonged Expiratory Phase - Cardiovascular Exam Cardiovascular Exam: REGULAR RHYTHM, +S1, +S2 - GI/Abdominal Exam GI & Abdominal Exam: Distended, Soft - Rectal Exam Rectal Exam: Deferred - Exam Exam: NORMAL INSPECTION - Extremities Exam Extremities Exam: absent: Pedal Edema - Back Exam Back Exam: absent: CVA tenderness (L), CVA tenderness (R) Assessment and Plan (1) Acute Crohn's disease with abscess Status: Acute (2) Acute Crohn's disease with abscess Status: Acute (3) Acute Crohn's disease with complication Status: Acute (4) Acute Crohn's disease with complication Status: Acute (5) Intra-abdominal abscess Status: Acute (6) Sepsis Status: Acute
[2016-11-24 14:08] LABS: BLOOD UREA NITROGEN 6 mg/dl (7-17); CALCIUM 8.4 mg/dL (8.4-10.2); GFR AFRICAN-AMERICAN > 60; GFR NON-AFRICAN AMERICAN > 60
--- NOTE | 2016-11-24 14:32 | CT ---
PROCEDURE: Date of procedure: 11/24/2016 Procedure: 1. retroperitoneal abscess drainage with CT guidance, CPT 29365 Medications: The patient received IV sedation administered by anesthesiologist HISTORY: Complex retroperitoneal fluid collection. TECHNIQUE: Following informed consent procedure time-out, patient is placed supine on the CT table and non contrast CT was performed which showed a complex pelvic collection. There is a resolution of right gluteal collection also the 2nd collection described to being drained. The right lower abdomen was marked, prepped, and draped in the usual sterile fashion. Under CT guidance, a FORVM drainage catheter was advanced into the collection. Upon return of purulent drainage, the catheter exchanged over an 035 guidewire and the tract was dilated to accommodate a 8.5 [place] pigtail drainage catheter formed within the collection. The position of the drainage catheter was confirmed with repeat CT scan. 10 cubic centimeters of purulent drainage was removed and sent for culture and sensitivity. The catheter was secured the patient's skin. A dressing was applied. IMPRESSION: CT-guided pelvic abscess drainage within the placement of an 8.5 [place] drainage catheter with abscess.
[2016-11-24] MEDS: Lactobacillus Acidophilus 500 MU Cap PO SCH (18:23)
[2016-11-25] MEDS: metroNIDAZOLE 500mg/100ml NS 100 ML IVPB SCH ×3 (00:14→16:42)
[2016-11-25] MEDS: ceFAZolin 2 GM in Sodium Chloride 0.9% 100 ML IVPB SCH ×3 (01:50→16:45)
[2016-11-25] MEDS: Dextrose 5%/0.9% NS 1,000 ML IV SCH ×4 (02:45→22:00)
[2016-11-25 08:09] LABS: BASO # 0.1 K/uL (0.0-0.2); BASO % 0.3 % (0.0-2.0); EOS # 0.2 K/uL (0.0-0.7); EOS % 1.4 % (0.0-4.0); HEMOGLOBIN 8.4 g/dL (12.0-16.0); LYMPH # 1.2 K/uL (1.0-4.3); LYMPH % 7.6 % (20.0-40.0); MEAN CELL VOLUME 69.9 fl (81.0-99.0); MEAN CORPUSCULAR HEMOGLOBIN 21.5 pg (27.0-31.0); MEAN CORPUSCULAR HGB CONC 30.8 g/dL (33.0-37.0); MEAN PLATELET VOLUME 8.5 fl (7.2-11.7); MONO # 0.5 K/uL (0.0-0.8); MONO % 3.1 % (0.0-10.0); NEUT # 13.3 K/uL (1.8-7.0); NEUT % 87.6 % (50.0-75.0); RBC 3.88 Mil/uL (3.80-5.20); RED CELL DISTRIBUTION WIDTH 28.2 % (11.5-14.5); WHITE BLOOD COUNT 15.2 K/uL (4.8-10.8)
[2016-11-25 08:30] LABS: ALB/GLOB RATIO 0.7 (1.0-2.1); ALBUMIN 2.2 g/dL (3.5-5.0); ALT/SGPT 26 U/L (9-52); AST/SGOT 42 U/L (14-36); BLOOD UREA NITROGEN 12 mg/dl (7-17); CALCIUM 8.5 mg/dL (8.4-10.2); GFR AFRICAN-AMERICAN > 60; GFR NON-AFRICAN AMERICAN > 60
[2016-11-25] MEDS: Lactobacillus Acidophilus 500 MU Cap PO SCH ×2 (08:32→17:01)
[2016-11-25] MEDS: Multivitamin With Minerals Tab PO SCH (08:35)
[2016-11-25] MEDS: Pantoprazole 40 mg EC Tab PO SCH (08:35)
[2016-11-25] MEDS: Hydrocortisone 2.5% (Rectal) CREAM PR SCH ×2 (08:38→17:01)
--- NOTE | 2016-11-25 09:31 | CP.PCM.PN ---
<AlexisDontae - Last Filed: 11/25/16 09:28> Subjective - Date & Time of Evaluation Date of Evaluation: 11/25/16 Time of Evaluation: 09:28 - Subjective Subjective: Surgery Progress note. Dr. Huynh Pt seen and examined at bedside. No acute events overnight. Patient states that abdominal pain has improved since placement of new drain yesterday. No F/C. No N /V/D. Tolerating diet. MARIA FERNANDA 1- 10cc purulent MARIA FERNANDA 2- 5cc purulent MARIA FERNANDA 3(placed 11/24) - 25cc thick serosanguinous Objective - Vital Signs/Intake and Output Vital Signs (last 24 hours): Temp Pulse Resp BP Pulse Ox 98.8 F 94 H 20 97/66 L 98 11/25/16 07:36 11/25/16 07:36 11/25/16 07:36 11/25/16 07:36 11/25/16 07:36 Intake and Output: 11/25/16 11/25/16 06:59 18:59 Intake Total 1200 Output Total 740 Balance 460 - Medications Medications: Current Medications Acetaminophen (Tylenol 325mg Tab) 650 mg PO Q6 PRN PRN Reason: Pain, moderate (4-7) Last Admin: 11/19/16 14:10 Dose: 650 mg Acetaminophen (Tylenol 325mg Tab) 325 mg PO Q6 PRN PRN Reason: Fever >100.4 F Last Admin: 11/21/16 15:46 Dose: 325 mg Enoxaparin Sodium (Lovenox) 30 mg [place] DAILY [facility] PRN Reason: Protocol Ferrous Sulfate (Feosol) 325 mg PO DAILY [facility] Last Admin: 11/25/16 08:33 Dose: 325 mg Folic Acid (Folic Acid) 5 mg PO DAILY [facility] Last Admin: 11/25/16 08:32 Dose: 5 mg Hydrocortisone (Anusol-Hc) 1 applic [place] BID [facility] Last Admin: 11/25/16 08:38 Dose: 1 applic Dextrose/Sodium Chloride (Dextrose 5%/0.9% Ns 1000 Ml) 1,000 mls @ 100 mls/hr IV .Q10H [facility] Last Admin: 11/25/16 02:45 Dose: 100 mls/hr Metronidazole (Flagyl 500mg/100ml Ns) 100 mls @ 100 mls/hr IVPB Q8 [facility] Last Admin: 11/25/16 08:34 Dose: 100 mls/hr Cefazolin Sodium 2 gm/ Sodium (Chloride) 100 mls @ 100 mls/hr IVPB Q8 [facility] Last Admin: 11/25/16 08:34 Dose: 100 mls/hr Dextrose/Sodium Chloride (Dextrose 5%/0.9% Ns 1000 Ml) 1,000 mls @ 100 mls/hr IV .Q10H [facility] Stop: 11/25/16 20:04 Last Admin: 11/25/16 06:15 Dose: Not Given Isoniazid (Niazid) 300 mg PO DAILY [facility] Last Admin: 11/25/16 08:35 Dose: 300 mg Ketorolac Tromethamine (Toradol) 30 mg IVP Q8 PRN PRN Reason: Pain, severe (8-10) Last Admin: 11/25/16 00:22 Dose: 30 mg Lactobacillus Acidophilus (Bacid Acidophilus) 1 cap PO BID [facility] Last Admin: 11/25/16 08:32 Dose: 1 cap Multivitamins/Minerals (Therapeutic-M Tab) 1 tab PO DAILY [facility] Last Admin: 11/25/16 08:35 Dose: 1 tab Ondansetron HCl (Zofran Inj) 4 mg IVP Q4 PRN PRN Reason: Nausea/Vomiting Pantoprazole Sodium (Protonix Ec Tab) 40 mg PO DAILY [facility] Last Admin: 11/25/16 08:35 Dose: 40 mg Pyridoxine HCl (Vitamin B6 50 Mg Tab) 50 mg PO DAILY [facility] Last Admin: 11/25/16 08:33 Dose: 50 mg - Labs Labs: 11/25/16 07:30 11/25/16 07:30 PT 15.7 Seconds (9.8-13.1) H 11/17/16 18:00 INR 1.4 (0.9-1.2) H 11/17/16 18:00 APTT 25.7 Seconds (25.6-37.1) 11/17/16 18:00 - Constitutional Appears: Well, No Acute Distress - Head Exam Head Exam: ATRAUMATIC, NORMAL INSPECTION, NORMOCEPHALIC - Eye Exam Eye Exam: EOMI, Normal appearance - ENT Exam ENT Exam: Mucous Membranes Moist - Respiratory Exam Respiratory Exam: NORMAL BREATHING PATTERN - GI/Abdominal Exam GI & Abdominal Exam: Soft. absent: Distended, Firm, Guarding, Rigid, Tenderness Additional comments: Right side drains in place x3. Dressing clean and dry. MARIA FERNANDA 1- 10cc purulent MARIA FERNANDA 2- 5cc purulent MARIA FERNANDA 3(placed 11/24) - 25cc thick serosanguinous - Extremities Exam Extremities Exam: Normal Inspection. absent: Calf Tenderness - Neurological Exam Neurological Exam: Alert, Awake, Oriented x3 - Psychiatric Exam Psychiatric exam: Normal Affect, Normal Mood Assessment and Plan - Assessment and Plan (Free Text) Assessment: 36yo F w/ Crohn's disease and multiloculated retroperitoneal abscess - R upper abd drain: 10cc/12hr - R lower abd drain: 5cc/12hr - Right medial abd drain placed on 11/24: 25cc/12hr - Continue pain management - monitor drain outputs - Continue ABX as per LUIS ENRIQUE Espinoza PGY1 <Devon Huynh - Last Filed: 11/25/16 14:35> Subjective - Date & Time of Evaluation Time of Evaluation: 13:45 - Subjective Subjective: Patient was seen and examined at the bedside. Agree with the resident's note above. States that feels better Objective - Vital Signs/Intake and Output Vital Signs (last 24 hours): Temp Pulse Resp BP Pulse Ox 98.8 F 94 H 20 97/66 L 98 11/25/16 07:36 11/25/16 07:36 11/25/16 07:36 11/25/16 07:36 11/25/16 07:36 Intake and Output: 11/25/16 11/25/16 06:59 18:59 Intake Total 1200 Output Total 740 Balance 460 - Medications Medications: Current Medications Acetaminophen (Tylenol 325mg Tab) 650 mg PO Q6 PRN PRN Reason: Pain, moderate (4-7) Last Admin: 11/19/16 14:10 Dose: 650 mg Acetaminophen (Tylenol 325mg Tab) 325 mg PO Q6 PRN PRN Reason: Fever >100.4 F Last Admin: 11/21/16 15:46 Dose: 325 mg Enoxaparin Sodium (Lovenox) 30 mg [place] DAILY [facility] PRN Reason: Protocol Last Admin: 11/25/16 14:16 Dose: 30 mg Ferrous Sulfate (Feosol) 325 mg PO DAILY [facility] Last Admin: 11/25/16 08:33 Dose: 325 mg Folic Acid (Folic Acid) 5 mg PO DAILY [facility] Last Admin: 11/25/16 08:32 Dose: 5 mg Hydrocortisone (Anusol-Hc) 1 applic [place] BID [facility] Last Admin: 11/25/16 08:38 Dose: 1 applic Dextrose/Sodium Chloride (Dextrose 5%/0.9% Ns 1000 Ml) 1,000 mls @ 100 mls/hr IV .Q10H [facility] Last Admin: 11/25/16 02:45 Dose: 100 mls/hr Metronidazole (Flagyl 500mg/100ml Ns) 100 mls @ 100 mls/hr IVPB Q8 [facility] Last Admin: 11/25/16 08:34 Dose: 100 mls/hr Cefazolin Sodium 2 gm/ Sodium (Chloride) 100 mls @ 100 mls/hr IVPB Q8 [facility] Last Admin: 11/25/16 08:34 Dose: 100 mls/hr Dextrose/Sodium Chloride (Dextrose 5%/0.9% Ns 1000 Ml) 1,000 mls @ 100 mls/hr IV .Q10H [facility] Stop: 11/25/16 20:04 Last Admin: 11/25/16 06:15 Dose: Not Given Isoniazid (Niazid) 300 mg PO DAILY [facility] Last Admin: 11/25/16 08:35 Dose: 300 mg Ketorolac Tromethamine (Toradol) 30 mg IVP Q8 PRN PRN Reason: Pain, severe (8-10) Last Admin: 11/25/16 14:11 Dose: 30 mg Lactobacillus Acidophilus (Bacid Acidophilus) 1 cap PO BID [facility] Last Admin: 11/25/16 08:32 Dose: 1 cap Multivitamins/Minerals (Therapeutic-M Tab) 1 tab PO DAILY [facility] Last Admin: 11/25/16 08:35 Dose: 1 tab Ondansetron HCl (Zofran Inj) 4 mg IVP Q4 PRN PRN Reason: Nausea/Vomiting Pantoprazole Sodium (Protonix Ec Tab) 40 mg PO DAILY [facility] Last Admin: 11/25/16 08:35 Dose: 40 mg Pyridoxine HCl (Vitamin B6 50 Mg Tab) 50 mg PO DAILY [facility] Last Admin: 11/25/16 08:33 Dose: 50 mg - Labs Labs: 11/25/16 07:30 11/25/16 07:30 PT 15.7 Seconds (9.8-13.1) H 11/17/16 18:00 INR 1.4 (0.9-1.2) H 11/17/16 18:00 APTT 25.7 Seconds (25.6-37.1) 11/17/16 18:00 Assessment and Plan - Assessment and Plan (Free Text) Plan: - Regular diet - pain control - Antibiotics as per ID - Repeat labs in am
[2016-11-25] MEDS: Enoxaparin 30 mg Syringe SC SCH (14:16)
[2016-11-26] MEDS: metroNIDAZOLE 500mg/100ml NS 100 ML IVPB SCH ×3 (01:10→18:24)
[2016-11-26] MEDS: ceFAZolin 2 GM in Sodium Chloride 0.9% 100 ML IVPB SCH ×2 (01:10→09:01)
[2016-11-26 07:36] LABS: MEAN CELL VOLUME 69.9 fl (81.0-99.0); MEAN CORPUSCULAR HEMOGLOBIN 21.5 pg (27.0-31.0); MEAN CORPUSCULAR HGB CONC 30.8 g/dL (33.0-37.0); RBC 3.7 Mil/uL (3.80-5.20); RED CELL DISTRIBUTION WIDTH 28.2 % (11.5-14.5); WHITE BLOOD COUNT 16.2 K/uL (4.8-10.8)
[2016-11-26 07:55] LABS: ALB/GLOB RATIO 0.6 (1.0-2.1); ALBUMIN 2.2 g/dL (3.5-5.0); ALT/SGPT 24 U/L (9-52); AST/SGOT 18 U/L (14-36); BLOOD UREA NITROGEN 10 mg/dl (7-17); CALCIUM 8.4 mg/dL (8.4-10.2); GFR AFRICAN-AMERICAN > 60; GFR NON-AFRICAN AMERICAN > 60
[2016-11-26] MEDS: Enoxaparin 30 mg Syringe SC SCH (09:02)
[2016-11-26] MEDS: Hydrocortisone 2.5% (Rectal) CREAM PR SCH ×2 (09:02→16:25)
[2016-11-26] MEDS: Multivitamin With Minerals Tab PO SCH (09:03)
[2016-11-26] MEDS: Lactobacillus Acidophilus 500 MU Cap PO SCH ×2 (09:03→16:25)
[2016-11-26] MEDS: Pantoprazole 40 mg EC Tab PO SCH (09:04)
--- NOTE | 2016-11-26 10:32 | CP.PCM.PN ---
<Dontae Espinoza - Last Filed: 11/26/16 10:29> Subjective - Date & Time of Evaluation Date of Evaluation: 11/26/16 Time of Evaluation: 10:29 - Subjective Subjective: Surgery Progress note. Dr. Huynh Pt seen and examined at bedside. No acute events overnight. Patient states that her abdominal pain is improving. Drains in place. Denies any N/V. States that she is starting to have some loose BMs. Denies any F/C. No CP/SOB. Objective - Vital Signs/Intake and Output Vital Signs (last 24 hours): Temp Pulse Resp BP Pulse Ox 98.4 F 98 H 18 97/65 L 97 11/26/16 07:51 11/26/16 07:51 11/26/16 07:51 11/26/16 07:51 11/26/16 07:51 Intake and Output: 11/26/16 11/26/16 06:59 18:59 Intake Total 300 900 Output Total 300 777 Balance 0 123 - Medications Medications: Current Medications Acetaminophen (Tylenol 325mg Tab) 650 mg PO Q6 PRN PRN Reason: Pain, moderate (4-7) Last Admin: 11/19/16 14:10 Dose: 650 mg Acetaminophen (Tylenol 325mg Tab) 325 mg PO Q6 PRN PRN Reason: Fever >100.4 F Last Admin: 11/21/16 15:46 Dose: 325 mg Enoxaparin Sodium (Lovenox) 30 mg [place] DAILY [facility] PRN Reason: Protocol Last Admin: 11/26/16 09:02 Dose: 30 mg Ferrous Sulfate (Feosol) 325 mg PO DAILY [facility] Last Admin: 11/26/16 09:04 Dose: 325 mg Folic Acid (Folic Acid) 5 mg PO DAILY [facility] Last Admin: 11/26/16 09:03 Dose: 5 mg Hydrocortisone (Anusol-Hc) 1 applic [place] BID [facility] Last Admin: 11/26/16 09:02 Dose: 1 applic Dextrose/Sodium Chloride (Dextrose 5%/0.9% Ns 1000 Ml) 1,000 mls @ 100 mls/hr IV .Q10H [facility] Last Admin: 11/25/16 22:00 Dose: Not Given Metronidazole (Flagyl 500mg/100ml Ns) 100 mls @ 100 mls/hr IVPB Q8 [facility] Last Admin: 11/26/16 09:02 Dose: 100 mls/hr Cefazolin Sodium 2 gm/ Sodium (Chloride) 100 mls @ 100 mls/hr IVPB Q8 [facility] Last Admin: 11/26/16 09:01 Dose: 100 mls/hr Isoniazid (Niazid) 300 mg PO DAILY [facility] Last Admin: 11/26/16 09:04 Dose: 300 mg Ketorolac Tromethamine (Toradol) 30 mg IVP Q8 PRN PRN Reason: Pain, severe (8-10) Last Admin: 11/25/16 14:11 Dose: 30 mg Lactobacillus Acidophilus (Bacid Acidophilus) 1 cap PO BID [facility] Last Admin: 11/26/16 09:03 Dose: 1 cap Multivitamins/Minerals (Therapeutic-M Tab) 1 tab PO DAILY [facility] Last Admin: 11/26/16 09:03 Dose: 1 tab Ondansetron HCl (Zofran Inj) 4 mg IVP Q4 PRN PRN Reason: Nausea/Vomiting Pantoprazole Sodium (Protonix Ec Tab) 40 mg PO DAILY [facility] Last Admin: 11/26/16 09:04 Dose: 40 mg Pyridoxine HCl (Vitamin B6 50 Mg Tab) 50 mg PO DAILY [facility] Last Admin: 11/26/16 09:03 Dose: 50 mg - Labs Labs: 11/26/16 06:00 11/26/16 06:00 PT 15.7 Seconds (9.8-13.1) H 11/17/16 18:00 INR 1.4 (0.9-1.2) H 11/17/16 18:00 APTT 25.7 Seconds (25.6-37.1) 11/17/16 18:00 - Constitutional Appears: Well, No Acute Distress - Head Exam Head Exam: ATRAUMATIC, NORMAL INSPECTION, NORMOCEPHALIC - Eye Exam Eye Exam: EOMI, Normal appearance - ENT Exam ENT Exam: Mucous Membranes Moist - Neck Exam Neck Exam: Full ROM - Respiratory Exam Respiratory Exam: NORMAL BREATHING PATTERN - GI/Abdominal Exam GI & Abdominal Exam: Soft. absent: Distended, Firm, Guarding, Rigid Additional comments: Mild tenderness to palpation central abdomen. MARIA FERNANDA drain in place. JP1: 35cc/ 24hrs. JP2: 37cc/24hrs. JP3 55cc/24hrs - Extremities Exam Extremities Exam: Normal Inspection. absent: Calf Tenderness - Neurological Exam Neurological Exam: Alert, Awake, Oriented x3 - Psychiatric Exam Psychiatric exam: Normal Affect, Normal Mood - Skin Skin Exam: Dry, Intact, Normal Color, Warm Assessment and Plan - Assessment and Plan (Free Text) Assessment: 36yo F w/ Crohn's disease and multiloculated retroperitoneal abscess - Continue pain management - monitor drain outputs - Continue ABX as per ID - Encourage OOB and ambulation Further recs as per Dr. Lino Espinoza PGY1 <Devon Huynh - Last Filed: 11/26/16 16:10> Subjective - Date & Time of Evaluation Time of Evaluation: 15:45 - Subjective Subjective: Patient was seen and examined at the bedside. Agree with resident's note above. Objective - Vital Signs/Intake and Output Vital Signs (last 24 hours): Temp Pulse Resp BP Pulse Ox 98.4 F 98 H 18 97/65 L 97 11/26/16 07:51 11/26/16 07:51 11/26/16 07:51 11/26/16 07:51 11/26/16 07:51 Intake and Output: 11/26/16 11/26/16 06:59 18:59 Intake Total 300 900 Output Total 300 777 Balance 0 123 - Medications Medications: Current Medications Acetaminophen (Tylenol 325mg Tab) 650 mg PO Q6 PRN PRN Reason: Pain, moderate (4-7) Last Admin: 11/19/16 14:10 Dose: 650 mg Acetaminophen (Tylenol 325mg Tab) 325 mg PO Q6 PRN PRN Reason: Fever >100.4 F Last Admin: 11/21/16 15:46 Dose: 325 mg Enoxaparin Sodium (Lovenox) 30 mg [place] DAILY [facility] PRN Reason: Protocol Last Admin: 11/26/16 09:02 Dose: 30 mg Ferrous Sulfate (Feosol) 325 mg PO DAILY [facility] Last Admin: 11/26/16 09:04 Dose: 325 mg Folic Acid (Folic Acid) 5 mg PO DAILY [facility] Last Admin: 11/26/16 09:03 Dose: 5 mg Hydrocortisone (Anusol-Hc) 1 applic [place] BID [facility] Last Admin: 11/26/16 09:02 Dose: 1 applic Dextrose/Sodium Chloride (Dextrose 5%/0.9% Ns 1000 Ml) 1,000 mls @ 100 mls/hr IV .Q10H [facility] Last Admin: 11/25/16 22:00 Dose: Not Given Metronidazole (Flagyl 500mg/100ml Ns) 100 mls @ 100 mls/hr IVPB Q8 [facility] Last Admin: 11/26/16 09:02 Dose: 100 mls/hr Piperacillin Sod/Tazobactam (Sod 3.375 gm/ Sodium Chloride) 100 mls @ 100 mls/ hr IVPB Q6 [facility] Isoniazid (Niazid) 300 mg PO DAILY [facility] Last Admin: 11/26/16 09:04 Dose: 300 mg Ketorolac Tromethamine (Toradol) 30 mg IVP Q8 PRN PRN Reason: Pain, severe (8-10) Last Admin: 11/25/16 14:11 Dose: 30 mg Lactobacillus Acidophilus (Bacid Acidophilus) 1 cap PO BID [facility] Last Admin: 11/26/16 09:03 Dose: 1 cap Multivitamins/Minerals (Therapeutic-M Tab) 1 tab PO DAILY [facility] Last Admin: 11/26/16 09:03 Dose: 1 tab Ondansetron HCl (Zofran Inj) 4 mg IVP Q4 PRN PRN Reason: Nausea/Vomiting Pantoprazole Sodium (Protonix Ec Tab) 40 mg PO DAILY [facility] Last Admin: 11/26/16 09:04 Dose: 40 mg Pyridoxine HCl (Vitamin B6 50 Mg Tab) 50 mg PO DAILY [facility] Last Admin: 11/26/16 09:03 Dose: 50 mg - Labs Labs: 11/26/16 06:00 11/26/16 06:00 PT 15.7 Seconds (9.8-13.1) H 11/17/16 18:00 INR 1.4 (0.9-1.2) H 11/17/16 18:00 APTT 25.7 Seconds (25.6-37.1) 11/17/16 18:00
--- NOTE | 2016-11-26 13:07 | CP.PCM.PN ---
Subjective - Date & Time of Evaluation Date of Evaluation: 11/26/16 Time of Evaluation: 07:00 - Subjective Subjective: less pain no fever third drain in place iv antibiotics reordered Objective - Vital Signs/Intake and Output Vital Signs (last 24 hours): Temp Pulse Resp BP Pulse Ox 98.4 F 98 H 18 97/65 L 97 11/26/16 07:51 11/26/16 07:51 11/26/16 07:51 11/26/16 07:51 11/26/16 07:51 Intake and Output: 11/26/16 11/26/16 06:59 18:59 Intake Total 300 900 Output Total 300 777 Balance 0 123 - Medications Medications: Current Medications Acetaminophen (Tylenol 325mg Tab) 650 mg PO Q6 PRN PRN Reason: Pain, moderate (4-7) Last Admin: 11/19/16 14:10 Dose: 650 mg Acetaminophen (Tylenol 325mg Tab) 325 mg PO Q6 PRN PRN Reason: Fever >100.4 F Last Admin: 11/21/16 15:46 Dose: 325 mg Enoxaparin Sodium (Lovenox) 30 mg SC DAILY [facility] PRN Reason: Protocol Last Admin: 11/26/16 09:02 Dose: 30 mg Ferrous Sulfate (Feosol) 325 mg PO DAILY [facility] Last Admin: 11/26/16 09:04 Dose: 325 mg Folic Acid (Folic Acid) 5 mg PO DAILY [facility] Last Admin: 11/26/16 09:03 Dose: 5 mg Hydrocortisone (Anusol-Hc) 1 applic [place] BID [facility] Last Admin: 11/26/16 09:02 Dose: 1 applic Dextrose/Sodium Chloride (Dextrose 5%/0.9% Ns 1000 Ml) 1,000 mls @ 100 mls/hr IV .Q10H [facility] Last Admin: 11/25/16 22:00 Dose: Not Given Metronidazole (Flagyl 500mg/100ml Ns) 100 mls @ 100 mls/hr IVPB Q8 [facility] Last Admin: 11/26/16 09:02 Dose: 100 mls/hr Isoniazid (Niazid) 300 mg PO DAILY [facility] Last Admin: 11/26/16 09:04 Dose: 300 mg Ketorolac Tromethamine (Toradol) 30 mg IVP Q8 PRN PRN Reason: Pain, severe (8-10) Last Admin: 11/25/16 14:11 Dose: 30 mg Lactobacillus Acidophilus (Bacid Acidophilus) 1 cap PO BID [facility] Last Admin: 11/26/16 09:03 Dose: 1 cap Multivitamins/Minerals (Therapeutic-M Tab) 1 tab PO DAILY [facility] Last Admin: 11/26/16 09:03 Dose: 1 tab Ondansetron HCl (Zofran Inj) 4 mg IVP Q4 PRN PRN Reason: Nausea/Vomiting Pantoprazole Sodium (Protonix Ec Tab) 40 mg PO DAILY [facility] Last Admin: 11/26/16 09:04 Dose: 40 mg Pyridoxine HCl (Vitamin B6 50 Mg Tab) 50 mg PO DAILY [facility] Last Admin: 11/26/16 09:03 Dose: 50 mg - Labs Labs: 11/26/16 06:00 11/26/16 06:00 PT 15.7 Seconds (9.8-13.1) H 11/17/16 18:00 INR 1.4 (0.9-1.2) H 11/17/16 18:00 APTT 25.7 Seconds (25.6-37.1) 11/17/16 18:00 - Constitutional Appears: Non-toxic, Chronically Ill - Head Exam Head Exam: NORMOCEPHALIC - Eye Exam Eye Exam: PERRL. absent: Scleral icterus - ENT Exam ENT Exam: Mucous Membranes Dry, Normal External Ear Exam - Neck Exam Neck Exam: absent: Lymphadenopathy - Respiratory Exam Respiratory Exam: Decreased Breath Sounds, Clear to Ausculation Bilateral - Cardiovascular Exam Cardiovascular Exam: REGULAR RHYTHM - GI/Abdominal Exam GI & Abdominal Exam: Distended, Soft. absent: Tenderness - Rectal Exam Rectal Exam: Deferred - Exam Exam: NORMAL INSPECTION - Extremities Exam Extremities Exam: absent: Pedal Edema - Back Exam Back Exam: absent: CVA tenderness (L), CVA tenderness (R) - Neurological Exam Neurological Exam: Alert, Awake, Oriented x3 - Psychiatric Exam Psychiatric exam: Normal Mood - Skin Skin Exam: Dry Assessment and Plan (1) Acute Crohn's disease with abscess Status: Acute (2) Acute Crohn's disease with abscess Status: Acute (3) Acute Crohn's disease with complication Status: Acute (4) Acute Crohn's disease with complication Status: Acute (5) Intra-abdominal abscess Status: Acute (6) Sepsis Status: Acute
[2016-11-26] MEDS: Dextrose 5%/0.9% NS 1,000 ML IV SCH ×2 (16:27→18:24)
[2016-11-26] MEDS: Piperacillin/Tazobact 3.375 GM in Sodium Chloride 0.9% 100 ML IVPB SCH ×2 (18:26→21:47)
[2016-11-27] MEDS: metroNIDAZOLE 500mg/100ml NS 100 ML IVPB SCH ×3 (00:54→18:31)
[2016-11-27] MEDS: Piperacillin/Tazobact 3.375 GM in Sodium Chloride 0.9% 100 ML IVPB SCH ×4 (04:42→21:52)
[2016-11-27 07:56] LABS: BASO # 0.1 K/uL (0.0-0.2); BASO % 0.5 % (0.0-2.0); EOS # 0.1 K/uL (0.0-0.7); EOS % 1.1 % (0.0-4.0); HEMOGLOBIN 8.1 g/dL (12.0-16.0); LYMPH # 1.3 K/uL (1.0-4.3); LYMPH % 9.4 % (20.0-40.0); MEAN CELL VOLUME 68.8 fl (81.0-99.0); MEAN CORPUSCULAR HEMOGLOBIN 21.9 pg (27.0-31.0); MEAN CORPUSCULAR HGB CONC 31.8 g/dL (33.0-37.0); MEAN PLATELET VOLUME 8.4 fl (7.2-11.7); MONO # 0.5 K/uL (0.0-0.8); NEUT # 11.4 K/uL (1.8-7.0); PLATELET COUNT 607 K/uL (130-400); RBC 3.72 Mil/uL (3.80-5.20); RED CELL DISTRIBUTION WIDTH 28.8 % (11.5-14.5); WHITE BLOOD COUNT 13.4 K/uL (4.8-10.8)
--- NOTE | 2016-11-27 08:04 | CP.PCM.PN ---
<AlexisJennifery - Last Filed: 11/27/16 08:09> Subjective - Date & Time of Evaluation Date of Evaluation: 11/27/16 Time of Evaluation: 08:02 - Subjective Subjective: Surgery Progress note. Dr. Huynh Pt seen and examined at bedside. No acute events overnight. Still c/o multiple loose BMs. No N/V. Tolerating diet. No F/C. Abd pain improving. Objective - Vital Signs/Intake and Output Vital Signs (last 24 hours): Temp Pulse Resp BP Pulse Ox 98.5 F 94 H 18 96/64 L 97 11/27/16 01:00 11/27/16 01:00 11/27/16 01:00 11/27/16 01:00 11/27/16 01:00 - Medications Medications: Current Medications Acetaminophen (Tylenol 325mg Tab) 650 mg PO Q6 PRN PRN Reason: Pain, moderate (4-7) Last Admin: 11/19/16 14:10 Dose: 650 mg Acetaminophen (Tylenol 325mg Tab) 325 mg PO Q6 PRN PRN Reason: Fever >100.4 F Last Admin: 11/21/16 15:46 Dose: 325 mg Enoxaparin Sodium (Lovenox) 30 mg SC DAILY [facility] PRN Reason: Protocol Last Admin: 11/26/16 09:02 Dose: 30 mg Ferrous Sulfate (Feosol) 325 mg PO DAILY [facility] Last Admin: 11/26/16 09:04 Dose: 325 mg Folic Acid (Folic Acid) 5 mg PO DAILY [facility] Last Admin: 11/26/16 09:03 Dose: 5 mg Hydrocortisone (Anusol-Hc) 1 applic [place] BID [facility] Last Admin: 11/26/16 16:25 Dose: 1 applic Dextrose/Sodium Chloride (Dextrose 5%/0.9% Ns 1000 Ml) 1,000 mls @ 100 mls/hr IV .Q10H [facility] Last Admin: 11/26/16 18:24 Dose: 100 mls/hr Metronidazole (Flagyl 500mg/100ml Ns) 100 mls @ 100 mls/hr IVPB Q8 [facility] Last Admin: 11/27/16 00:54 Dose: 100 mls/hr Piperacillin Sod/Tazobactam (Sod 3.375 gm/ Sodium Chloride) 100 mls @ 100 mls/ hr IVPB Q6 [facility] Last Admin: 11/27/16 04:42 Dose: 100 mls/hr Isoniazid (Niazid) 300 mg PO DAILY [facility] Last Admin: 11/26/16 09:04 Dose: 300 mg Ketorolac Tromethamine (Toradol) 30 mg IVP Q8 PRN PRN Reason: Pain, severe (8-10) Last Admin: 11/25/16 14:11 Dose: 30 mg Lactobacillus Acidophilus (Bacid Acidophilus) 1 cap PO BID [facility] Last Admin: 11/26/16 16:25 Dose: 1 cap Multivitamins/Minerals (Therapeutic-M Tab) 1 tab PO DAILY [facility] Last Admin: 11/26/16 09:03 Dose: 1 tab Ondansetron HCl (Zofran Inj) 4 mg IVP Q4 PRN PRN Reason: Nausea/Vomiting Pantoprazole Sodium (Protonix Ec Tab) 40 mg PO DAILY [facility] Last Admin: 11/26/16 09:04 Dose: 40 mg Pyridoxine HCl (Vitamin B6 50 Mg Tab) 50 mg PO DAILY [facility] Last Admin: 11/26/16 09:03 Dose: 50 mg - Labs Labs: 11/26/16 06:00 11/26/16 06:00 PT 15.7 Seconds (9.8-13.1) H 11/17/16 18:00 INR 1.4 (0.9-1.2) H 11/17/16 18:00 APTT 25.7 Seconds (25.6-37.1) 11/17/16 18:00 - Constitutional Appears: Well, No Acute Distress - Head Exam Head Exam: ATRAUMATIC, NORMAL INSPECTION, NORMOCEPHALIC - Eye Exam Eye Exam: EOMI - ENT Exam ENT Exam: Mucous Membranes Moist - Respiratory Exam Respiratory Exam: NORMAL BREATHING PATTERN - GI/Abdominal Exam GI & Abdominal Exam: Soft. absent: Distended, Guarding, Rigid, Tenderness Additional comments: MARIA FERNANDA drains in place. JP1 - 45cc/24hrs JP2 - 52cc/24hrs JP3 - 75cc/24hrs - Extremities Exam Extremities Exam: Normal Inspection. absent: Calf Tenderness - Neurological Exam Neurological Exam: Alert, Awake, Oriented x3 - Psychiatric Exam Psychiatric exam: Normal Affect, Normal Mood - Skin Skin Exam: Dry, Intact, Normal Color, Warm Assessment and Plan - Assessment and Plan (Free Text) Assessment: 36yo F w/ Crohn's disease and multiloculated retroperitoneal abscess - Continue pain management - monitor drain outputs - Continue ABX as per ID - Encourage OOB and ambulation - f/u Stool C.Diff Further recs as per Dr. Lino Espinoza PGY1 <eDvon Huynh - Last Filed: 11/27/16 11:41> Subjective - Date & Time of Evaluation Time of Evaluation: 11:10 - Subjective Subjective: Patient was seen and examined at the bedside. Agree with resident's note above Objective - Vital Signs/Intake and Output Vital Signs (last 24 hours): Temp Pulse Resp BP Pulse Ox 98.2 F 90 20 115/76 97 11/27/16 09:04 11/27/16 09:04 11/27/16 09:04 11/27/16 09:04 11/27/16 09:04 Intake and Output: 11/27/16 11/27/16 06:59 18:59 Intake Total 1200 Output Total 70 Balance 1130 - Medications Medications: Current Medications Acetaminophen (Tylenol 325mg Tab) 650 mg PO Q6 PRN PRN Reason: Pain, moderate (4-7) Last Admin: 11/19/16 14:10 Dose: 650 mg Acetaminophen (Tylenol 325mg Tab) 325 mg PO Q6 PRN PRN Reason: Fever >100.4 F Last Admin: 11/21/16 15:46 Dose: 325 mg Enoxaparin Sodium (Lovenox) 30 mg SC DAILY [facility] PRN Reason: Protocol Last Admin: 11/27/16 11:19 Dose: Not Given Ferrous Sulfate (Feosol) 325 mg PO DAILY [facility] Last Admin: 11/27/16 11:19 Dose: Not Given Folic Acid (Folic Acid) 5 mg PO DAILY [facility] Last Admin: 11/27/16 11:19 Dose: Not Given Hydrocortisone (Anusol-Hc) 1 applic [place] BID [facility] Last Admin: 11/27/16 11:16 Dose: 1 applic Dextrose/Sodium Chloride (Dextrose 5%/0.9% Ns 1000 Ml) 1,000 mls @ 100 mls/hr IV .Q10H [facility] Last Admin: 11/27/16 11:23 Dose: 100 mls/hr Metronidazole (Flagyl 500mg/100ml Ns) 100 mls @ 100 mls/hr IVPB Q8 [facility] Last Admin: 11/27/16 11:16 Dose: 100 mls/hr Piperacillin Sod/Tazobactam (Sod 3.375 gm/ Sodium Chloride) 100 mls @ 100 mls/ hr IVPB Q6 [facility] Last Admin: 11/27/16 11:17 Dose: 100 mls/hr Potassium Chloride (Potassium Chloride 10 Meq/100 Ml) 100 mls @ 100 mls/hr IVPB Q1 [facility] Stop: 11/27/16 13:59 Isoniazid (Niazid) 300 mg PO DAILY [facility] Last Admin: 11/27/16 11:18 Dose: Not Given Ketorolac Tromethamine (Toradol) 30 mg IVP Q8 PRN PRN Reason: Pain, severe (8-10) Last Admin: 11/25/16 14:11 Dose: 30 mg Lactobacillus Acidophilus (Bacid Acidophilus) 1 cap PO BID [facility] Last Admin: 11/27/16 11:19 Dose: Not Given Multivitamins/Minerals (Therapeutic-M Tab) 1 tab PO DAILY [facility] Last Admin: 11/27/16 11:18 Dose: Not Given Ondansetron HCl (Zofran Inj) 4 mg IVP Q4 PRN PRN Reason: Nausea/Vomiting Pantoprazole Sodium (Protonix Ec Tab) 40 mg PO DAILY [facility] Last Admin: 11/26/16 09:04 Dose: 40 mg Pyridoxine HCl (Vitamin B6 50 Mg Tab) 50 mg PO DAILY [facility] Last Admin: 11/27/16 11:18 Dose: Not Given - Labs Labs: 11/27/16 07:15 11/27/16 07:15 PT 15.7 Seconds (9.8-13.1) H 11/17/16 18:00 INR 1.4 (0.9-1.2) H 11/17/16 18:00 APTT 25.7 Seconds (25.6-37.1) 11/17/16 18:00
[2016-11-27 08:57] LABS: GFR AFRICAN-AMERICAN > 60; GFR NON-AFRICAN AMERICAN > 60
[2016-11-27 08:58] LABS: BLOOD UREA NITROGEN 7 mg/dl (7-17); CALCIUM 8.6 mg/dL (8.4-10.2)
[2016-11-27] MEDS: Enoxaparin 30 mg Syringe SC SCH ×3 (09:00→18:32)
[2016-11-27 11:14] LABS: LYMPHOCYTE 10 % (20-50); MONOCYTE 6 % (0-10); NEUTROPHIL 83 % (42-75); REACTIVE LYMPHOCYTES 1 % (0-0); TOTAL CELLS COUNTED 100
[2016-11-27 11:16] LABS: ANISOCYTOSIS MODERATE; HYPOCHROMIC MODERATE; MICROCYTOSIS MODERATE; OVALOCYTES SLIGHT; PLATELET ESTIMATE INCREASED (NORMAL)
[2016-11-27] MEDS: Hydrocortisone 2.5% (Rectal) CREAM PR SCH ×2 (11:16→18:31)
[2016-11-27] MEDS: Multivitamin With Minerals Tab PO SCH (11:18)
[2016-11-27] MEDS: Lactobacillus Acidophilus 500 MU Cap PO SCH ×2 (11:19→18:31)
[2016-11-27] MEDS: Dextrose 5%/0.9% NS 1,000 ML IV SCH ×2 (11:22→11:23)
[2016-11-27] MEDS: Pantoprazole 40 mg EC Tab PO SCH (14:35)
[2016-11-27] MEDS: Potassium CL 10mEq/100ml 100 ML IVPB SCH ×2 (14:38→15:30)
[2016-11-28] MEDS: Dextrose 5%/0.9% NS 1,000 ML IV SCH ×4 (01:39→17:06)
[2016-11-28] MEDS: metroNIDAZOLE 500mg/100ml NS 100 ML IVPB SCH ×3 (01:39→17:16)
[2016-11-28] MEDS: Piperacillin/Tazobact 3.375 GM in Sodium Chloride 0.9% 100 ML IVPB SCH ×4 (04:34→22:00)
[2016-11-28 08:26] LABS: HEMOGLOBIN 8.6 g/dL (12.0-16.0); MEAN CELL VOLUME 69.5 fl (81.0-99.0); MEAN CORPUSCULAR HEMOGLOBIN 22.1 pg (27.0-31.0); MEAN CORPUSCULAR HGB CONC 31.7 g/dL (33.0-37.0); RBC 3.89 Mil/uL (3.80-5.20); RED CELL DISTRIBUTION WIDTH 29.3 % (11.5-14.5); WHITE BLOOD COUNT 12.1 K/uL (4.8-10.8)
--- NOTE | 2016-11-28 08:36 | CP.PCM.PN ---
<Digna Rudd - Last Filed: 11/28/16 10:33> Subjective - Date & Time of Evaluation Date of Evaluation: 11/28/16 Time of Evaluation: 06:30 - Subjective Subjective: GENERAL SURGERY PROGRESS NOTE FOR DR. HUYNH Patient seen and examined with Dr. Huynh at bedside. She had diarrhea over the weekend which got better after midnight. C diff is negative. She denies abdominal pain. She is tolerating regular diet. She denies nausea and vomiting. Right upper drain had minimal output and Right lower drain had 10cc purulent output and Anterior drain had 10cc over past 24 hours. Objective - Vital Signs/Intake and Output Vital Signs (last 24 hours): Temp Pulse Resp BP Pulse Ox 98 F 89 20 88/59 L 99 11/28/16 01:37 11/28/16 01:37 11/28/16 01:37 11/28/16 01:37 11/28/16 01:37 Intake and Output: 11/28/16 11/28/16 06:59 18:59 Intake Total 1440 Output Total 15 Balance 1425 - Medications Medications: Current Medications Acetaminophen (Tylenol 325mg Tab) 650 mg PO Q6 PRN PRN Reason: Pain, moderate (4-7) Last Admin: 11/19/16 14:10 Dose: 650 mg Acetaminophen (Tylenol 325mg Tab) 325 mg PO Q6 PRN PRN Reason: Fever >100.4 F Last Admin: 11/21/16 15:46 Dose: 325 mg Enoxaparin Sodium (Lovenox) 30 mg SC DAILY [facility] PRN Reason: Protocol Last Admin: 11/27/16 18:32 Dose: 30 mg Ferrous Sulfate (Feosol) 325 mg PO DAILY [facility] Last Admin: 11/27/16 11:19 Dose: Not Given Folic Acid (Folic Acid) 5 mg PO DAILY [facility] Last Admin: 11/27/16 11:19 Dose: Not Given Hydrocortisone (Anusol-Hc) 1 applic [place] BID [facility] Last Admin: 11/27/16 18:31 Dose: 1 applic Dextrose/Sodium Chloride (Dextrose 5%/0.9% Ns 1000 Ml) 1,000 mls @ 100 mls/hr IV .Q10H [facility] Last Admin: 11/28/16 01:39 Dose: Not Given Metronidazole (Flagyl 500mg/100ml Ns) 100 mls @ 100 mls/hr IVPB Q8 [facility] Last Admin: 11/28/16 01:39 Dose: 100 mls/hr Piperacillin Sod/Tazobactam (Sod 3.375 gm/ Sodium Chloride) 100 mls @ 100 mls/ hr IVPB Q6 [facility] Last Admin: 11/28/16 04:34 Dose: 100 mls/hr Isoniazid (Niazid) 300 mg PO DAILY [facility] Last Admin: 11/27/16 11:18 Dose: Not Given Ketorolac Tromethamine (Toradol) 30 mg IVP Q8 PRN PRN Reason: Pain, severe (8-10) Last Admin: 11/25/16 14:11 Dose: 30 mg Lactobacillus Acidophilus (Bacid Acidophilus) 1 cap PO BID [facility] Last Admin: 11/27/16 18:31 Dose: 1 cap Multivitamins/Minerals (Therapeutic-M Tab) 1 tab PO DAILY [facility] Last Admin: 11/27/16 11:18 Dose: Not Given Ondansetron HCl (Zofran Inj) 4 mg IVP Q4 PRN PRN Reason: Nausea/Vomiting Pantoprazole Sodium (Protonix Ec Tab) 40 mg PO DAILY [facility] Last Admin: 11/27/16 14:35 Dose: Not Given Pyridoxine HCl (Vitamin B6 50 Mg Tab) 50 mg PO DAILY [facility] Last Admin: 11/27/16 11:18 Dose: Not Given - Labs Labs: 11/28/16 08:15 11/27/16 07:15 PT 15.7 Seconds (9.8-13.1) H 11/17/16 18:00 INR 1.4 (0.9-1.2) H 11/17/16 18:00 APTT 25.7 Seconds (25.6-37.1) 11/17/16 18:00 - Constitutional Appears: Non-toxic, No Acute Distress - Eye Exam Eye Exam: EOMI, Normal appearance - Respiratory Exam Respiratory Exam: NORMAL BREATHING PATTERN. absent: Respiratory Distress - Cardiovascular Exam Cardiovascular Exam: +S1, +S2 - GI/Abdominal Exam GI & Abdominal Exam: Soft, Tenderness (very mild tenderness superior to drain insertion site). absent: Distended, Firm, Guarding, Rigid, Rebound Additional comments: [address]: Right upper drain: minimal output over past 24 hours Right lower drain: 10cc output over past 24 hours Anterior drain:10cc over past 24 hours. - Neurological Exam Neurological Exam: Alert, Awake, Oriented x3 - Psychiatric Exam Psychiatric exam: Normal Affect, Normal Mood - Skin Skin Exam: Dry, Normal Color, Warm Assessment and Plan - Assessment and Plan (Free Text) Assessment: 36yo F with Crohn's disease, with sepsis and multiloculated retroperitoneal abscess, s/p IR drainage x3 - Afebrile - WBC 12.1 (13 yesterday) - C diff negative - Will continue to monitor drain output - Tolerating regular diet - Continue IV Abx and IV fluids - Pain control PRN - ID following, 11/17 wound cx = E. Coli - Encourage ambulation and OOB - Discussed plan with Dr. Lino Rudd PGY-3 <Devon Huynh - Last Filed: 11/28/16 11:13> Subjective - Subjective Subjective: Patient was seen and examined at the bedside. Agree with resident's note above Objective - Vital Signs/Intake and Output Vital Signs (last 24 hours): Temp Pulse Resp BP Pulse Ox 98.5 F 97 H 20 100/69 99 11/28/16 09:17 11/28/16 09:17 11/28/16 09:17 11/28/16 09:17 11/28/16 09:17 Intake and Output: 11/28/16 11/28/16 06:59 18:59 Intake Total 1440 Output Total 15 Balance 1425 - Medications Medications: Current Medications Acetaminophen (Tylenol 325mg Tab) 650 mg PO Q6 PRN PRN Reason: Pain, moderate (4-7) Last Admin: 11/19/16 14:10 Dose: 650 mg Acetaminophen (Tylenol 325mg Tab) 325 mg PO Q6 PRN PRN Reason: Fever >100.4 F Last Admin: 11/21/16 15:46 Dose: 325 mg Enoxaparin Sodium (Lovenox) 30 mg SC DAILY [facility] PRN Reason: Protocol Last Admin: 11/28/16 09:56 Dose: 30 mg Ferrous Sulfate (Feosol) 325 mg PO DAILY [facility] Last Admin: 11/28/16 09:45 Dose: 325 mg Folic Acid (Folic Acid) 5 mg PO DAILY [facility] Last Admin: 11/28/16 09:55 Dose: 5 mg Hydrocortisone (Anusol-Hc) 1 applic [place] BID [facility] Last Admin: 11/28/16 09:42 Dose: 1 applic Dextrose/Sodium Chloride (Dextrose 5%/0.9% Ns 1000 Ml) 1,000 mls @ 100 mls/hr IV .Q10H [facility] Last Admin: 11/28/16 09:44 Dose: 100 mls/hr Metronidazole (Flagyl 500mg/100ml Ns) 100 mls @ 100 mls/hr IVPB Q8 [facility] Last Admin: 11/28/16 09:54 Dose: 100 mls/hr Piperacillin Sod/Tazobactam (Sod 3.375 gm/ Sodium Chloride) 100 mls @ 100 mls/ hr IVPB Q6 [facility] Last Admin: 11/28/16 09:56 Dose: 100 mls/hr Isoniazid (Niazid) 300 mg PO DAILY [facility] Last Admin: 11/28/16 09:55 Dose: 300 mg Ketorolac Tromethamine (Toradol) 30 mg IVP Q8 PRN PRN Reason: Pain, severe (8-10) Last Admin: 11/25/16 14:11 Dose: 30 mg Lactobacillus Acidophilus (Bacid Acidophilus) 1 cap PO BID [facility] Last Admin: 11/27/16 18:31 Dose: 1 cap Multivitamins/Minerals (Therapeutic-M Tab) 1 tab PO DAILY [facility] Last Admin: 11/28/16 09:55 Dose: 1 tab Ondansetron HCl (Zofran Inj) 4 mg IVP Q4 PRN PRN Reason: Nausea/Vomiting Pantoprazole Sodium (Protonix Ec Tab) 40 mg PO DAILY [facility] Last Admin: 11/28/16 09:55 Dose: 40 mg Pyridoxine HCl (Vitamin B6 50 Mg Tab) 50 mg PO DAILY [facility] Last Admin: 11/28/16 09:55 Dose: 50 mg - Labs Labs: 11/28/16 08:15 11/28/16 08:15 PT 15.7 Seconds (9.8-13.1) H 11/17/16 18:00 INR 1.4 (0.9-1.2) H 11/17/16 18:00 APTT 25.7 Seconds (25.6-37.1) 11/17/16 18:00
[2016-11-28 09:09] LABS: ALB/GLOB RATIO 0.7 (1.0-2.1); ALBUMIN 2.4 g/dL (3.5-5.0); ALT/SGPT 28 U/L (9-52); AST/SGOT 50 U/L (14-36); BLOOD UREA NITROGEN 7 mg/dl (7-17); CALCIUM 8.3 mg/dL (8.4-10.2); GFR AFRICAN-AMERICAN > 60; GFR NON-AFRICAN AMERICAN > 60
[2016-11-28] MEDS: Hydrocortisone 2.5% (Rectal) CREAM PR SCH ×2 (09:42→17:09)
[2016-11-28] MEDS: Pantoprazole 40 mg EC Tab PO SCH (09:55)
[2016-11-28] MEDS: Multivitamin With Minerals Tab PO SCH (09:55)
[2016-11-28] MEDS: Enoxaparin 30 mg Syringe SC SCH (09:56)
[2016-11-28] MEDS: Lactobacillus Acidophilus 500 MU Cap PO SCH ×2 (12:23→17:05)
--- NOTE | 2016-11-28 13:57 | CP.PCM.PN ---
<Pradip Clement - Last Filed: 11/28/16 14:01> Subjective - Date & Time of Evaluation Date of Evaluation: 11/28/16 Time of Evaluation: 07:20 - Subjective Subjective: pt seen and examined at bedside. No acute events overnight. Pt lying in bed comfortably, NAD. 3 drains placed, each draining less than yesterday. Right upper drain with minimal purulent drainage, right lower drain with roughly 10cc over 24 hours and anterior drain with 10cc as well. Tolerating PO intake w/o difficutly. Afebrile, pain controlled. No new complaints. Denies fever/chills, headaches, visual changes, CP/SOB/COLLIER/palpitations, N/V/D/C, urinary symptoms, numbness/tingling. Objective - Vital Signs/Intake and Output Vital Signs (last 24 hours): Temp Pulse Resp BP Pulse Ox 98.5 F 97 H 20 100/69 99 11/28/16 09:17 11/28/16 09:17 11/28/16 09:17 11/28/16 09:17 11/28/16 09:17 Intake and Output: 11/28/16 11/28/16 06:59 18:59 Intake Total 1440 Output Total 15 Balance 1425 - Medications Medications: Current Medications Acetaminophen (Tylenol 325mg Tab) 650 mg PO Q6 PRN PRN Reason: Pain, moderate (4-7) Last Admin: 11/19/16 14:10 Dose: 650 mg Acetaminophen (Tylenol 325mg Tab) 325 mg PO Q6 PRN PRN Reason: Fever >100.4 F Last Admin: 11/21/16 15:46 Dose: 325 mg Enoxaparin Sodium (Lovenox) 30 mg SC DAILY [facility] PRN Reason: Protocol Last Admin: 11/28/16 09:56 Dose: 30 mg Ferrous Sulfate (Feosol) 325 mg PO DAILY [facility] Last Admin: 11/28/16 09:45 Dose: 325 mg Folic Acid (Folic Acid) 5 mg PO DAILY [facility] Last Admin: 11/28/16 09:55 Dose: 5 mg Hydrocortisone (Anusol-Hc) [address] BID [facility] Last Admin: 11/28/16 09:42 Dose: 1 applic Dextrose/Sodium Chloride (Dextrose 5%/0.9% Ns 1000 Ml) 1,000 mls @ 100 mls/hr IV .Q10H [facility] Last Admin: 11/28/16 09:44 Dose: 100 mls/hr Metronidazole (Flagyl 500mg/100ml Ns) 100 mls @ 100 mls/hr IVPB Q8 [facility] Last Admin: 11/28/16 09:54 Dose: 100 mls/hr Piperacillin Sod/Tazobactam (Sod 3.375 gm/ Sodium Chloride) 100 mls @ 100 mls/ hr IVPB Q6 [facility] Last Admin: 11/28/16 09:56 Dose: 100 mls/hr Isoniazid (Niazid) 300 mg PO DAILY [facility] Last Admin: 11/28/16 09:55 Dose: 300 mg Ketorolac Tromethamine (Toradol) 30 mg IVP Q8 PRN PRN Reason: Pain, severe (8-10) Last Admin: 11/25/16 14:11 Dose: 30 mg Lactobacillus Acidophilus (Bacid Acidophilus) 1 cap PO BID [facility] Last Admin: 11/28/16 12:23 Dose: Not Given Multivitamins/Minerals (Therapeutic-M Tab) 1 tab PO DAILY [facility] Last Admin: 11/28/16 09:55 Dose: 1 tab Ondansetron HCl (Zofran Inj) 4 mg IVP Q4 PRN PRN Reason: Nausea/Vomiting Pantoprazole Sodium (Protonix Ec Tab) 40 mg PO DAILY [facility] Last Admin: 11/28/16 09:55 Dose: 40 mg Pyridoxine HCl (Vitamin B6 50 Mg Tab) 50 mg PO DAILY [facility] Last Admin: 11/28/16 09:55 Dose: 50 mg - Labs Labs: 11/28/16 08:15 11/28/16 08:15 PT 15.7 Seconds (9.8-13.1) H 11/17/16 18:00 INR 1.4 (0.9-1.2) H 11/17/16 18:00 APTT 25.7 Seconds (25.6-37.1) 11/17/16 18:00 - Constitutional Appears: Well, Non-toxic, No Acute Distress - ENT Exam ENT Exam: Mucous Membranes Moist - Neck Exam Neck Exam: Full ROM - Respiratory Exam Respiratory Exam: Clear to Ausculation Bilateral, NORMAL BREATHING PATTERN. absent: Rales, Rhonchi, Wheezes - Cardiovascular Exam Cardiovascular Exam: REGULAR RHYTHM, RRR, +S1, +S2. absent: Tachycardia, Gallop , JVD, Rubs, Murmur - GI/Abdominal Exam GI & Abdominal Exam: Soft, Tenderness (minor tenderness surrounding drains ), Normal Bowel Sounds. absent: Guarding, Rigid, Rebound - Extremities Exam Extremities Exam: Normal Inspection. absent: Calf Tenderness, Pedal Edema, Tenderness - Neurological Exam Neurological Exam: Alert, Awake, Oriented x3 Assessment and Plan - Assessment and Plan (Free Text) Assessment: 36 y/o F with a PMHx remarkable for Crohns Disease admitted for multiloculated abdominal abscesses, s/p IR Drainage insertion x3. Plan: 1) Sepsis (resolving) -afebrile: 98.5 -monitor vitals, episodes of hypotension but w/o fever/tachycardia. Tolerating PO intake, will consider supplementing with IV fluids -follow CBC, WBC with further improvement, 12.1 today -continue IV Abx as per ID 2) Acute Crohns Disease with Abscess -s/p IR drain insertion 3 -reg diet -ambulation 3) Hydronephrosis -pt is s/p ureteral stent placement in 06/2016 -Urology consult appreciated <Ray Mensah - Last Filed: 12/07/16 16:31> Objective - Vital Signs/Intake and Output Vital Signs (last 24 hours): Temp Pulse Resp BP Pulse Ox 98.3 F 100 H 17 98/61 L 99 12/07/16 16:19 12/07/16 16:19 12/07/16 16:19 12/07/16 16:19 12/07/16 16:19 Intake and Output: 12/07/16 12/07/16 06:59 18:59 Intake Total 1500 Output Total 72 Balance 1428 - Medications Medications: Current Medications Acetaminophen (Tylenol 325mg Tab) 650 mg PO Q6 PRN PRN Reason: Pain, moderate (4-7) Last Admin: 12/02/16 04:06 Dose: 650 mg Enoxaparin Sodium (Lovenox) 30 mg SC DAILY [facility] PRN Reason: Protocol Last Admin: 12/07/16 09:04 Dose: 30 mg Ferrous Sulfate (Feosol) 325 mg PO DAILY [facility] Last Admin: 12/07/16 09:05 Dose: 325 mg Folic Acid (Folic Acid) 5 mg PO DAILY [facility] Last Admin: 12/07/16 09:05 Dose: 5 mg Hydrocortisone (Anusol-Hc) [address] BID [facility] Last Admin: 12/07/16 09:04 Dose: 1 applic Lactated Ringer's (Lactated Ringer's) 1,000 mls @ 125 mls/hr IV .Q8H [facility] Last Admin: 12/07/16 07:44 Dose: Not Given Meropenem 1 gm/ Sodium (Chloride) 100 mls @ 100 mls/hr IVPB Q8 [facility] Last Admin: 12/07/16 11:18 Dose: 100 mls/hr Vancomycin HCl 1 gm/ Sodium (Chloride) 250 mls @ 250 mls/hr IVPB Q12H [facility] Last Admin: 12/07/16 12:34 Dose: 250 mls/hr Fluconazole (Diflucan Iv 200 Mg/100 Ml Ns) 100 mls @ 100 mls/hr IVPB DAILY [facility] Last Admin: 12/07/16 09:04 Dose: 100 mls/hr Isoniazid (Niazid) 300 mg PO DAILY [facility] Last Admin: 12/07/16 09:05 Dose: 300 mg Lactobacillus Acidophilus (Bacid Acidophilus) 1 cap PO BID [facility] Last Admin: 12/07/16 09:04 Dose: 1 cap Multivitamins/Minerals (Therapeutic-M Tab) 1 tab PO DAILY [facility] Last Admin: 12/07/16 09:05 Dose: 1 tab Ondansetron HCl (Zofran Inj) 4 mg IVP Q4 PRN PRN Reason: Nausea/Vomiting Pantoprazole Sodium (Protonix Ec Tab) 40 mg PO DAILY [facility] Last Admin: 12/07/16 09:05 Dose: 40 mg Pyridoxine HCl (Vitamin B6 50 Mg Tab) 50 mg PO DAILY [facility] Last Admin: 12/07/16 09:05 Dose: 50 mg - Labs Labs: 12/06/16 08:50 12/06/16 08:50 PT 15.7 Seconds (9.8-13.1) H 11/17/16 18:00 INR 1.4 (0.9-1.2) H 11/17/16 18:00 APTT 25.7 Seconds (25.6-37.1) 11/17/16 18:00 Assessment and Plan - Assessment and Plan (Free Text) Assessment: Patient was personally seen and examined by me in rounds with residents. Available labs and diagnostic data reviewed. Case, patient's condition and management plan discussed with residents in rounds. Agree with resident's progress note. Plan: As ordered.
[2016-11-29] MEDS: metroNIDAZOLE 500mg/100ml NS 100 ML IVPB SCH ×3 (01:00→16:19)
[2016-11-29] MEDS: Piperacillin/Tazobact 3.375 GM in Sodium Chloride 0.9% 100 ML IVPB SCH ×4 (04:00→21:46)
[2016-11-29 07:34] LABS: ALB/GLOB RATIO 0.7 (1.0-2.1); ALBUMIN 2.3 g/dL (3.5-5.0); ALT/SGPT 19 U/L (9-52); AST/SGOT 29 U/L (14-36); BLOOD UREA NITROGEN 5 mg/dl (7-17); CALCIUM 8.6 mg/dL (8.4-10.2); GFR AFRICAN-AMERICAN > 60; GFR NON-AFRICAN AMERICAN > 60
[2016-11-29 07:50] LABS: HEMOGLOBIN 8.8 g/dL (12.0-16.0); MEAN CELL VOLUME 70.1 fl (81.0-99.0); MEAN CORPUSCULAR HEMOGLOBIN 22.2 pg (27.0-31.0); MEAN CORPUSCULAR HGB CONC 31.7 g/dL (33.0-37.0); RBC 3.95 Mil/uL (3.80-5.20); WHITE BLOOD COUNT 12.2 K/uL (4.8-10.8)
--- NOTE | 2016-11-29 08:43 | CP.PCM.PN ---
Subjective - Date & Time of Evaluation Date of Evaluation: 11/29/16 Time of Evaluation: 07:00 - Subjective Subjective: GENERAL SURGERY PROGRESS NOTE FOR DR. Dyson Patient seen and examined at bedside. She had diarrhea last night at 12:40AM. She denies abdominal pain. She is tolerating regular diet. She denies nausea and vomiting. Right upper drain had 15cc output and Right lower drain had 18cc output and Anterior drain had 15cc over past 24 hours. Drains were flushed by nurse. Objective - Vital Signs/Intake and Output Vital Signs (last 24 hours): Temp Pulse Resp BP Pulse Ox 98.4 F 102 H 20 100/69 98 11/29/16 00:31 11/29/16 00:31 11/29/16 00:31 11/29/16 00:31 11/29/16 00:31 Intake and Output: 11/29/16 11/29/16 06:59 18:59 Output Total 48 5 Balance -48 -5 - Medications Medications: Current Medications Acetaminophen (Tylenol 325mg Tab) 650 mg PO Q6 PRN PRN Reason: Pain, moderate (4-7) Last Admin: 11/19/16 14:10 Dose: 650 mg Acetaminophen (Tylenol 325mg Tab) 325 mg PO Q6 PRN PRN Reason: Fever >100.4 F Last Admin: 11/21/16 15:46 Dose: 325 mg Enoxaparin Sodium (Lovenox) 30 mg SC DAILY [facility] PRN Reason: Protocol Last Admin: 11/28/16 09:56 Dose: 30 mg Ferrous Sulfate (Feosol) 325 mg PO DAILY [facility] Last Admin: 11/28/16 09:45 Dose: 325 mg Folic Acid (Folic Acid) 5 mg PO DAILY [facility] Last Admin: 11/28/16 09:55 Dose: 5 mg Hydrocortisone (Anusol-Hc) 1 applic [place] BID [facility] Last Admin: 11/28/16 17:09 Dose: 1 applic Dextrose/Sodium Chloride (Dextrose 5%/0.9% Ns 1000 Ml) 1,000 mls @ 100 mls/hr IV .Q10H [facility] Last Admin: 11/28/16 17:06 Dose: Not Given Metronidazole (Flagyl 500mg/100ml Ns) 100 mls @ 100 mls/hr IVPB Q8 [facility] Last Admin: 11/28/16 17:16 Dose: 100 mls/hr Piperacillin Sod/Tazobactam (Sod 3.375 gm/ Sodium Chloride) 100 mls @ 100 mls/ hr IVPB Q6 [facility] Last Admin: 11/28/16 17:08 Dose: 100 mls/hr Isoniazid (Niazid) 300 mg PO DAILY [facility] Last Admin: 11/28/16 09:55 Dose: 300 mg Ketorolac Tromethamine (Toradol) 30 mg IVP Q8 PRN PRN Reason: Pain, severe (8-10) Last Admin: 11/25/16 14:11 Dose: 30 mg Lactobacillus Acidophilus (Bacid Acidophilus) 1 cap PO BID [facility] Last Admin: 11/28/16 17:05 Dose: Not Given Multivitamins/Minerals (Therapeutic-M Tab) 1 tab PO DAILY [facility] Last Admin: 11/28/16 09:55 Dose: 1 tab Ondansetron HCl (Zofran Inj) 4 mg IVP Q4 PRN PRN Reason: Nausea/Vomiting Pantoprazole Sodium (Protonix Ec Tab) 40 mg PO DAILY [facility] Last Admin: 11/28/16 09:55 Dose: 40 mg Pyridoxine HCl (Vitamin B6 50 Mg Tab) 50 mg PO DAILY [facility] Last Admin: 11/28/16 09:55 Dose: 50 mg - Labs Labs: 11/29/16 06:05 11/29/16 06:05 PT 15.7 Seconds (9.8-13.1) H 11/17/16 18:00 INR 1.4 (0.9-1.2) H 11/17/16 18:00 APTT 25.7 Seconds (25.6-37.1) 11/17/16 18:00 - Constitutional Appears: Non-toxic, No Acute Distress - Head Exam Head Exam: ATRAUMATIC, NORMAL INSPECTION - Eye Exam Eye Exam: EOMI, Normal appearance - Respiratory Exam Respiratory Exam: NORMAL BREATHING PATTERN. absent: Respiratory Distress - Cardiovascular Exam Cardiovascular Exam: +S1, +S2 - GI/Abdominal Exam GI & Abdominal Exam: Soft. absent: Distended, Firm, Guarding, Rigid, Tenderness , Rebound Additional comments: [address]: Right upper drain: 15cc output over past 24 hours Right lower drain: 18cc output over past 24 hours Anterior drain: 15cc over past 24 hours. - Neurological Exam Neurological Exam: Alert, Awake, Oriented x3 - Psychiatric Exam Psychiatric exam: Normal Affect, Normal Mood - Skin Skin Exam: Dry, Normal Color, Warm Assessment and Plan - Assessment and Plan (Free Text) Assessment: 36yo F with Crohn's disease, with sepsis and multiloculated retroperitoneal abscess, s/p IR drainage x3 - Afebrile - WBC 12.2 - C diff negative - Will continue to monitor drain output - Tolerating regular diet - Continue IV Abx and IV fluids - Pain control PRN - ID following, 11/17 wound cx = E. Coli - Encourage ambulation and OOB - CT Abd/Pelvis with PO and IV contrast ordered - Discussed plan with Dr. Kiel Rudd PGY-3
[2016-11-29] MEDS: Lactobacillus Acidophilus 500 MU Cap PO SCH ×2 (09:00→16:20)
[2016-11-29] MEDS: Dextrose 5%/0.9% NS 1,000 ML IV SCH ×2 (09:26→16:22)
[2016-11-29] MEDS: Hydrocortisone 2.5% (Rectal) CREAM PR SCH ×2 (09:32→16:20)
[2016-11-29] MEDS: Pantoprazole 40 mg EC Tab PO SCH (09:33)
[2016-11-29] MEDS: Enoxaparin 30 mg Syringe SC SCH (09:34)
[2016-11-29] MEDS: Multivitamin With Minerals Tab PO SCH (09:34)
[2016-11-29] MEDS ORDERED: Iohexol 240 (50 ml) PO ONE (09:57)
--- NOTE | 2016-11-29 11:29 | CP.PCM.PN ---
<Pradip Clement - Last Filed: 11/29/16 11:32> Subjective - Date & Time of Evaluation Date of Evaluation: 11/29/16 Time of Evaluation: 07:15 - Subjective Subjective: pt seen and examined at bedside this morning. No acute events overnight. Afebrile. Lying in bed comfortably, NAD. Reports improvement in pain. Tolerating PO intake w/o difficulty. Reports diarrhea has subsided since last episode at midnight last night. Drains cc of purulent drainage. No new complaints. Denies fever/chills, headaches, changes in vision, CP/SOB/COLLIER/ Palpitations, N/V/D/C, urinary symptoms, leg pain. Objective - Vital Signs/Intake and Output Vital Signs (last 24 hours): Temp Pulse Resp BP Pulse Ox 98.7 F 72 20 125/77 98 11/29/16 09:46 11/29/16 09:46 11/29/16 09:46 11/29/16 09:46 11/29/16 09:46 Intake and Output: 11/29/16 11/29/16 06:59 18:59 Output Total 48 5 Balance -48 -5 - Medications Medications: Current Medications Acetaminophen (Tylenol 325mg Tab) 650 mg PO Q6 PRN PRN Reason: Pain, moderate (4-7) Last Admin: 11/19/16 14:10 Dose: 650 mg Acetaminophen (Tylenol 325mg Tab) 325 mg PO Q6 PRN PRN Reason: Fever >100.4 F Last Admin: 11/21/16 15:46 Dose: 325 mg Enoxaparin Sodium (Lovenox) 30 mg SC DAILY [facility] PRN Reason: Protocol Last Admin: 11/29/16 09:34 Dose: 30 mg Ferrous Sulfate (Feosol) 325 mg PO DAILY [facility] Last Admin: 11/29/16 09:35 Dose: 325 mg Folic Acid (Folic Acid) 5 mg PO DAILY [facility] Last Admin: 11/29/16 09:33 Dose: 5 mg Hydrocortisone (Anusol-Hc) 1 applic [place] BID [facility] Last Admin: 11/29/16 09:32 Dose: 1 applic Dextrose/Sodium Chloride (Dextrose 5%/0.9% Ns 1000 Ml) 1,000 mls @ 100 mls/hr IV .Q10H [facility] Last Admin: 11/29/16 09:26 Dose: 100 mls/hr Metronidazole (Flagyl 500mg/100ml Ns) 100 mls @ 100 mls/hr IVPB Q8 [facility] Last Admin: 11/29/16 09:28 Dose: 100 mls/hr Piperacillin Sod/Tazobactam (Sod 3.375 gm/ Sodium Chloride) 100 mls @ 100 mls/ hr IVPB Q6 [facility] Last Admin: 11/29/16 09:26 Dose: 100 mls/hr Isoniazid (Niazid) 300 mg PO DAILY [facility] Last Admin: 11/29/16 09:34 Dose: 300 mg Ketorolac Tromethamine (Toradol) 30 mg IVP Q8 PRN PRN Reason: Pain, severe (8-10) Last Admin: 11/25/16 14:11 Dose: 30 mg Lactobacillus Acidophilus (Bacid Acidophilus) 1 cap PO BID [facility] Last Admin: 11/28/16 17:05 Dose: Not Given Multivitamins/Minerals (Therapeutic-M Tab) 1 tab PO DAILY [facility] Last Admin: 11/29/16 09:34 Dose: 1 tab Ondansetron HCl (Zofran Inj) 4 mg IVP Q4 PRN PRN Reason: Nausea/Vomiting Pantoprazole Sodium (Protonix Ec Tab) 40 mg PO DAILY [facility] Last Admin: 11/29/16 09:33 Dose: 40 mg Pyridoxine HCl (Vitamin B6 50 Mg Tab) 50 mg PO DAILY [facility] Last Admin: 11/29/16 09:34 Dose: 50 mg - Labs Labs: 11/29/16 06:05 11/29/16 06:05 PT 15.7 Seconds (9.8-13.1) H 11/17/16 18:00 INR 1.4 (0.9-1.2) H 11/17/16 18:00 APTT 25.7 Seconds (25.6-37.1) 11/17/16 18:00 - Constitutional Appears: Non-toxic, No Acute Distress - Eye Exam Eye Exam: EOMI. absent: Conjunctival injection, Scleral icterus Pupil Exam: PERRL - Respiratory Exam Respiratory Exam: Clear to Ausculation Bilateral, NORMAL BREATHING PATTERN. absent: Accessory Muscle Use, Rales, Rhonchi, Wheezes - Cardiovascular Exam Cardiovascular Exam: REGULAR RHYTHM, RRR, +S1, +S2. absent: Tachycardia, Gallop , JVD, Rubs, Murmur - GI/Abdominal Exam GI & Abdominal Exam: Soft, Tenderness, Normal Bowel Sounds. absent: Firm, Guarding, Rigid Additional comments: minor tenderness at drain insertion sites, improved since yesterday. - Extremities Exam Extremities Exam: Normal Inspection. absent: Calf Tenderness, Pedal Edema, Tenderness - Neurological Exam Neurological Exam: Alert, Awake, CN II-XII Intact, Oriented x3 - Skin Skin Exam: Dry, Intact Assessment and Plan - Assessment and Plan (Free Text) Assessment: 36 y/o F with a PMHx remarkable for Crohns Disease admitted for multiloculated abdominal abscesses, s/p IR Drainage insertion x3. Plan: 1) Sepsis (resolving) -afebrile: 98.7 -monitor vitals -follow CBC, WBC with further improvement, 12.2 today -continue IV Abx as per ID 2) Acute Crohns Disease with Abscess -s/p IR drain insertion x3 -reg diet -ambulation -monitor drain output -will follow general surgery recommendations 3) Hydronephrosis -pt is s/p ureteral stent placement in 06/2016 -Pt for OR Sunday as per Urology. <Ray Mensah K - Last Filed: 12/07/16 16:33> Objective - Vital Signs/Intake and Output Vital Signs (last 24 hours): Temp Pulse Resp BP Pulse Ox 98.3 F 100 H 17 98/61 L 99 12/07/16 16:19 12/07/16 16:19 12/07/16 16:19 12/07/16 16:19 12/07/16 16:19 Intake and Output: 12/07/16 12/07/16 06:59 18:59 Intake Total 1500 Output Total 72 Balance 1428 - Medications Medications: Current Medications Acetaminophen (Tylenol 325mg Tab) 650 mg PO Q6 PRN PRN Reason: Pain, moderate (4-7) Last Admin: 12/02/16 04:06 Dose: 650 mg Enoxaparin Sodium (Lovenox) 30 mg SC DAILY [facility] PRN Reason: Protocol Last Admin: 12/07/16 09:04 Dose: 30 mg Ferrous Sulfate (Feosol) 325 mg PO DAILY [facility] Last Admin: 12/07/16 09:05 Dose: 325 mg Folic Acid (Folic Acid) 5 mg PO DAILY [facility] Last Admin: 12/07/16 09:05 Dose: 5 mg Hydrocortisone (Anusol-Hc) 1 applic [place] BID [facility] Last Admin: 12/07/16 09:04 Dose: 1 applic Lactated Ringer's (Lactated Ringer's) 1,000 mls @ 125 mls/hr IV .Q8H [facility] Last Admin: 12/07/16 07:44 Dose: Not Given Meropenem 1 gm/ Sodium (Chloride) 100 mls @ 100 mls/hr IVPB Q8 [facility] Last Admin: 12/07/16 11:18 Dose: 100 mls/hr Vancomycin HCl 1 gm/ Sodium (Chloride) 250 mls @ 250 mls/hr IVPB Q12H [facility] Last Admin: 12/07/16 12:34 Dose: 250 mls/hr Fluconazole (Diflucan Iv 200 Mg/100 Ml Ns) 100 mls @ 100 mls/hr IVPB DAILY [facility] Last Admin: 12/07/16 09:04 Dose: 100 mls/hr Isoniazid (Niazid) 300 mg PO DAILY [facility] Last Admin: 12/07/16 09:05 Dose: 300 mg Lactobacillus Acidophilus (Bacid Acidophilus) 1 cap PO BID [facility] Last Admin: 12/07/16 09:04 Dose: 1 cap Multivitamins/Minerals (Therapeutic-M Tab) 1 tab PO DAILY [facility] Last Admin: 12/07/16 09:05 Dose: 1 tab Ondansetron HCl (Zofran Inj) 4 mg IVP Q4 PRN PRN Reason: Nausea/Vomiting Pantoprazole Sodium (Protonix Ec Tab) 40 mg PO DAILY [facility] Last Admin: 12/07/16 09:05 Dose: 40 mg Pyridoxine HCl (Vitamin B6 50 Mg Tab) 50 mg PO DAILY [facility] Last Admin: 12/07/16 09:05 Dose: 50 mg - Labs Labs: 12/06/16 08:50 12/06/16 08:50 PT 15.7 Seconds (9.8-13.1) H 11/17/16 18:00 INR 1.4 (0.9-1.2) H 11/17/16 18:00 APTT 25.7 Seconds (25.6-37.1) 11/17/16 18:00 Assessment and Plan - Assessment and Plan (Free Text) Assessment: Patient was personally seen and examined by me in rounds with residents. Available labs and diagnostic data reviewed. Case, patient's condition and management plan discussed with residents in rounds. Agree with resident's progress note. Plan: As ordered.
--- NOTE | 2016-11-29 12:31 | CP.PCM.PN ---
Subjective - Date & Time of Evaluation Date of Evaluation: 11/29/16 Time of Evaluation: 07:00 - Subjective Subjective: still has drainage but less no fever and wbc down Objective - Vital Signs/Intake and Output Vital Signs (last 24 hours): Temp Pulse Resp BP Pulse Ox 98.7 F 72 20 125/77 98 11/29/16 09:46 11/29/16 09:46 11/29/16 09:46 11/29/16 09:46 11/29/16 09:46 Intake and Output: 11/29/16 11/29/16 06:59 18:59 Output Total 48 5 Balance -48 -5 - Medications Medications: Current Medications Acetaminophen (Tylenol 325mg Tab) 650 mg PO Q6 PRN PRN Reason: Pain, moderate (4-7) Last Admin: 11/19/16 14:10 Dose: 650 mg Acetaminophen (Tylenol 325mg Tab) 325 mg PO Q6 PRN PRN Reason: Fever >100.4 F Last Admin: 11/21/16 15:46 Dose: 325 mg Enoxaparin Sodium (Lovenox) 30 mg [place] DAILY [facility] PRN Reason: Protocol Last Admin: 11/29/16 09:34 Dose: 30 mg Ferrous Sulfate (Feosol) 325 mg PO DAILY [facility] Last Admin: 11/29/16 09:35 Dose: 325 mg Folic Acid (Folic Acid) 5 mg PO DAILY [facility] Last Admin: 11/29/16 09:33 Dose: 5 mg Hydrocortisone (Anusol-Hc) 1 applic [place] BID [facility] Last Admin: 11/29/16 09:32 Dose: 1 applic Dextrose/Sodium Chloride (Dextrose 5%/0.9% Ns 1000 Ml) 1,000 mls @ 100 mls/hr IV .Q10H [facility] Last Admin: 11/29/16 09:26 Dose: 100 mls/hr Metronidazole (Flagyl 500mg/100ml Ns) 100 mls @ 100 mls/hr IVPB Q8 [facility] Last Admin: 11/29/16 09:28 Dose: 100 mls/hr Piperacillin Sod/Tazobactam (Sod 3.375 gm/ Sodium Chloride) 100 mls @ 100 mls/ hr IVPB Q6 [facility] Last Admin: 11/29/16 09:26 Dose: 100 mls/hr Isoniazid (Niazid) 300 mg PO DAILY [facility] Last Admin: 11/29/16 09:34 Dose: 300 mg Ketorolac Tromethamine (Toradol) 30 mg IVP Q8 PRN PRN Reason: Pain, severe (8-10) Last Admin: 11/25/16 14:11 Dose: 30 mg Lactobacillus Acidophilus (Bacid Acidophilus) 1 cap PO BID [facility] Last Admin: 11/28/16 17:05 Dose: Not Given Multivitamins/Minerals (Therapeutic-M Tab) 1 tab PO DAILY [facility] Last Admin: 11/29/16 09:34 Dose: 1 tab Ondansetron HCl (Zofran Inj) 4 mg IVP Q4 PRN PRN Reason: Nausea/Vomiting Pantoprazole Sodium (Protonix Ec Tab) 40 mg PO DAILY [facility] Last Admin: 11/29/16 09:33 Dose: 40 mg Pyridoxine HCl (Vitamin B6 50 Mg Tab) 50 mg PO DAILY [facility] Last Admin: 11/29/16 09:34 Dose: 50 mg - Labs Labs: 11/29/16 06:05 11/29/16 06:05 PT 15.7 Seconds (9.8-13.1) H 11/17/16 18:00 INR 1.4 (0.9-1.2) H 11/17/16 18:00 APTT 25.7 Seconds (25.6-37.1) 11/17/16 18:00 - Constitutional Appears: Non-toxic, Chronically Ill - Head Exam Head Exam: NORMOCEPHALIC - Eye Exam Eye Exam: PERRL - ENT Exam ENT Exam: Mucous Membranes Dry - Neck Exam Neck Exam: absent: Lymphadenopathy - Respiratory Exam Respiratory Exam: Decreased Breath Sounds, Clear to Ausculation Bilateral - Cardiovascular Exam Cardiovascular Exam: REGULAR RHYTHM - GI/Abdominal Exam GI & Abdominal Exam: Distended, Soft. absent: Tenderness - Rectal Exam Rectal Exam: Deferred - Exam Exam: NORMAL INSPECTION - Extremities Exam Extremities Exam: absent: Calf Tenderness, Pedal Edema - Back Exam Back Exam: absent: CVA tenderness (L), CVA tenderness (R) - Neurological Exam Neurological Exam: Alert, Awake, Oriented x3 - Psychiatric Exam Psychiatric exam: Normal Mood - Skin Skin Exam: Dry, Intact Assessment and Plan (1) Acute Crohn's disease with abscess Status: Acute (2) Acute Crohn's disease with abscess Status: Acute (3) Acute Crohn's disease with complication Status: Acute (4) Acute Crohn's disease with complication Status: Acute (5) Intra-abdominal abscess Status: Acute (6) Sepsis Status: Acute
[2016-11-29] MEDS ORDERED: Sodium Chloride 0.9% 50 ML IV ONE (18:39)
[2016-11-29] MEDS ORDERED: Iohexol 300 100 ML IJ ONE (18:39)
--- NOTE | 2016-11-29 20:14 | CT ---
EXAM: CT Abdomen and Pelvis With Intravenous Contrast CLINICAL HISTORY: 36 years old, female; Pain; Abdominal pain; Generalized; Additional info: Comparison TECHNIQUE: Axial computed tomography images of the abdomen and pelvis with intravenous contrast. This CT exam was performed using one or more of the following dose reduction techniques: automated exposure control, adjustment of the mA and/or kV according to patient size, and/or use of iterative reconstruction technique. Coronal and sagittal reformatted images were created and reviewed. CONTRAST: 95 mL of OMNIPAQUE 300 administered intravenously. EXAM DATE/TIME: 11/29/2016 9:57 AM COMPARISON: CT - ABD PELVIS IV CONTRAST 11/23/16 not available for comparison; CT abdomen pelvis 11/17/16 FINDINGS: Lower thorax: There are bilateral breast implants. Heart size is normal. There is a small hiatal hernia. There is right middle lobe atelectasis/scarring atelectasis. There is airspace disease at both lung bases. There are small bilateral pleural effusions. ABDOMEN: Liver: There is fatty infiltration of the liver. Liver is mildly enlarged Gallbladder and bile ducts: unremarkable Pancreas: unremarkable Spleen: unremarkable Adrenals: unremarkable Kidneys and ureters: There are small non-obstructing right renal stones. Right kidney and ureter are otherwise unremarkable. There is mild left pelvocaliectasis and ureterectasis. There is mild left renal pelvic and proximal ureteral mucosal thickening There is a left ureteral stent. Stomach and bowel: Stomach is partially distended. Rotation is normal. Small bowel is mildly dilated with air-fluid levels. There is no obstruction. There is fecalization of the terminal ileum. There surgical clips at the base of the cecum. There is a large amount of stool in the colon. Appendix: See stomach and bowel PELVIS: Bladder: Bladder is partially distended. Reproductive: Uterus and adnexal structures are unremarkable. ABDOMEN and PELVIS: Intraperitoneal space: There is no free air. Retroperitoneal space: There is a small amount of fluid in the right colic gutter. There is fluid and edema in the right retroperitoneum. There are 3 percutaneous pigtail drainage catheters. Inferior catheter extends into the right gluteal abscess. Abscess cavity is collapsed. There is minimal residual air and fluid. There is edema in the adjacent soft tissues. There are 2 catheters extending into the retroperitoneal abscesses. Abscess cavities are almost completely collapsed. There is minimal residual fluid and air. There is continued edema and enlargement of the right iliac this muscle. Bones/joints: There are no acute osseous abnormalities Soft tissues: There is diffuse body wall edema. Vasculature: Vascular structures are unremarkable. Lymph nodes: There is shotty para-aortic adenopathy. IMPRESSION: Collapsed right gluteal and right retroperitoneal abscesses with 3 percutaneous drainage catheters; diffuse body wall edema; bilateral pleural effusions with basilar airspace disease atelectasis and/or infiltrate; probable ileus, no obstruction; constipation; left ureteral stent Additional findings as described above.
[2016-11-30] MEDS: metroNIDAZOLE 500mg/100ml NS 100 ML IVPB SCH ×3 (00:08→17:41)
[2016-11-30] MEDS: Dextrose 5%/0.9% NS 1,000 ML IV SCH ×3 (03:21→22:45)
[2016-11-30] MEDS: Piperacillin/Tazobact 3.375 GM in Sodium Chloride 0.9% 100 ML IVPB SCH ×4 (04:01→22:23)
[2016-11-30 07:04] LABS: HEMOGLOBIN 8.5 g/dL (12.0-16.0); MEAN CELL VOLUME 69.4 fl (81.0-99.0); MEAN CORPUSCULAR HGB CONC 31.7 g/dL (33.0-37.0); RBC 3.87 Mil/uL (3.80-5.20); RED CELL DISTRIBUTION WIDTH 29.2 % (11.5-14.5); WHITE BLOOD COUNT 10.7 K/uL (4.8-10.8)
[2016-11-30] MEDS: Enoxaparin 30 mg Syringe SC SCH (08:54)
[2016-11-30] MEDS: Hydrocortisone 2.5% (Rectal) CREAM PR SCH ×2 (08:55→17:44)
[2016-11-30] MEDS: Lactobacillus Acidophilus 500 MU Cap PO SCH ×2 (08:55→17:44)
[2016-11-30] MEDS: Multivitamin With Minerals Tab PO SCH (08:56)
[2016-11-30] MEDS: Pantoprazole 40 mg EC Tab PO SCH (08:56)
--- NOTE | 2016-11-30 10:08 | CP.PCM.PN ---
<Digna Rudd - Last Filed: 11/30/16 10:53> Subjective - Date & Time of Evaluation Date of Evaluation: 11/30/16 Time of Evaluation: 08:00 - Subjective Subjective: GENERAL SURGERY PROGRESS NOTE FOR DR. HUYNH Patient seen and examined with Dr. Huynh at bedside. She denies abdominal pain. She is ambulating with PT. She is tolerating regular diet. She denies nausea and vomiting. Right upper drain had 25cc output and Right lower drain had 40cc output and Anterior drain had 37cc over past 24 hours. Drains were flushed by nurse with 10cc NS. Objective - Vital Signs/Intake and Output Vital Signs (last 24 hours): Temp Pulse Resp BP Pulse Ox 98.3 F 91 H 18 100/68 99 11/30/16 07:56 11/30/16 07:56 11/30/16 07:56 11/30/16 07:56 11/30/16 07:56 Intake and Output: 11/30/16 11/30/16 06:59 18:59 Output Total 37 Balance -37 - Medications Medications: Current Medications Acetaminophen (Tylenol 325mg Tab) 650 mg PO Q6 PRN PRN Reason: Pain, moderate (4-7) Last Admin: 11/19/16 14:10 Dose: 650 mg Acetaminophen (Tylenol 325mg Tab) 325 mg PO Q6 PRN PRN Reason: Fever >100.4 F Last Admin: 11/21/16 15:46 Dose: 325 mg Enoxaparin Sodium (Lovenox) 30 mg SC DAILY [facility] PRN Reason: Protocol Last Admin: 11/30/16 08:54 Dose: 30 mg Ferrous Sulfate (Feosol) 325 mg PO DAILY [facility] Last Admin: 11/30/16 09:00 Dose: 325 mg Folic Acid (Folic Acid) 5 mg PO DAILY [facility] Last Admin: 11/30/16 08:55 Dose: 5 mg Hydrocortisone (Anusol-Hc) 1 applic MD BID [facility] Last Admin: 11/30/16 08:55 Dose: 1 applic Dextrose/Sodium Chloride (Dextrose 5%/0.9% Ns 1000 Ml) 1,000 mls @ 100 mls/hr IV .Q10H [facility] Last Admin: 11/30/16 03:21 Dose: Not Given Metronidazole (Flagyl 500mg/100ml Ns) 100 mls @ 100 mls/hr IVPB Q8 [facility] Last Admin: 11/30/16 08:37 Dose: 100 mls/hr Piperacillin Sod/Tazobactam (Sod 3.375 gm/ Sodium Chloride) 100 mls @ 100 mls/ hr IVPB Q6 [facility] Last Admin: 11/30/16 08:59 Dose: 100 mls/hr Isoniazid (Niazid) 300 mg PO DAILY [facility] Last Admin: 11/30/16 08:56 Dose: 300 mg Ketorolac Tromethamine (Toradol) 30 mg IVP Q8 PRN PRN Reason: Pain, severe (8-10) Last Admin: 11/25/16 14:11 Dose: 30 mg Lactobacillus Acidophilus (Bacid Acidophilus) 1 cap PO BID [facility] Last Admin: 11/30/16 08:55 Dose: 1 cap Multivitamins/Minerals (Therapeutic-M Tab) 1 tab PO DAILY [facility] Last Admin: 11/30/16 08:56 Dose: 1 tab Ondansetron HCl (Zofran Inj) 4 mg IVP Q4 PRN PRN Reason: Nausea/Vomiting Pantoprazole Sodium (Protonix Ec Tab) 40 mg PO DAILY [facility] Last Admin: 11/30/16 08:56 Dose: 40 mg Pyridoxine HCl (Vitamin B6 50 Mg Tab) 50 mg PO DAILY [facility] Last Admin: 11/30/16 08:56 Dose: 50 mg - Labs Labs: 11/30/16 06:37 11/29/16 06:05 PT 15.7 Seconds (9.8-13.1) H 11/17/16 18:00 INR 1.4 (0.9-1.2) H 11/17/16 18:00 APTT 25.7 Seconds (25.6-37.1) 11/17/16 18:00 - Constitutional Appears: Non-toxic, No Acute Distress, Older Than Stated Age - Eye Exam Eye Exam: EOMI, Normal appearance - Respiratory Exam Respiratory Exam: NORMAL BREATHING PATTERN. absent: Respiratory Distress - Cardiovascular Exam Cardiovascular Exam: +S1, +S2 - GI/Abdominal Exam GI & Abdominal Exam: Soft. absent: Distended, Firm, Guarding, Rigid, Tenderness , Rebound Additional comments: [address]: Right upper drain: 25cc purulent output over past 24 hours Right lower drain: 40cc purulent output over past 24 hours Anterior drain: 37cc purulent over past 24 hours. - Neurological Exam Neurological Exam: Alert, Awake, Oriented x3 - Psychiatric Exam Psychiatric exam: Normal Affect, Normal Mood - Skin Skin Exam: Dry, Normal Color, Warm Assessment and Plan - Assessment and Plan (Free Text) Assessment: 36yo F with Crohn's disease, with sepsis and multiloculated retroperitoneal abscess, s/p IR drainage x3 - Afebrile - WBC 10.7 - Tolerating regular diet - Continue IV Abx and IV fluids - Pain control PRN - Encourage ambulation and OOB - CT Abd/Pelvis with PO and IV contrast done yesterday showed collapsed right gluteal abscess and retroperitoneal abscesses with minimal residual air and fluid - Drains continue to put out small amount of purulent drainage - Will continue to monitor drain output - Discussed plan with Dr. Lino Rudd PGY-3 <Devon Huynh - Last Filed: 11/30/16 10:59> Subjective - Date & Time of Evaluation Time of Evaluation: 10:00 - Subjective Subjective: Patient was seen and examined at the bedside. Agree with resident's note above Objective - Vital Signs/Intake and Output Vital Signs (last 24 hours): Temp Pulse Resp BP Pulse Ox 98.3 F 91 H 18 100/68 99 11/30/16 07:56 11/30/16 07:56 11/30/16 07:56 11/30/16 07:56 11/30/16 07:56 Intake and Output: 11/30/16 11/30/16 06:59 18:59 Output Total 37 Balance -37 - Medications Medications: Current Medications Acetaminophen (Tylenol 325mg Tab) 650 mg PO Q6 PRN PRN Reason: Pain, moderate (4-7) Last Admin: 11/19/16 14:10 Dose: 650 mg Acetaminophen (Tylenol 325mg Tab) 325 mg PO Q6 PRN PRN Reason: Fever >100.4 F Last Admin: 11/21/16 15:46 Dose: 325 mg Enoxaparin Sodium (Lovenox) 30 mg SC DAILY [facility] PRN Reason: Protocol Last Admin: 11/30/16 08:54 Dose: 30 mg Ferrous Sulfate (Feosol) 325 mg PO DAILY [facility] Last Admin: 11/30/16 09:00 Dose: 325 mg Folic Acid (Folic Acid) 5 mg PO DAILY [facility] Last Admin: 11/30/16 08:55 Dose: 5 mg Hydrocortisone (Anusol-Hc) 1 applic MD BID [facility] Last Admin: 11/30/16 08:55 Dose: 1 applic Dextrose/Sodium Chloride (Dextrose 5%/0.9% Ns 1000 Ml) 1,000 mls @ 100 mls/hr IV .Q10H [facility] Last Admin: 11/30/16 03:21 Dose: Not Given Metronidazole (Flagyl 500mg/100ml Ns) 100 mls @ 100 mls/hr IVPB Q8 [facility] Last Admin: 11/30/16 08:37 Dose: 100 mls/hr Piperacillin Sod/Tazobactam (Sod 3.375 gm/ Sodium Chloride) 100 mls @ 100 mls/ hr IVPB Q6 [facility] Last Admin: 11/30/16 08:59 Dose: 100 mls/hr Isoniazid (Niazid) 300 mg PO DAILY [facility] Last Admin: 11/30/16 08:56 Dose: 300 mg Ketorolac Tromethamine (Toradol) 30 mg IVP Q8 PRN PRN Reason: Pain, severe (8-10) Last Admin: 11/25/16 14:11 Dose: 30 mg Lactobacillus Acidophilus (Bacid Acidophilus) 1 cap PO BID [facility] Last Admin: 11/30/16 08:55 Dose: 1 cap Multivitamins/Minerals (Therapeutic-M Tab) 1 tab PO DAILY [facility] Last Admin: 11/30/16 08:56 Dose: 1 tab Ondansetron HCl (Zofran Inj) 4 mg IVP Q4 PRN PRN Reason: Nausea/Vomiting Pantoprazole Sodium (Protonix Ec Tab) 40 mg PO DAILY [facility] Last Admin: 11/30/16 08:56 Dose: 40 mg Pyridoxine HCl (Vitamin B6 50 Mg Tab) 50 mg PO DAILY [facility] Last Admin: 11/30/16 08:56 Dose: 50 mg - Labs Labs: 11/30/16 06:37 11/29/16 06:05 PT 15.7 Seconds (9.8-13.1) H 11/17/16 18:00 INR 1.4 (0.9-1.2) H 11/17/16 18:00 APTT 25.7 Seconds (25.6-37.1) 11/17/16 18:00
--- NOTE | 2016-11-30 15:45 | CP.PCM.PN ---
Subjective - Date & Time of Evaluation Date of Evaluation: 11/30/16 Time of Evaluation: 09:00 - Subjective Subjective: olerating regular diet. She denies nausea and vomiting. Right upper drain had 25cc output and Right lower drain had 40cc output and Anterior drain had 37cc over past 24 hours. Drains were flushed by nurse with 10cc NS. iv rxd in progress wbc trending down Objective - Vital Signs/Intake and Output Vital Signs (last 24 hours): Temp Pulse Resp BP Pulse Ox 98.3 F 91 H 18 100/68 99 11/30/16 07:56 11/30/16 07:56 11/30/16 07:56 11/30/16 07:56 11/30/16 07:56 Intake and Output: 11/30/16 11/30/16 06:59 18:59 Output Total 37 Balance -37 - Medications Medications: Current Medications Acetaminophen (Tylenol 325mg Tab) 650 mg PO Q6 PRN PRN Reason: Pain, moderate (4-7) Last Admin: 11/19/16 14:10 Dose: 650 mg Acetaminophen (Tylenol 325mg Tab) 325 mg PO Q6 PRN PRN Reason: Fever >100.4 F Last Admin: 11/21/16 15:46 Dose: 325 mg Enoxaparin Sodium (Lovenox) 30 mg SC DAILY [facility] PRN Reason: Protocol Last Admin: 11/30/16 08:54 Dose: 30 mg Ferrous Sulfate (Feosol) 325 mg PO DAILY [facility] Last Admin: 11/30/16 09:00 Dose: 325 mg Folic Acid (Folic Acid) 5 mg PO DAILY [facility] Last Admin: 11/30/16 08:55 Dose: 5 mg Hydrocortisone (Anusol-Hc) 1 applic [place] BID [facility] Last Admin: 11/30/16 08:55 Dose: 1 applic Dextrose/Sodium Chloride (Dextrose 5%/0.9% Ns 1000 Ml) 1,000 mls @ 100 mls/hr IV .Q10H [facility] Last Admin: 11/30/16 03:21 Dose: Not Given Metronidazole (Flagyl 500mg/100ml Ns) 100 mls @ 100 mls/hr IVPB Q8 [facility] Last Admin: 11/30/16 08:37 Dose: 100 mls/hr Piperacillin Sod/Tazobactam (Sod 3.375 gm/ Sodium Chloride) 100 mls @ 100 mls/ hr IVPB Q6 [facility] Last Admin: 11/30/16 08:59 Dose: 100 mls/hr Isoniazid (Niazid) 300 mg PO DAILY [facility] Last Admin: 11/30/16 08:56 Dose: 300 mg Ketorolac Tromethamine (Toradol) 30 mg IVP Q8 PRN PRN Reason: Pain, severe (8-10) Last Admin: 11/25/16 14:11 Dose: 30 mg Lactobacillus Acidophilus (Bacid Acidophilus) 1 cap PO BID [facility] Last Admin: 11/30/16 08:55 Dose: 1 cap Multivitamins/Minerals (Therapeutic-M Tab) 1 tab PO DAILY [facility] Last Admin: 11/30/16 08:56 Dose: 1 tab Ondansetron HCl (Zofran Inj) 4 mg IVP Q4 PRN PRN Reason: Nausea/Vomiting Pantoprazole Sodium (Protonix Ec Tab) 40 mg PO DAILY [facility] Last Admin: 11/30/16 08:56 Dose: 40 mg Pyridoxine HCl (Vitamin B6 50 Mg Tab) 50 mg PO DAILY [facility] Last Admin: 11/30/16 08:56 Dose: 50 mg - Labs Labs: 11/30/16 06:37 11/29/16 06:05 PT 15.7 Seconds (9.8-13.1) H 11/17/16 18:00 INR 1.4 (0.9-1.2) H 11/17/16 18:00 APTT 25.7 Seconds (25.6-37.1) 11/17/16 18:00 - Constitutional Appears: Non-toxic, Chronically Ill - Head Exam Head Exam: NORMOCEPHALIC - Eye Exam Eye Exam: PERRL. absent: Scleral icterus - ENT Exam ENT Exam: Mucous Membranes Dry, Normal External Ear Exam - Neck Exam Neck Exam: absent: Lymphadenopathy - Respiratory Exam Respiratory Exam: Decreased Breath Sounds, Clear to Ausculation Bilateral - Cardiovascular Exam Cardiovascular Exam: REGULAR RHYTHM - GI/Abdominal Exam GI & Abdominal Exam: Distended, Soft Assessment and Plan (1) Acute Crohn's disease with abscess Status: Acute (2) Acute Crohn's disease with abscess Status: Acute (3) Acute Crohn's disease with complication Status: Acute (4) Acute Crohn's disease with complication Status: Acute (5) Intra-abdominal abscess Status: Acute (6) Sepsis Status: Acute
[2016-12-01] MEDS: metroNIDAZOLE 500mg/100ml NS 100 ML IVPB SCH ×3 (01:29→16:23)
[2016-12-01] MEDS: Piperacillin/Tazobact 3.375 GM in Sodium Chloride 0.9% 100 ML IVPB SCH ×4 (04:38→22:10)
[2016-12-01 07:21] LABS: HEMOGLOBIN 8.6 g/dL (12.0-16.0); MEAN CELL VOLUME 69.9 fl (81.0-99.0); MEAN CORPUSCULAR HGB CONC 31.5 g/dL (33.0-37.0); RBC 3.9 Mil/uL (3.80-5.20); RED CELL DISTRIBUTION WIDTH 29.9 % (11.5-14.5); WHITE BLOOD COUNT 11.3 K/uL (4.8-10.8)
[2016-12-01 07:31] LABS: BLOOD UREA NITROGEN 7 mg/dl (7-17); CALCIUM 8.8 mg/dL (8.4-10.2); GFR AFRICAN-AMERICAN > 60; GFR NON-AFRICAN AMERICAN > 60
[2016-12-01] MEDS: Dextrose 5%/0.9% NS 1,000 ML IV SCH ×2 (08:00→19:07)
--- NOTE | 2016-12-01 08:54 | CP.PCM.PN ---
<Digna Rudd - Last Filed: 12/01/16 10:24> Subjective - Date & Time of Evaluation Date of Evaluation: 12/01/16 Time of Evaluation: 07:00 - Subjective Subjective: GENERAL SURGERY PROGRESS NOTE FOR DR. HUYNH Patient seen and examined with Dr. Huynh at bedside. She denies abdominal pain. She is ambulating with PT. She is tolerating regular diet. She denies nausea and vomiting. She is NPO for urology procedure today. Right upper drain had 20cc output and Right lower drain had 45cc output and Anterior drain had 70cc over past 24 hours. Drains were flushed by nurse with 10cc NS. Objective - Vital Signs/Intake and Output Vital Signs (last 24 hours): Temp Pulse Resp BP Pulse Ox 97.9 F 86 20 97/64 L 98 12/01/16 07:45 12/01/16 07:45 12/01/16 07:45 12/01/16 07:45 12/01/16 07:45 Intake and Output: 12/01/16 12/01/16 06:59 18:59 Intake Total 1080 Output Total 52 Balance 1028 - Medications Medications: Current Medications Acetaminophen (Tylenol 325mg Tab) 650 mg PO Q6 PRN PRN Reason: Pain, moderate (4-7) Last Admin: 11/19/16 14:10 Dose: 650 mg Acetaminophen (Tylenol 325mg Tab) 325 mg PO Q6 PRN PRN Reason: Fever >100.4 F Last Admin: 11/21/16 15:46 Dose: 325 mg Enoxaparin Sodium (Lovenox) 30 mg SC DAILY [facility] PRN Reason: Protocol Last Admin: 11/30/16 08:54 Dose: 30 mg Ferrous Sulfate (Feosol) 325 mg PO DAILY [facility] Last Admin: 11/30/16 09:00 Dose: 325 mg Folic Acid (Folic Acid) 5 mg PO DAILY [facility] Last Admin: 11/30/16 08:55 Dose: 5 mg Hydrocortisone (Anusol-Hc) 1 applic [place] BID [facility] Last Admin: 11/30/16 17:44 Dose: 1 applic Dextrose/Sodium Chloride (Dextrose 5%/0.9% Ns 1000 Ml) 1,000 mls @ 100 mls/hr IV .Q10H [facility] Last Admin: 11/30/16 22:45 Dose: 100 mls/hr Metronidazole (Flagyl 500mg/100ml Ns) 100 mls @ 100 mls/hr IVPB Q8 [facility] Last Admin: 12/01/16 01:29 Dose: 100 mls/hr Piperacillin Sod/Tazobactam (Sod 3.375 gm/ Sodium Chloride) 100 mls @ 100 mls/ hr IVPB Q6 [facility] Last Admin: 12/01/16 04:38 Dose: 100 mls/hr Isoniazid (Niazid) 300 mg PO DAILY [facility] Last Admin: 11/30/16 08:56 Dose: 300 mg Ketorolac Tromethamine (Toradol) 30 mg IVP Q8 [facility] PRN Reason: Pain, severe (8-10) Last Admin: 11/25/16 14:11 Dose: 30 mg Lactobacillus Acidophilus (Bacid Acidophilus) 1 cap PO BID [facility] Last Admin: 11/30/16 17:44 Dose: 1 cap Multivitamins/Minerals (Therapeutic-M Tab) 1 tab PO DAILY [facility] Last Admin: 11/30/16 08:56 Dose: 1 tab Ondansetron HCl (Zofran Inj) 4 mg IVP Q4 PRN PRN Reason: Nausea/Vomiting Pantoprazole Sodium (Protonix Ec Tab) 40 mg PO DAILY [facility] Last Admin: 11/30/16 08:56 Dose: 40 mg Pyridoxine HCl (Vitamin B6 50 Mg Tab) 50 mg PO DAILY [facility] Last Admin: 11/30/16 08:56 Dose: 50 mg - Labs Labs: 12/01/16 05:30 12/01/16 05:30 PT 15.7 Seconds (9.8-13.1) H 11/17/16 18:00 INR 1.4 (0.9-1.2) H 11/17/16 18:00 APTT 25.7 Seconds (25.6-37.1) 11/17/16 18:00 - Constitutional Appears: Non-toxic, No Acute Distress - Head Exam Head Exam: ATRAUMATIC, NORMAL INSPECTION - Eye Exam Eye Exam: EOMI, Normal appearance - Respiratory Exam Respiratory Exam: NORMAL BREATHING PATTERN. absent: Respiratory Distress - Cardiovascular Exam Cardiovascular Exam: +S1, +S2 - GI/Abdominal Exam GI & Abdominal Exam: Soft, Tenderness (mild tenderness around drain insertion sites). absent: Distended, Firm, Rebound Additional comments: [address]: Right upper drain: 20cc cloudy output over past 24 hours Right lower drain: 45cc cloudy output over past 24 hours Anterior drain: 70cc serosanguinous over past 24 hours. - Neurological Exam Neurological Exam: Alert, Awake, Oriented x3 - Psychiatric Exam Psychiatric exam: Normal Affect, Normal Mood - Skin Skin Exam: Dry, Normal Color, Warm Assessment and Plan - Assessment and Plan (Free Text) Assessment: 36yo F with Crohn's disease, with sepsis and multiloculated retroperitoneal abscess, s/p IR drainage x3 - Afebrile - WBC 11.3 - Tolerating regular diet - Continue IV Abx and IV fluids - Pain control PRN - Encourage ambulation and OOB - CT Abd/Pelvis with PO and IV contrast done 2 days ago showed collapsed right gluteal abscess and retroperitoneal abscesses with minimal residual air and fluid - Will keep drains in for now and continue to monitor drain output - Discussed plan with Dr. Lino Rudd PGY-3 <Devon Huynh - Last Filed: 12/01/16 10:43> Subjective - Date & Time of Evaluation Time of Evaluation: 09:55 - Subjective Subjective: Patient was seen and examined at the bedside. Agree with resident's note above. Objective - Vital Signs/Intake and Output Vital Signs (last 24 hours): Temp Pulse Resp BP Pulse Ox 97.9 F 86 20 97/64 L 98 12/01/16 07:45 12/01/16 07:45 12/01/16 07:45 12/01/16 07:45 12/01/16 07:45 Intake and Output: 12/01/16 12/01/16 06:59 18:59 Intake Total 1080 Output Total 52 1 Balance 1028 -1 - Medications Medications: Current Medications Acetaminophen (Tylenol 325mg Tab) 650 mg PO Q6 PRN PRN Reason: Pain, moderate (4-7) Last Admin: 11/19/16 14:10 Dose: 650 mg Acetaminophen (Tylenol 325mg Tab) 325 mg PO Q6 PRN PRN Reason: Fever >100.4 F Last Admin: 11/21/16 15:46 Dose: 325 mg Enoxaparin Sodium (Lovenox) 30 mg SC DAILY [facility] PRN Reason: Protocol Last Admin: 12/01/16 09:08 Dose: Not Given Ferrous Sulfate (Feosol) 325 mg PO DAILY [facility] Last Admin: 12/01/16 09:08 Dose: Not Given Folic Acid (Folic Acid) 5 mg PO DAILY [facility] Last Admin: 12/01/16 09:08 Dose: Not Given Hydrocortisone (Anusol-Hc) 1 applic [place] BID [facility] Last Admin: 11/30/16 17:44 Dose: 1 applic Dextrose/Sodium Chloride (Dextrose 5%/0.9% Ns 1000 Ml) 1,000 mls @ 100 mls/hr IV .Q10H [facility] Last Admin: 11/30/16 22:45 Dose: 100 mls/hr Metronidazole (Flagyl 500mg/100ml Ns) 100 mls @ 100 mls/hr IVPB Q8 [facility] Last Admin: 12/01/16 09:32 Dose: 100 mls/hr Piperacillin Sod/Tazobactam (Sod 3.375 gm/ Sodium Chloride) 100 mls @ 100 mls/ hr IVPB Q6 [facility] Last Admin: 12/01/16 10:41 Dose: 100 mls/hr Isoniazid (Niazid) 300 mg PO DAILY [facility] Last Admin: 12/01/16 09:08 Dose: Not Given Ketorolac Tromethamine (Toradol) 30 mg IVP Q8 PRN PRN Reason: Pain, severe (8-10) Last Admin: 11/25/16 14:11 Dose: 30 mg Lactobacillus Acidophilus (Bacid Acidophilus) 1 cap PO BID [facility] Last Admin: 12/01/16 09:07 Dose: Not Given Multivitamins/Minerals (Therapeutic-M Tab) 1 tab PO DAILY [facility] Last Admin: 12/01/16 09:08 Dose: Not Given Ondansetron HCl (Zofran Inj) 4 mg IVP Q4 PRN PRN Reason: Nausea/Vomiting Pantoprazole Sodium (Protonix Ec Tab) 40 mg PO DAILY [facility] Last Admin: 12/01/16 09:08 Dose: Not Given Pyridoxine HCl (Vitamin B6 50 Mg Tab) 50 mg PO DAILY [facility] Last Admin: 12/01/16 09:08 Dose: Not Given - Labs Labs: 12/01/16 05:30 12/01/16 05:30 PT 15.7 Seconds (9.8-13.1) H 11/17/16 18:00 INR 1.4 (0.9-1.2) H 11/17/16 18:00 APTT 25.7 Seconds (25.6-37.1) 11/17/16 18:00
[2016-12-01] MEDS: Lactobacillus Acidophilus 500 MU Cap PO SCH ×2 (09:07→16:26)
[2016-12-01] MEDS: Enoxaparin 30 mg Syringe SC SCH (09:08)
[2016-12-01] MEDS: Multivitamin With Minerals Tab PO SCH ×2 (09:08→16:32)
[2016-12-01] MEDS: Pantoprazole 40 mg EC Tab PO SCH ×2 (09:08→16:23)
[2016-12-01] MEDS: Hydrocortisone 2.5% (Rectal) CREAM PR SCH ×2 (10:51→16:24)
--- NOTE | 2016-12-01 12:05 | CP.PCM.PN ---
<Pradip Clement - Last Filed: 12/01/16 12:15> Subjective - Date & Time of Evaluation Date of Evaluation: 12/01/16 Time of Evaluation: 07:00 - Subjective Subjective: pt seen and examined at bedside this morning. No acute events overnight. pt lying in bed comfortably, NAD. Tolerating PO intake w/o difficulty but has been NPO as she is going to OR later today for ureteral stent removal. OOB/ ambulating with PT. Pt has [address], RU drain with 20cc of cloudy fluid , RL drain with 45cc of discharge, and Ant drain with 70cc of serosanguinous drainage. No new complaints. Denies fever/chills, headaches, changes in vision, CP/SOB/palpiations, N/V/D/C, urinary symptoms, numbness/tingling. Objective - Vital Signs/Intake and Output Vital Signs (last 24 hours): Temp Pulse Resp BP Pulse Ox 97.9 F 86 20 97/64 L 98 12/01/16 07:45 12/01/16 07:45 12/01/16 07:45 12/01/16 07:45 12/01/16 07:45 Intake and Output: 12/01/16 12/01/16 06:59 18:59 Intake Total 1080 Output Total 52 1 Balance 1028 -1 - Medications Medications: Current Medications Acetaminophen (Tylenol 325mg Tab) 650 mg PO Q6 PRN PRN Reason: Pain, moderate (4-7) Last Admin: 11/19/16 14:10 Dose: 650 mg Acetaminophen (Tylenol 325mg Tab) 325 mg PO Q6 PRN PRN Reason: Fever >100.4 F Last Admin: 11/21/16 15:46 Dose: 325 mg Enoxaparin Sodium (Lovenox) 30 mg SC DAILY [facility] PRN Reason: Protocol Last Admin: 12/01/16 09:08 Dose: Not Given Ferrous Sulfate (Feosol) 325 mg PO DAILY [facility] Last Admin: 12/01/16 09:08 Dose: Not Given Folic Acid (Folic Acid) 5 mg PO DAILY [facility] Last Admin: 12/01/16 09:08 Dose: Not Given Hydrocortisone (Anusol-Hc) 1 applic [place] BID [facility] Last Admin: 12/01/16 10:51 Dose: 1 applic Dextrose/Sodium Chloride (Dextrose 5%/0.9% Ns 1000 Ml) 1,000 mls @ 100 mls/hr IV .Q10H [facility] Last Admin: 11/30/16 22:45 Dose: 100 mls/hr Metronidazole (Flagyl 500mg/100ml Ns) 100 mls @ 100 mls/hr IVPB Q8 [facility] Last Admin: 12/01/16 09:32 Dose: 100 mls/hr Piperacillin Sod/Tazobactam (Sod 3.375 gm/ Sodium Chloride) 100 mls @ 100 mls/ hr IVPB Q6 [facility] Last Admin: 12/01/16 10:41 Dose: 100 mls/hr Isoniazid (Niazid) 300 mg PO DAILY [facility] Last Admin: 12/01/16 09:08 Dose: Not Given Ketorolac Tromethamine (Toradol) 30 mg IVP Q8 PRN PRN Reason: Pain, severe (8-10) Last Admin: 11/25/16 14:11 Dose: 30 mg Lactobacillus Acidophilus (Bacid Acidophilus) 1 cap PO BID [facility] Last Admin: 12/01/16 09:07 Dose: Not Given Multivitamins/Minerals (Therapeutic-M Tab) 1 tab PO DAILY [facility] Last Admin: 12/01/16 09:08 Dose: Not Given Ondansetron HCl (Zofran Inj) 4 mg IVP Q4 PRN PRN Reason: Nausea/Vomiting Pantoprazole Sodium (Protonix Ec Tab) 40 mg PO DAILY [facility] Last Admin: 12/01/16 09:08 Dose: Not Given Pyridoxine HCl (Vitamin B6 50 Mg Tab) 50 mg PO DAILY [facility] Last Admin: 12/01/16 09:08 Dose: Not Given - Labs Labs: 12/01/16 05:30 12/01/16 05:30 PT 15.7 Seconds (9.8-13.1) H 11/17/16 18:00 INR 1.4 (0.9-1.2) H 11/17/16 18:00 APTT 25.7 Seconds (25.6-37.1) 11/17/16 18:00 Assessment and Plan - Assessment and Plan (Free Text) Assessment: 36 y/o F with a PMHx remarkable for Crohns Disease admitted for multiloculated abdominal abscesses, s/p IR Drainage insertion x3. Plan: 1) Sepsis (resolved) -afebrile: 98.7 -monitor vitals -follow CBC, WBC 11.3 today -continue IV Abx as per ID 2) Crohns Disease with Mulitloculated Abscess -s/p IR drain insertion x3 -reg diet -ambulation -monitor drain output -will follow general surgery recommendations -currently being followed by ID, on IV Zosyn and Flagyl 3) Hydronephrosis -pt is s/p ureteral stent placement in 06/2016 -Pt for OR @ 11am as per Urology. <Ray Mensah - Last Filed: 12/07/16 16:34> Objective - Vital Signs/Intake and Output Vital Signs (last 24 hours): Temp Pulse Resp BP Pulse Ox 98.3 F 100 H 17 98/61 L 99 12/07/16 16:19 12/07/16 16:19 12/07/16 16:19 12/07/16 16:19 12/07/16 16:19 Intake and Output: 12/07/16 12/07/16 06:59 18:59 Intake Total 1500 Output Total 72 Balance 1428 - Medications Medications: Current Medications Acetaminophen (Tylenol 325mg Tab) 650 mg PO Q6 PRN PRN Reason: Pain, moderate (4-7) Last Admin: 12/02/16 04:06 Dose: 650 mg Enoxaparin Sodium (Lovenox) 30 mg SC DAILY [facility] PRN Reason: Protocol Last Admin: 12/07/16 09:04 Dose: 30 mg Ferrous Sulfate (Feosol) 325 mg PO DAILY [facility] Last Admin: 12/07/16 09:05 Dose: 325 mg Folic Acid (Folic Acid) 5 mg PO DAILY [facility] Last Admin: 12/07/16 09:05 Dose: 5 mg Hydrocortisone (Anusol-Hc) 1 applic [place] BID [facility] Last Admin: 12/07/16 09:04 Dose: 1 applic Lactated Ringer's (Lactated Ringer's) 1,000 mls @ 125 mls/hr IV .Q8H [facility] Last Admin: 12/07/16 07:44 Dose: Not Given Meropenem 1 gm/ Sodium (Chloride) 100 mls @ 100 mls/hr IVPB Q8 [facility] Last Admin: 12/07/16 11:18 Dose: 100 mls/hr Vancomycin HCl 1 gm/ Sodium (Chloride) 250 mls @ 250 mls/hr IVPB Q12H [facility] Last Admin: 12/07/16 12:34 Dose: 250 mls/hr Fluconazole (Diflucan Iv 200 Mg/100 Ml Ns) 100 mls @ 100 mls/hr IVPB DAILY [facility] Last Admin: 12/07/16 09:04 Dose: 100 mls/hr Isoniazid (Niazid) 300 mg PO DAILY [facility] Last Admin: 12/07/16 09:05 Dose: 300 mg Lactobacillus Acidophilus (Bacid Acidophilus) 1 cap PO BID [facility] Last Admin: 12/07/16 09:04 Dose: 1 cap Multivitamins/Minerals (Therapeutic-M Tab) 1 tab PO DAILY [facility] Last Admin: 12/07/16 09:05 Dose: 1 tab Ondansetron HCl (Zofran Inj) 4 mg IVP Q4 PRN PRN Reason: Nausea/Vomiting Pantoprazole Sodium (Protonix Ec Tab) 40 mg PO DAILY [facility] Last Admin: 12/07/16 09:05 Dose: 40 mg Pyridoxine HCl (Vitamin B6 50 Mg Tab) 50 mg PO DAILY [facility] Last Admin: 12/07/16 09:05 Dose: 50 mg - Labs Labs: 12/06/16 08:50 12/06/16 08:50 PT 15.7 Seconds (9.8-13.1) H 11/17/16 18:00 INR 1.4 (0.9-1.2) H 11/17/16 18:00 APTT 25.7 Seconds (25.6-37.1) 11/17/16 18:00 Assessment and Plan - Assessment and Plan (Free Text) Assessment: Patient was personally seen and examined by me in rounds with residents. Available labs and diagnostic data reviewed. Case, patient's condition and management plan discussed with residents in rounds. Agree with resident's progress note. Plan: As ordered.
[2016-12-01] MEDS ORDERED: Ciprofloxacin 400mg/200ml D5W 400 MG/200 ML BAG IVPB ONE (12:07)
[2016-12-01] MEDS ORDERED: ePHEDrine 50 mg/ml Inj ONE (12:09)
[2016-12-01] MEDS ORDERED: Propofol 10 mg/ml Inj (20 ML) ONE (12:09)
[2016-12-01] MEDS ORDERED: Midazolam 2 MG/2 ML VIAL ONE (12:09)
[2016-12-01] MEDS ORDERED: Succinylcholine 200 mg/10 ml Inj IV ONE (12:10)
[2016-12-01] MEDS ORDERED: Lactated Ringer's 1,000 ML IV ONE (12:22)
[2016-12-01] MEDS ORDERED: Ciprofloxacin 400mg/200ml D5W IVPB ONE (12:30)
[2016-12-01] MEDS ORDERED: Dexamethasone 4 mg/1 ml ONE (12:36)
--- NOTE | 2016-12-01 13:02 | CP.PCM.PN ---
Subjective - Date & Time of Evaluation Date of Evaluation: 12/01/16 Time of Evaluation: 08:00 - Subjective Subjective: going to OR later today for ureteral stent removal. OOB/ambulating with PT. Pt has [address], RU drain with 20cc of cloudy fluid, RL drain with 45cc of discharge, and Ant drain with 70cc of serosanguinous drainage. Objective - Vital Signs/Intake and Output Vital Signs (last 24 hours): Temp Pulse Resp BP Pulse Ox 97.9 F 86 20 97/64 L 98 12/01/16 07:45 12/01/16 07:45 12/01/16 07:45 12/01/16 07:45 12/01/16 07:45 Intake and Output: 12/01/16 12/01/16 06:59 18:59 Intake Total 1080 Output Total 52 1 Balance 1028 -1 - Medications Medications: Current Medications Acetaminophen (Tylenol 325mg Tab) 650 mg PO Q6 PRN PRN Reason: Pain, moderate (4-7) Last Admin: 11/19/16 14:10 Dose: 650 mg Acetaminophen (Tylenol 325mg Tab) 325 mg PO Q6 PRN PRN Reason: Fever >100.4 F Last Admin: 11/21/16 15:46 Dose: 325 mg Enoxaparin Sodium (Lovenox) 30 mg SC DAILY [facility] PRN Reason: Protocol Last Admin: 12/01/16 09:08 Dose: Not Given Ferrous Sulfate (Feosol) 325 mg PO DAILY [facility] Last Admin: 12/01/16 09:08 Dose: Not Given Folic Acid (Folic Acid) 5 mg PO DAILY [facility] Last Admin: 12/01/16 09:08 Dose: Not Given Hydrocortisone (Anusol-Hc) 1 applic [place] BID [facility] Last Admin: 12/01/16 10:51 Dose: 1 applic Dextrose/Sodium Chloride (Dextrose 5%/0.9% Ns 1000 Ml) 1,000 mls @ 100 mls/hr IV .Q10H [facility] Last Admin: 11/30/16 22:45 Dose: 100 mls/hr Metronidazole (Flagyl 500mg/100ml Ns) 100 mls @ 100 mls/hr IVPB Q8 [facility] Last Admin: 12/01/16 09:32 Dose: 100 mls/hr Piperacillin Sod/Tazobactam (Sod 3.375 gm/ Sodium Chloride) 100 mls @ 100 mls/ hr IVPB Q6 [facility] Last Admin: 12/01/16 10:41 Dose: 100 mls/hr Isoniazid (Niazid) 300 mg PO DAILY [facility] Last Admin: 12/01/16 09:08 Dose: Not Given Ketorolac Tromethamine (Toradol) 30 mg IVP Q8 PRN PRN Reason: Pain, severe (8-10) Last Admin: 11/25/16 14:11 Dose: 30 mg Lactobacillus Acidophilus (Bacid Acidophilus) 1 cap PO BID [facility] Last Admin: 12/01/16 09:07 Dose: Not Given Multivitamins/Minerals (Therapeutic-M Tab) 1 tab PO DAILY [facility] Last Admin: 12/01/16 09:08 Dose: Not Given Ondansetron HCl (Zofran Inj) 4 mg IVP Q4 PRN PRN Reason: Nausea/Vomiting Pantoprazole Sodium (Protonix Ec Tab) 40 mg PO DAILY [facility] Last Admin: 12/01/16 09:08 Dose: Not Given Pyridoxine HCl (Vitamin B6 50 Mg Tab) 50 mg PO DAILY [facility] Last Admin: 12/01/16 09:08 Dose: Not Given - Labs Labs: 12/01/16 05:30 12/01/16 05:30 PT 15.7 Seconds (9.8-13.1) H 11/17/16 18:00 INR 1.4 (0.9-1.2) H 11/17/16 18:00 APTT 25.7 Seconds (25.6-37.1) 11/17/16 18:00 - Constitutional Appears: Non-toxic, Cachectic, Chronically Ill - Head Exam Head Exam: NORMOCEPHALIC - Eye Exam Eye Exam: PERRL. absent: Scleral icterus - ENT Exam ENT Exam: Mucous Membranes Dry - Neck Exam Neck Exam: absent: Lymphadenopathy - Respiratory Exam Respiratory Exam: Decreased Breath Sounds - Cardiovascular Exam Cardiovascular Exam: REGULAR RHYTHM - GI/Abdominal Exam GI & Abdominal Exam: Distended, Soft Assessment and Plan (1) Acute Crohn's disease with abscess Status: Acute (2) Acute Crohn's disease with abscess Status: Acute (3) Acute Crohn's disease with complication Status: Acute (4) Acute Crohn's disease with complication Status: Acute (5) Intra-abdominal abscess Status: Acute (6) Sepsis Status: Acute
[2016-12-01] MEDS ORDERED: HYDROmorphone 0.5 mg/0.5 ml ISec IVP PRN (13:05)
[2016-12-01] MEDS: Lactated Ringer's 1,000 ML IV SCH (21:00)
[2016-12-02] MEDS: metroNIDAZOLE 500mg/100ml NS 100 ML IVPB SCH ×3 (01:46→18:12)
[2016-12-02] MEDS: Piperacillin/Tazobact 3.375 GM in Sodium Chloride 0.9% 100 ML IVPB SCH ×2 (04:06→11:15)
[2016-12-02] MEDS: Dextrose 5%/0.9% NS 1,000 ML IV SCH ×2 (05:00→19:31)
[2016-12-02] MEDS: Lactated Ringer's 1,000 ML IV SCH ×2 (05:00→21:08)
--- NOTE | 2016-12-02 07:16 | CP.PCM.PN ---
Subjective - Date & Time of Evaluation Date of Evaluation: 12/02/16 Time of Evaluation: 05:50 - Subjective Subjective: General surgery progress note for Dr. Jeanine Parker, PGY-1 Pt S & E at bedside. Pt w/o complaints overnight, pain from drain insertion sites well controlled. Had ureteral stent removed yesterday. Denies N/V/F/C, SOB, CP. Right upper drain w/20 cc seropurulent drainage, Right lower with 30 cc seropurulent drainage, right anterior with 20cc seropurulent drainage over last 12 hrs. Objective - Vital Signs/Intake and Output Vital Signs (last 24 hours): Temp Pulse Resp BP Pulse Ox 97.5 F L 88 19 91/58 L 99 12/02/16 00:07 12/02/16 00:07 12/02/16 00:07 12/02/16 00:07 12/02/16 00:07 Intake and Output: 12/02/16 12/02/16 06:59 18:59 Intake Total 1200 Output Total 70 Balance 1130 - Medications Medications: Current Medications Acetaminophen (Tylenol 325mg Tab) 650 mg PO Q6 PRN PRN Reason: Pain, moderate (4-7) Last Admin: 12/02/16 04:06 Dose: 650 mg Acetaminophen (Tylenol 325mg Tab) 325 mg PO Q6 PRN PRN Reason: Fever >100.4 F Last Admin: 11/21/16 15:46 Dose: 325 mg Enoxaparin Sodium (Lovenox) 30 mg SC DAILY [facility] PRN Reason: Protocol Last Admin: 12/01/16 09:08 Dose: Not Given Ferrous Sulfate (Feosol) 325 mg PO DAILY [facility] Last Admin: 12/01/16 16:24 Dose: 325 mg Folic Acid (Folic Acid) 5 mg PO DAILY [facility] Last Admin: 12/01/16 16:23 Dose: 5 mg Hydrocortisone (Anusol-Hc) 1 applic [place] BID [facility] Last Admin: 12/01/16 16:24 Dose: 1 applic Hydromorphone HCl (Dilaudid) 0.5 mg IVP Q10M PRN PRN Reason: Pain, moderate (4-7) Dextrose/Sodium Chloride (Dextrose 5%/0.9% Ns 1000 Ml) 1,000 mls @ 100 mls/hr IV .Q10H [facility] Last Admin: 12/01/16 19:07 Dose: Not Given Metronidazole (Flagyl 500mg/100ml Ns) 100 mls @ 100 mls/hr IVPB Q8 [facility] Last Admin: 12/02/16 01:46 Dose: 100 mls/hr Piperacillin Sod/Tazobactam (Sod 3.375 gm/ Sodium Chloride) 100 mls @ 100 mls/ hr IVPB Q6 [facility] Last Admin: 12/02/16 04:06 Dose: 100 mls/hr Lactated Ringer's (Lactated Ringer's) 1,000 mls @ 125 mls/hr IV .Q8H [facility] Last Admin: 12/01/16 21:00 Dose: Not Given Isoniazid (Niazid) 300 mg PO DAILY [facility] Last Admin: 12/01/16 16:32 Dose: 300 mg Ketorolac Tromethamine (Toradol) 30 mg IVP Q8 PRN PRN Reason: Pain, severe (8-10) Last Admin: 11/25/16 14:11 Dose: 30 mg Lactobacillus Acidophilus (Bacid Acidophilus) 1 cap PO BID [facility] Last Admin: 12/01/16 16:26 Dose: 1 cap Multivitamins/Minerals (Therapeutic-M Tab) 1 tab PO DAILY [facility] Last Admin: 12/01/16 16:32 Dose: 1 tab Ondansetron HCl (Zofran Inj) 4 mg IVP Q4 PRN PRN Reason: Nausea/Vomiting Pantoprazole Sodium (Protonix Ec Tab) 40 mg PO DAILY [facility] Last Admin: 12/01/16 16:23 Dose: 40 mg Pyridoxine HCl (Vitamin B6 50 Mg Tab) 50 mg PO DAILY [facility] Last Admin: 12/01/16 16:23 Dose: 50 mg - Labs Labs: 12/01/16 05:30 12/01/16 05:30 PT 15.7 Seconds (9.8-13.1) H 11/17/16 18:00 INR 1.4 (0.9-1.2) H 11/17/16 18:00 APTT 25.7 Seconds (25.6-37.1) 11/17/16 18:00 - Constitutional Appears: Non-toxic, No Acute Distress - Head Exam Head Exam: ATRAUMATIC, NORMAL INSPECTION, NORMOCEPHALIC - Eye Exam Eye Exam: EOMI, Normal appearance - ENT Exam ENT Exam: Mucous Membranes Moist, Normal Exam - Neck Exam Neck Exam: Full ROM - Respiratory Exam Respiratory Exam: Clear to Ausculation Bilateral, NORMAL BREATHING PATTERN - Cardiovascular Exam Cardiovascular Exam: REGULAR RHYTHM, +S1, +S2 - GI/Abdominal Exam GI & Abdominal Exam: Soft, Normal Bowel Sounds - Extremities Exam Extremities Exam: Normal Inspection - Neurological Exam Neurological Exam: Alert, Awake, CN II-XII Intact, Oriented x3 - Psychiatric Exam Psychiatric exam: Normal Affect, Normal Mood - Skin Skin Exam: Dry, Normal Color, Warm Additional comments: Right distal flank with drain insertion site x 3- no erythema noted at borders of dressings- Dressings C/D/I, minimal tenderness on palpation, scant seropurulent drainage in the 3 drains Assessment and Plan - Assessment and Plan (Free Text) Assessment: 36F w/Crohn's disease, sepsis and multiloculated retroperitoneal abscess, s/p IR drainage x3, s/p ureteral stent removal Plan: FU AM labs Cont Abx Cont IVF pain mgmt ambulate OOBTC Monitor drain output Further recs as per attending Will MICHELLE attending Elena, PGY1
[2016-12-02] MEDS: Multivitamin With Minerals Tab PO SCH (09:55)
[2016-12-02] MEDS: Pantoprazole 40 mg EC Tab PO SCH (09:55)
[2016-12-02] MEDS: Enoxaparin 30 mg Syringe SC SCH (09:56)
[2016-12-02] MEDS: Hydrocortisone 2.5% (Rectal) CREAM PR SCH ×2 (09:57→17:03)
[2016-12-02] MEDS: Lactobacillus Acidophilus 500 MU Cap PO SCH ×2 (10:01→17:03)
[2016-12-02 10:24] LABS: SQUAMOUS EPITHIAL 6 /hpf (0-5); URINE AMORPHOUS SEDIMENT RARE /ul (<OCC); URINE BILIRUBIN NEGATIVE (NEGATIVE); URINE BLOOD LARGE (NEGATIVE); URINE CALCIUM OXALATE CRYSTALS RARE /hpf (<OCC); URINE CLARITY SLIGHTY-CLOUDY (Clear); URINE COLOR YELLOW (YELLOW); URINE GLUCOSE (UA) NEG (Normal); URINE LEUKOCYTE ESTERASE SMALL Leu/uL (Negative); URINE NITRATE NEGATIVE (NEGATIVE); URINE PROTEIN 30 mg/dL (NEGATIVE); URINE UROBILINOGEN 0.2-1.0 mg/dL (0.2-1.0)
[2016-12-02 15:04] LABS: BASO # 0.1 K/uL (0.0-0.2); BASO % 0.4 % (0.0-2.0); EOS # 0.1 K/uL (0.0-0.7); EOS % 0.8 % (0.0-4.0); HEMOGLOBIN 8.7 g/dL (12.0-16.0); LYMPH # 1.1 K/uL (1.0-4.3); LYMPH % 6.2 % (20.0-40.0); MEAN CELL VOLUME 71.6 fl (81.0-99.0); MEAN CORPUSCULAR HEMOGLOBIN 21.7 pg (27.0-31.0); MEAN CORPUSCULAR HGB CONC 30.3 g/dL (33.0-37.0); MEAN PLATELET VOLUME 8.2 fl (7.2-11.7); MONO # 0.4 K/uL (0.0-0.8); MONO % 2.1 % (0.0-10.0); NEUT # 15.9 K/uL (1.8-7.0); NEUT % 90.5 % (50.0-75.0); PLATELET COUNT 626 K/uL (130-400); RBC 3.99 Mil/uL (3.80-5.20); RED CELL DISTRIBUTION WIDTH 29.8 % (11.5-14.5); WHITE BLOOD COUNT 17.5 K/uL (4.8-10.8)
[2016-12-02 15:19] LABS: ALB/GLOB RATIO 0.7 (1.0-2.1); ALBUMIN 2.6 g/dL (3.5-5.0); ALT/SGPT 27 U/L (9-52); AST/SGOT 25 U/L (14-36); BLOOD UREA NITROGEN 9 mg/dl (7-17); CALCIUM 8.7 mg/dL (8.4-10.2); GFR AFRICAN-AMERICAN > 60; GFR NON-AFRICAN AMERICAN > 60
[2016-12-02] MEDS ORDERED: Piperacill/Tazo 3.375gm in Dex 3.375 GM/50 ML BAG IVPB SCH (16:00)
[2016-12-02 16:01] LABS: ANISOCYTOSIS MODERATE; BANDS 2 % (0-2); EOSINOPHIL 1 % (0-7); LYMPHOCYTE 5 % (20-50); MONOCYTE 3 % (0-10); NEUTROPHIL 89 % (42-75); OVALOCYTES SLIGHT; PLATELET ESTIMATE INCREASED (NORMAL); POIKILOCYTOSIS SLIGHT; TOTAL CELLS COUNTED 100
[2016-12-02] MEDS: Meropenem 1 GM in Sodium Chloride 0.9% 100 ML IVPB SCH (19:08)
[2016-12-02] MEDS: Potassium CL 10 MEQ/50 ML 50 ML IVPB SCH ×4 (20:46→23:57)
[2016-12-03] MEDS: Dextrose 5%/0.9% NS 1,000 ML IV SCH (00:45)
[2016-12-03] MEDS: Potassium CL 10 MEQ/50 ML 50 ML IVPB SCH (00:46)
[2016-12-03] MEDS: Meropenem 1 GM in Sodium Chloride 0.9% 100 ML IVPB SCH ×3 (00:48→16:57)
[2016-12-03] MEDS: Lactated Ringer's 1,000 ML IV SCH ×3 (05:05→21:00)
[2016-12-03 08:19] LABS: BASO # 0.1 K/uL (0.0-0.2); BASO % 0.5 % (0.0-2.0); EOS # 0.1 K/uL (0.0-0.7); EOS % 0.5 % (0.0-4.0); HEMOGLOBIN 8.8 g/dL (12.0-16.0); LYMPH # 1.3 K/uL (1.0-4.3); LYMPH % 6.5 % (20.0-40.0); MEAN CELL VOLUME 71.6 fl (81.0-99.0); MEAN CORPUSCULAR HEMOGLOBIN 22.1 pg (27.0-31.0); MEAN CORPUSCULAR HGB CONC 30.9 g/dL (33.0-37.0); MEAN PLATELET VOLUME 8.8 fl (7.2-11.7); MONO # 0.5 K/uL (0.0-0.8); MONO % 2.6 % (0.0-10.0); NEUT % 89.9 % (50.0-75.0); RBC 3.98 Mil/uL (3.80-5.20); RED CELL DISTRIBUTION WIDTH 30.3 % (11.5-14.5)
[2016-12-03 08:55] LABS: ALB/GLOB RATIO 0.7 (1.0-2.1); ALBUMIN 2.6 g/dL (3.5-5.0); ALT/SGPT 29 U/L (9-52); AST/SGOT 62 U/L (14-36); BLOOD UREA NITROGEN 9 mg/dl (7-17); CALCIUM 8.9 mg/dL (8.4-10.2); GFR AFRICAN-AMERICAN > 60; GFR NON-AFRICAN AMERICAN > 60
[2016-12-03] MEDS: Enoxaparin 30 mg Syringe SC SCH (09:31)
[2016-12-03] MEDS: Hydrocortisone 2.5% (Rectal) CREAM PR SCH ×2 (09:31→16:56)
[2016-12-03] MEDS: Multivitamin With Minerals Tab PO SCH (09:33)
[2016-12-03] MEDS: Pantoprazole 40 mg EC Tab PO SCH (09:33)
[2016-12-03] MEDS: Lactobacillus Acidophilus 500 MU Cap PO SCH ×2 (09:35→16:56)
--- NOTE | 2016-12-03 11:21 | CP.PCM.PN ---
Subjective - Date & Time of Evaluation Date of Evaluation: 12/03/16 Time of Evaluation: 11:19 - Subjective Subjective: Surgery: Dr. Dyson Pt seen and examined. Pt states that she had multiple loose BMs overnight. Otherwise no complaints. Objective - Vital Signs/Intake and Output Vital Signs (last 24 hours): Temp Pulse Resp BP Pulse Ox 98.8 F 96 H 18 106/70 97 12/03/16 07:32 12/03/16 09:30 12/03/16 07:32 12/03/16 07:32 12/03/16 07:32 Intake and Output: 12/03/16 12/03/16 06:59 18:59 Intake Total 1380 Output Total 93 Balance 1287 - Medications Medications: Current Medications Acetaminophen (Tylenol 325mg Tab) 650 mg PO Q6 PRN PRN Reason: Pain, moderate (4-7) Last Admin: 12/02/16 04:06 Dose: 650 mg Acetaminophen (Tylenol 325mg Tab) 325 mg PO Q6 PRN PRN Reason: Fever >100.4 F Last Admin: 11/21/16 15:46 Dose: 325 mg Enoxaparin Sodium (Lovenox) 30 mg SC DAILY [facility] PRN Reason: Protocol Last Admin: 12/03/16 09:31 Dose: 30 mg Ferrous Sulfate (Feosol) 325 mg PO DAILY [facility] Last Admin: 12/03/16 09:31 Dose: 325 mg Folic Acid (Folic Acid) 5 mg PO DAILY [facility] Last Admin: 12/03/16 09:31 Dose: 5 mg Hydrocortisone (Anusol-Hc) 1 applic [place] BID [facility] Last Admin: 12/03/16 09:31 Dose: 1 applic Hydromorphone HCl (Dilaudid) 0.5 mg IVP Q10M PRN PRN Reason: Pain, moderate (4-7) Lactated Ringer's (Lactated Ringer's) 1,000 mls @ 125 mls/hr IV .Q8H [facility] Last Admin: 12/03/16 05:05 Dose: Not Given Meropenem 1 gm/ Sodium (Chloride) 100 mls @ 100 mls/hr IVPB Q8 [facility] Last Admin: 12/03/16 09:32 Dose: 100 mls/hr Vancomycin HCl 1 gm/ Sodium (Chloride) 250 mls @ 250 mls/hr IVPB Q12H [facility] Last Admin: 12/03/16 00:48 Dose: 250 mls/hr Isoniazid (Niazid) 300 mg PO DAILY [facility] Last Admin: 12/03/16 09:32 Dose: 300 mg Ketorolac Tromethamine (Toradol) 30 mg IVP Q8 PRN PRN Reason: Pain, severe (8-10) Last Admin: 12/02/16 15:02 Dose: 30 mg Lactobacillus Acidophilus (Bacid Acidophilus) 1 cap PO BID [facility] Last Admin: 12/03/16 09:35 Dose: 1 cap Multivitamins/Minerals (Therapeutic-M Tab) 1 tab PO DAILY [facility] Last Admin: 12/03/16 09:33 Dose: 1 tab Ondansetron HCl (Zofran Inj) 4 mg IVP Q4 PRN PRN Reason: Nausea/Vomiting Pantoprazole Sodium (Protonix Ec Tab) 40 mg PO DAILY [facility] Last Admin: 12/03/16 09:33 Dose: 40 mg Pyridoxine HCl (Vitamin B6 50 Mg Tab) 50 mg PO DAILY [facility] Last Admin: 12/03/16 09:33 Dose: 50 mg - Labs Labs: 12/03/16 08:00 12/03/16 08:00 PT 15.7 Seconds (9.8-13.1) H 11/17/16 18:00 INR 1.4 (0.9-1.2) H 11/17/16 18:00 APTT 25.7 Seconds (25.6-37.1) 11/17/16 18:00 - Constitutional Appears: Non-toxic, No Acute Distress - Head Exam Head Exam: ATRAUMATIC, NORMOCEPHALIC - Eye Exam Eye Exam: EOMI - ENT Exam ENT Exam: Mucous Membranes Moist - Neck Exam Neck Exam: Full ROM - Respiratory Exam Respiratory Exam: NORMAL BREATHING PATTERN. absent: Accessory Muscle Use, Respiratory Distress - GI/Abdominal Exam GI & Abdominal Exam: Soft, Tenderness (Near drains). absent: Distended, Firm, Guarding, Rigid, Rebound Additional comments: Drains in place x 3 - Neurological Exam Neurological Exam: Alert, Awake, Oriented x3 Assessment and Plan - Assessment and Plan (Free Text) Assessment: 36F Crohn'sand multiloculated retroperitoneal abscess, s/p IR drainage x3 -IR drains: 31/44/40cc over 24hrs, purulent -wbc trending up -c/w abx -C. Diff ordered, f/u results -c/w medical management -d/w attending Ollie PGY3
--- NOTE | 2016-12-03 13:24 | CP.PCM.PN ---
Subjective - Date & Time of Evaluation Date of Evaluation: 12/03/16 Time of Evaluation: 08:00 - Subjective Subjective: s/p IR drainage x 3 now with high wbc c/o lbm stool sent c diff no new cultures Objective - Vital Signs/Intake and Output Vital Signs (last 24 hours): Temp Pulse Resp BP Pulse Ox 98.8 F 96 H 18 106/70 97 12/03/16 07:32 12/03/16 09:30 12/03/16 07:32 12/03/16 07:32 12/03/16 07:32 Intake and Output: 12/03/16 12/03/16 06:59 18:59 Intake Total 1380 Output Total 93 Balance 1287 - Medications Medications: Current Medications Acetaminophen (Tylenol 325mg Tab) 650 mg PO Q6 PRN PRN Reason: Pain, moderate (4-7) Last Admin: 12/02/16 04:06 Dose: 650 mg Acetaminophen (Tylenol 325mg Tab) 325 mg PO Q6 PRN PRN Reason: Fever >100.4 F Last Admin: 11/21/16 15:46 Dose: 325 mg Enoxaparin Sodium (Lovenox) 30 mg SC DAILY [facility] PRN Reason: Protocol Last Admin: 12/03/16 09:31 Dose: 30 mg Ferrous Sulfate (Feosol) 325 mg PO DAILY [facility] Last Admin: 12/03/16 09:31 Dose: 325 mg Folic Acid (Folic Acid) 5 mg PO DAILY [facility] Last Admin: 12/03/16 09:31 Dose: 5 mg Hydrocortisone (Anusol-Hc) 1 applic [place] BID [facility] Last Admin: 12/03/16 09:31 Dose: 1 applic Hydromorphone HCl (Dilaudid) 0.5 mg IVP Q10M PRN PRN Reason: Pain, moderate (4-7) Lactated Ringer's (Lactated Ringer's) 1,000 mls @ 125 mls/hr IV .Q8H [facility] Last Admin: 12/03/16 05:05 Dose: Not Given Meropenem 1 gm/ Sodium (Chloride) 100 mls @ 100 mls/hr IVPB Q8 [facility] Last Admin: 12/03/16 09:32 Dose: 100 mls/hr Vancomycin HCl 1 gm/ Sodium (Chloride) 250 mls @ 250 mls/hr IVPB Q12H [facility] Last Admin: 12/03/16 12:53 Dose: 250 mls/hr Isoniazid (Niazid) 300 mg PO DAILY [facility] Last Admin: 12/03/16 09:32 Dose: 300 mg Ketorolac Tromethamine (Toradol) 30 mg IVP Q8 PRN PRN Reason: Pain, severe (8-10) Last Admin: 12/02/16 15:02 Dose: 30 mg Lactobacillus Acidophilus (Bacid Acidophilus) 1 cap PO BID [facility] Last Admin: 12/03/16 09:35 Dose: 1 cap Multivitamins/Minerals (Therapeutic-M Tab) 1 tab PO DAILY [facility] Last Admin: 12/03/16 09:33 Dose: 1 tab Ondansetron HCl (Zofran Inj) 4 mg IVP Q4 PRN PRN Reason: Nausea/Vomiting Pantoprazole Sodium (Protonix Ec Tab) 40 mg PO DAILY [facility] Last Admin: 12/03/16 09:33 Dose: 40 mg Pyridoxine HCl (Vitamin B6 50 Mg Tab) 50 mg PO DAILY [facility] Last Admin: 12/03/16 09:33 Dose: 50 mg - Labs Labs: 12/03/16 08:00 12/03/16 08:00 PT 15.7 Seconds (9.8-13.1) H 11/17/16 18:00 INR 1.4 (0.9-1.2) H 11/17/16 18:00 APTT 25.7 Seconds (25.6-37.1) 11/17/16 18:00 - Constitutional Appears: Non-toxic, Chronically Ill - Head Exam Head Exam: NORMOCEPHALIC - Eye Exam Eye Exam: EOMI, PERRL. absent: Scleral icterus - ENT Exam ENT Exam: Mucous Membranes Dry - Cardiovascular Exam Cardiovascular Exam: REGULAR RHYTHM - GI/Abdominal Exam GI & Abdominal Exam: Distended - Rectal Exam Rectal Exam: NORMAL INSPECTION - Exam Exam: NORMAL INSPECTION Assessment and Plan (1) Acute Crohn's disease with abscess Status: Acute (2) Acute Crohn's disease with abscess Status: Acute (3) Acute Crohn's disease with complication Status: Acute (4) Acute Crohn's disease with complication Status: Acute (5) Intra-abdominal abscess Status: Acute (6) Sepsis Status: Acute
[2016-12-03] MEDS: Fluconazole IV 200mg/100 ml NS 100 ML IVPB SCH (15:48)
[2016-12-03] MEDS: Vancomycin 500 mg (Oral/Rectal USE) PO SCH (17:00)
[2016-12-04] MEDS: Meropenem 1 GM in Sodium Chloride 0.9% 100 ML IVPB SCH ×3 (01:06→18:28)
[2016-12-04] MEDS: Vancomycin 500 mg (Oral/Rectal USE) PO SCH ×2 (01:09→08:48)
[2016-12-04] MEDS: Lactated Ringer's 1,000 ML IV SCH ×3 (05:05→14:40)
--- NOTE | 2016-12-04 07:50 | CP.PCM.PN ---
<Digna Rudd - Last Filed: 12/04/16 14:42> Subjective - Date & Time of Evaluation Date of Evaluation: 12/04/16 Time of Evaluation: 07:00 - Subjective Subjective: GENERAL SURGERY PROGRESS NOTE FOR DR. HUYNH Patient seen and examined at bedside. She denies abdominal pain. She refuses to ambulate or get OOB. She is tolerating regular diet. She denies nausea and vomiting. She had numerous loose stools yesterday. Right upper drain had 29cc output and Right lower drain had 57cc output and Anterior drain had 14cc over past 24 hours. Drains were flushed by nurse with 10cc NS. Objective - Vital Signs/Intake and Output Vital Signs (last 24 hours): Temp Pulse Resp BP Pulse Ox 98.7 F 100 H 18 99/61 L 97 12/04/16 00:20 12/04/16 00:20 12/04/16 00:20 12/04/16 00:20 12/04/16 00:20 Intake and Output: 12/04/16 12/04/16 06:59 18:59 Intake Total 1320 Output Total 848 Balance 472 - Medications Medications: Current Medications Acetaminophen (Tylenol 325mg Tab) 650 mg PO Q6 PRN PRN Reason: Pain, moderate (4-7) Last Admin: 12/02/16 04:06 Dose: 650 mg Acetaminophen (Tylenol 325mg Tab) 325 mg PO Q6 PRN PRN Reason: Fever >100.4 F Last Admin: 11/21/16 15:46 Dose: 325 mg Enoxaparin Sodium (Lovenox) 30 mg SC DAILY [facility] PRN Reason: Protocol Last Admin: 12/03/16 09:31 Dose: 30 mg Ferrous Sulfate (Feosol) 325 mg PO DAILY [facility] Last Admin: 12/03/16 09:31 Dose: 325 mg Folic Acid (Folic Acid) 5 mg PO DAILY [facility] Last Admin: 12/03/16 09:31 Dose: 5 mg Hydrocortisone (Anusol-Hc) 1 applic [place] BID [facility] Last Admin: 12/03/16 16:56 Dose: 1 applic Hydromorphone HCl (Dilaudid) 0.5 mg IVP Q10M PRN PRN Reason: Pain, moderate (4-7) Lactated Ringer's (Lactated Ringer's) 1,000 mls @ 125 mls/hr IV .Q8H [facility] Last Admin: 12/03/16 14:46 Dose: Not Given Meropenem 1 gm/ Sodium (Chloride) 100 mls @ 100 mls/hr IVPB Q8 [facility] Last Admin: 12/04/16 01:06 Dose: 100 mls/hr Vancomycin HCl 1 gm/ Sodium (Chloride) 250 mls @ 250 mls/hr IVPB Q12H [facility] Last Admin: 12/04/16 01:07 Dose: 250 mls/hr Fluconazole (Diflucan Iv 200 Mg/100 Ml Ns) 100 mls @ 100 mls/hr IVPB DAILY [facility] Last Admin: 12/03/16 15:48 Dose: 100 mls/hr Isoniazid (Niazid) 300 mg PO DAILY [facility] Last Admin: 12/03/16 09:32 Dose: 300 mg Ketorolac Tromethamine (Toradol) 30 mg IVP Q8 PRN PRN Reason: Pain, severe (8-10) Last Admin: 12/02/16 15:02 Dose: 30 mg Lactobacillus Acidophilus (Bacid Acidophilus) 1 cap PO BID [facility] Last Admin: 12/03/16 16:56 Dose: 1 cap Multivitamins/Minerals (Therapeutic-M Tab) 1 tab PO DAILY [facility] Last Admin: 12/03/16 09:33 Dose: 1 tab Ondansetron HCl (Zofran Inj) 4 mg IVP Q4 PRN PRN Reason: Nausea/Vomiting Pantoprazole Sodium (Protonix Ec Tab) 40 mg PO DAILY [facility] Last Admin: 12/03/16 09:33 Dose: 40 mg Pyridoxine HCl (Vitamin B6 50 Mg Tab) 50 mg PO DAILY [facility] Last Admin: 12/03/16 09:33 Dose: 50 mg Vancomycin HCl (Vancocin (Oral/Rectal Use)) 125 mg PO Q8 [facility] Last Admin: 12/04/16 01:09 Dose: 125 mg - Labs Labs: 12/03/16 08:00 12/03/16 08:00 PT 15.7 Seconds (9.8-13.1) H 11/17/16 18:00 INR 1.4 (0.9-1.2) H 11/17/16 18:00 APTT 25.7 Seconds (25.6-37.1) 11/17/16 18:00 - Constitutional Appears: Non-toxic, No Acute Distress - Head Exam Head Exam: ATRAUMATIC, NORMAL INSPECTION - Eye Exam Eye Exam: EOMI, Normal appearance - Respiratory Exam Respiratory Exam: NORMAL BREATHING PATTERN. absent: Respiratory Distress - Cardiovascular Exam Cardiovascular Exam: +S1, +S2 - GI/Abdominal Exam GI & Abdominal Exam: Soft. absent: Distended, Firm, Guarding, Rigid, Tenderness , Rebound Additional comments: [address]: Right upper drain: 29cc cloudy output over past 24 hours Right lower drain: 57cc cloudy output over past 24 hours Anterior drain: 14cc margot pus over past 24 hours. - Neurological Exam Neurological Exam: Alert, Awake, Oriented x3 - Psychiatric Exam Psychiatric exam: Normal Affect, Normal Mood - Skin Skin Exam: Dry, Normal Color Assessment and Plan - Assessment and Plan (Free Text) Assessment: 36yo F with Crohn's disease, with sepsis and multiloculated retroperitoneal abscess, s/p IR drainage x3 - Afebrile - WBC 20.0 yesterday, AM labs still pending - Tolerating regular diet - Continue Abx per ID - Encourage ambulation and OOB - Will continue to monitor drain output - Will FU C diff - Will discuss plan with Dr. Lino Rudd PGY-3 <Devon Huynh - Last Filed: 12/04/16 16:00> Subjective - Date & Time of Evaluation Time of Evaluation: 15:45 - Subjective Subjective: Patient was seen and examined at the bedside. Agree with resident's note above. Objective - Vital Signs/Intake and Output Vital Signs (last 24 hours): Temp Pulse Resp BP Pulse Ox 98 F 90 18 94/54 L 99 12/04/16 08:52 12/04/16 08:52 12/04/16 08:52 12/04/16 08:52 12/04/16 08:52 Intake and Output: 12/04/16 12/04/16 06:59 18:59 Intake Total 1320 Output Total 848 Balance 472 - Medications Medications: Current Medications Acetaminophen (Tylenol 325mg Tab) 650 mg PO Q6 PRN PRN Reason: Pain, moderate (4-7) Last Admin: 12/02/16 04:06 Dose: 650 mg Acetaminophen (Tylenol 325mg Tab) 325 mg PO Q6 PRN PRN Reason: Fever >100.4 F Last Admin: 11/21/16 15:46 Dose: 325 mg Enoxaparin Sodium (Lovenox) 30 mg SC DAILY [facility] PRN Reason: Protocol Last Admin: 12/04/16 08:49 Dose: 30 mg Ferrous Sulfate (Feosol) 325 mg PO DAILY [facility] Last Admin: 12/04/16 08:49 Dose: 325 mg Folic Acid (Folic Acid) 5 mg PO DAILY [facility] Last Admin: 12/04/16 08:49 Dose: 5 mg Hydrocortisone (Anusol-Hc) 1 applic [place] BID [facility] Last Admin: 12/04/16 08:45 Dose: 1 applic Lactated Ringer's (Lactated Ringer's) 1,000 mls @ 125 mls/hr IV .Q8H [facility] Last Admin: 12/04/16 14:40 Dose: 125 mls/hr Meropenem 1 gm/ Sodium (Chloride) 100 mls @ 100 mls/hr IVPB Q8 [facility] Last Admin: 12/04/16 08:46 Dose: 100 mls/hr Vancomycin HCl 1 gm/ Sodium (Chloride) 250 mls @ 250 mls/hr IVPB Q12H [facility] Last Admin: 12/04/16 14:41 Dose: 250 mls/hr Fluconazole (Diflucan Iv 200 Mg/100 Ml Ns) 100 mls @ 100 mls/hr IVPB DAILY [facility] Last Admin: 12/04/16 11:55 Dose: 100 mls/hr Isoniazid (Niazid) 300 mg PO DAILY [facility] Last Admin: 12/04/16 08:47 Dose: 300 mg Ketorolac Tromethamine (Toradol) 30 mg IVP Q8 PRN PRN Reason: Pain, severe (8-10) Last Admin: 12/02/16 15:02 Dose: 30 mg Lactobacillus Acidophilus (Bacid Acidophilus) 1 cap PO BID [facility] Last Admin: 12/04/16 09:02 Dose: 1 cap Multivitamins/Minerals (Therapeutic-M Tab) 1 tab PO DAILY [facility] Last Admin: 12/04/16 08:47 Dose: 1 tab Ondansetron HCl (Zofran Inj) 4 mg IVP Q4 PRN PRN Reason: Nausea/Vomiting Pantoprazole Sodium (Protonix Ec Tab) 40 mg PO DAILY [facility] Last Admin: 12/04/16 08:47 Dose: 40 mg Pyridoxine HCl (Vitamin B6 50 Mg Tab) 50 mg PO DAILY [facility] Last Admin: 12/04/16 08:48 Dose: 50 mg - Labs Labs: 12/04/16 07:39 12/04/16 07:39 PT 15.7 Seconds (9.8-13.1) H 11/17/16 18:00 INR 1.4 (0.9-1.2) H 11/17/16 18:00 APTT 25.7 Seconds (25.6-37.1) 11/17/16 18:00
[2016-12-04 07:53] LABS: BASO % 0.4 % (0.0-2.0); EOS # 0.1 K/uL (0.0-0.7); EOS % 1.1 % (0.0-4.0); HEMOGLOBIN 8.5 g/dL (12.0-16.0); LYMPH # 1.5 K/uL (1.0-4.3); LYMPH % 11.7 % (20.0-40.0); MEAN CELL VOLUME 71.4 fl (81.0-99.0); MEAN CORPUSCULAR HEMOGLOBIN 22.1 pg (27.0-31.0); MEAN CORPUSCULAR HGB CONC 30.9 g/dL (33.0-37.0); MEAN PLATELET VOLUME 8.7 fl (7.2-11.7); MONO # 0.5 K/uL (0.0-0.8); MONO % 4.2 % (0.0-10.0); NEUT # 10.4 K/uL (1.8-7.0); NEUT % 82.6 % (50.0-75.0); RBC 3.85 Mil/uL (3.80-5.20); RED CELL DISTRIBUTION WIDTH 31.5 % (11.5-14.5); WHITE BLOOD COUNT 12.6 K/uL (4.8-10.8)
[2016-12-04] MEDS: Hydrocortisone 2.5% (Rectal) CREAM PR SCH ×2 (08:45→18:30)
[2016-12-04] MEDS: Pantoprazole 40 mg EC Tab PO SCH (08:47)
[2016-12-04] MEDS: Multivitamin With Minerals Tab PO SCH (08:47)
[2016-12-04] MEDS: Enoxaparin 30 mg Syringe SC SCH (08:49)
[2016-12-04] MEDS: Lactobacillus Acidophilus 500 MU Cap PO SCH ×2 (09:02→18:30)
--- NOTE | 2016-12-04 11:21 | CP.PCM.PN ---
Subjective - Date & Time of Evaluation Date of Evaluation: 12/04/16 Time of Evaluation: 09:00 - Subjective Subjective: C DIFF NEG WBC TRENDING DOWN AFREB CONT MERREM FOLLOW UP CT Objective - Vital Signs/Intake and Output Vital Signs (last 24 hours): Temp Pulse Resp BP Pulse Ox 98 F 90 18 94/54 L 99 12/04/16 08:52 12/04/16 08:52 12/04/16 08:52 12/04/16 08:52 12/04/16 08:52 Intake and Output: 12/04/16 12/04/16 06:59 18:59 Intake Total 1320 Output Total 848 Balance 472 - Medications Medications: Current Medications Acetaminophen (Tylenol 325mg Tab) 650 mg PO Q6 PRN PRN Reason: Pain, moderate (4-7) Last Admin: 12/02/16 04:06 Dose: 650 mg Acetaminophen (Tylenol 325mg Tab) 325 mg PO Q6 PRN PRN Reason: Fever >100.4 F Last Admin: 11/21/16 15:46 Dose: 325 mg Enoxaparin Sodium (Lovenox) 30 mg SC DAILY [facility] PRN Reason: Protocol Last Admin: 12/04/16 08:49 Dose: 30 mg Ferrous Sulfate (Feosol) 325 mg PO DAILY [facility] Last Admin: 12/04/16 08:49 Dose: 325 mg Folic Acid (Folic Acid) 5 mg PO DAILY [facility] Last Admin: 12/04/16 08:49 Dose: 5 mg Hydrocortisone (Anusol-Hc) 1 applic [place] BID [facility] Last Admin: 12/04/16 08:45 Dose: 1 applic Hydromorphone HCl (Dilaudid) 0.5 mg IVP Q10M PRN PRN Reason: Pain, moderate (4-7) Lactated Ringer's (Lactated Ringer's) 1,000 mls @ 125 mls/hr IV .Q8H [facility] Last Admin: 12/04/16 05:05 Dose: Not Given Meropenem 1 gm/ Sodium (Chloride) 100 mls @ 100 mls/hr IVPB Q8 [facility] Last Admin: 12/04/16 08:46 Dose: 100 mls/hr Vancomycin HCl 1 gm/ Sodium (Chloride) 250 mls @ 250 mls/hr IVPB Q12H [facility] Last Admin: 12/04/16 01:07 Dose: 250 mls/hr Fluconazole (Diflucan Iv 200 Mg/100 Ml Ns) 100 mls @ 100 mls/hr IVPB DAILY [facility] Last Admin: 12/03/16 15:48 Dose: 100 mls/hr Isoniazid (Niazid) 300 mg PO DAILY [facility] Last Admin: 12/04/16 08:47 Dose: 300 mg Ketorolac Tromethamine (Toradol) 30 mg IVP Q8 PRN PRN Reason: Pain, severe (8-10) Last Admin: 12/02/16 15:02 Dose: 30 mg Lactobacillus Acidophilus (Bacid Acidophilus) 1 cap PO BID [facility] Last Admin: 12/04/16 09:02 Dose: 1 cap Multivitamins/Minerals (Therapeutic-M Tab) 1 tab PO DAILY [facility] Last Admin: 12/04/16 08:47 Dose: 1 tab Ondansetron HCl (Zofran Inj) 4 mg IVP Q4 PRN PRN Reason: Nausea/Vomiting Pantoprazole Sodium (Protonix Ec Tab) 40 mg PO DAILY [facility] Last Admin: 12/04/16 08:47 Dose: 40 mg Pyridoxine HCl (Vitamin B6 50 Mg Tab) 50 mg PO DAILY [facility] Last Admin: 12/04/16 08:48 Dose: 50 mg Vancomycin HCl (Vancocin (Oral/Rectal Use)) 125 mg PO Q8 [facility] Last Admin: 12/04/16 08:48 Dose: 125 mg - Labs Labs: 12/04/16 07:39 12/03/16 08:00 PT 15.7 Seconds (9.8-13.1) H 11/17/16 18:00 INR 1.4 (0.9-1.2) H 11/17/16 18:00 APTT 25.7 Seconds (25.6-37.1) 11/17/16 18:00 - Constitutional Appears: Non-toxic, Cachectic, Chronically Ill - Head Exam Head Exam: NORMOCEPHALIC - Eye Exam Eye Exam: PERRL - ENT Exam ENT Exam: Mucous Membranes Dry - Neck Exam Neck Exam: absent: Lymphadenopathy - Respiratory Exam Respiratory Exam: Decreased Breath Sounds - Cardiovascular Exam Cardiovascular Exam: REGULAR RHYTHM - GI/Abdominal Exam GI & Abdominal Exam: Distended - Rectal Exam Rectal Exam: Deferred - Exam Exam: NORMAL INSPECTION Assessment and Plan (1) Acute Crohn's disease with abscess Status: Acute (2) Acute Crohn's disease with abscess Status: Acute (3) Acute Crohn's disease with complication Status: Acute (4) Acute Crohn's disease with complication Status: Acute (5) Intra-abdominal abscess Status: Acute (6) Sepsis Status: Acute
--- NOTE | 2016-12-04 11:47 | RAD ---
PROCEDURE: Intraoperative fluoroscopy HISTORY: CYSTOSCOPY COMPARISON: Not available TECHNIQUE: Intraoperative fluoroscopy was provided for cystoscopy. Total time of fluoroscopy is less than 1 hour. FINDINGS: One fluoroscopic spot film is submitted. This is on file for review. IMPRESSION: Fluoroscopy provided.
[2016-12-04] MEDS: Fluconazole IV 200mg/100 ml NS 100 ML IVPB SCH (11:55)
[2016-12-04 13:02] LABS: ALB/GLOB RATIO 0.8 (1.0-2.1); ALT/SGPT 23 U/L (9-52); AST/SGOT 26 U/L (14-36); BLOOD UREA NITROGEN 7 mg/dl (7-17); CALCIUM 9.1 mg/dL (8.4-10.2); GFR AFRICAN-AMERICAN > 60; GFR NON-AFRICAN AMERICAN > 60
--- NOTE | 2016-12-04 18:05 | OP ---
PROCEDURE DATE: 12/01/2016 PREOPERATIVE DIAGNOSIS: The patient had a left ureteral calculus, which was previously stented in 06/2016. The patient had Crohn's disease and the priority was drainage of abscess from the abdomen. DESCRIPTION OF PROCEDURE: The patient was brought back to the OR for stent removal, prepped and draped in the usual manner after general anesthesia given. Cystoscope was then inserted using a foreign body forceps. The loop of the distal portion of the stent was removed through the urethra and the stent was encrusted and could not remove the stent from the left ureter, *------* a long uteroscope was then inserted. Rigid scope was inserted alongside the stent into the kidney and the loops of the stent were noted and they were encrusted using laser fiber of ------* with one drill. *------* was used to breakup the encrustation in different spots along side the loop. As this was done, the stent was removed easily. The stent was intact. The patient tolerated the procedure well and left the OR in good condition. Cuauhtemoc Butler MD
[2016-12-05] MEDS: Meropenem 1 GM in Sodium Chloride 0.9% 100 ML IVPB SCH ×3 (00:11→18:11)
[2016-12-05] MEDS: Lactated Ringer's 1,000 ML IV SCH ×5 (02:46→21:01)
[2016-12-05 07:00] LABS: HEMOGLOBIN 8.7 g/dL (12.0-16.0); MEAN CELL VOLUME 72.9 fl (81.0-99.0); MEAN CORPUSCULAR HEMOGLOBIN 22.2 pg (27.0-31.0); MEAN CORPUSCULAR HGB CONC 30.4 g/dL (33.0-37.0); RBC 3.92 Mil/uL (3.80-5.20); RED CELL DISTRIBUTION WIDTH 30.8 % (11.5-14.5); WHITE BLOOD COUNT 11.6 K/uL (4.8-10.8)
[2016-12-05 07:04] LABS: ALB/GLOB RATIO 0.8 (1.0-2.1); ALBUMIN 2.7 g/dL (3.5-5.0); ALT/SGPT 26 U/L (9-52); AST/SGOT 42 U/L (14-36); BLOOD UREA NITROGEN 9 mg/dl (7-17); GFR AFRICAN-AMERICAN > 60; GFR NON-AFRICAN AMERICAN > 60
[2016-12-05] MEDS: Enoxaparin 30 mg Syringe SC SCH (09:36)
[2016-12-05] MEDS: Multivitamin With Minerals Tab PO SCH (09:37)
[2016-12-05] MEDS: Pantoprazole 40 mg EC Tab PO SCH (09:37)
[2016-12-05] MEDS: Fluconazole IV 200mg/100 ml NS 100 ML IVPB SCH (09:38)
[2016-12-05] MEDS: Hydrocortisone 2.5% (Rectal) CREAM PR SCH ×2 (09:39→18:13)
[2016-12-05] MEDS: Lactobacillus Acidophilus 500 MU Cap PO SCH ×2 (09:46→18:13)
--- NOTE | 2016-12-05 10:09 | CP.PCM.PN ---
<Digna Rudd - Last Filed: 12/05/16 10:09> Subjective - Date & Time of Evaluation Date of Evaluation: 12/05/16 Time of Evaluation: 07:00 - Subjective Subjective: GENERAL SURGERY PROGRESS NOTE FOR DR. HUYNH Patient seen and examined at bedside. She denies abdominal pain. She is tolerating regular diet. She denies nausea and vomiting. Denies fever or chills. She continues to have some loose stools but says it is better than before. C diff negative. Objective - Vital Signs/Intake and Output Vital Signs (last 24 hours): Temp Pulse Resp BP Pulse Ox 97.8 F 84 20 106/72 98 12/05/16 07:45 12/05/16 07:45 12/05/16 07:45 12/05/16 07:45 12/05/16 07:45 Intake and Output: 12/05/16 12/05/16 06:59 18:59 Intake Total 1750 Output Total 52 Balance 1698 - Medications Medications: Current Medications Acetaminophen (Tylenol 325mg Tab) 650 mg PO Q6 PRN PRN Reason: Pain, moderate (4-7) Last Admin: 12/02/16 04:06 Dose: 650 mg Acetaminophen (Tylenol 325mg Tab) 325 mg PO Q6 PRN PRN Reason: Fever >100.4 F Last Admin: 11/21/16 15:46 Dose: 325 mg Enoxaparin Sodium (Lovenox) 30 mg SC DAILY [facility] PRN Reason: Protocol Last Admin: 12/05/16 09:36 Dose: 30 mg Ferrous Sulfate (Feosol) 325 mg PO DAILY [facility] Last Admin: 12/05/16 09:37 Dose: 325 mg Folic Acid (Folic Acid) 5 mg PO DAILY [facility] Last Admin: 12/05/16 09:36 Dose: 5 mg Hydrocortisone (Anusol-Hc) 1 applic [place] BID [facility] Last Admin: 12/05/16 09:39 Dose: 1 applic Lactated Ringer's (Lactated Ringer's) 1,000 mls @ 125 mls/hr IV .Q8H [facility] Last Admin: 12/05/16 06:38 Dose: Not Given Meropenem 1 gm/ Sodium (Chloride) 100 mls @ 100 mls/hr IVPB Q8 [facility] Last Admin: 12/05/16 09:38 Dose: 100 mls/hr Vancomycin HCl 1 gm/ Sodium (Chloride) 250 mls @ 250 mls/hr IVPB Q12H [facility] Last Admin: 12/05/16 02:00 Dose: 250 mls/hr Fluconazole (Diflucan Iv 200 Mg/100 Ml Ns) 100 mls @ 100 mls/hr IVPB DAILY [facility] Last Admin: 12/05/16 09:38 Dose: 100 mls/hr Isoniazid (Niazid) 300 mg PO DAILY [facility] Last Admin: 12/05/16 09:37 Dose: 300 mg Ketorolac Tromethamine (Toradol) 30 mg IVP Q8 PRN PRN Reason: Pain, severe (8-10) Last Admin: 12/02/16 15:02 Dose: 30 mg Lactobacillus Acidophilus (Bacid Acidophilus) 1 cap PO BID [facility] Last Admin: 12/05/16 09:46 Dose: 1 cap Multivitamins/Minerals (Therapeutic-M Tab) 1 tab PO DAILY [facility] Last Admin: 12/05/16 09:37 Dose: 1 tab Ondansetron HCl (Zofran Inj) 4 mg IVP Q4 PRN PRN Reason: Nausea/Vomiting Pantoprazole Sodium (Protonix Ec Tab) 40 mg PO DAILY [facility] Last Admin: 12/05/16 09:37 Dose: 40 mg Pyridoxine HCl (Vitamin B6 50 Mg Tab) 50 mg PO DAILY [facility] Last Admin: 12/05/16 09:37 Dose: 50 mg - Labs Labs: 12/05/16 06:05 12/05/16 06:05 PT 15.7 Seconds (9.8-13.1) H 11/17/16 18:00 INR 1.4 (0.9-1.2) H 11/17/16 18:00 APTT 25.7 Seconds (25.6-37.1) 11/17/16 18:00 - Constitutional Appears: Non-toxic, No Acute Distress - Respiratory Exam Respiratory Exam: NORMAL BREATHING PATTERN. absent: Respiratory Distress - Cardiovascular Exam Cardiovascular Exam: +S1, +S2 - GI/Abdominal Exam GI & Abdominal Exam: Soft, Tenderness (mild tenderness around drain insertion site). absent: Distended, Firm, Guarding, Rigid, Rebound Additional comments: [address] with small amount purulent output - Neurological Exam Neurological Exam: Alert, Awake, Oriented x3 - Psychiatric Exam Psychiatric exam: Normal Affect, Normal Mood - Skin Skin Exam: Dry, Normal Color, Warm Assessment and Plan - Assessment and Plan (Free Text) Assessment: 36yo F with Crohn's disease, with sepsis and multiloculated retroperitoneal abscess, s/p IR drainage x3 - Afebrile - Leukocytosis improved. WBC 11.6 today. - C diff negative - Tolerating regular diet - Continue Abx per ID - Encourage ambulation and OOB - Will continue to monitor drain output - Will discuss plan with Dr. Lino Rudd PGY-3 <Devon Huynh - Last Filed: 12/05/16 16:16> Subjective - Date & Time of Evaluation Time of Evaluation: 15:30 - Subjective Subjective: Patient was seen and examined at the bedside. Agree with resident's note above Objective - Vital Signs/Intake and Output Vital Signs (last 24 hours): Temp Pulse Resp BP Pulse Ox 98.3 F 112 H 20 99/62 L 99 12/05/16 16:01 12/05/16 16:01 12/05/16 16:01 12/05/16 16:01 12/05/16 16:01 Intake and Output: 12/05/16 12/05/16 06:59 18:59 Intake Total 1750 Output Total 52 Balance 1698 - Medications Medications: Current Medications Acetaminophen (Tylenol 325mg Tab) 650 mg PO Q6 PRN PRN Reason: Pain, moderate (4-7) Last Admin: 12/02/16 04:06 Dose: 650 mg Acetaminophen (Tylenol 325mg Tab) 325 mg PO Q6 PRN PRN Reason: Fever >100.4 F Last Admin: 11/21/16 15:46 Dose: 325 mg Enoxaparin Sodium (Lovenox) 30 mg SC DAILY [facility] PRN Reason: Protocol Last Admin: 12/05/16 09:36 Dose: 30 mg Ferrous Sulfate (Feosol) 325 mg PO DAILY [facility] Last Admin: 12/05/16 09:37 Dose: 325 mg Folic Acid (Folic Acid) 5 mg PO DAILY [facility] Last Admin: 12/05/16 09:36 Dose: 5 mg Hydrocortisone (Anusol-Hc) 1 applic [place] BID [facility] Last Admin: 12/05/16 09:39 Dose: 1 applic Lactated Ringer's (Lactated Ringer's) 1,000 mls @ 125 mls/hr IV .Q8H [facility] Last Admin: 12/05/16 06:38 Dose: Not Given Meropenem 1 gm/ Sodium (Chloride) 100 mls @ 100 mls/hr IVPB Q8 [facility] Last Admin: 12/05/16 09:38 Dose: 100 mls/hr Vancomycin HCl 1 gm/ Sodium (Chloride) 250 mls @ 250 mls/hr IVPB Q12H [facility] Last Admin: 12/05/16 12:41 Dose: 250 mls/hr Fluconazole (Diflucan Iv 200 Mg/100 Ml Ns) 100 mls @ 100 mls/hr IVPB DAILY [facility] Last Admin: 12/05/16 09:38 Dose: 100 mls/hr Iohexol (Omnipaque 240 (50 Ml)) 50 ml PO ONCE ONE Stop: 12/06/16 07:01 Isoniazid (Niazid) 300 mg PO DAILY [facility] Last Admin: 12/05/16 09:37 Dose: 300 mg Ketorolac Tromethamine (Toradol) 30 mg IVP Q8 PRN PRN Reason: Pain, severe (8-10) Last Admin: 12/02/16 15:02 Dose: 30 mg Lactobacillus Acidophilus (Bacid Acidophilus) 1 cap PO BID [facility] Last Admin: 12/05/16 09:46 Dose: 1 cap Multivitamins/Minerals (Therapeutic-M Tab) 1 tab PO DAILY [facility] Last Admin: 12/05/16 09:37 Dose: 1 tab Ondansetron HCl (Zofran Inj) 4 mg IVP Q4 PRN PRN Reason: Nausea/Vomiting Pantoprazole Sodium (Protonix Ec Tab) 40 mg PO DAILY [facility] Last Admin: 12/05/16 09:37 Dose: 40 mg Pyridoxine HCl (Vitamin B6 50 Mg Tab) 50 mg PO DAILY [facility] Last Admin: 12/05/16 09:37 Dose: 50 mg - Labs Labs: 12/05/16 06:05 12/05/16 06:05 PT 15.7 Seconds (9.8-13.1) H 11/17/16 18:00 INR 1.4 (0.9-1.2) H 11/17/16 18:00 APTT 25.7 Seconds (25.6-37.1) 11/17/16 18:00 Assessment and Plan - Assessment and Plan (Free Text) Plan: - Will consider repeat CT scan if there is still drainage from pigtail catheters - Will follow
--- NOTE | 2016-12-05 11:19 | CP.PCM.PN ---
<Pradip Clement - Last Filed: 12/05/16 12:35> Subjective - Date & Time of Evaluation Date of Evaluation: 12/05/16 Time of Evaluation: 07:00 - Subjective Subjective: pt seen and examined at bedside this morning. No acute events overnight. Afebrile, improving WBC count. No new complaints. Reports feeling better. Toelrating PO intake w/o difficulty. Denies fever/chills, headaches, changes in vision, CP/SOB/Palpitations, N/V/C, urinary symptoms, leg pain, numbness/ tingling. Drains checked this morning with attending currently empty as they have been flushed earlier. Objective - Vital Signs/Intake and Output Vital Signs (last 24 hours): Temp Pulse Resp BP Pulse Ox 97.8 F 84 20 106/72 98 12/05/16 07:45 12/05/16 07:45 12/05/16 07:45 12/05/16 07:45 12/05/16 07:45 Intake and Output: 12/05/16 12/05/16 06:59 18:59 Intake Total 1750 Output Total 52 Balance 1698 - Medications Medications: Current Medications Acetaminophen (Tylenol 325mg Tab) 650 mg PO Q6 PRN PRN Reason: Pain, moderate (4-7) Last Admin: 12/02/16 04:06 Dose: 650 mg Acetaminophen (Tylenol 325mg Tab) 325 mg PO Q6 PRN PRN Reason: Fever >100.4 F Last Admin: 11/21/16 15:46 Dose: 325 mg Enoxaparin Sodium (Lovenox) 30 mg SC DAILY [facility] PRN Reason: Protocol Last Admin: 12/05/16 09:36 Dose: 30 mg Ferrous Sulfate (Feosol) 325 mg PO DAILY [facility] Last Admin: 12/05/16 09:37 Dose: 325 mg Folic Acid (Folic Acid) 5 mg PO DAILY [facility] Last Admin: 12/05/16 09:36 Dose: 5 mg Hydrocortisone (Anusol-Hc) 1 applic [place] BID [facility] Last Admin: 12/05/16 09:39 Dose: 1 applic Lactated Ringer's (Lactated Ringer's) 1,000 mls @ 125 mls/hr IV .Q8H [facility] Last Admin: 12/05/16 06:38 Dose: Not Given Meropenem 1 gm/ Sodium (Chloride) 100 mls @ 100 mls/hr IVPB Q8 [facility] Last Admin: 12/05/16 09:38 Dose: 100 mls/hr Vancomycin HCl 1 gm/ Sodium (Chloride) 250 mls @ 250 mls/hr IVPB Q12H [facility] Last Admin: 12/05/16 02:00 Dose: 250 mls/hr Fluconazole (Diflucan Iv 200 Mg/100 Ml Ns) 100 mls @ 100 mls/hr IVPB DAILY [facility] Last Admin: 12/05/16 09:38 Dose: 100 mls/hr Isoniazid (Niazid) 300 mg PO DAILY [facility] Last Admin: 12/05/16 09:37 Dose: 300 mg Ketorolac Tromethamine (Toradol) 30 mg IVP Q8 PRN PRN Reason: Pain, severe (8-10) Last Admin: 12/02/16 15:02 Dose: 30 mg Lactobacillus Acidophilus (Bacid Acidophilus) 1 cap PO BID [facility] Last Admin: 12/05/16 09:46 Dose: 1 cap Multivitamins/Minerals (Therapeutic-M Tab) 1 tab PO DAILY [facility] Last Admin: 12/05/16 09:37 Dose: 1 tab Ondansetron HCl (Zofran Inj) 4 mg IVP Q4 PRN PRN Reason: Nausea/Vomiting Pantoprazole Sodium (Protonix Ec Tab) 40 mg PO DAILY [facility] Last Admin: 12/05/16 09:37 Dose: 40 mg Pyridoxine HCl (Vitamin B6 50 Mg Tab) 50 mg PO DAILY [facility] Last Admin: 12/05/16 09:37 Dose: 50 mg - Labs Labs: 12/05/16 06:05 12/05/16 06:05 PT 15.7 Seconds (9.8-13.1) H 11/17/16 18:00 INR 1.4 (0.9-1.2) H 11/17/16 18:00 APTT 25.7 Seconds (25.6-37.1) 11/17/16 18:00 - Constitutional Appears: Non-toxic, No Acute Distress - Head Exam Head Exam: ATRAUMATIC, NORMOCEPHALIC - Eye Exam Eye Exam: EOMI Pupil Exam: PERRL - ENT Exam ENT Exam: Mucous Membranes Moist - Respiratory Exam Respiratory Exam: Clear to Ausculation Bilateral, NORMAL BREATHING PATTERN. absent: Rales, Rhonchi, Wheezes - Cardiovascular Exam Cardiovascular Exam: REGULAR RHYTHM, RRR, +S1, +S2. absent: JVD - GI/Abdominal Exam GI & Abdominal Exam: Soft, Normal Bowel Sounds. absent: Guarding, Rigid, Tenderness Additional comments: [address], minimal drainage post NS flush today - Extremities Exam Extremities Exam: Full ROM, Normal Inspection. absent: Calf Tenderness, Pedal Edema, Tenderness - Neurological Exam Neurological Exam: Alert, Awake, CN II-XII Intact, Oriented x3 Assessment and Plan - Assessment and Plan (Free Text) Assessment: 36yo F with Crohn's disease, with sepsis and multiloculated retroperitoneal abscess, s/p IR drainage x3 Plans: 1) Crohns Disease with Multiloculated retroperitoneal abscess -s/p IR drain placement x3 -Afebrile>24 hrs, -WBC improving. 11.6 today. -C diff negative -Tolerating regular PO diet -Continue Abx per ID (Meropenem) -Encouraged amb/oob -discussing case with SW for possible placement into LTAC for IV abx 2) Hydronephrosis -s/p ureteral stent removal on 12/01 <Ray Mensah - Last Filed: 12/07/16 16:36> Objective - Vital Signs/Intake and Output Vital Signs (last 24 hours): Temp Pulse Resp BP Pulse Ox 97.9 F 83 20 109/75 98 12/06/16 08:07 12/06/16 08:07 12/06/16 08:07 12/06/16 08:07 12/06/16 08:07 Intake and Output: 12/06/16 12/06/16 06:59 18:59 Intake Total 1500 1500 Output Total 15 15 Balance 1485 1485 - Medications Medications: Current Medications Acetaminophen (Tylenol 325mg Tab) 650 mg PO Q6 PRN PRN Reason: Pain, moderate (4-7) Last Admin: 12/02/16 04:06 Dose: 650 mg Enoxaparin Sodium (Lovenox) 30 mg SC DAILY [facility] PRN Reason: Protocol Last Admin: 12/06/16 08:43 Dose: 30 mg Ferrous Sulfate (Feosol) 325 mg PO DAILY [facility] Last Admin: 12/06/16 08:42 Dose: 325 mg Folic Acid (Folic Acid) 5 mg PO DAILY [facility] Last Admin: 12/06/16 08:42 Dose: 5 mg Hydrocortisone (Anusol-Hc) 1 applic [place] BID [facility] Last Admin: 12/06/16 08:42 Dose: 1 applic Lactated Ringer's (Lactated Ringer's) 1,000 mls @ 125 mls/hr IV .Q8H [facility] Last Admin: 12/06/16 08:53 Dose: 125 mls/hr Meropenem 1 gm/ Sodium (Chloride) 100 mls @ 100 mls/hr IVPB Q8 [facility] Last Admin: 12/06/16 08:45 Dose: 100 mls/hr Vancomycin HCl 1 gm/ Sodium (Chloride) 250 mls @ 250 mls/hr IVPB Q12H [facility] Last Admin: 12/06/16 01:30 Dose: 250 mls/hr Fluconazole (Diflucan Iv 200 Mg/100 Ml Ns) 100 mls @ 100 mls/hr IVPB DAILY [facility] Last Admin: 12/06/16 08:43 Dose: 100 mls/hr Isoniazid (Niazid) 300 mg PO DAILY [facility] Last Admin: 12/06/16 08:43 Dose: 300 mg Lactobacillus Acidophilus (Bacid Acidophilus) 1 cap PO BID [facility] Last Admin: 12/06/16 08:42 Dose: 1 cap Multivitamins/Minerals (Therapeutic-M Tab) 1 tab PO DAILY [facility] Last Admin: 12/06/16 08:42 Dose: 1 tab Ondansetron HCl (Zofran Inj) 4 mg IVP Q4 PRN PRN Reason: Nausea/Vomiting Pantoprazole Sodium (Protonix Ec Tab) 40 mg PO DAILY [facility] Last Admin: 12/06/16 08:42 Dose: 40 mg Pyridoxine HCl (Vitamin B6 50 Mg Tab) 50 mg PO DAILY [facility] Last Admin: 12/06/16 08:42 Dose: 50 mg - Labs Labs: 12/06/16 08:50 12/06/16 08:50 PT 15.7 Seconds (9.8-13.1) H 11/17/16 18:00 INR 1.4 (0.9-1.2) H 11/17/16 18:00 APTT 25.7 Seconds (25.6-37.1) 11/17/16 18:00 Assessment and Plan - Assessment and Plan (Free Text) Assessment: Patient was personally seen and examined by me in rounds with residents. Available labs and diagnostic data reviewed. Case, patient's condition and management plan discussed with residents in rounds. Agree with resident's progress note. Plan: As ordered.
--- NOTE | 2016-12-05 15:21 | PN ---
Dr. Ray Mensah Progress note: Patient seen, examined and consulted which has been noted and appreciated. Pt has also had a surgical follow up, and intervention which has also been noted and appreciated. Pt remains on given medical [25.8-29.0]. He denies any symptoms of SOB or CP. PE: Upon physical examination the pt is awake, and in NAD, and his vital sounds are normal. His heart is normal, and has a RRR. Lungs are clear, abdomen is soft , nontender. His extremities have no edema, no tenderness, no acute ischemia. His abdominal drains are draining, he does have bloody discharge and he had leaks from his side, but was resolved with his dressing change. Pt does not have any rigidity, guarding, or rebound. All other systems are normal. DDx: I will make sure that the pt is stable and will put him on long-term antibiotics , which was discussed in the consultation. JEFFERY
[2016-12-06] MEDS: Meropenem 1 GM in Sodium Chloride 0.9% 100 ML IVPB SCH ×3 (00:30→17:18)
[2016-12-06] MEDS ORDERED: Iohexol 240 (50 ml) PO ONE (07:00)
--- NOTE | 2016-12-06 08:23 | CP.PCM.PN ---
<Digna Rudd - Last Filed: 12/06/16 08:26> Subjective - Date & Time of Evaluation Date of Evaluation: 12/06/16 Time of Evaluation: 07:00 - Subjective Subjective: GENERAL SURGERY PROGRESS NOTE FOR DR. HUYNH Patient seen and examined at bedside. She has mild abdominal pain. She is tolerating regular diet. She denies nausea and vomiting. She continues to have some loose stools but says it is better than before. Drains were flushed with 10cc NS by nurse. Objective - Vital Signs/Intake and Output Vital Signs (last 24 hours): Temp Pulse Resp BP Pulse Ox 97.9 F 83 20 109/75 98 12/06/16 08:07 12/06/16 08:07 12/06/16 08:07 12/06/16 08:07 12/06/16 08:07 Intake and Output: 12/06/16 12/06/16 06:59 18:59 Intake Total 1500 Output Total 15 Balance 1485 - Medications Medications: Current Medications Acetaminophen (Tylenol 325mg Tab) 650 mg PO Q6 PRN PRN Reason: Pain, moderate (4-7) Last Admin: 12/02/16 04:06 Dose: 650 mg Acetaminophen (Tylenol 325mg Tab) 325 mg PO Q6 PRN PRN Reason: Fever >100.4 F Last Admin: 11/21/16 15:46 Dose: 325 mg Enoxaparin Sodium (Lovenox) 30 mg SC DAILY [facility] PRN Reason: Protocol Last Admin: 12/05/16 09:36 Dose: 30 mg Ferrous Sulfate (Feosol) 325 mg PO DAILY [facility] Last Admin: 12/05/16 09:37 Dose: 325 mg Folic Acid (Folic Acid) 5 mg PO DAILY [facility] Last Admin: 12/05/16 09:36 Dose: 5 mg Hydrocortisone (Anusol-Hc) 1 applic [place] BID [facility] Last Admin: 12/05/16 18:13 Dose: 1 applic Lactated Ringer's (Lactated Ringer's) 1,000 mls @ 125 mls/hr IV .Q8H [facility] Last Admin: 12/05/16 21:01 Dose: 125 mls/hr Meropenem 1 gm/ Sodium (Chloride) 100 mls @ 100 mls/hr IVPB Q8 [facility] Last Admin: 12/06/16 00:30 Dose: 100 mls/hr Vancomycin HCl 1 gm/ Sodium (Chloride) 250 mls @ 250 mls/hr IVPB Q12H [facility] Last Admin: 12/06/16 01:30 Dose: 250 mls/hr Fluconazole (Diflucan Iv 200 Mg/100 Ml Ns) 100 mls @ 100 mls/hr IVPB DAILY [facility] Last Admin: 12/05/16 09:38 Dose: 100 mls/hr Isoniazid (Niazid) 300 mg PO DAILY [facility] Last Admin: 12/05/16 09:37 Dose: 300 mg Ketorolac Tromethamine (Toradol) 30 mg IVP Q8 PRN PRN Reason: Pain, severe (8-10) Last Admin: 12/02/16 15:02 Dose: 30 mg Lactobacillus Acidophilus (Bacid Acidophilus) 1 cap PO BID [facility] Last Admin: 12/05/16 18:13 Dose: 1 cap Multivitamins/Minerals (Therapeutic-M Tab) 1 tab PO DAILY [facility] Last Admin: 12/05/16 09:37 Dose: 1 tab Ondansetron HCl (Zofran Inj) 4 mg IVP Q4 PRN PRN Reason: Nausea/Vomiting Pantoprazole Sodium (Protonix Ec Tab) 40 mg PO DAILY [facility] Last Admin: 12/05/16 09:37 Dose: 40 mg Pyridoxine HCl (Vitamin B6 50 Mg Tab) 50 mg PO DAILY [facility] Last Admin: 12/05/16 09:37 Dose: 50 mg - Labs Labs: 12/05/16 06:05 12/05/16 06:05 PT 15.7 Seconds (9.8-13.1) H 11/17/16 18:00 INR 1.4 (0.9-1.2) H 11/17/16 18:00 APTT 25.7 Seconds (25.6-37.1) 11/17/16 18:00 - Constitutional Appears: Non-toxic, No Acute Distress - Head Exam Head Exam: ATRAUMATIC, NORMAL INSPECTION - Respiratory Exam Respiratory Exam: NORMAL BREATHING PATTERN. absent: Respiratory Distress - Cardiovascular Exam Cardiovascular Exam: +S1, +S2 - GI/Abdominal Exam GI & Abdominal Exam: Soft, Tenderness (mild tenderness near drain sites). absent: Distended, Firm, Guarding, Rigid, Rebound Additional comments: [address]: Right upper drain: 5cc cloudy output over past 24 hours Right lower drain: 25cc cloudy output over past 24 hours Anterior drain: 20cc cloudy output over past 24 hours. - Neurological Exam Neurological Exam: Alert, Awake, Oriented x3 - Psychiatric Exam Psychiatric exam: Normal Affect, Normal Mood - Skin Skin Exam: Dry, Normal Color, Warm Assessment and Plan - Assessment and Plan (Free Text) Assessment: 36yo F with Crohn's disease, with sepsis and multiloculated retroperitoneal abscess, s/p IR drainage x3 - Afebrile - AM labs still pending. - C diff negative - Tolerating regular diet - Continue Abx per ID - Encourage ambulation and OOB - CT Abd/Pelvis with PO & IV contrast ordered to re-eval abscesses - Will follow up CT scan findings - Will discuss plan with Dr. Lino Rudd PGY-3 <Devon Huynh - Last Filed: 12/06/16 13:53> Subjective - Date & Time of Evaluation Time of Evaluation: 11:00 - Subjective Subjective: Patient was seen and examined at the bedside. Agree with resident's note above Objective - Vital Signs/Intake and Output Vital Signs (last 24 hours): Temp Pulse Resp BP Pulse Ox 97.9 F 83 20 109/75 98 12/06/16 08:07 12/06/16 08:07 12/06/16 08:07 12/06/16 08:07 12/06/16 08:07 Intake and Output: 12/06/16 12/06/16 06:59 18:59 Intake Total 1500 1500 Output Total 15 15 Balance 1485 1485 - Medications Medications: Current Medications Acetaminophen (Tylenol 325mg Tab) 650 mg PO Q6 PRN PRN Reason: Pain, moderate (4-7) Last Admin: 12/02/16 04:06 Dose: 650 mg Acetaminophen (Tylenol 325mg Tab) 325 mg PO Q6 PRN PRN Reason: Fever >100.4 F Last Admin: 11/21/16 15:46 Dose: 325 mg Enoxaparin Sodium (Lovenox) 30 mg SC DAILY [facility] PRN Reason: Protocol Last Admin: 12/06/16 08:43 Dose: 30 mg Ferrous Sulfate (Feosol) 325 mg PO DAILY [facility] Last Admin: 12/06/16 08:42 Dose: 325 mg Folic Acid (Folic Acid) 5 mg PO DAILY [facility] Last Admin: 12/06/16 08:42 Dose: 5 mg Hydrocortisone (Anusol-Hc) 1 applic [place] BID [facility] Last Admin: 12/06/16 08:42 Dose: 1 applic Lactated Ringer's (Lactated Ringer's) 1,000 mls @ 125 mls/hr IV .Q8H [facility] Last Admin: 12/06/16 08:53 Dose: 125 mls/hr Meropenem 1 gm/ Sodium (Chloride) 100 mls @ 100 mls/hr IVPB Q8 [facility] Last Admin: 12/06/16 08:45 Dose: 100 mls/hr Vancomycin HCl 1 gm/ Sodium (Chloride) 250 mls @ 250 mls/hr IVPB Q12H [facility] Last Admin: 12/06/16 01:30 Dose: 250 mls/hr Fluconazole (Diflucan Iv 200 Mg/100 Ml Ns) 100 mls @ 100 mls/hr IVPB DAILY [facility] Last Admin: 12/06/16 08:43 Dose: 100 mls/hr Isoniazid (Niazid) 300 mg PO DAILY [facility] Last Admin: 12/06/16 08:43 Dose: 300 mg Ketorolac Tromethamine (Toradol) 30 mg IVP Q8 PRN PRN Reason: Pain, severe (8-10) Last Admin: 12/02/16 15:02 Dose: 30 mg Lactobacillus Acidophilus (Bacid Acidophilus) 1 cap PO BID [facility] Last Admin: 12/06/16 08:42 Dose: 1 cap Multivitamins/Minerals (Therapeutic-M Tab) 1 tab PO DAILY [facility] Last Admin: 12/06/16 08:42 Dose: 1 tab Ondansetron HCl (Zofran Inj) 4 mg IVP Q4 PRN PRN Reason: Nausea/Vomiting Pantoprazole Sodium (Protonix Ec Tab) 40 mg PO DAILY [facility] Last Admin: 12/06/16 08:42 Dose: 40 mg Pyridoxine HCl (Vitamin B6 50 Mg Tab) 50 mg PO DAILY [facility] Last Admin: 12/06/16 08:42 Dose: 50 mg - Labs Labs: 12/06/16 08:50 12/06/16 08:50 PT 15.7 Seconds (9.8-13.1) H 11/17/16 18:00 INR 1.4 (0.9-1.2) H 11/17/16 18:00 APTT 25.7 Seconds (25.6-37.1) 11/17/16 18:00
[2016-12-06] MEDS: Pantoprazole 40 mg EC Tab PO SCH (08:42)
[2016-12-06] MEDS: Lactobacillus Acidophilus 500 MU Cap PO SCH ×2 (08:42→17:17)
[2016-12-06] MEDS: Multivitamin With Minerals Tab PO SCH (08:42)
[2016-12-06] MEDS: Hydrocortisone 2.5% (Rectal) CREAM PR SCH ×2 (08:42→17:17)
[2016-12-06] MEDS: Enoxaparin 30 mg Syringe SC SCH (08:43)
[2016-12-06] MEDS: Fluconazole IV 200mg/100 ml NS 100 ML IVPB SCH (08:43)
[2016-12-06] MEDS: Lactated Ringer's 1,000 ML IV SCH ×5 (08:51→21:11)
[2016-12-06 09:19] LABS: HEMOGLOBIN 9.6 g/dL (12.0-16.0); MEAN CELL VOLUME 72.6 fl (81.0-99.0); MEAN CORPUSCULAR HEMOGLOBIN 22.9 pg (27.0-31.0); MEAN CORPUSCULAR HGB CONC 31.5 g/dL (33.0-37.0); RBC 4.21 Mil/uL (3.80-5.20); RED CELL DISTRIBUTION WIDTH 31.3 % (11.5-14.5); WHITE BLOOD COUNT 8.9 K/uL (4.8-10.8)
[2016-12-06 09:29] LABS: BLOOD UREA NITROGEN 10 mg/dl (7-17); CALCIUM 9.4 mg/dL (8.4-10.2); GFR AFRICAN-AMERICAN > 60; GFR NON-AFRICAN AMERICAN > 60
--- NOTE | 2016-12-06 11:57 | CP.PCM.PN ---
<Pradip Clement - Last Filed: 12/06/16 11:58> Subjective - Date & Time of Evaluation Date of Evaluation: 12/06/16 Time of Evaluation: 08:00 - Subjective Subjective: pt seen and examined at bedside. No acute events overnight. Pt lying in bed comfortbaly, drinking PO contrast. Afebrile. Tolerating PO intake without difficulty. Episodic random loose stools but improving. No new complaints. Denies fever/chills, headaches, changes in vision, CP/SOB/COLLIER/Palpitations, N/V/ D/C, urinary symptoms. Drains clear as they have been flushed eariler. Objective - Vital Signs/Intake and Output Vital Signs (last 24 hours): Temp Pulse Resp BP Pulse Ox 97.9 F 83 20 109/75 98 12/06/16 08:07 12/06/16 08:07 12/06/16 08:07 12/06/16 08:07 12/06/16 08:07 Intake and Output: 12/06/16 12/06/16 06:59 18:59 Intake Total 1500 1500 Output Total 15 15 Balance 1485 1485 - Medications Medications: Current Medications Acetaminophen (Tylenol 325mg Tab) 650 mg PO Q6 PRN PRN Reason: Pain, moderate (4-7) Last Admin: 12/02/16 04:06 Dose: 650 mg Acetaminophen (Tylenol 325mg Tab) 325 mg PO Q6 PRN PRN Reason: Fever >100.4 F Last Admin: 11/21/16 15:46 Dose: 325 mg Enoxaparin Sodium (Lovenox) 30 mg SC DAILY [facility] PRN Reason: Protocol Last Admin: 12/06/16 08:43 Dose: 30 mg Ferrous Sulfate (Feosol) 325 mg PO DAILY [facility] Last Admin: 12/06/16 08:42 Dose: 325 mg Folic Acid (Folic Acid) 5 mg PO DAILY [facility] Last Admin: 12/06/16 08:42 Dose: 5 mg Hydrocortisone (Anusol-Hc) 1 applic [place] BID [facility] Last Admin: 12/06/16 08:42 Dose: 1 applic Lactated Ringer's (Lactated Ringer's) 1,000 mls @ 125 mls/hr IV .Q8H [facility] Last Admin: 12/06/16 08:53 Dose: 125 mls/hr Meropenem 1 gm/ Sodium (Chloride) 100 mls @ 100 mls/hr IVPB Q8 [facility] Last Admin: 12/06/16 08:45 Dose: 100 mls/hr Vancomycin HCl 1 gm/ Sodium (Chloride) 250 mls @ 250 mls/hr IVPB Q12H [facility] Last Admin: 12/06/16 01:30 Dose: 250 mls/hr Fluconazole (Diflucan Iv 200 Mg/100 Ml Ns) 100 mls @ 100 mls/hr IVPB DAILY [facility] Last Admin: 12/06/16 08:43 Dose: 100 mls/hr Isoniazid (Niazid) 300 mg PO DAILY [facility] Last Admin: 12/06/16 08:43 Dose: 300 mg Ketorolac Tromethamine (Toradol) 30 mg IVP Q8 PRN PRN Reason: Pain, severe (8-10) Last Admin: 12/02/16 15:02 Dose: 30 mg Lactobacillus Acidophilus (Bacid Acidophilus) 1 cap PO BID [facility] Last Admin: 12/06/16 08:42 Dose: 1 cap Multivitamins/Minerals (Therapeutic-M Tab) 1 tab PO DAILY [facility] Last Admin: 12/06/16 08:42 Dose: 1 tab Ondansetron HCl (Zofran Inj) 4 mg IVP Q4 PRN PRN Reason: Nausea/Vomiting Pantoprazole Sodium (Protonix Ec Tab) 40 mg PO DAILY [facility] Last Admin: 12/06/16 08:42 Dose: 40 mg Pyridoxine HCl (Vitamin B6 50 Mg Tab) 50 mg PO DAILY [facility] Last Admin: 12/06/16 08:42 Dose: 50 mg - Labs Labs: 12/06/16 08:50 12/06/16 08:50 PT 15.7 Seconds (9.8-13.1) H 11/17/16 18:00 INR 1.4 (0.9-1.2) H 11/17/16 18:00 APTT 25.7 Seconds (25.6-37.1) 11/17/16 18:00 - Constitutional Appears: Non-toxic, No Acute Distress - Head Exam Head Exam: ATRAUMATIC, NORMOCEPHALIC - Eye Exam Eye Exam: EOMI Pupil Exam: PERRL - ENT Exam ENT Exam: Mucous Membranes Moist - Neck Exam Neck Exam: Full ROM, Normal Inspection - Respiratory Exam Respiratory Exam: Clear to Ausculation Bilateral, NORMAL BREATHING PATTERN. absent: Accessory Muscle Use, Rales, Rhonchi, Wheezes - Cardiovascular Exam Cardiovascular Exam: REGULAR RHYTHM, RRR, +S1, +S2. absent: Diastolic murmur, Gallop, JVD, Rubs, Murmur - GI/Abdominal Exam GI & Abdominal Exam: Soft, Normal Bowel Sounds. absent: Firm, Guarding, Rigid, Tenderness, Rebound Additional comments: 3 IR drains - Extremities Exam Extremities Exam: Full ROM, Normal Inspection. absent: Calf Tenderness, Pedal Edema, Tenderness - Neurological Exam Neurological Exam: Alert, Awake, CN II-XII Intact, Oriented x3 - Psychiatric Exam Psychiatric exam: Normal Affect, Normal Mood Assessment and Plan - Assessment and Plan (Free Text) Assessment: 36yo F with Crohn's disease, with sepsis and multiloculated retroperitoneal abscess, s/p IR drainage x3 Plans: 1) Crohns Disease with Multiloculated retroperitoneal abscess -s/p IR drain placement x3 -Afebrile>24 hrs, -WBC improving -C diff negative -Tolerating regular PO diet -Continue Abx per ID (Meropenem) -Encouraged amb/oob -discussing case with SW for possible placement into LTAC for IV abx -pt for ABD CT w and w/o contrast today for re-eval 2) Hydronephrosis -s/p ureteral stent removal on 12/01 <Ray Mensah K - Last Filed: 12/07/16 16:37> Objective - Vital Signs/Intake and Output Vital Signs (last 24 hours): Temp Pulse Resp BP Pulse Ox 98.3 F 100 H 17 98/61 L 99 12/07/16 16:19 12/07/16 16:19 12/07/16 16:19 12/07/16 16:19 12/07/16 16:19 Intake and Output: 12/07/16 12/07/16 06:59 18:59 Intake Total 1500 Output Total 72 Balance 1428 - Medications Medications: Current Medications Acetaminophen (Tylenol 325mg Tab) 650 mg PO Q6 PRN PRN Reason: Pain, moderate (4-7) Last Admin: 12/02/16 04:06 Dose: 650 mg Enoxaparin Sodium (Lovenox) 30 mg SC DAILY [facility] PRN Reason: Protocol Last Admin: 07/20/17 09:04 Dose: 30 mg Ferrous Sulfate (Feosol) 325 mg PO DAILY [facility] Last Admin: 12/07/16 09:05 Dose: 325 mg Folic Acid (Folic Acid) 5 mg PO DAILY [facility] Last Admin: 12/07/16 09:05 Dose: 5 mg Hydrocortisone (Anusol-Hc) 1 applic [place] BID [facility] Last Admin: 12/07/16 09:04 Dose: 1 applic Lactated Ringer's (Lactated Ringer's) 1,000 mls @ 125 mls/hr IV .Q8H [facility] Last Admin: 12/07/16 07:44 Dose: Not Given Meropenem 1 gm/ Sodium (Chloride) 100 mls @ 100 mls/hr IVPB Q8 [facility] Last Admin: 12/07/16 11:18 Dose: 100 mls/hr Vancomycin HCl 1 gm/ Sodium (Chloride) 250 mls @ 250 mls/hr IVPB Q12H [facility] Last Admin: 12/07/16 12:34 Dose: 250 mls/hr Fluconazole (Diflucan Iv 200 Mg/100 Ml Ns) 100 mls @ 100 mls/hr IVPB DAILY [facility] Last Admin: 12/07/16 09:04 Dose: 100 mls/hr Isoniazid (Niazid) 300 mg PO DAILY [facility] Last Admin: 12/07/16 09:05 Dose: 300 mg Lactobacillus Acidophilus (Bacid Acidophilus) 1 cap PO BID [facility] Last Admin: 12/07/16 09:04 Dose: 1 cap Multivitamins/Minerals (Therapeutic-M Tab) 1 tab PO DAILY [facility] Last Admin: 12/07/16 09:05 Dose: 1 tab Ondansetron HCl (Zofran Inj) 4 mg IVP Q4 PRN PRN Reason: Nausea/Vomiting Pantoprazole Sodium (Protonix Ec Tab) 40 mg PO DAILY [facility] Last Admin: 12/07/16 09:05 Dose: 40 mg Pyridoxine HCl (Vitamin B6 50 Mg Tab) 50 mg PO DAILY [facility] Last Admin: 12/07/16 09:05 Dose: 50 mg - Labs Labs: 12/06/16 08:50 12/06/16 08:50 PT 15.7 Seconds (9.8-13.1) H 11/17/16 18:00 INR 1.4 (0.9-1.2) H 11/17/16 18:00 APTT 25.7 Seconds (25.6-37.1) 11/17/16 18:00 Assessment and Plan - Assessment and Plan (Free Text) Assessment: Patient was personally seen and examined by me in rounds with residents. Available labs and diagnostic data reviewed. Case, patient's condition and management plan discussed with residents in rounds. Agree with resident's progress note. Plan: As ordered.
[2016-12-06] MEDS ORDERED: Sodium Chloride 0.9% 50 ML IV ONE (12:08)
[2016-12-06] MEDS ORDERED: Iohexol 300 100 ML IJ ONE (12:08)
--- NOTE | 2016-12-06 12:49 | CP.PCM.PN ---
Subjective - Date & Time of Evaluation Date of Evaluation: 12/06/16 Time of Evaluation: 09:00 - Subjective Subjective: No acute events overnight. Pt lying in bed comfortbaly, drinking PO contrast. Afebrile. Tolerating PO intake without difficulty. Episodic random loose stools but improving. No new complaints. Objective - Vital Signs/Intake and Output Vital Signs (last 24 hours): Temp Pulse Resp BP Pulse Ox 97.9 F 83 20 109/75 98 12/06/16 08:07 12/06/16 08:07 12/06/16 08:07 12/06/16 08:07 12/06/16 08:07 Intake and Output: 12/06/16 12/06/16 06:59 18:59 Intake Total 1500 1500 Output Total 15 15 Balance 1485 1485 - Medications Medications: Current Medications Acetaminophen (Tylenol 325mg Tab) 650 mg PO Q6 PRN PRN Reason: Pain, moderate (4-7) Last Admin: 12/02/16 04:06 Dose: 650 mg Acetaminophen (Tylenol 325mg Tab) 325 mg PO Q6 PRN PRN Reason: Fever >100.4 F Last Admin: 11/21/16 15:46 Dose: 325 mg Enoxaparin Sodium (Lovenox) 30 mg SC DAILY REPLACED BY [facility] PRN Reason: Protocol Last Admin: 12/06/16 08:43 Dose: 30 mg Ferrous Sulfate (Feosol) 325 mg PO DAILY REPL[facility]ED BY [facility] Last Admin: 12/06/16 08:42 Dose: 325 mg Folic Acid (Folic Acid) 5 mg PO DAILY REPL[facility]ED BY [facility] Last Admin: 12/06/16 08:42 Dose: 5 mg Hydrocortisone (Anusol-Hc) 1 applic PA BID REPLACED BY [facility] Last Admin: 12/06/16 08:42 Dose: 1 applic Lactated Ringer's (Lactated Ringer's) 1,000 mls @ 125 mls/hr IV .Q8H REPLACED BY [facility] Last Admin: 12/06/16 08:53 Dose: 125 mls/hr Meropenem 1 gm/ Sodium (Chloride) 100 mls @ 100 mls/hr IVPB Q8 REPLACED BY [facility] Last Admin: 12/06/16 08:45 Dose: 100 mls/hr Vancomycin HCl 1 gm/ Sodium (Chloride) 250 mls @ 250 mls/hr IVPB Q12H REPLACED BY [facility] Last Admin: 12/06/16 01:30 Dose: 250 mls/hr Fluconazole (Diflucan Iv 200 Mg/100 Ml Ns) 100 mls @ 100 mls/hr IVPB DAILY REPLACED BY [facility] Last Admin: 12/06/16 08:43 Dose: 100 mls/hr Isoniazid (Niazid) 300 mg PO DAILY REPL[facility]ED BY [facility] Last Admin: 12/06/16 08:43 Dose: 300 mg Ketorolac Tromethamine (Toradol) 30 mg IVP Q8 PRN PRN Reason: Pain, severe (8-10) Last Admin: 12/02/16 15:02 Dose: 30 mg Lactobacillus Acidophilus (Bacid Acidophilus) 1 cap PO BID REPLACED BY [facility] Last Admin: 12/06/16 08:42 Dose: 1 cap Multivitamins/Minerals (Therapeutic-M Tab) 1 tab PO DAILY REPLACED BY [facility] Last Admin: 12/06/16 08:42 Dose: 1 tab Ondansetron HCl (Zofran Inj) 4 mg IVP Q4 PRN PRN Reason: Nausea/Vomiting Pantoprazole Sodium (Protonix Ec Tab) 40 mg PO DAILY REPLACED BY [facility] Last Admin: 12/06/16 08:42 Dose: 40 mg Pyridoxine HCl (Vitamin B6 50 Mg Tab) 50 mg PO DAILY REPLACED BY [facility] Last Admin: 12/06/16 08:42 Dose: 50 mg - Labs Labs: 12/06/16 08:50 12/06/16 08:50 PT 15.7 Seconds (9.8-13.1) H 11/17/16 18:00 INR 1.4 (0.9-1.2) H 11/17/16 18:00 APTT 25.7 Seconds (25.6-37.1) 11/17/16 18:00 - Constitutional Appears: Non-toxic, Chronically Ill - Head Exam Head Exam: NORMOCEPHALIC - Eye Exam Eye Exam: absent: Scleral icterus - ENT Exam ENT Exam: Mucous Membranes Dry - Neck Exam Neck Exam: absent: Lymphadenopathy - Respiratory Exam Respiratory Exam: Decreased Breath Sounds - Cardiovascular Exam Cardiovascular Exam: REGULAR RHYTHM - GI/Abdominal Exam GI & Abdominal Exam: Distended Assessment and Plan (1) Acute Crohn's disease with abscess Status: Acute (2) Acute Crohn's disease with abscess Status: Acute (3) Acute Crohn's disease with complication Status: Acute (4) Acute Crohn's disease with complication Status: Acute (5) Intra-abdominal abscess Status: Acute (6) Sepsis Status: Acute
--- NOTE | 2016-12-06 14:03 | CT ---
PROCEDURE: CT Abdomen and Pelvis with contrast HISTORY: comparison COMPARISON: 11/29/2016 TECHNIQUE: Contrast dose: 90 mL Omnipaque 300 Radiation dose: Total exam DLP = 635.43 mGy-cm. This CT exam was performed using one or more of the following dose reduction techniques: Automated exposure control, adjustment of the mA and/or kV according to patient size, and/or use of iterative reconstruction technique. FINDINGS: LOWER THORAX: Linear scar/ atelectasis in both lower lobes. Bilateral breast augmentation prostheses. LIVER: Unremarkable. No gross lesion or ductal dilatation. GALLBLADDER AND BILE DUCTS: Unremarkable. PANCREAS: Unremarkable. No gross lesion or ductal dilatation. SPLEEN: Unremarkable. ADRENALS: Unremarkable. No mass. KIDNEYS AND URETERS: Multiple small bilateral nonobstructing renal calculi. Largest calculus 7 mm, in the lower pole left kidney. Status post removal of left ureteral stent. No renal mass. No hydronephrosis. VASCULATURE: Unremarkable. No aortic aneurysm. BOWEL: Unremarkable. No obstruction. No gross mural thickening. APPENDIX: Not identified PERITONEUM: Unremarkable. No free fluid. No free air. LYMPH NODES: Unremarkable. No enlarged lymph nodes. BLADDER: Tiny dependent calculi left bladder base. Demonstrated on series 7, image 147 through 152. REPRODUCTIVE: Unremarkable uterus. BONES: No acute fracture. OTHER FINDINGS: Probable right iliopsoas hematoma. There is a small pocket of low-attenuation fluid seen within this hematoma, and a bubble of gas. This is seen on series 7, image 95 through 98. This hematoma extends beyond the confines of the iliopsoas muscle, laterally towards the right pericolic gutter. There is also hemorrhage seen within the muscles of the right low back, unchanged from prior. There is a drainage catheter seen extending to the right iliacus hemorrhage. No residual low-density fluid collection identified. There is a drainage catheter within hematoma extending along the right posterior abdominal wall, again with no residual low-attenuation fluid. There is a drainage catheter in the right gluteal hematoma, without residual low-attenuation fluid. IMPRESSION: No residual low-attenuation fluid seen within the collections drained by 3 drainage catheters, in the right iliacus muscle, right posterior abdominal wall and right gluteal region. There are residual hematomas, seen as confluent high attenuation material. There is a small collection of low attenuation fluid within the right iliopsoas hematoma, also with a small gas bubble. This is essentially unchanged from prior examination. It is not being drained by drainage catheter. It measures 1.3 cm in greatest dimension. Multiple bilateral small nonobstructing renal calculi. Status post removal of left ureteral stent. No hydronephrosis. No ureteral calculus identified. Tiny bladder calculi at the left bladder base.
[2016-12-07] MEDS: Meropenem 1 GM in Sodium Chloride 0.9% 100 ML IVPB SCH ×3 (00:18→17:55)
[2016-12-07] MEDS: Lactated Ringer's 1,000 ML IV SCH ×3 (07:43→23:35)
[2016-12-07] MEDS: Lactobacillus Acidophilus 500 MU Cap PO SCH ×2 (09:04→16:52)
[2016-12-07] MEDS: Hydrocortisone 2.5% (Rectal) CREAM PR SCH ×2 (09:04→16:53)
[2016-12-07] MEDS: Fluconazole IV 200mg/100 ml NS 100 ML IVPB SCH (09:04)
[2016-12-07] MEDS: Enoxaparin 30 mg Syringe SC SCH (09:04)
[2016-12-07] MEDS: Multivitamin With Minerals Tab PO SCH (09:05)
[2016-12-07] MEDS: Pantoprazole 40 mg EC Tab PO SCH (09:05)
--- NOTE | 2016-12-07 10:14 | CP.PCM.PN ---
<Digna Rudd - Last Filed: 12/07/16 10:17> Subjective - Date & Time of Evaluation Date of Evaluation: 12/07/16 Time of Evaluation: 08:00 - Subjective Subjective: GENERAL SURGERY PROGRESS NOTE FOR DR. HUYNH Patient seen and examined with Dr. Huynh at bedside. She has no complaints. She is tolerating regular diet. She denies nausea and vomiting. Drains were flushed with 10cc NS by nurse. Right upper drain had 20cc serous output and Right lower drain had 35cc serous output and Anterior drain had 30cc over past 24 hours. Objective - Vital Signs/Intake and Output Vital Signs (last 24 hours): Temp Pulse Resp BP Pulse Ox 98 F 91 H 20 108/77 98 12/07/16 08:08 12/07/16 08:08 12/07/16 08:08 12/07/16 08:08 12/07/16 08:08 Intake and Output: 12/07/16 12/07/16 06:59 18:59 Intake Total 1500 Output Total 72 Balance 1428 - Medications Medications: Current Medications Acetaminophen (Tylenol 325mg Tab) 650 mg PO Q6 PRN PRN Reason: Pain, moderate (4-7) Last Admin: 12/02/16 04:06 Dose: 650 mg Enoxaparin Sodium (Lovenox) 30 mg SC DAILY [facility] PR[facility] Reason: Protocol Last Admin: 12/07/16 09:04 Dose: 30 mg Ferrous Sulfate (Feosol) 325 mg PO DAILY [facility] Last Admin: 12/07/16 09:05 Dose: 325 mg Folic Acid (Folic Acid) 5 mg PO DAILY [facility] Last Admin: 12/07/16 09:05 Dose: 5 mg Hydrocortisone (Anusol-Hc) 1 applic AR BID [facility] Last Admin: 12/07/16 09:04 Dose: 1 applic Lactated Ringer's (Lactated Ringer's) 1,000 mls @ 125 mls/hr IV .Q8H [facility] Last Admin: 12/07/16 07:44 Dose: Not Given Meropenem 1 gm/ Sodium (Chloride) 100 mls @ 100 mls/hr IVPB Q8 [facility] Last Admin: 12/07/16 00:18 Dose: 100 mls/hr Vancomycin HCl 1 gm/ Sodium (Chloride) 250 mls @ 250 mls/hr IVPB Q12H [facility] Last Admin: 12/07/16 01:42 Dose: 250 mls/hr Fluconazole (Diflucan Iv 200 Mg/100 Ml Ns) 100 mls @ 100 mls/hr IVPB DAILY [facility] Last Admin: 12/07/16 09:04 Dose: 100 mls/hr Isoniazid (Niazid) 300 mg PO DAILY [facility] Last Admin: 12/07/16 09:05 Dose: 300 mg Lactobacillus Acidophilus (Bacid Acidophilus) 1 cap PO BID [facility] Last Admin: 12/07/16 09:04 Dose: 1 cap Multivitamins/Minerals (Therapeutic-M Tab) 1 tab PO DAILY [facility] Last Admin: 12/07/16 09:05 Dose: 1 tab Ondansetron HCl (Zofran Inj) 4 mg IVP Q4 PRN PRN Reason: Nausea/Vomiting Pantoprazole Sodium (Protonix Ec Tab) 40 mg PO DAILY [facility] Last Admin: 12/07/16 09:05 Dose: 40 mg Pyridoxine HCl (Vitamin B6 50 Mg Tab) 50 mg PO DAILY [facility] Last Admin: 12/07/16 09:05 Dose: 50 mg - Labs Labs: 12/06/16 08:50 12/06/16 08:50 PT 15.7 Seconds (9.8-13.1) H 11/17/16 18:00 INR 1.4 (0.9-1.2) H 11/17/16 18:00 APTT 25.7 Seconds (25.6-37.1) 11/17/16 18:00 - Constitutional Appears: Non-toxic, No Acute Distress - Head Exam Head Exam: ATRAUMATIC, NORMAL INSPECTION - Respiratory Exam Respiratory Exam: NORMAL BREATHING PATTERN. absent: Respiratory Distress - Cardiovascular Exam Cardiovascular Exam: +S1, +S2 - GI/Abdominal Exam GI & Abdominal Exam: Soft. absent: Distended, Firm, Guarding, Rigid, Tenderness , Rebound Additional comments: [address]: Right upper drain: 20cc cloudy output over past 24 hours Right lower drain: 35cc cloudy output over past 24 hours Anterior drain: 30cc cloudy output over past 24 hours. - Neurological Exam Neurological Exam: Alert, Awake - Psychiatric Exam Psychiatric exam: Normal Affect, Normal Mood Assessment and Plan - Assessment and Plan (Free Text) Assessment: 36yo F with Crohn's disease, with sepsis and multiloculated retroperitoneal abscess, s/p IR drainage x3 - Afebrile - Leukocytosis resolved yesterday - Tolerating regular diet - Continue Abx per ID - Encourage ambulation and OOB - CT Abd/Pelvis with PO & IV contrast done yesterday to eval abscesses - Will keep drains for now due to continued drainage - Discussed plan with Dr. Lino Rudd PGY-3 <Devon Huynh - Last Filed: 12/07/16 10:21> Subjective - Date & Time of Evaluation Time of Evaluation: 09:00 - Subjective Subjective: Patient was seen and examined at the bedside. Agree with resident's note above Objective - Vital Signs/Intake and Output Vital Signs (last 24 hours): Temp Pulse Resp BP Pulse Ox 98 F 91 H 20 108/77 98 12/07/16 08:08 12/07/16 08:08 12/07/16 08:08 12/07/16 08:08 12/07/16 08:08 Intake and Output: 12/07/16 12/07/16 06:59 18:59 Intake Total 1500 Output Total 72 Balance 1428 - Medications Medications: Current Medications Acetaminophen (Tylenol 325mg Tab) 650 mg PO Q6 PRN PRN Reason: Pain, moderate (4-7) Last Admin: 12/02/16 04:06 Dose: 650 mg Enoxaparin Sodium (Lovenox) 30 mg SC DAILY [facility] PRN Reason: Protocol Last Admin: 12/07/16 09:04 Dose: 30 mg Ferrous Sulfate (Feosol) 325 mg PO DAILY [facility] Last Admin: 12/07/16 09:05 Dose: 325 mg Folic Acid (Folic Acid) 5 mg PO DAILY [facility] Last Admin: 12/07/16 09:05 Dose: 5 mg Hydrocortisone (Anusol-Hc) 1 applic AR BID [facility] Last Admin: 12/07/16 09:04 Dose: 1 applic Lactated Ringer's (Lactated Ringer's) 1,000 mls @ 125 mls/hr IV .Q8H [facility] Last Admin: 12/07/16 07:44 Dose: Not Given Meropenem 1 gm/ Sodium (Chloride) 100 mls @ 100 mls/hr IVPB Q8 [facility] Last Admin: 12/07/16 00:18 Dose: 100 mls/hr Vancomycin HCl 1 gm/ Sodium (Chloride) 250 mls @ 250 mls/hr IVPB Q12H [facility] Last Admin: 12/07/16 01:42 Dose: 250 mls/hr Fluconazole (Diflucan Iv 200 Mg/100 Ml Ns) 100 mls @ 100 mls/hr IVPB DAILY [facility] Last Admin: 12/07/16 09:04 Dose: 100 mls/hr Isoniazid (Niazid) 300 mg PO DAILY [facility] Last Admin: 12/07/16 09:05 Dose: 300 mg Lactobacillus Acidophilus (Bacid Acidophilus) 1 cap PO BID [facility] Last Admin: 12/07/16 09:04 Dose: 1 cap Multivitamins/Minerals (Therapeutic-M Tab) 1 tab PO DAILY [facility] Last Admin: 12/07/16 09:05 Dose: 1 tab Ondansetron HCl (Zofran Inj) 4 mg IVP Q4 PRN PRN Reason: Nausea/Vomiting Pantoprazole Sodium (Protonix Ec Tab) 40 mg PO DAILY [facility] Last Admin: 12/07/16 09:05 Dose: 40 mg Pyridoxine HCl (Vitamin B6 50 Mg Tab) 50 mg PO DAILY [facility] Last Admin: 12/07/16 09:05 Dose: 50 mg - Labs Labs: 12/06/16 08:50 12/06/16 08:50 PT 15.7 Seconds (9.8-13.1) H 11/17/16 18:00 INR 1.4 (0.9-1.2) H 11/17/16 18:00 APTT 25.7 Seconds (25.6-37.1) 11/17/16 18:00
--- NOTE | 2016-12-07 12:43 | CP.PCM.PN ---
<Pradip Clement - Last Filed: 12/07/16 12:46> Subjective - Date & Time of Evaluation Date of Evaluation: 12/07/16 Time of Evaluation: 08:45 - Subjective Subjective: pt seen and examined this morning with attending. Sitting up in chair, comfortably, NAD. Tolerating PO intake w/o difficulty. Denies pain. Afebrile. No new complaints. Re-eval of abdomen with CT shows several hematomas but collapsed abscesses. Drains with serous fluid. Reports improvement in loose stools. Denies fever/chills, headaches, changes in vision, CP/SOB/Palpitations, N/V/D/C, urinary symptoms, numbness/tingling, calf pain. Objective - Vital Signs/Intake and Output Vital Signs (last 24 hours): Temp Pulse Resp BP Pulse Ox 98 F 91 H 20 108/77 98 12/07/16 10:00 12/07/16 10:00 12/07/16 10:00 12/07/16 10:00 12/07/16 10:00 Intake and Output: 12/07/16 12/07/16 06:59 18:59 Intake Total 1500 Output Total 72 Balance 1428 - Medications Medications: Current Medications Acetaminophen (Tylenol 325mg Tab) 650 mg PO Q6 PRN PRN Reason: Pain, moderate (4-7) Last Admin: 12/02/16 04:06 Dose: 650 mg Enoxaparin Sodium (Lovenox) 30 mg SC DAILY [facility] PRN Reason: Protocol Last Admin: 12/07/16 09:04 Dose: 30 mg Ferrous Sulfate (Feosol) 325 mg PO DAILY [facility] Last Admin: 12/07/16 09:05 Dose: 325 mg Folic Acid (Folic Acid) 5 mg PO DAILY [facility] Last Admin: 12/07/16 09:05 Dose: 5 mg Hydrocortisone (Anusol-Hc) 1 applic [place] BID [facility] Last Admin: 12/07/16 09:04 Dose: 1 applic Lactated Ringer's (Lactated Ringer's) 1,000 mls @ 125 mls/hr IV .Q8H [facility] Last Admin: 12/07/16 07:44 Dose: Not Given Meropenem 1 gm/ Sodium (Chloride) 100 mls @ 100 mls/hr IVPB Q8 [facility] Last Admin: 12/07/16 11:18 Dose: 100 mls/hr Vancomycin HCl 1 gm/ Sodium (Chloride) 250 mls @ 250 mls/hr IVPB Q12H [facility] Last Admin: 12/07/16 12:34 Dose: 250 mls/hr Fluconazole (Diflucan Iv 200 Mg/100 Ml Ns) 100 mls @ 100 mls/hr IVPB DAILY [facility] Last Admin: 12/07/16 09:04 Dose: 100 mls/hr Isoniazid (Niazid) 300 mg PO DAILY [facility] Last Admin: 12/07/16 09:05 Dose: 300 mg Lactobacillus Acidophilus (Bacid Acidophilus) 1 cap PO BID [facility] Last Admin: 12/07/16 09:04 Dose: 1 cap Multivitamins/Minerals (Therapeutic-M Tab) 1 tab PO DAILY [facility] Last Admin: 12/07/16 09:05 Dose: 1 tab Ondansetron HCl (Zofran Inj) 4 mg IVP Q4 PRN PRN Reason: Nausea/Vomiting Pantoprazole Sodium (Protonix Ec Tab) 40 mg PO DAILY [facility] Last Admin: 12/07/16 09:05 Dose: 40 mg Pyridoxine HCl (Vitamin B6 50 Mg Tab) 50 mg PO DAILY [facility] Last Admin: 12/07/16 09:05 Dose: 50 mg - Labs Labs: 12/06/16 08:50 12/06/16 08:50 PT 15.7 Seconds (9.8-13.1) H 11/17/16 18:00 INR 1.4 (0.9-1.2) H 11/17/16 18:00 APTT 25.7 Seconds (25.6-37.1) 11/17/16 18:00 - Constitutional Appears: Non-toxic, No Acute Distress - Eye Exam Eye Exam: EOMI. absent: Conjunctival injection, Scleral icterus Pupil Exam: PERRL - ENT Exam ENT Exam: Mucous Membranes Moist - Neck Exam Neck Exam: Full ROM - Respiratory Exam Respiratory Exam: Clear to Ausculation Bilateral, NORMAL BREATHING PATTERN. absent: Rales, Rhonchi, Wheezes - Cardiovascular Exam Cardiovascular Exam: REGULAR RHYTHM, RRR, +S1, +S2. absent: JVD, Rubs - GI/Abdominal Exam GI & Abdominal Exam: Soft, Normal Bowel Sounds. absent: Firm, Guarding, Rigid, Tenderness Additional comments: IR drains x3 in place. Draining mild cloudy serous fluid. - Extremities Exam Extremities Exam: Full ROM, Normal Inspection. absent: Calf Tenderness, Pedal Edema, Tenderness - Neurological Exam Neurological Exam: Alert, Awake, CN II-XII Intact, Oriented x3 - Psychiatric Exam Psychiatric exam: Normal Affect, Normal Mood - Skin Skin Exam: Dry, Intact, Normal Color, Warm Assessment and Plan - Assessment and Plan (Free Text) Assessment: 36 y/o female with Crohn's disease, complicated with multiloculated retroperitoneal abscesses, s/p IR drainage x3. Plan: 1) Crohn's Disease with multiloculated retroperitoneal abscesses: repeat CT demonstrates collapsed abscesses but 3 hematoma, neither of which are being drained. Tolerating regular diet Continue Abx per ID, possible switch to PO tomorrow Encourage ambulation and OOB Drains to remain for now due to continued drainage as per surgical team 2)Sepsis (resolved) afebile CBC wnl 3) Hydronephrosis (resolved) s/p ureteral stent removal, CT does not report any hydronephrosis at this time. <Ray Mensah K - Last Filed: 12/07/16 16:39> Objective - Vital Signs/Intake and Output Vital Signs (last 24 hours): Temp Pulse Resp BP Pulse Ox 98.3 F 100 H 17 98/61 L 99 12/07/16 16:19 12/07/16 16:19 12/07/16 16:19 12/07/16 16:19 12/07/16 16:19 Intake and Output: 12/07/16 12/07/16 06:59 18:59 Intake Total 1500 Output Total 72 Balance 1428 - Medications Medications: Current Medications Acetaminophen (Tylenol 325mg Tab) 650 mg PO Q6 PRN PRN Reason: Pain, moderate (4-7) Last Admin: 12/02/16 04:06 Dose: 650 mg Enoxaparin Sodium (Lovenox) 30 mg SC DAILY [facility] PRN Reason: Protocol Last Admin: 12/07/16 09:04 Dose: 30 mg Ferrous Sulfate (Feosol) 325 mg PO DAILY [facility] Last Admin: 12/07/16 09:05 Dose: 325 mg Folic Acid (Folic Acid) 5 mg PO DAILY [facility] Last Admin: 12/07/16 09:05 Dose: 5 mg Hydrocortisone (Anusol-Hc) 1 applic MT BID [facility] Last Admin: 12/07/16 09:04 Dose: 1 applic Lactated Ringer's (Lactated Ringer's) 1,000 mls @ 125 mls/hr IV .Q8H [facility] Last Admin: 12/07/16 07:44 Dose: Not Given Meropenem 1 gm/ Sodium (Chloride) 100 mls @ 100 mls/hr IVPB Q8 [facility] Last Admin: 12/07/16 11:18 Dose: 100 mls/hr Vancomycin HCl 1 gm/ Sodium (Chloride) 250 mls @ 250 mls/hr IVPB Q12H [facility] Last Admin: 12/07/16 12:34 Dose: 250 mls/hr Fluconazole (Diflucan Iv 200 Mg/100 Ml Ns) 100 mls @ 100 mls/hr IVPB DAILY [facility] Last Admin: 12/07/16 09:04 Dose: 100 mls/hr Isoniazid (Niazid) 300 mg PO DAILY [facility] Last Admin: 12/07/16 09:05 Dose: 300 mg Lactobacillus Acidophilus (Bacid Acidophilus) 1 cap PO BID [facility] Last Admin: 12/07/16 09:04 Dose: 1 cap Multivitamins/Minerals (Therapeutic-M Tab) 1 tab PO DAILY [facility] Last Admin: 12/07/16 09:05 Dose: 1 tab Ondansetron HCl (Zofran Inj) 4 mg IVP Q4 PRN PRN Reason: Nausea/Vomiting Pantoprazole Sodium (Protonix Ec Tab) 40 mg PO DAILY [facility] Last Admin: 12/07/16 09:05 Dose: 40 mg Pyridoxine HCl (Vitamin B6 50 Mg Tab) 50 mg PO DAILY [facility] Last Admin: 12/07/16 09:05 Dose: 50 mg - Labs Labs: 12/06/16 08:50 12/06/16 08:50 PT 15.7 Seconds (9.8-13.1) H 11/17/16 18:00 INR 1.4 (0.9-1.2) H 11/17/16 18:00 APTT 25.7 Seconds (25.6-37.1) 11/17/16 18:00 Assessment and Plan - Assessment and Plan (Free Text) Assessment: Patient was personally seen and examined by me in rounds with residents. Available labs and diagnostic data reviewed. Case, patient's condition and management plan discussed with residents in rounds. Agree with resident's progress note. Plan: As ordered.
[2016-12-08] MEDS: Meropenem 1 GM in Sodium Chloride 0.9% 100 ML IVPB SCH ×3 (00:18→16:12)
[2016-12-08] MEDS: Lactated Ringer's 1,000 ML IV SCH ×3 (03:08→18:15)
[2016-12-08 07:08] LABS: HEMOGLOBIN 9.2 g/dL (12.0-16.0); MEAN CELL VOLUME 73.4 fl (81.0-99.0); MEAN CORPUSCULAR HEMOGLOBIN 22.9 pg (27.0-31.0); MEAN CORPUSCULAR HGB CONC 31.1 g/dL (33.0-37.0); RBC 4.04 Mil/uL (3.80-5.20); RED CELL DISTRIBUTION WIDTH 31.3 % (11.5-14.5); WHITE BLOOD COUNT 9.8 K/uL (4.8-10.8)
[2016-12-08 07:45] LABS: ALB/GLOB RATIO 0.8 (1.0-2.1); ALBUMIN 3.1 g/dL (3.5-5.0); ALT/SGPT 30 U/L (9-52); AST/SGOT 28 U/L (14-36); BLOOD UREA NITROGEN 10 mg/dl (7-17); CALCIUM 9.5 mg/dL (8.4-10.2); GFR AFRICAN-AMERICAN > 60; GFR NON-AFRICAN AMERICAN > 60
--- NOTE | 2016-12-08 08:08 | CP.PCM.PN ---
Subjective - Date & Time of Evaluation Date of Evaluation: 12/08/16 Time of Evaluation: 08:04 - Subjective Subjective: Surgery for Dr. Dyson Pt s&e. AMAURY. Has soft BM. Torri F/C/N/V/D/CP/SOb. Objective - Vital Signs/Intake and Output Vital Signs (last 24 hours): Temp Pulse Resp BP Pulse Ox 97.8 F 94 H 20 94/56 L 99 12/08/16 00:34 12/08/16 00:34 12/08/16 00:34 12/08/16 00:34 12/08/16 00:34 Intake and Output: 12/08/16 12/08/16 06:59 18:59 Intake Total 1400 Output Total 46 Balance 1354 - Medications Medications: Current Medications Acetaminophen (Tylenol 325mg Tab) 650 mg PO Q6 PRN PRN Reason: Pain, moderate (4-7) Last Admin: 12/02/16 04:06 Dose: 650 mg Enoxaparin Sodium (Lovenox) 30 mg SC DAILY [facility] PRN Reason: Protocol Last Admin: 12/07/16 09:04 Dose: 30 mg Ferrous Sulfate (Feosol) 325 mg PO DAILY [facility] Last Admin: 12/07/16 09:05 Dose: 325 mg Folic Acid (Folic Acid) 5 mg PO DAILY [facility] Last Admin: 12/07/16 09:05 Dose: 5 mg Hydrocortisone (Anusol-Hc) 1 applic [place] BID [facility] Last Admin: 12/07/16 16:53 Dose: 1 applic Lactated Ringer's (Lactated Ringer's) 1,000 mls @ 125 mls/hr IV .Q8H [facility] Last Admin: 12/08/16 07:57 Dose: Not Given Meropenem 1 gm/ Sodium (Chloride) 100 mls @ 100 mls/hr IVPB Q8 [facility] Last Admin: 12/08/16 00:18 Dose: 100 mls/hr Vancomycin HCl 1 gm/ Sodium (Chloride) 250 mls @ 250 mls/hr IVPB Q12H [facility] Last Admin: 12/08/16 01:31 Dose: 250 mls/hr Fluconazole (Diflucan Iv 200 Mg/100 Ml Ns) 100 mls @ 100 mls/hr IVPB DAILY [facility] Last Admin: 12/07/16 09:04 Dose: 100 mls/hr Isoniazid (Niazid) 300 mg PO DAILY [facility] Last Admin: 12/07/16 09:05 Dose: 300 mg Lactobacillus Acidophilus (Bacid Acidophilus) 1 cap PO BID [facility] Last Admin: 12/07/16 16:52 Dose: 1 cap Multivitamins/Minerals (Therapeutic-M Tab) 1 tab PO DAILY [facility] Last Admin: 12/07/16 09:05 Dose: 1 tab Ondansetron HCl (Zofran Inj) 4 mg IVP Q4 PRN PRN Reason: Nausea/Vomiting Pantoprazole Sodium (Protonix Ec Tab) 40 mg PO DAILY [facility] Last Admin: 12/07/16 09:05 Dose: 40 mg Pyridoxine HCl (Vitamin B6 50 Mg Tab) 50 mg PO DAILY [facility] Last Admin: 12/07/16 09:05 Dose: 50 mg - Labs Labs: 12/08/16 06:50 12/08/16 06:50 PT 15.7 Seconds (9.8-13.1) H 11/17/16 18:00 INR 1.4 (0.9-1.2) H 11/17/16 18:00 APTT 25.7 Seconds (25.6-37.1) 11/17/16 18:00 - Constitutional Appears: No Acute Distress - Head Exam Head Exam: ATRAUMATIC, NORMAL INSPECTION, NORMOCEPHALIC - Eye Exam Eye Exam: EOMI, Normal appearance, PERRL Pupil Exam: NORMAL ACCOMODATION, PERRL - ENT Exam ENT Exam: Mucous Membranes Moist, Normal Exam - Neck Exam Neck Exam: Full ROM, Normal Inspection. absent: Lymphadenopathy - Respiratory Exam Respiratory Exam: Clear to Ausculation Bilateral, NORMAL BREATHING PATTERN - Cardiovascular Exam Cardiovascular Exam: REGULAR RHYTHM, +S1, +S2. absent: Murmur - GI/Abdominal Exam GI & Abdominal Exam: Soft, Normal Bowel Sounds. absent: Distended, Firm, Guarding, Rigid, Tenderness Additional comments: Drains x3. SS. 45ml/ON - Extremities Exam Extremities Exam: Full ROM, Normal Capillary Refill, Normal Inspection - Back Exam Back Exam: NORMAL INSPECTION - Neurological Exam Neurological Exam: Alert, Awake, CN II-XII Intact, Oriented x3 - Psychiatric Exam Psychiatric exam: Normal Affect, Normal Mood - Skin Skin Exam: Dry, Intact, Normal Color, Warm Assessment and Plan - Assessment and Plan (Free Text) Assessment: 36yo F with Crohn's disease, with sepsis and multiloculated retroperitoneal abscess, s/p IR drainage x3 - Afebrile - Leukocytosis resolved -Drainage 45cc/ON : Decreasing -Repeat CT : improved - Tolerating regular diet -Abx per ID - Encourage ambulation and OOB - IR can DC drains. - Ok to DC for surgical standpoint after drain DC ed. - Discussed plan with Dr. Beach
[2016-12-08] MEDS: Hydrocortisone 2.5% (Rectal) CREAM PR SCH ×2 (08:48→16:13)
[2016-12-08] MEDS: Enoxaparin 30 mg Syringe SC SCH (08:48)
[2016-12-08] MEDS: Lactobacillus Acidophilus 500 MU Cap PO SCH ×2 (08:48→16:13)
[2016-12-08] MEDS: Pantoprazole 40 mg EC Tab PO SCH (08:49)
[2016-12-08] MEDS: Multivitamin With Minerals Tab PO SCH (08:49)
--- NOTE | 2016-12-08 09:36 | CP.PCM.PN ---
<Pradip Clement - Last Filed: 12/08/16 11:22> Subjective - Date & Time of Evaluation Date of Evaluation: 12/08/16 Time of Evaluation: 09:00 - Subjective Subjective: pt seen and examined at bedside. No acute events overnight. No new complaints. Denies fever/chills. Loose stool but improving. Tolerating PO w/o diffculty. Denies headaches, changes in vision, CP/SOB/Palpitations, N/V/D/C, urinary symptoms, numbness/tingling, leg pain. Objective - Vital Signs/Intake and Output Vital Signs (last 24 hours): Temp Pulse Resp BP Pulse Ox 98.4 F 74 20 117/80 99 12/08/16 08:35 12/08/16 08:35 12/08/16 08:35 12/08/16 08:35 12/08/16 08:35 Intake and Output: 12/08/16 12/08/16 06:59 18:59 Intake Total 1400 Output Total 46 Balance 1354 - Medications Medications: Current Medications Acetaminophen (Tylenol 325mg Tab) 650 mg PO Q6 PRN PRN Reason: Pain, moderate (4-7) Last Admin: 12/02/16 04:06 Dose: 650 mg Enoxaparin Sodium (Lovenox) 30 mg SC DAILY [facility] PRN Reason: Protocol Last Admin: 12/08/16 08:48 Dose: 30 mg Ferrous Sulfate (Feosol) 325 mg PO DAILY [facility] Last Admin: 12/08/16 08:49 Dose: 325 mg Folic Acid (Folic Acid) 5 mg PO DAILY [facility] Last Admin: 12/08/16 08:49 Dose: 5 mg Hydrocortisone (Anusol-Hc) 1 applic [place] BID [facility] Last Admin: 12/08/16 08:48 Dose: 1 applic Lactated Ringer's (Lactated Ringer's) 1,000 mls @ 125 mls/hr IV .Q8H [facility] Last Admin: 12/08/16 07:57 Dose: Not Given Meropenem 1 gm/ Sodium (Chloride) 100 mls @ 100 mls/hr IVPB Q8 [facility] Last Admin: 12/08/16 08:48 Dose: 100 mls/hr Vancomycin HCl 1 gm/ Sodium (Chloride) 250 mls @ 250 mls/hr IVPB Q12H [facility] Last Admin: 12/08/16 01:31 Dose: 250 mls/hr Fluconazole (Diflucan Iv 200 Mg/100 Ml Ns) 100 mls @ 100 mls/hr IVPB DAILY [facility] Last Admin: 12/07/16 09:04 Dose: 100 mls/hr Isoniazid (Niazid) 300 mg PO DAILY [facility] Last Admin: 12/08/16 08:49 Dose: 300 mg Lactobacillus Acidophilus (Bacid Acidophilus) 1 cap PO BID [facility] Last Admin: 12/08/16 08:48 Dose: 1 cap Multivitamins/Minerals (Therapeutic-M Tab) 1 tab PO DAILY [facility] Last Admin: 12/08/16 08:49 Dose: 1 tab Ondansetron HCl (Zofran Inj) 4 mg IVP Q4 PRN PRN Reason: Nausea/Vomiting Pantoprazole Sodium (Protonix Ec Tab) 40 mg PO DAILY [facility] Last Admin: 12/08/16 08:49 Dose: 40 mg Pyridoxine HCl (Vitamin B6 50 Mg Tab) 50 mg PO DAILY [facility] Last Admin: 12/08/16 08:49 Dose: 50 mg - Labs Labs: 12/08/16 06:50 12/08/16 06:50 PT 15.7 Seconds (9.8-13.1) H 11/17/16 18:00 INR 1.4 (0.9-1.2) H 11/17/16 18:00 APTT 25.7 Seconds (25.6-37.1) 11/17/16 18:00 - Constitutional Appears: Non-toxic, No Acute Distress - Head Exam Head Exam: ATRAUMATIC, NORMOCEPHALIC - Eye Exam Eye Exam: EOMI Pupil Exam: PERRL - ENT Exam ENT Exam: Mucous Membranes Moist - Neck Exam Neck Exam: Full ROM - Respiratory Exam Respiratory Exam: Clear to Ausculation Bilateral, NORMAL BREATHING PATTERN. absent: Rales, Rhonchi, Wheezes - Cardiovascular Exam Cardiovascular Exam: REGULAR RHYTHM, RRR, +S1, +S2. absent: Tachycardia, Gallop , JVD, Rubs, Murmur - GI/Abdominal Exam GI & Abdominal Exam: Soft, Normal Bowel Sounds. absent: Firm, Guarding, Rigid, Tenderness Additional comments: s/p IR drain insertion x3 drains currently clear s/p NS flush by nursing. - Back Exam Back Exam: NORMAL INSPECTION. absent: CVA tenderness (L), CVA tenderness (R) - Neurological Exam Neurological Exam: Alert, Awake, CN II-XII Intact, Oriented x3 - Psychiatric Exam Psychiatric exam: Normal Affect, Normal Mood - Skin Skin Exam: Dry, Normal Color, Warm Assessment and Plan - Assessment and Plan (Free Text) Assessment: 1) Crohn's Disease with multiloculated retroperitoneal abscesses: repeat CT demonstrates collapsed abscesses but 3 hematomas, neither of which are being drained. Tolerating regular diet Continue Abx per ID, possible switch to PO tomorrow Encourage ambulation and OOB Drains to be removed by IR today 2)Sepsis (resolved) afebile CBC wnl 3) Hydronephrosis (resolved) s/p ureteral stent removal, CT does not report any hydronephrosis at this time. <Ray Mensah K - Last Filed: 12/09/16 11:08> Objective - Vital Signs/Intake and Output Vital Signs (last 24 hours): Temp Pulse Resp BP Pulse Ox 98.3 F 78 20 106/71 98 12/09/16 08:59 12/09/16 08:59 12/09/16 08:59 12/09/16 08:59 12/09/16 08:59 - Medications Medications: Current Medications Acetaminophen (Tylenol 325mg Tab) 650 mg PO Q6 PRN PRN Reason: Pain, moderate (4-7) Last Admin: 12/02/16 04:06 Dose: 650 mg Enoxaparin Sodium (Lovenox) 30 mg SC DAILY [facility] PRN Reason: Protocol Last Admin: 12/09/16 10:23 Dose: 30 mg Ferrous Sulfate (Feosol) 325 mg PO DAILY [facility] Last Admin: 12/09/16 10:20 Dose: 325 mg Folic Acid (Folic Acid) 5 mg PO DAILY [facility] Last Admin: 12/09/16 10:17 Dose: 5 mg Hydrocortisone (Anusol-Hc) 1 applic [place] BID [facility] Last Admin: 12/09/16 10:24 Dose: 1 applic Lactated Ringer's (Lactated Ringer's) 1,000 mls @ 125 mls/hr IV .Q8H [facility] Last Admin: 12/09/16 02:04 Dose: Not Given Meropenem 1 gm/ Sodium (Chloride) 100 mls @ 100 mls/hr IVPB Q8 [facility] Last Admin: 12/09/16 10:26 Dose: 100 mls/hr Vancomycin HCl 1 gm/ Sodium (Chloride) 250 mls @ 250 mls/hr IVPB Q12H [facility] Last Admin: 12/09/16 01:57 Dose: 250 mls/hr Fluconazole (Diflucan Iv 200 Mg/100 Ml Ns) 100 mls @ 100 mls/hr IVPB DAILY [facility] Last Admin: 12/09/16 10:28 Dose: 100 mls/hr Isoniazid (Niazid) 300 mg PO DAILY [facility] Last Admin: 12/09/16 10:21 Dose: 300 mg Lactobacillus Acidophilus (Bacid Acidophilus) 1 cap PO BID [facility] Last Admin: 12/09/16 10:56 Dose: 1 cap Multivitamins/Minerals (Therapeutic-M Tab) 1 tab PO DAILY [facility] Last Admin: 12/09/16 10:20 Dose: 1 tab Ondansetron HCl (Zofran Inj) 4 mg IVP Q4 PRN PRN Reason: Nausea/Vomiting Pantoprazole Sodium (Protonix Ec Tab) 40 mg PO DAILY [facility] Last Admin: 12/09/16 10:21 Dose: 40 mg Pyridoxine HCl (Vitamin B6 50 Mg Tab) 50 mg PO DAILY [facility] Last Admin: 12/09/16 10:19 Dose: 50 mg - Labs Labs: 12/09/16 05:30 12/09/16 05:30 PT 15.7 Seconds (9.8-13.1) H 11/17/16 18:00 INR 1.4 (0.9-1.2) H 11/17/16 18:00 APTT 25.7 Seconds (25.6-37.1) 11/17/16 18:00 Assessment and Plan - Assessment and Plan (Free Text) Assessment: Patient was personally seen and examined by me in rounds with residents. Available labs and diagnostic data reviewed. Case, Patient's condition and management plan discussed with residents in rounds. Agree with resident's progress note. Plan: As ordered.
[2016-12-08] MEDS: Fluconazole IV 200mg/100 ml NS 100 ML IVPB SCH (10:00)
--- NOTE | 2016-12-08 13:06 | CP.PCM.PN ---
Subjective - Date & Time of Evaluation Date of Evaluation: 12/08/16 Time of Evaluation: 10:00 - Subjective Subjective: DRAINS IN PLACE NO NEW CULTURES CONT IV RX Objective - Vital Signs/Intake and Output Vital Signs (last 24 hours): Temp Pulse Resp BP Pulse Ox 98.4 F 74 20 117/80 99 12/08/16 10:00 12/08/16 10:00 12/08/16 10:00 12/08/16 10:00 12/08/16 10:00 Intake and Output: 12/08/16 12/08/16 06:59 18:59 Intake Total 1400 Output Total 46 Balance 1354 - Medications Medications: Current Medications Acetaminophen (Tylenol 325mg Tab) 650 mg PO Q6 PRN PRN Reason: Pain, moderate (4-7) Last Admin: 12/02/16 04:06 Dose: 650 mg Enoxaparin Sodium (Lovenox) 30 mg SC DAILY [facility] PRN Reason: Protocol Last Admin: 12/08/16 08:48 Dose: 30 mg Ferrous Sulfate (Feosol) 325 mg PO DAILY [facility] Last Admin: 12/08/16 08:49 Dose: 325 mg Folic Acid (Folic Acid) 5 mg PO DAILY [facility] Last Admin: 12/08/16 08:49 Dose: 5 mg Hydrocortisone (Anusol-Hc) 1 applic [place] BID [facility] Last Admin: 12/08/16 08:48 Dose: 1 applic Lactated Ringer's (Lactated Ringer's) 1,000 mls @ 125 mls/hr IV .Q8H [facility] Last Admin: 12/08/16 07:57 Dose: Not Given Meropenem 1 gm/ Sodium (Chloride) 100 mls @ 100 mls/hr IVPB Q8 [facility] Last Admin: 12/08/16 08:48 Dose: 100 mls/hr Vancomycin HCl 1 gm/ Sodium (Chloride) 250 mls @ 250 mls/hr IVPB Q12H [facility] Last Admin: 12/08/16 01:31 Dose: 250 mls/hr Fluconazole (Diflucan Iv 200 Mg/100 Ml Ns) 100 mls @ 100 mls/hr IVPB DAILY [facility] Last Admin: 12/08/16 10:00 Dose: 100 mls/hr Isoniazid (Niazid) 300 mg PO DAILY [facility] Last Admin: 12/08/16 08:49 Dose: 300 mg Lactobacillus Acidophilus (Bacid Acidophilus) 1 cap PO BID [facility] Last Admin: 12/08/16 08:48 Dose: 1 cap Multivitamins/Minerals (Therapeutic-M Tab) 1 tab PO DAILY [facility] Last Admin: 12/08/16 08:49 Dose: 1 tab Ondansetron HCl (Zofran Inj) 4 mg IVP Q4 PRN PRN Reason: Nausea/Vomiting Pantoprazole Sodium (Protonix Ec Tab) 40 mg PO DAILY [facility] Last Admin: 12/08/16 08:49 Dose: 40 mg Pyridoxine HCl (Vitamin B6 50 Mg Tab) 50 mg PO DAILY [facility] Last Admin: 12/08/16 08:49 Dose: 50 mg - Labs Labs: 12/08/16 06:50 12/08/16 06:50 PT 15.7 Seconds (9.8-13.1) H 11/17/16 18:00 INR 1.4 (0.9-1.2) H 11/17/16 18:00 APTT 25.7 Seconds (25.6-37.1) 11/17/16 18:00 - Constitutional Appears: Non-toxic, Chronically Ill - Head Exam Head Exam: NORMOCEPHALIC - Eye Exam Eye Exam: PERRL. absent: Scleral icterus - ENT Exam ENT Exam: Mucous Membranes Dry, Normal External Ear Exam - Neck Exam Neck Exam: absent: Lymphadenopathy - Respiratory Exam Respiratory Exam: Decreased Breath Sounds - Cardiovascular Exam Cardiovascular Exam: REGULAR RHYTHM - GI/Abdominal Exam GI & Abdominal Exam: Distended, Soft - Rectal Exam Rectal Exam: Deferred Assessment and Plan (1) Acute Crohn's disease with abscess Status: Acute (2) Acute Crohn's disease with abscess Status: Acute (3) Acute Crohn's disease with complication Status: Acute (4) Acute Crohn's disease with complication Status: Acute (5) Intra-abdominal abscess Status: Acute (6) Sepsis Status: Acute
--- NOTE | 2016-12-08 15:04 | PN ---
Progress note: Date of Service: 11/25/2016 The patient has been seen and examined, in which consults were given. The consults were noted and appreciated. Patient was advised of a surgical follow up , and possible intervention which has also been noted. He remains on the surgical medical floor and he states that his pain is okay and has been adequately controlled at this time. He denies any chest pain, nausea or chest pain. PE: Upon examination the patient is in NAD, and his vital signs are stable. His heart has a RRR, and no murmurs. Lungs are clear bilaterally. Abdomen is soft nontender, no sign of acute abdomen, or peritoneal signs. The patient has 3x drains in his abdomen. All of which are draining [60.8- 65.0]. Patient's extremities show no evidence of edema, tenderness, clubbing or acute ischemia. The rest of the exam is relatively unchanged. Diagnostic Data: All available data has been reviewed with the patient. His current medical condition is stable and he seems to be improving at this current time. Ray Mensah MD MTDD
--- NOTE | 2016-12-08 15:52 | PN ---
Dr. Mensah Patient was seen in examining ____ Surgical follow up HPI: Pt remains in clinic abdominal pain, the pain is adequately controlled. No chest pain, no SOB, patient is able to eat, drink too. Patient denies any of the specific complaints. PE: Abdomen: Patient has multiple drains? draining s Bowel sounds: normal sounds Extremities: no edema no tenderness Assessment and Plan: Patient's conditions is slowly improving. Ray Mensah MD
--- NOTE | 2016-12-08 16:10 | PN ---
Patient was seen in ____ Patient mentioned medical ____. Patient has ___. Patient has complaints of burning urination, no chest pain ____. Physical exam: Patient is in no acute distress. ____ Her exam is ____ lungs are ____ soft ____ minimal drainage essentially unchanged. Diagnostic: I was able to ____ Overall, patient general medical condition is ____ Ray Mensah MDD
[2016-12-09] MEDS: Meropenem 1 GM in Sodium Chloride 0.9% 100 ML IVPB SCH ×3 (00:42→18:10)
[2016-12-09] MEDS: Lactated Ringer's 1,000 ML IV SCH ×2 (02:04→15:02)
[2016-12-09 07:30] LABS: BASO % 0.5 % (0.0-2.0); EOS # 0.2 K/uL (0.0-0.7); EOS % 2.3 % (0.0-4.0); HEMOGLOBIN 9.6 g/dL (12.0-16.0); LYMPH # 1.3 K/uL (1.0-4.3); LYMPH % 15.3 % (20.0-40.0); MEAN CELL VOLUME 73.1 fl (81.0-99.0); MEAN CORPUSCULAR HEMOGLOBIN 23.5 pg (27.0-31.0); MEAN CORPUSCULAR HGB CONC 32.1 g/dL (33.0-37.0); MEAN PLATELET VOLUME 8.9 fl (7.2-11.7); MONO # 0.4 K/uL (0.0-0.8); MONO % 4.6 % (0.0-10.0); NEUT # 6.7 K/uL (1.8-7.0); NEUT % 77.3 % (50.0-75.0); RBC 4.07 Mil/uL (3.80-5.20); RED CELL DISTRIBUTION WIDTH 31.7 % (11.5-14.5); WHITE BLOOD COUNT 8.6 K/uL (4.8-10.8)
[2016-12-09 07:45] LABS: ALB/GLOB RATIO 0.8 (1.0-2.1); ALBUMIN 3.2 g/dL (3.5-5.0); ALT/SGPT 26 U/L (9-52); AST/SGOT 42 U/L (14-36); BLOOD UREA NITROGEN 10 mg/dl (7-17); CALCIUM 9.7 mg/dL (8.4-10.2); GFR AFRICAN-AMERICAN > 60; GFR NON-AFRICAN AMERICAN > 60
--- NOTE | 2016-12-09 08:38 | CP.PCM.PN ---
<Lucia Vázquez - Last Filed: 12/09/16 08:36> Subjective - Date & Time of Evaluation Date of Evaluation: 12/09/16 Time of Evaluation: 08:36 - Subjective Subjective: Surgery for Dr. Lino Cortes s&fabian REBOLLEDO. Doing well. No pain. Denies F/C/N/V/D/Cp/SOB. Objective - Vital Signs/Intake and Output Vital Signs (last 24 hours): Temp Pulse Resp BP Pulse Ox 97.9 F 77 19 105/70 98 12/09/16 00:03 12/09/16 00:03 12/09/16 00:03 12/09/16 00:03 12/09/16 00:03 - Medications Medications: Current Medications Acetaminophen (Tylenol 325mg Tab) 650 mg PO Q6 PRN PRN Reason: Pain, moderate (4-7) Last Admin: 12/02/16 04:06 Dose: 650 mg Enoxaparin Sodium (Lovenox) 30 mg SC DAILY [facility] PRN Reason: Protocol Last Admin: 12/08/16 08:48 Dose: 30 mg Ferrous Sulfate (Feosol) 325 mg PO DAILY [facility] Last Admin: 12/08/16 08:49 Dose: 325 mg Folic Acid (Folic Acid) 5 mg PO DAILY [facility] Last Admin: 12/08/16 08:49 Dose: 5 mg Hydrocortisone (Anusol-Hc) 1 applic [place] BID [facility] Last Admin: 12/08/16 16:13 Dose: 1 applic Lactated Ringer's (Lactated Ringer's) 1,000 mls @ 125 mls/hr IV .Q8H [facility] Last Admin: 12/09/16 02:04 Dose: Not Given Meropenem 1 gm/ Sodium (Chloride) 100 mls @ 100 mls/hr IVPB Q8 [facility] Last Admin: 12/09/16 00:42 Dose: 100 mls/hr Vancomycin HCl 1 gm/ Sodium (Chloride) 250 mls @ 250 mls/hr IVPB Q12H [facility] Last Admin: 12/09/16 01:57 Dose: 250 mls/hr Fluconazole (Diflucan Iv 200 Mg/100 Ml Ns) 100 mls @ 100 mls/hr IVPB DAILY [facility] Last Admin: 12/08/16 10:00 Dose: 100 mls/hr Isoniazid (Niazid) 300 mg PO DAILY [facility] Last Admin: 12/08/16 08:49 Dose: 300 mg Lactobacillus Acidophilus (Bacid Acidophilus) 1 cap PO BID [facility] Last Admin: 12/08/16 16:13 Dose: 1 cap Multivitamins/Minerals (Therapeutic-M Tab) 1 tab PO DAILY [facility] Last Admin: 12/08/16 08:49 Dose: 1 tab Ondansetron HCl (Zofran Inj) 4 mg IVP Q4 PRN PRN Reason: Nausea/Vomiting Pantoprazole Sodium (Protonix Ec Tab) 40 mg PO DAILY [facility] Last Admin: 12/08/16 08:49 Dose: 40 mg Pyridoxine HCl (Vitamin B6 50 Mg Tab) 50 mg PO DAILY [facility] Last Admin: 12/08/16 08:49 Dose: 50 mg - Labs Labs: 12/09/16 05:30 12/09/16 05:30 PT 15.7 Seconds (9.8-13.1) H 11/17/16 18:00 INR 1.4 (0.9-1.2) H 11/17/16 18:00 APTT 25.7 Seconds (25.6-37.1) 11/17/16 18:00 - Constitutional Appears: No Acute Distress - Head Exam Head Exam: ATRAUMATIC, NORMAL INSPECTION, NORMOCEPHALIC - Eye Exam Eye Exam: EOMI, Normal appearance, PERRL Pupil Exam: NORMAL ACCOMODATION, PERRL - ENT Exam ENT Exam: Mucous Membranes Moist, Normal Exam - Neck Exam Neck Exam: Full ROM, Normal Inspection. absent: Lymphadenopathy - Respiratory Exam Respiratory Exam: Clear to Ausculation Bilateral, NORMAL BREATHING PATTERN - Cardiovascular Exam Cardiovascular Exam: REGULAR RHYTHM, +S1, +S2. absent: Murmur - GI/Abdominal Exam GI & Abdominal Exam: Soft, Tenderness, Normal Bowel Sounds. absent: Distended, Firm, Guarding, Rigid Additional comments: R drains x3 inplace. SS fluids. 50cc output /24hrs - Exam Exam: NORMAL INSPECTION - Extremities Exam Extremities Exam: Full ROM, Normal Capillary Refill, Normal Inspection. absent : Joint Swelling, Pedal Edema - Back Exam Back Exam: NORMAL INSPECTION - Neurological Exam Neurological Exam: Alert, Awake, CN II-XII Intact, Normal Gait, Oriented x3 - Psychiatric Exam Psychiatric exam: Normal Affect, Normal Mood - Skin Skin Exam: Dry, Intact, Normal Color, Warm Assessment and Plan - Assessment and Plan (Free Text) Assessment: 36yo F with Crohn's disease, with sepsis and multiloculated retroperitoneal abscess, s/p IR drainage x3 - Afebrile - Leukocytosis resolved -Drainage 50/24hrs : Decreasing -Repeat CT : improved - Tolerating regular diet - Abx per ID - Encourage ambulation and OOB - IR can DC drains. - Ok to DC for surgical standpoint after drain DC ed. <Devon Huynh - Last Filed: 12/09/16 15:02> Subjective - Date & Time of Evaluation Time of Evaluation: 13:35 - Subjective Subjective: Patient was seen and examined at the bedside. Agree with resident's note above. Objective - Vital Signs/Intake and Output Vital Signs (last 24 hours): Temp Pulse Resp BP Pulse Ox 98.3 F 78 20 106/71 98 12/09/16 08:59 12/09/16 08:59 12/09/16 08:59 12/09/16 08:59 12/09/16 08:59 Intake and Output: 12/09/16 12/09/16 06:59 18:59 Output Total 40 Balance -40 - Medications Medications: Current Medications Acetaminophen (Tylenol 325mg Tab) 650 mg PO Q6 PRN PRN Reason: Pain, moderate (4-7) Last Admin: 12/02/16 04:06 Dose: 650 mg Enoxaparin Sodium (Lovenox) 30 mg SC DAILY [facility] PRN Reason: Protocol Last Admin: 12/09/16 10:23 Dose: 30 mg Ferrous Sulfate (Feosol) 325 mg PO DAILY [facility] Last Admin: 12/09/16 10:20 Dose: 325 mg Folic Acid (Folic Acid) 5 mg PO DAILY [facility] Last Admin: 12/09/16 10:17 Dose: 5 mg Hydrocortisone (Anusol-Hc) 1 applic [place] BID [facility] Last Admin: 12/09/16 10:24 Dose: 1 applic Lactated Ringer's (Lactated Ringer's) 1,000 mls @ 125 mls/hr IV .Q8H [facility] Last Admin: 12/09/16 02:04 Dose: Not Given Meropenem 1 gm/ Sodium (Chloride) 100 mls @ 100 mls/hr IVPB Q8 [facility] Last Admin: 12/09/16 10:26 Dose: 100 mls/hr Vancomycin HCl 1 gm/ Sodium (Chloride) 250 mls @ 250 mls/hr IVPB Q12H [facility] Last Admin: 12/09/16 13:08 Dose: 250 mls/hr Fluconazole (Diflucan Iv 200 Mg/100 Ml Ns) 100 mls @ 100 mls/hr IVPB DAILY [facility] Last Admin: 12/09/16 10:28 Dose: 100 mls/hr Isoniazid (Niazid) 300 mg PO DAILY [facility] Last Admin: 12/09/16 10:21 Dose: 300 mg Lactobacillus Acidophilus (Bacid Acidophilus) 1 cap PO BID [facility] Last Admin: 12/09/16 10:56 Dose: 1 cap Multivitamins/Minerals (Therapeutic-M Tab) 1 tab PO DAILY [facility] Last Admin: 12/09/16 10:20 Dose: 1 tab Ondansetron HCl (Zofran Inj) 4 mg IVP Q4 PRN PRN Reason: Nausea/Vomiting Pantoprazole Sodium (Protonix Ec Tab) 40 mg PO DAILY [facility] Last Admin: 12/09/16 10:21 Dose: 40 mg Pyridoxine HCl (Vitamin B6 50 Mg Tab) 50 mg PO DAILY [facility] Last Admin: 12/09/16 10:19 Dose: 50 mg - Labs Labs: 12/09/16 05:30 12/09/16 05:30 PT 15.7 Seconds (9.8-13.1) H 11/17/16 18:00 INR 1.4 (0.9-1.2) H 11/17/16 18:00 APTT 25.7 Seconds (25.6-37.1) 11/17/16 18:00
[2016-12-09] MEDS: Multivitamin With Minerals Tab PO SCH (10:20)
[2016-12-09] MEDS: Pantoprazole 40 mg EC Tab PO SCH (10:21)
[2016-12-09] MEDS: Enoxaparin 30 mg Syringe SC SCH (10:23)
[2016-12-09] MEDS: Hydrocortisone 2.5% (Rectal) CREAM PR SCH ×2 (10:24→17:01)
[2016-12-09] MEDS: Fluconazole IV 200mg/100 ml NS 100 ML IVPB SCH (10:28)
[2016-12-09] MEDS: Lactobacillus Acidophilus 500 MU Cap PO SCH ×2 (10:56→17:01)
--- NOTE | 2016-12-09 11:05 | PN ---
DATE: 12/09/2016 SUBJECTIVE: The patient admitted to the medical floor. The patient Abdominal pain is adequately controlled, no chest pain, no shortness of breath. His abdominal pain is adequately controlled. PHYSICAL EXAMINATION GENERAL: The patient is in no acute distress. VITAL SIGNS: Stable. HEART: S1, S2. Normal rate and rhythm. LUNGS: Good bilateral air exchange. ABDOMEN: Soft and nontender. No sign of acute abdomen. No guarding, no rigidity, no rebound. The patient has multiple drains which are draining minimal amount of serosanguineous liquid. EXTREMITIES: No edema, no clubbing, no cyanosis, no tenderness, no acute ischemia. BEAN SNAPPER: Essentially unchanged. DIAGNOSTIC DATA: Available diagnostic data reviewed. The patient's medical condition is stable. PLAN: As ordered. Ray Mensah MD MTDVandana
[2016-12-10] MEDS: Meropenem 1 GM in Sodium Chloride 0.9% 100 ML IVPB SCH ×3 (00:31→16:38)
[2016-12-10] MEDS: Lactated Ringer's 1,000 ML IV SCH ×3 (00:37→23:01)
[2016-12-10] MEDS: Fluconazole IV 200mg/100 ml NS 100 ML IVPB SCH (09:53)
[2016-12-10] MEDS: Multivitamin With Minerals Tab PO SCH (09:53)
[2016-12-10] MEDS: Pantoprazole 40 mg EC Tab PO SCH (09:53)
[2016-12-10] MEDS: Enoxaparin 30 mg Syringe SC SCH (09:55)
[2016-12-10] MEDS: Hydrocortisone 2.5% (Rectal) CREAM PR SCH ×2 (09:55→16:39)
[2016-12-10] MEDS: Lactobacillus Acidophilus 500 MU Cap PO SCH ×2 (09:57→16:39)
--- NOTE | 2016-12-10 10:31 | CP.PCM.PN ---
<GurpreetLucia - Last Filed: 12/10/16 12:50> Subjective - Date & Time of Evaluation Date of Evaluation: 12/10/16 Time of Evaluation: 12:50 - Subjective Subjective: Surgery for Dr. Huynh Pt s&eMichelle REBOLLEDO. Denies F/C/N/V/D/Cp/SOB. +amb. +void. reg BM. Pain controlled. Objective - Vital Signs/Intake and Output Vital Signs (last 24 hours): Temp Pulse Resp BP Pulse Ox 98.3 F 81 20 113/76 99 12/10/16 08:14 12/10/16 08:14 12/10/16 08:14 12/10/16 08:14 12/10/16 08:14 - Medications Medications: Current Medications Acetaminophen (Tylenol 325mg Tab) 650 mg PO Q6 PRN PRN Reason: Pain, moderate (4-7) Last Admin: 12/02/16 04:06 Dose: 650 mg Enoxaparin Sodium (Lovenox) 30 mg SC DAILY [facility] PRN Reason: Protocol Last Admin: 12/10/16 09:55 Dose: 30 mg Ferrous Sulfate (Feosol) 325 mg PO DAILY [facility] Last Admin: 12/10/16 09:54 Dose: 325 mg Folic Acid (Folic Acid) 5 mg PO DAILY [facility] Last Admin: 12/10/16 09:54 Dose: 5 mg Hydrocortisone (Anusol-Hc) 1 applic CO BID [facility] Last Admin: 12/10/16 09:55 Dose: 1 applic Lactated Ringer's (Lactated Ringer's) 1,000 mls @ 125 mls/hr IV .Q8H [facility] Last Admin: 12/10/16 00:37 Dose: 125 mls/hr Meropenem 1 gm/ Sodium (Chloride) 100 mls @ 100 mls/hr IVPB Q8 [facility] Last Admin: 12/10/16 00:31 Dose: 100 mls/hr Vancomycin HCl 1 gm/ Sodium (Chloride) 250 mls @ 250 mls/hr IVPB Q12H [facility] Last Admin: 12/10/16 01:58 Dose: 250 mls/hr Fluconazole (Diflucan Iv 200 Mg/100 Ml Ns) 100 mls @ 100 mls/hr IVPB DAILY [facility] Last Admin: 12/10/16 09:53 Dose: 100 mls/hr Isoniazid (Niazid) 300 mg PO DAILY [facility] Last Admin: 12/10/16 09:54 Dose: 300 mg Lactobacillus Acidophilus (Bacid Acidophilus) 1 cap PO BID [facility] Last Admin: 12/10/16 09:57 Dose: 1 cap Multivitamins/Minerals (Therapeutic-M Tab) 1 tab PO DAILY [facility] Last Admin: 12/10/16 09:53 Dose: 1 tab Ondansetron HCl (Zofran Inj) 4 mg IVP Q4 PRN PRN Reason: Nausea/Vomiting Pantoprazole Sodium (Protonix Ec Tab) 40 mg PO DAILY [facility] Last Admin: 12/10/16 09:53 Dose: 40 mg Pyridoxine HCl (Vitamin B6 50 Mg Tab) 50 mg PO DAILY [facility] Last Admin: 12/10/16 09:54 Dose: 50 mg - Labs Labs: 12/09/16 05:30 12/09/16 05:30 PT 15.7 Seconds (9.8-13.1) H 11/17/16 18:00 INR 1.4 (0.9-1.2) H 11/17/16 18:00 APTT 25.7 Seconds (25.6-37.1) 11/17/16 18:00 - Constitutional Appears: No Acute Distress - Head Exam Head Exam: ATRAUMATIC, NORMAL INSPECTION, NORMOCEPHALIC - Eye Exam Eye Exam: EOMI, Normal appearance, PERRL Pupil Exam: NORMAL ACCOMODATION, PERRL - ENT Exam ENT Exam: Mucous Membranes Moist, Normal Exam - Neck Exam Neck Exam: Full ROM, Normal Inspection. absent: Lymphadenopathy - Respiratory Exam Respiratory Exam: Clear to Ausculation Bilateral, NORMAL BREATHING PATTERN - Cardiovascular Exam Cardiovascular Exam: REGULAR RHYTHM, +S1, +S2. absent: Murmur - GI/Abdominal Exam GI & Abdominal Exam: Soft. absent: Tenderness Additional comments: R 3 drains. SS fluids. 30cc - Exam Exam: NORMAL INSPECTION - Extremities Exam Extremities Exam: Full ROM, Normal Capillary Refill, Normal Inspection. absent : Joint Swelling, Pedal Edema - Back Exam Back Exam: NORMAL INSPECTION - Neurological Exam Neurological Exam: Alert, Awake, CN II-XII Intact, Normal Gait, Oriented x3 - Psychiatric Exam Psychiatric exam: Normal Affect, Normal Mood - Skin Skin Exam: Dry, Intact, Normal Color, Warm Assessment and Plan - Assessment and Plan (Free Text) Assessment: 36yo F with Crohn's disease, with sepsis and multiloculated retroperitoneal abscess, s/p IR drainage x3 - Afebrile - Leukocytosis resolved -Drainage 30/24hrs : Decreasing -Repeat CT : improved - Tolerating regular diet - Abx per ID - Encourage ambulation and OOB - IR can DC drains. - Ok to DC for surgical standpoint after drain DC ed. MICHELLE Millard/ Lino <Devon Huynh - Last Filed: 12/10/16 13:51> Subjective - Subjective Subjective: Patient was seen and examined at the bedside. Agree with resident's note above. Objective - Vital Signs/Intake and Output Vital Signs (last 24 hours): Temp Pulse Resp BP Pulse Ox 98.3 F 81 20 113/76 99 12/10/16 08:14 12/10/16 08:14 12/10/16 08:14 12/10/16 08:14 12/10/16 08:14 Intake and Output: 12/10/16 12/10/16 06:59 18:59 Intake Total 700 Balance 700 - Medications Medications: Current Medications Acetaminophen (Tylenol 325mg Tab) 650 mg PO Q6 PRN PRN Reason: Pain, moderate (4-7) Last Admin: 12/02/16 04:06 Dose: 650 mg Enoxaparin Sodium (Lovenox) 30 mg SC DAILY [facility] PRN Reason: Protocol Last Admin: 12/10/16 09:55 Dose: 30 mg Ferrous Sulfate (Feosol) 325 mg PO DAILY [facility] Last Admin: 12/10/16 09:54 Dose: 325 mg Folic Acid (Folic Acid) 5 mg PO DAILY [facility] Last Admin: 12/10/16 09:54 Dose: 5 mg Hydrocortisone (Anusol-Hc) 1 applic CO BID [facility] Last Admin: 12/10/16 09:55 Dose: 1 applic Lactated Ringer's (Lactated Ringer's) 1,000 mls @ 125 mls/hr IV .Q8H [facility] Last Admin: 12/10/16 13:07 Dose: Not Given Meropenem 1 gm/ Sodium (Chloride) 100 mls @ 100 mls/hr IVPB Q8 [facility] Last Admin: 12/10/16 10:46 Dose: 100 mls/hr Vancomycin HCl 1 gm/ Sodium (Chloride) 250 mls @ 250 mls/hr IVPB Q12H [facility] Last Admin: 12/10/16 13:11 Dose: 250 mls/hr Fluconazole (Diflucan Iv 200 Mg/100 Ml Ns) 100 mls @ 100 mls/hr IVPB DAILY [facility] Last Admin: 12/10/16 09:53 Dose: 100 mls/hr Isoniazid (Niazid) 300 mg PO DAILY [facility] Last Admin: 12/10/16 09:54 Dose: 300 mg Lactobacillus Acidophilus (Bacid Acidophilus) 1 cap PO BID [facility] Last Admin: 12/10/16 09:57 Dose: 1 cap Multivitamins/Minerals (Therapeutic-M Tab) 1 tab PO DAILY [facility] Last Admin: 12/10/16 09:53 Dose: 1 tab Ondansetron HCl (Zofran Inj) 4 mg IVP Q4 PRN PRN Reason: Nausea/Vomiting Pantoprazole Sodium (Protonix Ec Tab) 40 mg PO DAILY [facility] Last Admin: 12/10/16 09:53 Dose: 40 mg Pyridoxine HCl (Vitamin B6 50 Mg Tab) 50 mg PO DAILY [facility] Last Admin: 12/10/16 09:54 Dose: 50 mg - Labs Labs: 12/09/16 05:30 12/09/16 05:30 PT 15.7 Seconds (9.8-13.1) H 11/17/16 18:00 INR 1.4 (0.9-1.2) H 11/17/16 18:00 APTT 25.7 Seconds (25.6-37.1) 11/17/16 18:00
--- NOTE | 2016-12-10 13:56 | CP.PCM.PN ---
Subjective - Date & Time of Evaluation Date of Evaluation: 12/10/16 Time of Evaluation: 08:00 - Subjective Subjective: afeb drains in place await GI follow up Objective - Vital Signs/Intake and Output Vital Signs (last 24 hours): Temp Pulse Resp BP Pulse Ox 98.3 F 81 20 113/76 99 12/10/16 08:14 12/10/16 08:14 12/10/16 08:14 12/10/16 08:14 12/10/16 08:14 Intake and Output: 12/10/16 12/10/16 06:59 18:59 Intake Total 700 Balance 700 - Medications Medications: Current Medications Acetaminophen (Tylenol 325mg Tab) 650 mg PO Q6 PRN PRN Reason: Pain, moderate (4-7) Last Admin: 12/02/16 04:06 Dose: 650 mg Enoxaparin Sodium (Lovenox) 30 mg SC DAILY [facility] PRN Reason: Protocol Last Admin: 12/10/16 09:55 Dose: 30 mg Ferrous Sulfate (Feosol) 325 mg PO DAILY [facility] Last Admin: 12/10/16 09:54 Dose: 325 mg Folic Acid (Folic Acid) 5 mg PO DAILY [facility] Last Admin: 12/10/16 09:54 Dose: 5 mg Hydrocortisone (Anusol-Hc) 1 applic [place] BID [facility] Last Admin: 12/10/16 09:55 Dose: 1 applic Lactated Ringer's (Lactated Ringer's) 1,000 mls @ 125 mls/hr IV .Q8H [facility] Last Admin: 12/10/16 13:07 Dose: Not Given Meropenem 1 gm/ Sodium (Chloride) 100 mls @ 100 mls/hr IVPB Q8 [facility] Last Admin: 12/10/16 10:46 Dose: 100 mls/hr Vancomycin HCl 1 gm/ Sodium (Chloride) 250 mls @ 250 mls/hr IVPB Q12H [facility] Last Admin: 12/10/16 13:11 Dose: 250 mls/hr Fluconazole (Diflucan Iv 200 Mg/100 Ml Ns) 100 mls @ 100 mls/hr IVPB DAILY [facility] Last Admin: 12/10/16 09:53 Dose: 100 mls/hr Isoniazid (Niazid) 300 mg PO DAILY [facility] Last Admin: 12/10/16 09:54 Dose: 300 mg Lactobacillus Acidophilus (Bacid Acidophilus) 1 cap PO BID [facility] Last Admin: 12/10/16 09:57 Dose: 1 cap Multivitamins/Minerals (Therapeutic-M Tab) 1 tab PO DAILY [facility] Last Admin: 12/10/16 09:53 Dose: 1 tab Ondansetron HCl (Zofran Inj) 4 mg IVP Q4 PRN PRN Reason: Nausea/Vomiting Pantoprazole Sodium (Protonix Ec Tab) 40 mg PO DAILY [facility] Last Admin: 12/10/16 09:53 Dose: 40 mg Pyridoxine HCl (Vitamin B6 50 Mg Tab) 50 mg PO DAILY [facility] Last Admin: 12/10/16 09:54 Dose: 50 mg - Labs Labs: 12/09/16 05:30 12/09/16 05:30 PT 15.7 Seconds (9.8-13.1) H 11/17/16 18:00 INR 1.4 (0.9-1.2) H 11/17/16 18:00 APTT 25.7 Seconds (25.6-37.1) 11/17/16 18:00 - Constitutional Appears: Non-toxic, Chronically Ill - Head Exam Head Exam: NORMOCEPHALIC - Eye Exam Eye Exam: PERRL. absent: Scleral icterus - ENT Exam ENT Exam: Mucous Membranes Dry - Neck Exam Neck Exam: absent: Lymphadenopathy - Respiratory Exam Respiratory Exam: Decreased Breath Sounds - Cardiovascular Exam Cardiovascular Exam: REGULAR RHYTHM - GI/Abdominal Exam GI & Abdominal Exam: Distended, Soft - Rectal Exam Rectal Exam: Deferred Assessment and Plan (1) Acute Crohn's disease with abscess Status: Acute (2) Acute Crohn's disease with abscess Status: Acute (3) Acute Crohn's disease with complication Status: Acute (4) Acute Crohn's disease with complication Status: Acute (5) Intra-abdominal abscess Status: Acute (6) Sepsis Status: Acute
[2016-12-11] MEDS: Meropenem 1 GM in Sodium Chloride 0.9% 100 ML IVPB SCH ×3 (01:51→18:00)
[2016-12-11] MEDS: Lactated Ringer's 1,000 ML IV SCH ×3 (09:20→21:02)
[2016-12-11] MEDS: Enoxaparin 30 mg Syringe SC SCH (09:23)
[2016-12-11] MEDS: Pantoprazole 40 mg EC Tab PO SCH (09:23)
[2016-12-11] MEDS: Hydrocortisone 2.5% (Rectal) CREAM PR SCH ×2 (09:23→18:34)
[2016-12-11] MEDS: Multivitamin With Minerals Tab PO SCH (09:23)
--- NOTE | 2016-12-11 10:06 | CP.PCM.PN ---
<Wilmer Levin - Last Filed: 12/11/16 10:07> Subjective - Date & Time of Evaluation Date of Evaluation: 12/11/16 Time of Evaluation: 10:04 - Subjective Subjective: Surgery: Dr. Huynh Pt seen and examined. Resting comfortably in bed. No complaints. Objective - Vital Signs/Intake and Output Vital Signs (last 24 hours): Temp Pulse Resp BP Pulse Ox 98 F 85 20 106/70 99 12/11/16 08:36 12/11/16 08:36 12/11/16 08:36 12/11/16 08:36 12/11/16 08:36 Intake and Output: 12/11/16 12/11/16 06:59 18:59 Output Total 5 Balance -5 - Medications Medications: Current Medications Acetaminophen (Tylenol 325mg Tab) 650 mg PO Q6 PRN PRN Reason: Pain, moderate (4-7) Last Admin: 12/02/16 04:06 Dose: 650 mg Enoxaparin Sodium (Lovenox) 30 mg SC DAILY [facility] PRN Reason: Protocol Last Admin: 12/11/16 09:23 Dose: 30 mg Ferrous Sulfate (Feosol) 325 mg PO DAILY [facility] Last Admin: 12/11/16 09:24 Dose: 325 mg Folic Acid (Folic Acid) 5 mg PO DAILY [facility] Last Admin: 12/11/16 09:24 Dose: 5 mg Hydrocortisone (Anusol-Hc) 1 applic [place] BID [facility] Last Admin: 12/11/16 09:23 Dose: 1 applic Lactated Ringer's (Lactated Ringer's) 1,000 mls @ 125 mls/hr IV .Q8H [facility] Last Admin: 12/11/16 09:20 Dose: Not Given Meropenem 1 gm/ Sodium (Chloride) 100 mls @ 100 mls/hr IVPB Q8 [facility] Last Admin: 12/11/16 09:22 Dose: 100 mls/hr Vancomycin HCl 1 gm/ Sodium (Chloride) 250 mls @ 250 mls/hr IVPB Q12H [facility] Last Admin: 12/11/16 00:02 Dose: 250 mls/hr Fluconazole (Diflucan Iv 200 Mg/100 Ml Ns) 100 mls @ 100 mls/hr IVPB DAILY [facility] Last Admin: 12/10/16 09:53 Dose: 100 mls/hr Isoniazid (Niazid) 300 mg PO DAILY [facility] Last Admin: 12/11/16 09:24 Dose: 300 mg Lactobacillus Acidophilus (Bacid Acidophilus) 1 cap PO BID [facility] Last Admin: 12/10/16 16:39 Dose: 1 cap Multivitamins/Minerals (Therapeutic-M Tab) 1 tab PO DAILY [facility] Last Admin: 12/11/16 09:23 Dose: 1 tab Ondansetron HCl (Zofran Inj) 4 mg IVP Q4 PRN PRN Reason: Nausea/Vomiting Pantoprazole Sodium (Protonix Ec Tab) 40 mg PO DAILY [facility] Last Admin: 12/11/16 09:23 Dose: 40 mg Pyridoxine HCl (Vitamin B6 50 Mg Tab) 50 mg PO DAILY [facility] Last Admin: 12/11/16 09:24 Dose: 50 mg - Labs Labs: 12/09/16 05:30 12/09/16 05:30 PT 15.7 Seconds (9.8-13.1) H 11/17/16 18:00 INR 1.4 (0.9-1.2) H 11/17/16 18:00 APTT 25.7 Seconds (25.6-37.1) 11/17/16 18:00 - Constitutional Appears: Non-toxic, No Acute Distress - Head Exam Head Exam: ATRAUMATIC, NORMOCEPHALIC - Eye Exam Eye Exam: EOMI - ENT Exam ENT Exam: Mucous Membranes Moist - Neck Exam Neck Exam: Full ROM - Respiratory Exam Respiratory Exam: NORMAL BREATHING PATTERN. absent: Accessory Muscle Use, Respiratory Distress - GI/Abdominal Exam GI & Abdominal Exam: Soft, Tenderness (mild RLQ). absent: Distended, Firm, Guarding, Rigid, Rebound Additional comments: R side IR drains x 3 - Extremities Exam Extremities Exam: absent: Calf Tenderness, Pedal Edema - Neurological Exam Neurological Exam: Alert, Awake, Oriented x3 Assessment and Plan - Assessment and Plan (Free Text) Assessment: 36F with Crohn's disease and multiloculated retroperitoneal abscess, s/p IR drainage x3 -IR drains: 45cc/24hr sero/purulent -c/w abx per ID -drains to be removed by IR -No plans for surgical intervention -will d/w attending Zeesperanzaitis PGY3 <Devon Huynh - Last Filed: 12/11/16 17:20> Subjective - Subjective Subjective: Patient was seen and examined at the bedside. Agree with resident's note above Objective - Vital Signs/Intake and Output Vital Signs (last 24 hours): Temp Pulse Resp BP Pulse Ox 98.8 F 99 H 17 101/68 99 12/11/16 15:58 12/11/16 15:58 12/11/16 15:58 12/11/16 15:58 12/11/16 15:58 Intake and Output: 12/11/16 12/11/16 06:59 18:59 Intake Total 500 Output Total 5 Balance -5 500 - Medications Medications: Current Medications Acetaminophen (Tylenol 325mg Tab) 650 mg PO Q6 PRN PRN Reason: Pain, moderate (4-7) Last Admin: 12/02/16 04:06 Dose: 650 mg Enoxaparin Sodium (Lovenox) 30 mg SC DAILY [facility] PRN Reason: Protocol Last Admin: 12/11/16 09:23 Dose: 30 mg Ferrous Sulfate (Feosol) 325 mg PO DAILY [facility] Last Admin: 12/11/16 09:24 Dose: 325 mg Folic Acid (Folic Acid) 5 mg PO DAILY [facility] Last Admin: 12/11/16 09:24 Dose: 5 mg Hydrocortisone (Anusol-Hc) 1 applic [place] BID [facility] Last Admin: 12/11/16 09:23 Dose: 1 applic Lactated Ringer's (Lactated Ringer's) 1,000 mls @ 125 mls/hr IV .Q8H [facility] Last Admin: 12/11/16 09:20 Dose: Not Given Meropenem 1 gm/ Sodium (Chloride) 100 mls @ 100 mls/hr IVPB Q8 [facility] Last Admin: 12/11/16 09:22 Dose: 100 mls/hr Vancomycin HCl 1 gm/ Sodium (Chloride) 250 mls @ 250 mls/hr IVPB Q12H [facility] Last Admin: 12/11/16 12:51 Dose: 250 mls/hr Fluconazole (Diflucan Iv 200 Mg/100 Ml Ns) 100 mls @ 100 mls/hr IVPB DAILY [facility] Last Admin: 12/11/16 11:44 Dose: 100 mls/hr Isoniazid (Niazid) 300 mg PO DAILY [facility] Last Admin: 12/11/16 09:24 Dose: 300 mg Lactobacillus Acidophilus (Bacid Acidophilus) 1 cap PO BID [facility] Last Admin: 12/11/16 10:45 Dose: 1 cap Multivitamins/Minerals (Therapeutic-M Tab) 1 tab PO DAILY [facility] Last Admin: 12/11/16 09:23 Dose: 1 tab Ondansetron HCl (Zofran Inj) 4 mg IVP Q4 PRN PRN Reason: Nausea/Vomiting Pantoprazole Sodium (Protonix Ec Tab) 40 mg PO DAILY [facility] Last Admin: 12/11/16 09:23 Dose: 40 mg Pyridoxine HCl (Vitamin B6 50 Mg Tab) 50 mg PO DAILY [facility] Last Admin: 12/11/16 09:24 Dose: 50 mg - Labs Labs: 12/09/16 05:30 12/09/16 05:30 PT 15.7 Seconds (9.8-13.1) H 11/17/16 18:00 INR 1.4 (0.9-1.2) H 11/17/16 18:00 APTT 25.7 Seconds (25.6-37.1) 11/17/16 18:00
[2016-12-11] MEDS: Lactobacillus Acidophilus 500 MU Cap PO SCH ×2 (10:45→18:34)
[2016-12-11] MEDS: Fluconazole IV 200mg/100 ml NS 100 ML IVPB SCH (11:44)
--- NOTE | 2016-12-11 16:05 | PN ---
Dr. Ray Mensah Progress note: Pt seen, examined and consulted which has been noted and appreciated. Pt has also had a surgical follow up, and intervention which has also been noted and appreciated. Pt remains on given medical [25.8 29.0]. He denies any symptoms of SOB or CP. PE: Upon physical examination the pt is awake, and in NAD, and his vital sounds are normal. His heart is normal, and has a RRR. Lungs are clear, abdomen is soft, nontender. His extremities have no edema, no tenderness, no acute ischemia. His abdominal drains are draining, he does have bloody discharge and he had leaks from his side, but was resolved with his dressing change. Pt does not have any rigidity, guarding, or rebound. All other systems are normal. DDx: I will make sure that the pt is stable and will put him on long-term antibiotics , which was discussed in the consultation. Ray Mensah MD
[2016-12-12] MEDS: Meropenem 1 GM in Sodium Chloride 0.9% 100 ML IVPB SCH ×3 (01:56→17:51)
[2016-12-12] MEDS: Lactated Ringer's 1,000 ML IV SCH ×2 (06:40→15:56)
[2016-12-12 07:43] LABS: HEMOGLOBIN 10.5 g/dL (12.0-16.0); MEAN CELL VOLUME 75.2 fl (81.0-99.0); MEAN CORPUSCULAR HEMOGLOBIN 24.3 pg (27.0-31.0); MEAN CORPUSCULAR HGB CONC 32.3 g/dL (33.0-37.0); RBC 4.31 Mil/uL (3.80-5.20); RED CELL DISTRIBUTION WIDTH 31.7 % (11.5-14.5); WHITE BLOOD COUNT 7.4 K/uL (4.8-10.8)
[2016-12-12 08:09] LABS: ALBUMIN 3.4 g/dL (3.5-5.0)
[2016-12-12 08:11] LABS: AST/SGOT 47 U/L (14-36)
[2016-12-12 08:12] LABS: ALB/GLOB RATIO 0.8 (1.0-2.1); ALT/SGPT 32 U/L (9-52); BLOOD UREA NITROGEN 12 mg/dl (7-17); CALCIUM 10.3 mg/dL (8.4-10.2)
--- NOTE | 2016-12-12 09:00 | CP.PCM.PN ---
<Digna Rudd - Last Filed: 12/12/16 10:36> Subjective - Date & Time of Evaluation Date of Evaluation: 12/12/16 Time of Evaluation: 07:00 - Subjective Subjective: GENERAL SURGERY PROGRESS NOTE FOR DR. HUYNH Patient seen and examined with Dr. Huynh at bedside. She denies abdominal pain. She is tolerating regular diet. She denies nausea and vomiting. Drains were flushed with 10cc NS by nurse. Drains putting out small amount of serous drainage. Objective - Vital Signs/Intake and Output Vital Signs (last 24 hours): Temp Pulse Resp BP Pulse Ox 97.5 F L 88 18 93/62 L 99 12/12/16 01:50 12/12/16 01:50 12/12/16 01:50 12/12/16 01:50 12/12/16 01:50 Intake and Output: 12/12/16 12/12/16 06:59 18:59 Intake Total 600 Output Total 28 Balance 572 - Medications Medications: Current Medications Acetaminophen (Tylenol 325mg Tab) 650 mg PO Q6 PRN PRN Reason: Pain, moderate (4-7) Last Admin: 12/02/16 04:06 Dose: 650 mg Enoxaparin Sodium (Lovenox) 30 mg SC DAILY [facility] PRN Reason: Protocol Last Admin: 12/11/16 09:23 Dose: 30 mg Ferrous Sulfate (Feosol) 325 mg PO DAILY [facility] Last Admin: 12/11/16 09:24 Dose: 325 mg Folic Acid (Folic Acid) 5 mg PO DAILY [facility] Last Admin: 12/11/16 09:24 Dose: 5 mg Hydrocortisone (Anusol-Hc) 1 applic [place] BID [facility] Last Admin: 12/11/16 18:34 Dose: 1 applic Lactated Ringer's (Lactated Ringer's) 1,000 mls @ 125 mls/hr IV .Q8H [facility] Last Admin: 12/12/16 06:40 Dose: Not Given Meropenem 1 gm/ Sodium (Chloride) 100 mls @ 100 mls/hr IVPB Q8 [facility] Last Admin: 12/12/16 01:56 Dose: 100 mls/hr Vancomycin HCl 1 gm/ Sodium (Chloride) 250 mls @ 250 mls/hr IVPB Q12H [facility] Last Admin: 12/12/16 00:13 Dose: 250 mls/hr Fluconazole (Diflucan Iv 200 Mg/100 Ml Ns) 100 mls @ 100 mls/hr IVPB DAILY [facility] Last Admin: 12/11/16 11:44 Dose: 100 mls/hr Isoniazid (Niazid) 300 mg PO DAILY [facility] Last Admin: 12/11/16 09:24 Dose: 300 mg Lactobacillus Acidophilus (Bacid Acidophilus) 1 cap PO BID [facility] Last Admin: 12/11/16 18:34 Dose: 1 cap Multivitamins/Minerals (Therapeutic-M Tab) 1 tab PO DAILY [facility] Last Admin: 12/11/16 09:23 Dose: 1 tab Ondansetron HCl (Zofran Inj) 4 mg IVP Q4 PRN PRN Reason: Nausea/Vomiting Pantoprazole Sodium (Protonix Ec Tab) 40 mg PO DAILY [facility] Last Admin: 12/11/16 09:23 Dose: 40 mg Pyridoxine HCl (Vitamin B6 50 Mg Tab) 50 mg PO DAILY [facility] Last Admin: 12/11/16 09:24 Dose: 50 mg - Labs Labs: 12/12/16 06:15 12/12/16 06:15 PT 15.7 Seconds (9.8-13.1) H 11/17/16 18:00 INR 1.4 (0.9-1.2) H 11/17/16 18:00 APTT 25.7 Seconds (25.6-37.1) 11/17/16 18:00 - Constitutional Appears: Non-toxic, No Acute Distress - Head Exam Head Exam: ATRAUMATIC, NORMAL INSPECTION - Eye Exam Eye Exam: EOMI, Normal appearance - Respiratory Exam Respiratory Exam: NORMAL BREATHING PATTERN. absent: Respiratory Distress - Cardiovascular Exam Cardiovascular Exam: +S1, +S2 - GI/Abdominal Exam GI & Abdominal Exam: Soft. absent: Distended, Firm, Guarding, Rigid, Tenderness , Rebound Additional comments: [address]: Right upper drain: 8cc serous output over past 24 hours Right lower drain: 10cc serous output over past 24 hours Anterior drain: 10cc serous output over past 24 hours. - Neurological Exam Neurological Exam: Alert, Awake, Oriented x3 - Psychiatric Exam Psychiatric exam: Normal Affect, Normal Mood - Skin Skin Exam: Normal Color, Warm Assessment and Plan - Assessment and Plan (Free Text) Assessment: 36yo F with Crohn's disease, with sepsis and multiloculated retroperitoneal abscess, s/p IR drainage x3 - Afebrile - Tolerating regular diet - Continue IV Abx and IV fluids - Encourage ambulation and OOB - Will discuss with Dr. Zhu today about removal of IR drains - No plans for surgical intervention - Discussed plan with Dr. Lino Rudd PGY-3 <Devon Huynh - Last Filed: 12/12/16 10:50> Subjective - Subjective Subjective: Patient was seen and examined at the bedside. Agree with resident's note above Objective - Vital Signs/Intake and Output Vital Signs (last 24 hours): Temp Pulse Resp BP Pulse Ox 98 F 76 20 105/70 99 12/12/16 09:00 12/12/16 09:00 12/12/16 09:00 12/12/16 09:00 12/12/16 09:00 Intake and Output: 12/12/16 12/12/16 06:59 18:59 Intake Total 600 Output Total 28 Balance 572 - Medications Medications: Current Medications Acetaminophen (Tylenol 325mg Tab) 650 mg PO Q6 PRN PRN Reason: Pain, moderate (4-7) Last Admin: 12/02/16 04:06 Dose: 650 mg Enoxaparin Sodium (Lovenox) 30 mg SC DAILY [facility] PRN Reason: Protocol Last Admin: 12/11/16 09:23 Dose: 30 mg Ferrous Sulfate (Feosol) 325 mg PO DAILY [facility] Last Admin: 12/11/16 09:24 Dose: 325 mg Folic Acid (Folic Acid) 5 mg PO DAILY [facility] Last Admin: 12/11/16 09:24 Dose: 5 mg Hydrocortisone (Anusol-Hc) 1 applic [place] BID [facility] Last Admin: 12/11/16 18:34 Dose: 1 applic Lactated Ringer's (Lactated Ringer's) 1,000 mls @ 125 mls/hr IV .Q8H [facility] Last Admin: 12/12/16 06:40 Dose: Not Given Meropenem 1 gm/ Sodium (Chloride) 100 mls @ 100 mls/hr IVPB Q8 [facility] Last Admin: 12/12/16 01:56 Dose: 100 mls/hr Vancomycin HCl 1 gm/ Sodium (Chloride) 250 mls @ 250 mls/hr IVPB Q12H [facility] Last Admin: 12/12/16 00:13 Dose: 250 mls/hr Fluconazole (Diflucan Iv 200 Mg/100 Ml Ns) 100 mls @ 100 mls/hr IVPB DAILY [facility] Last Admin: 12/11/16 11:44 Dose: 100 mls/hr Isoniazid (Niazid) 300 mg PO DAILY [facility] Last Admin: 12/11/16 09:24 Dose: 300 mg Lactobacillus Acidophilus (Bacid Acidophilus) 1 cap PO BID [facility] Last Admin: 12/11/16 18:34 Dose: 1 cap Multivitamins/Minerals (Therapeutic-M Tab) 1 tab PO DAILY [facility] Last Admin: 12/11/16 09:23 Dose: 1 tab Ondansetron HCl (Zofran Inj) 4 mg IVP Q4 PRN PRN Reason: Nausea/Vomiting Pantoprazole Sodium (Protonix Ec Tab) 40 mg PO DAILY [facility] Last Admin: 12/11/16 09:23 Dose: 40 mg Pyridoxine HCl (Vitamin B6 50 Mg Tab) 50 mg PO DAILY [facility] Last Admin: 12/11/16 09:24 Dose: 50 mg - Labs Labs: 12/12/16 06:15 12/12/16 06:15 PT 15.7 Seconds (9.8-13.1) H 11/17/16 18:00 INR 1.4 (0.9-1.2) H 11/17/16 18:00 APTT 25.7 Seconds (25.6-37.1) 11/17/16 18:00
[2016-12-12 09:03] LABS: GFR AFRICAN-AMERICAN > 60; GFR NON-AFRICAN AMERICAN > 60
--- NOTE | 2016-12-12 09:12 | PN ---
SUBJECTIVE: The patient is seen and examined. Interim events noted. Consult noted and appreciated. Infectious disease followup and intervention noted and appreciated. The patient remains in regular medical floor on IV antibiotic with multiple abdominal drains. The patient has acute abdominal pain, it is adequately controlled. The patient is eating and having bowel movements normally. No chest pain, no shortness of breath. PHYSICAL EXAMINATION GENERAL: The patient is in no acute distress. VITAL SIGNS: Stable. HEART: S1 and S2 normal, regular. LUNGS: Good bilateral air exchange. ABDOMEN: Soft and nontender. No sign of acute abdomen, no guarding, no rigidity, no rebound. Drains are present. EXTREMITIES: No edema. No cobblestoning, no tenderness. No acute ischemia. CENTRAL NERVOUS SYSTEM: Essentially unchanged. DIAGNOSTIC DATA: Available diagnostic data reviewed. IMPRESSION AND PLAN: Overall, the patient is slow to improve. Plan as ordered. Ray Mensah MD
--- NOTE | 2016-12-12 09:52 | CP.PCM.PN ---
Subjective - Date & Time of Evaluation Date of Evaluation: 11/21/16 - Subjective Subjective: Patient seen and examined interviewed as noted. Consult noted and appreciated. Surgery and infectious diseases consult and intervention noted and appreciated. Dr. Corley. Patient feels better no significant complaints. Objective - Vital Signs/Intake and Output Vital Signs (last 24 hours): Temp Pulse Resp BP Pulse Ox 98 F 76 20 105/70 99 12/12/16 09:00 12/12/16 09:00 12/12/16 09:00 12/12/16 09:00 12/12/16 09:00 Intake and Output: 12/12/16 12/12/16 06:59 18:59 Intake Total 600 Output Total 28 Balance 572 - Medications Medications: Current Medications Acetaminophen (Tylenol 325mg Tab) 650 mg PO Q6 PRN PRN Reason: Pain, moderate (4-7) Last Admin: 12/02/16 04:06 Dose: 650 mg Enoxaparin Sodium (Lovenox) 30 mg SC DAILY [facility] PRN Reason: Protocol Last Admin: 12/11/16 09:23 Dose: 30 mg Ferrous Sulfate (Feosol) 325 mg PO DAILY [facility] Last Admin: 12/11/16 09:24 Dose: 325 mg Folic Acid (Folic Acid) 5 mg PO DAILY [facility] Last Admin: 12/11/16 09:24 Dose: 5 mg Hydrocortisone (Anusol-Hc) 1 applic PA BID [facility] Last Admin: 12/11/16 18:34 Dose: 1 applic Lactated Ringer's (Lactated Ringer's) 1,000 mls @ 125 mls/hr IV .Q8H [facility] Last Admin: 12/12/16 06:40 Dose: Not Given Meropenem 1 gm/ Sodium (Chloride) 100 mls @ 100 mls/hr IVPB Q8 [facility] Last Admin: 12/12/16 01:56 Dose: 100 mls/hr Vancomycin HCl 1 gm/ Sodium (Chloride) 250 mls @ 250 mls/hr IVPB Q12H [facility] Last Admin: 12/12/16 00:13 Dose: 250 mls/hr Fluconazole (Diflucan Iv 200 Mg/100 Ml Ns) 100 mls @ 100 mls/hr IVPB DAILY [facility] Last Admin: 12/11/16 11:44 Dose: 100 mls/hr Isoniazid (Niazid) 300 mg PO DAILY [facility] Last Admin: 12/11/16 09:24 Dose: 300 mg Lactobacillus Acidophilus (Bacid Acidophilus) 1 cap PO BID [facility] Last Admin: 12/11/16 18:34 Dose: 1 cap Multivitamins/Minerals (Therapeutic-M Tab) 1 tab PO DAILY [facility] Last Admin: 12/11/16 09:23 Dose: 1 tab Ondansetron HCl (Zofran Inj) 4 mg IVP Q4 PRN PRN Reason: Nausea/Vomiting Pantoprazole Sodium (Protonix Ec Tab) 40 mg PO DAILY [facility] Last Admin: 12/11/16 09:23 Dose: 40 mg Pyridoxine HCl (Vitamin B6 50 Mg Tab) 50 mg PO DAILY [facility] Last Admin: 12/11/16 09:24 Dose: 50 mg - Labs Labs: 12/12/16 06:15 12/12/16 06:15 PT 15.7 Seconds (9.8-13.1) H 11/17/16 18:00 INR 1.4 (0.9-1.2) H 11/17/16 18:00 APTT 25.7 Seconds (25.6-37.1) 11/17/16 18:00 - Constitutional Appears: No Acute Distress - Respiratory Exam Respiratory Exam: Clear to Ausculation Bilateral (Good bilateral air entry. ) - Cardiovascular Exam Cardiovascular Exam: REGULAR RHYTHM, +S1, +S2 - GI/Abdominal Exam GI & Abdominal Exam: Soft, Normal Bowel Sounds. absent: Rigid, Tenderness, Rebound - Extremities Exam Extremities Exam: absent: Pedal Edema, Tenderness Additional comments: No acute ischemia. No acute injury. - Neurological Exam Additional comments: Essentially unchanged - Additional Findings Additional findings: Patient has two drains. Both of them are still draining. Assessment and Plan - Assessment and Plan (Free Text) Assessment: Diagnostic data available. Diagnostic data reviewed: Telemetry monitoring - there is no significant history of arrhythmia. For outpatient, general condition is stable. Sick but generally improving. Patient was personally seen and examined by me in rounds with residents. Available labs and diagnostic data reviewed. Case, Patient's condition and management plan discussed with residents in rounds. Agree with resident's documentation. Plan: As ordered. Ray Mensah MD Plan: Plan: As ordered. Case and plan discussed with patient.
--- NOTE | 2016-12-12 10:14 | CP.PCM.PN ---
Subjective - Date & Time of Evaluation Date of Evaluation: 12/10/16 Time of Evaluation: 09:40 - Subjective Subjective: Patient remains stable Has no chest pain or SOB Afebrile Objective - Vital Signs/Intake and Output Vital Signs (last 24 hours): Temp Pulse Resp BP Pulse Ox 98 F 76 20 105/70 99 12/12/16 09:00 12/12/16 09:00 12/12/16 09:00 12/12/16 09:00 12/12/16 09:00 Intake and Output: 12/12/16 12/12/16 06:59 18:59 Intake Total 600 Output Total 28 Balance 572 - Medications Medications: Current Medications Acetaminophen (Tylenol 325mg Tab) 650 mg PO Q6 PRN PRN Reason: Pain, moderate (4-7) Last Admin: 12/02/16 04:06 Dose: 650 mg Enoxaparin Sodium (Lovenox) 30 mg SC DAILY [facility] PRN Reason: Protocol Last Admin: 12/11/16 09:23 Dose: 30 mg Ferrous Sulfate (Feosol) 325 mg PO DAILY [facility] Last Admin: 12/11/16 09:24 Dose: 325 mg Folic Acid (Folic Acid) 5 mg PO DAILY [facility] Last Admin: 12/11/16 09:24 Dose: 5 mg Hydrocortisone (Anusol-Hc) 1 applic LA BID [facility] Last Admin: 12/11/16 18:34 Dose: 1 applic Lactated Ringer's (Lactated Ringer's) 1,000 mls @ 125 mls/hr IV .Q8H [facility] Last Admin: 12/12/16 06:40 Dose: Not Given Meropenem 1 gm/ Sodium (Chloride) 100 mls @ 100 mls/hr IVPB Q8 [facility] Last Admin: 12/12/16 01:56 Dose: 100 mls/hr Vancomycin HCl 1 gm/ Sodium (Chloride) 250 mls @ 250 mls/hr IVPB Q12H [facility] Last Admin: 12/12/16 00:13 Dose: 250 mls/hr Fluconazole (Diflucan Iv 200 Mg/100 Ml Ns) 100 mls @ 100 mls/hr IVPB DAILY [facility] Last Admin: 12/11/16 11:44 Dose: 100 mls/hr Isoniazid (Niazid) 300 mg PO DAILY [facility] Last Admin: 12/11/16 09:24 Dose: 300 mg Lactobacillus Acidophilus (Bacid Acidophilus) 1 cap PO BID [facility] Last Admin: 12/11/16 18:34 Dose: 1 cap Multivitamins/Minerals (Therapeutic-M Tab) 1 tab PO DAILY [facility] Last Admin: 12/11/16 09:23 Dose: 1 tab Ondansetron HCl (Zofran Inj) 4 mg IVP Q4 PRN PRN Reason: Nausea/Vomiting Pantoprazole Sodium (Protonix Ec Tab) 40 mg PO DAILY [facility] Last Admin: 12/11/16 09:23 Dose: 40 mg Pyridoxine HCl (Vitamin B6 50 Mg Tab) 50 mg PO DAILY [facility] Last Admin: 12/11/16 09:24 Dose: 50 mg - Labs Labs: 12/12/16 06:15 12/12/16 06:15 PT 15.7 Seconds (9.8-13.1) H 11/17/16 18:00 INR 1.4 (0.9-1.2) H 11/17/16 18:00 APTT 25.7 Seconds (25.6-37.1) 11/17/16 18:00 - Head Exam Head Exam: NORMAL INSPECTION - Eye Exam Eye Exam: Normal appearance - ENT Exam ENT Exam: Mucous Membranes Moist - Respiratory Exam Respiratory Exam: Clear to Ausculation Bilateral - Cardiovascular Exam Cardiovascular Exam: REGULAR RHYTHM - GI/Abdominal Exam GI & Abdominal Exam: Normal Bowel Sounds Assessment and Plan (1) Acute Crohn's disease with abscess Status: Acute (2) Sepsis Status: Acute - Assessment and Plan (Free Text) Plan: cont meds cont tx Cont PT cont Iv antibiotics
--- NOTE | 2016-12-12 11:21 | CP.PCM.PN ---
<Pradip Clement - Last Filed: 12/12/16 11:13> Subjective - Date & Time of Evaluation Date of Evaluation: 12/12/16 Time of Evaluation: 07:00 - Subjective Subjective: pt seen and examined at bedside this morning. No acute events overnight. Afebrile. No new complaints. Tolerating PO intake w/o difficulty. OOB/ ambulating w/o difficulty. Denies pain. Denies fever/chills, headaches, changes in vision, CP/SOB/Palpitations, N/V/D/C, urinary symptoms, leg pain, numbness/ tingling. Objective - Vital Signs/Intake and Output Vital Signs (last 24 hours): Temp Pulse Resp BP Pulse Ox 98 F 76 20 105/70 99 12/12/16 09:00 12/12/16 09:00 12/12/16 09:00 12/12/16 09:00 12/12/16 09:00 Intake and Output: 12/12/16 12/12/16 06:59 18:59 Intake Total 600 Output Total 28 Balance 572 - Medications Medications: Current Medications Acetaminophen (Tylenol 325mg Tab) 650 mg PO Q6 PRN PRN Reason: Pain, moderate (4-7) Last Admin: 12/02/16 04:06 Dose: 650 mg Enoxaparin Sodium (Lovenox) 30 mg SC DAILY [facility] PRN Reason: Protocol Last Admin: 12/11/16 09:23 Dose: 30 mg Ferrous Sulfate (Feosol) 325 mg PO DAILY [facility] Last Admin: 12/11/16 09:24 Dose: 325 mg Folic Acid (Folic Acid) 5 mg PO DAILY [facility] Last Admin: 12/11/16 09:24 Dose: 5 mg Hydrocortisone (Anusol-Hc) 1 applic AL BID [facility] Last Admin: 12/11/16 18:34 Dose: 1 applic Lactated Ringer's (Lactated Ringer's) 1,000 mls @ 125 mls/hr IV .Q8H [facility] Last Admin: 12/12/16 06:40 Dose: Not Given Meropenem 1 gm/ Sodium (Chloride) 100 mls @ 100 mls/hr IVPB Q8 [facility] Last Admin: 12/12/16 01:56 Dose: 100 mls/hr Vancomycin HCl 1 gm/ Sodium (Chloride) 250 mls @ 250 mls/hr IVPB Q12H [facility] Last Admin: 12/12/16 00:13 Dose: 250 mls/hr Fluconazole (Diflucan Iv 200 Mg/100 Ml Ns) 100 mls @ 100 mls/hr IVPB DAILY [facility] Last Admin: 12/11/16 11:44 Dose: 100 mls/hr Isoniazid (Niazid) 300 mg PO DAILY [facility] Last Admin: 12/11/16 09:24 Dose: 300 mg Lactobacillus Acidophilus (Bacid Acidophilus) 1 cap PO BID [facility] Last Admin: 12/11/16 18:34 Dose: 1 cap Multivitamins/Minerals (Therapeutic-M Tab) 1 tab PO DAILY [facility] Last Admin: 12/11/16 09:23 Dose: 1 tab Ondansetron HCl (Zofran Inj) 4 mg IVP Q4 PRN PRN Reason: Nausea/Vomiting Pantoprazole Sodium (Protonix Ec Tab) 40 mg PO DAILY [facility] Last Admin: 12/11/16 09:23 Dose: 40 mg Pyridoxine HCl (Vitamin B6 50 Mg Tab) 50 mg PO DAILY [facility] Last Admin: 12/11/16 09:24 Dose: 50 mg - Labs Labs: 12/12/16 06:15 12/12/16 06:15 PT 15.7 Seconds (9.8-13.1) H 11/17/16 18:00 INR 1.4 (0.9-1.2) H 11/17/16 18:00 APTT 25.7 Seconds (25.6-37.1) 11/17/16 18:00 - Constitutional Appears: Non-toxic, No Acute Distress - Head Exam Head Exam: ATRAUMATIC, NORMOCEPHALIC - Eye Exam Eye Exam: EOMI Pupil Exam: PERRL - ENT Exam ENT Exam: Mucous Membranes Moist - Respiratory Exam Respiratory Exam: Clear to Ausculation Bilateral, NORMAL BREATHING PATTERN. absent: Rales, Rhonchi, Wheezes - Cardiovascular Exam Cardiovascular Exam: REGULAR RHYTHM, RRR, +S1, +S2. absent: JVD, Rubs - GI/Abdominal Exam GI & Abdominal Exam: Soft, Normal Bowel Sounds. absent: Distended, Firm, Guarding, Rigid, Tenderness, Rebound Additional comments: s/p IR drains x3, each with ~10cc of serous drainage today. - Extremities Exam Extremities Exam: Normal Inspection. absent: Calf Tenderness, Pedal Edema, Tenderness - Neurological Exam Neurological Exam: Alert, Awake, CN II-XII Intact, Oriented x3 - Psychiatric Exam Psychiatric exam: Normal Affect, Normal Mood - Skin Skin Exam: Dry, Intact, Normal Color, Warm Assessment and Plan - Assessment and Plan (Free Text) Assessment: 1) Crohn's Disease with multiloculated retroperitoneal abscesses: repeat CT demonstrates collapsed abscesses but 3 hematomas, neither of which are being drained. Tolerating regular diet Continue Abx per ID, possible switch to PO Encourage ambulation and OOB Drains to be removed by IR Pt will require placement for therapy/abx, however [place] we will be in touch with social work on options. 2)Sepsis (resolved) afebile CBC wnl 3) Hydronephrosis (resolved) s/p ureteral stent removal, CT does not report any hydronephrosis at this time. <Ray Mensah - Last Filed: 12/13/16 14:52> Objective - Vital Signs/Intake and Output Vital Signs (last 24 hours): Temp Pulse Resp BP Pulse Ox 98.1 F 85 20 102/61 99 12/13/16 08:40 12/13/16 08:40 12/13/16 08:40 12/13/16 08:40 12/13/16 08:40 - Labs Labs: 12/12/16 06:15 12/12/16 06:15 PT 15.7 Seconds (9.8-13.1) H 11/17/16 18:00 INR 1.4 (0.9-1.2) H 11/17/16 18:00 APTT 25.7 Seconds (25.6-37.1) 11/17/16 18:00 Assessment and Plan - Assessment and Plan (Free Text) Assessment: Patient was personally seen and examined by me in rounds with residents. Available labs and diagnostic data reviewed. Case, Patient's condition and management plan discussed with residents in rounds. Agree with resident's documentation. Plan: As ordered. Ray Mensah MD
[2016-12-12] MEDS: Enoxaparin 30 mg Syringe SC SCH (11:28)
[2016-12-12] MEDS: Fluconazole IV 200mg/100 ml NS 100 ML IVPB SCH (11:29)
[2016-12-12] MEDS: Multivitamin With Minerals Tab PO SCH (11:31)
[2016-12-12] MEDS: Pantoprazole 40 mg EC Tab PO SCH (11:31)
[2016-12-12] MEDS: Hydrocortisone 2.5% (Rectal) CREAM PR SCH ×2 (11:34→17:51)
[2016-12-12] MEDS: Lactobacillus Acidophilus 500 MU Cap PO SCH ×2 (11:34→17:51)
--- NOTE | 2016-12-12 12:54 | CP.PCM.PN ---
Subjective - Date & Time of Evaluation Date of Evaluation: 12/04/16 - Subjective Subjective: Pt seen, examined and consulted which has been noted and appreciated. Pt has also had a surgical follow up, and intervention which has also been noted and appreciated. Pt remains on given medical . He denies any symptoms of SOB or CP. Objective - Vital Signs/Intake and Output Vital Signs (last 24 hours): Temp Pulse Resp BP Pulse Ox 98 F 76 20 105/70 99 12/12/16 09:00 12/12/16 09:00 12/12/16 09:00 12/12/16 09:00 12/12/16 09:00 Intake and Output: 12/12/16 12/12/16 06:59 18:59 Intake Total 600 Output Total 28 Balance 572 - Medications Medications: Current Medications Acetaminophen (Tylenol 325mg Tab) 650 mg PO Q6 PRN PRN Reason: Pain, moderate (4-7) Last Admin: 12/02/16 04:06 Dose: 650 mg Enoxaparin Sodium (Lovenox) 30 mg SC DAILY [facility] PRN Reason: Protocol Last Admin: 12/12/16 11:28 Dose: 30 mg Ferrous Sulfate (Feosol) 325 mg PO DAILY [facility] Last Admin: 12/12/16 11:31 Dose: 325 mg Folic Acid (Folic Acid) 5 mg PO DAILY [facility] Last Admin: 12/12/16 11:30 Dose: 5 mg Hydrocortisone (Anusol-Hc) 1 applic ND BID [facility] Last Admin: 12/12/16 11:34 Dose: 1 applic Lactated Ringer's (Lactated Ringer's) 1,000 mls @ 125 mls/hr IV .Q8H [facility] Last Admin: 12/12/16 06:40 Dose: Not Given Meropenem 1 gm/ Sodium (Chloride) 100 mls @ 100 mls/hr IVPB Q8 [facility] Last Admin: 12/12/16 11:25 Dose: 100 mls/hr Vancomycin HCl 1 gm/ Sodium (Chloride) 250 mls @ 250 mls/hr IVPB Q12H [facility] Last Admin: 12/12/16 00:13 Dose: 250 mls/hr Fluconazole (Diflucan Iv 200 Mg/100 Ml Ns) 100 mls @ 100 mls/hr IVPB DAILY [facility] Last Admin: 12/12/16 11:29 Dose: 100 mls/hr Isoniazid (Niazid) 300 mg PO DAILY [facility] Last Admin: 12/12/16 11:30 Dose: 300 mg Lactobacillus Acidophilus (Bacid Acidophilus) 1 cap PO BID [facility] Last Admin: 12/12/16 11:34 Dose: 1 cap Multivitamins/Minerals (Therapeutic-M Tab) 1 tab PO DAILY [facility] Last Admin: 12/12/16 11:31 Dose: 1 tab Ondansetron HCl (Zofran Inj) 4 mg IVP Q4 PRN PRN Reason: Nausea/Vomiting Pantoprazole Sodium (Protonix Ec Tab) 40 mg PO DAILY [facility] Last Admin: 12/12/16 11:31 Dose: 40 mg Pyridoxine HCl (Vitamin B6 50 Mg Tab) 50 mg PO DAILY [facility] Last Admin: 12/12/16 11:29 Dose: 50 mg - Labs Labs: 12/12/16 06:15 12/12/16 06:15 PT 15.7 Seconds (9.8-13.1) H 11/17/16 18:00 INR 1.4 (0.9-1.2) H 11/17/16 18:00 APTT 25.7 Seconds (25.6-37.1) 11/17/16 18:00 - Additional Findings Additional findings: Upon physical examination the pt is awake, and in NAD, and his vital sounds are normal. His heart is normal, and has a RRR. Lungs are clear, abdomen is soft, nontender. His extremities have no edema, no tenderness, no acute ischemia. His abdominal drains are draining, he does have bloody discharge and he had leaks from his side, but was resolved with his dressing change. Pt does not have any rigidity, guarding, or rebound. All other systems are normal. Assessment and Plan - Assessment and Plan (Free Text) Assessment: I will make sure that the pt is stable and will put him on long-term antibiotics , which was discussed in the consultation Patient was personally seen and examined by me in rounds with residents. Available labs and diagnostic data reviewed. Case, Patient's condition and management plan discussed with residents in rounds. Agree with resident's documentation. Plan: As ordered. Ray Mensha MD
--- NOTE | 2016-12-12 13:41 | PCM.SURG1 ---
Surgeon's Initial Post Op Note - Surgeon's Notes Surgeon: Javier Zhu MD Director Weights And Measures: None Type of Anesthesia: None Pre-Operative Diagnosis: Crohn's disease, abdominal abscess, right gluteal abscess Operative Findings: Two right abdominal drain and one right gluteal drain in place and output is minimal. Post-Operative Diagnosis: Crohn's disease, abdominal abscess, right gluteal abscess Operation Performed: Removal of three drainage catheters. Specimen/Specimens Removed: none Estimated Blood Loss: EBL {In ML}: 0 Blood Products Given: N/A Drains Used: No Drains Post-Op Condition: Fair Date of Surgery/Procedure: 12/12/16 Time of Surgery/Procedure: 13:00
--- NOTE | 2016-12-12 14:03 | PN ---
DR BINA JAMES Patient seen in examination. following allergy procedure. Patient is very appreciated. Patient now has GERD. . Patient is ok pain is adequately controlled. Patient is ok to eat, moving bowels, digesting, no sharpness of breath. Patient is . Penis exam is essentially unchanged. Diagnostic . and billing _. Ray Mensah MD [facility]
--- NOTE | 2016-12-12 15:08 | CP.PCM.PCO ---
Assessment/Plan - Assessment/Plan Assessment (Free Text): Pt stable, seen and cleared by all consultants for d/c. All drains removed by Dr. Zhu, dressing to right flank area clean and dry. Pt cleared by surgery for d/c home. Per Dr. Sunshine, Maureenro PO x 2 weeks. Rx given. Pt to f/u with GI and with Dr. Mensah if in [place] in 1 week. Pt seen and cleared for d/c home by Dr. Mensah.
--- NOTE | 2016-12-13 07:43 | CP.PCM.PN ---
Subjective - Date & Time of Evaluation Date of Evaluation: 12/13/16 Time of Evaluation: 07:00 - Subjective Subjective: GENERAL SURGERY PROGRESS NOTE FOR DR. WILLSON Patient seen and examined at bedside. She denies abdominal pain. She is tolerating regular diet. She denies nausea and vomiting. IR Drains were removed yesterday by Dr. Zhu. Objective - Vital Signs/Intake and Output Vital Signs (last 24 hours): Temp Pulse Resp BP Pulse Ox 97.9 F 82 19 96/62 L 100 12/13/16 00:54 12/13/16 00:54 12/13/16 00:54 12/13/16 00:54 12/13/16 00:54 - Medications Medications: Current Medications Acetaminophen (Tylenol 325mg Tab) 650 mg PO Q6 PRN PRN Reason: Pain, moderate (4-7) Last Admin: 12/02/16 04:06 Dose: 650 mg Enoxaparin Sodium (Lovenox) 30 mg SC DAILY [facility] PRN Reason: Protocol Last Admin: 12/12/16 11:28 Dose: 30 mg Ferrous Sulfate (Feosol) 325 mg PO DAILY [facility] Last Admin: 12/12/16 11:31 Dose: 325 mg Folic Acid (Folic Acid) 5 mg PO DAILY [facility] Last Admin: 12/12/16 11:30 Dose: 5 mg Hydrocortisone (Anusol-Hc) 1 applic AR BID [facility] Last Admin: 12/12/16 17:51 Dose: 1 applic Lactated Ringer's (Lactated Ringer's) 1,000 mls @ 125 mls/hr IV .Q8H [facility] Last Admin: 12/12/16 15:56 Dose: Not Given Isoniazid (Niazid) 300 mg PO DAILY [facility] Last Admin: 12/12/16 11:30 Dose: 300 mg Lactobacillus Acidophilus (Bacid Acidophilus) 1 cap PO BID [facility] Last Admin: 12/12/16 17:51 Dose: 1 cap Multivitamins/Minerals (Therapeutic-M Tab) 1 tab PO DAILY [facility] Last Admin: 12/12/16 11:31 Dose: 1 tab Ondansetron HCl (Zofran Inj) 4 mg IVP Q4 PRN PRN Reason: Nausea/Vomiting Pantoprazole Sodium (Protonix Ec Tab) 40 mg PO DAILY [facility] Last Admin: 12/12/16 11:31 Dose: 40 mg Pyridoxine HCl (Vitamin B6 50 Mg Tab) 50 mg PO DAILY [facility] Last Admin: 12/12/16 11:29 Dose: 50 mg - Labs Labs: 12/12/16 06:15 12/12/16 06:15 PT 15.7 Seconds (9.8-13.1) H 11/17/16 18:00 INR 1.4 (0.9-1.2) H 11/17/16 18:00 APTT 25.7 Seconds (25.6-37.1) 11/17/16 18:00 - Constitutional Appears: Non-toxic, No Acute Distress - Head Exam Head Exam: ATRAUMATIC, NORMAL INSPECTION - Eye Exam Eye Exam: EOMI, Normal appearance - Respiratory Exam Respiratory Exam: NORMAL BREATHING PATTERN. absent: Respiratory Distress - Cardiovascular Exam Cardiovascular Exam: +S1, +S2 - GI/Abdominal Exam GI & Abdominal Exam: Soft. absent: Distended, Firm, Guarding, Rigid, Tenderness , Rebound Additional comments: Dressings clean/dry/intact - Neurological Exam Neurological Exam: Alert, Awake, Oriented x3 - Psychiatric Exam Psychiatric exam: Normal Affect, Normal Mood - Skin Skin Exam: Dry, Normal Color, Warm Assessment and Plan - Assessment and Plan (Free Text) Assessment: 36yo F with Crohn's disease, with sepsis and multiloculated retroperitoneal abscess, s/p IR drainage x3 - Afebrile, no leukocytosis - Tolerating regular diet - Continue Abx as outpatient per ID - Encourage ambulation and OOB - All 3 drains removed yesterday by IR - Clear for DC from surgical standpoint - Discussed plan with Dr. Lino Rudd PGY-3
[2016-12-13] MEDS: Lactated Ringer's 1,000 ML IV SCH (07:54)
[2016-12-13 08:41] VITALS: BP 102/61; PULSE 85; RESP 20; TEMP 98.1; O2SAT 99
== END 2016-12-13 08:55 | disposition home health service (06) | DRG 581 ==
LOC: H.ER 10:12 → H.ERHOLD 12:10 → H.EROBSV 12:10 → UNDOADMOB 12:10 → H.ERHOLD 17:07 → H.EROBSV 17:07 → INTOOBSV 17:07 → OBSVTOIN 17:07 → H.TEL 18:51 → H.MEDSURG1 11-23 15:42
PROVIDERS: ADMIT Internal Medicine; ATTEND Internal Medicine
PROC: 0W9J30Z Drainage of Pelvic Cavity with Drainage Device, Percutaneous Approach (ICD-10-PCS; 2016-11-18)
PROC: 30233N1 Transfusion of Nonautologous Red Blood Cells into Peripheral Vein, Percutaneous Approach (ICD-10-PCS; 2016-11-18)
PROC: 3E04329 Introduction of Other Anti-infective into Central Vein, Percutaneous Approach (ICD-10-PCS; 2016-11-20)
PROC: 02HV33Z Insertion of Infusion Device into Superior Vena Cava, Percutaneous Approach (ICD-10-PCS; 2016-11-20)
PROC: B518YZA Fluoroscopy of Superior Vena Cava using Other Contrast, Guidance (ICD-10-PCS; 2016-11-20)
PROC: 0W9H30Z Drainage of Retroperitoneum with Drainage Device, Percutaneous Approach (ICD-10-PCS; 2016-11-24)
PROC: 0TP98DZ Removal of Intraluminal Device from Ureter, Via Natural or Artificial Opening Endoscopic (ICD-10-PCS; principal; 2016-12-01 11:00)
PROC: 0WPF30Z Removal of Drainage Device from Abdominal Wall, Percutaneous Approach (ICD-10-PCS; 2016-12-12)
DX: A41.9 Sepsis, unspecified organism (principal); K68.19 Other retroperitoneal abscess; K50.914 Crohn's disease, unspecified, with abscess; N13.39 Other hydronephrosis; L02.211 Cutaneous abscess of abdominal wall; L02.31 Cutaneous abscess of buttock; B96.20 Unspecified Escherichia coli [E. coli] as the cause of diseases classified elsewhere; K21.9 Gastro-esophageal reflux disease without esophagitis; Z87.442 Personal history of urinary calculi